=== PATIENT | male | born 1945 | race Caucasian/White ===

== ENCOUNTER 2024-05-24 08:43 | Inpatient (IN) ==
--- NOTE | 2024-05-24 09:12 | Emergency Department Note ---
Impression & Plan Acute alteration in mental status, End stage renal disease on dialysis, Cellulitis ED Provider Note NAME: FIFI LEYVA AGE: 78 SEX: M : 1945 ARRIVES VIA: Ambulance INFORMANT: Patient, EMS ED PROVIDER(S): Alban Toscano DO CHIEF COMPLAINT: Altered mental status HPI: The patient is a 78-year-old male who presented to the emergency department with altered mental status. The patient is not able to give any information but he did come from [facility] where he is currently getting inpatient rehab. He does have a history of renal failure dependent on dialysis. The patient is being treated for multiple wounds on both lower extremities. He did not have a full round of dialysis according to his prehospital personnel. There is no reported fever. There is no reported trauma. ROS: See above HPI for pertinent positives & negatives. A total of 10 systems reviewed and were otherwise negative. PAST MEDICAL HISTORY: See Below PAST SURGICAL HISTORY: See Below FAMILY HISTORY: See Below SOCIAL HISTORY: See Below HOME MEDICATIONS: See Below ALLERGIES: See Below VITALS: See Below PHYSICAL EXAMINATION: GENERAL: the patient is listless and slow to respond to questions. He does not respond appropriately. EYES: The conjunctivae are clear. The pupils are round and reactive. EARS, NOSE, MOUTH AND THROAT: The nose is without any evidence of any deformity. Mucous membranes are dry. NECK: The neck is nontender and supple. RESPIRATORY: Diminished breath sounds are noted throughout. CARDIOVASCULAR: Regular rate and rhythm noted there no murmurs rubs or gallops normal S1 normal S2. GASTROINTESTINAL: The abdomen is soft. Abdomen is nontender. MUSCULOSKELETAL/EXTREMITIES: There is no evidence of gross deformity full range of motion is noted in the hips and shoulders. SKIN: Chronic venous stasis changes were noted. Wound dressings were in place. There was some skin breakdown on the left arm. There is a dialysis catheter in the right side of the chest. NEUROLOGIC: Patient is awake to loud verbal commands. He does not answer questions appropriately. I am unable to assess orientation at this time. Strength was diminished. MEDICAL DECISION MAKING: The patient is a 78-year-old male who presented to the emergency department for an evaluation of altered mental status. The patient is currently at [facility]. The patient started having dialysis at the beginning of the year. He has multiple medical problems. Apparently his mental status has been declining especially over the course the last several days. He was sent to the emergency department today for further evaluation. I discussed the patient's laboratory and radiographic studies with the on-call [facility] hospitalist. The patient was treated with a small fluid bolus as well as IV antibiotics in emergency department. They have agreed to evaluate the patient in the emergency department for further management and disposition. Triage Nursing notes reviewed. Prior medical records reviewed Vital Signs: reviewed and remarkable for no significant abnormalities Differential diagnosis: Infection, hypoglycemia, electrolyte abnormalities, overdose, toxicologic, cardiac sources, intracerebral event, neurologic, trauma, as well as other pathologies. ER treatment provided: See below Diagnostics interpreted by me: ECG: EKG was obtained in the emergency department. My interpretation is sinus rhythm with first-degree AV block at 96 bpm. Right bundle branch block pattern was noted. Nonspecific ST depressions were noted. Cardiac Monitoring: An order was placed for continuous cardiac monitoring. The monitor shows a rate of 89 bpm with sinus rhythm. Laboratory studies: As stated above and show below. Imaging studies: See below. Radiographic imaging was reviewed by myself Consultation(s): I discussed this case with Dr. Gaines [facility] Past Med/Surg History Problem List (Updated 05/24/24 @ 11:58 by Alban Toscano DO) Cellulitis (Acute) Acute alteration in mental status (Acute) Wound of sacral region Multiple open wounds of upper extremity Multiple open wounds of lower extremity, complicated Insulin-requiring or dependent type II diabetes mellitus Severe aortic stenosis Acute on chronic systolic (congestive) heart failure Acute metabolic encephalopathy Severe sepsis due to methicillin resistant Staphylococcus aureus (MRSA) with acute organ dysfunction MRSA bacteremia Vascular dementia Peripheral arterial occlusive disease End stage renal disease on dialysis (Acute) Chronic systolic heart failure Medical History (Updated 05/24/24 @ 11:58 by Alban Toscano DO) Aortic stenosis CVA (cerebral vascular accident) DDD (degenerative disc disease) Hyperlipidemia Hypertension NSTEMI (non-ST elevated myocardial infarction) Diabetes Heart failure Renal failure Surgical History (Updated 05/24/24 @ 09:12 by Alban Toscano DO) History of total right hip arthroplasty Social History Smoking Status: Unknown if ever smoked Preferred Language: Guamanian Gender Identity: Male Allergies Allergies Allergy/AdvReac Type Severity Reaction Status Date / Time No Known Allergies Allergy Unverified 05/24/24 09:52 Home Meds Home Medications Medication Instructions Recorded Confirmed fenofibrate 160 mg tablet 160 mg PO DAILY 05/24/24 gabapentin 100 mg capsule 100 mg PO UD 05/24/24 insulin degludec 200 unit/mL (3 unit subcut 05/24/24 mL) subcutaneous pen (Tresiba FlexTouch U-200 insulin) midodrine 5 mg tablet 5 mg PO TID PRN Other 05/24/24 oxycodone 5 mg tablet 2.5 mg PO TID 05/24/24 sodium bicarbonate 650 mg tablet 650 mg PO DAILY 05/24/24 temazepam 30 mg capsule 30 mg PO HS PRN Insomnia 05/24/24 Results & Data (ED) Vital Signs Vital Signs - 24 hr 05/24/24 08:44 05/24/24 09:14 05/24/24 09:47 Temperature 37.3 C Temperature Source Rectal Pulse Rate 88 89 Respiratory Rate 13 Blood Pressure 90/69 L Blood Pressure Mean 76 Pulse Oximetry 99 Oxygen Delivery Method Nasal Cannula Nasal Cannula Oxygen Flow Rate 2 2 Sepsis Recent Fever Within 48 Hours No Sepsis New/Unexplained Change in Mental Status Yes Sepsis Action Taken by Nursing Physician Notified 05/24/24 10:00 Temperature Temperature Source Pulse Rate Respiratory Rate Blood Pressure 104/67 Blood Pressure Mean 83 Pulse Oximetry Oxygen Delivery Method Oxygen Flow Rate Sepsis Recent Fever Within 48 Hours Sepsis New/Unexplained Change in Mental Status Sepsis Action Taken by Jail Medications Current Medication List: was personally reviewed by me Laboratory Data Attestation: I reviewed the patient's lab results. 05/24/24 10:18 05/24/24 09:02 Lab Results 05/24/24 05/24/24 Range/Units 09:02 10:18 WBC 7.67 (4.8-10.8) K/ul RBC 2.51 L (4.70-6.10) M/uL Hgb 8.2 L (14.0-18.0) g/dl Hct 26.9 L (42.0-52.0) % MCV 107.2 H (80.0-100.0) fL MCH 32.7 (25.0-34.0) pg MCHC 30.5 L (32.0-36.0) g/dL RDW Std Deviation 75.6 H (36.4-46.3) fL RDW Coeff of Elayne 19.5 H (11.5-14.5) % Plt Count 161 (130-400) K/uL MPV 11.0 (9.4-12.4) fL Immature Gran % (Auto) 0.4 % Neut % (Auto) 75.7 % Lymph % (Auto) 10.0 % Darke % (Auto) 10.0 % Eos % (Auto) 3.1 % Baso % (Auto) 0.8 % Neut # (Auto) 5.80 (1.40-6.50) K/uL Lymph # (Auto) 0.77 L (1.20-3.40) K/uL Darke # (Auto) 0.77 H (0.11-0.59) K/uL Eos # (Auto) 0.24 (0.00-0.50) K/uL Baso # (Auto) 0.06 (0.00-0.20) K/uL Immature Gran # (Auto) 0.03 (0.01-0.20) K/uL Absolute Nucleated RBC 0.03 (0.00-0.12) K/uL Nucleated RBC % (auto) 0.4 % PT 14.9 H (9.0-12.0) Seconds INR 1.4 H (0.9-1.1) APTT 38 H (21-31) Seconds PTT Ratio 1.4 VBG pH 7.29 L (7.36-7.41) VBG pCO2 53 H (38-50) mmHg VBG pO2 55 mmHg VBG HCO3 26 mmol/L VBG O2 Saturation 84.9 % VBG Base Excess -1.9 mEq/L Sodium 134 L (136-145) mmol/L Potassium 5.5 H (3.5-5.1) mmol/L Chloride 94 L (98-107) mmol/L Carbon Dioxide 28 (21-32) mmol/L Anion Gap 12 H (3-11) BUN 82 H (6-23) mg/dl Creatinine 4.91 H* (0.6-1.4) mg/dl Est Cr Clr Drug Dosing 15.6 ml/min eGFR 11.41 BUN/Creatinine Ratio 16.7 (10-20) Glucose 111 H (70-99(Fasting)) mg/dl Lactate 1.4 (0.4-2.0) mmol/L Calcium 8.5 L (8.6-10.3) mg/dl Magnesium 2.0 (1.7-2.4) mg/dl Total Bilirubin 2.4 H (0.2-1.0) mg/dl Direct Bilirubin 1.6 H (0-0.2) mg/dl AST 39 (13-39) U/L ALT 20 (7-52) U/L Alkaline Phosphatase 86 (34-104) U/L Ammonia 46.0 (18-72) umol/L Troponin I High Sens 61.4 H* 66.7 H* (0-20) pg/ml Total Protein 6.1 (6.0-8.3) gm/dl Albumin 3.0 L (3.4-5.0) gm/dl Procalcitonin 3.12 H (0-0.5) ng/ml SARS-CoV-2 (PCR) NEGATIVE (Negative) Influenza Type A (PCR) Negative (Neg) Influenza Type B (PCR) Negative (Neg) RSV (RT-PCR) Negative (Neg) Administered Medications Discontinued Medications Sodium Chloride (Nss) 500 mls @ 999 mls/hr IV .Q31M ONE Stop: 05/24/24 10:40 Last Infusion: 05/24/24 11:32 Dose: Infused Documented By: Admin: 05/24/24 10:20 Dose: 999 mls/hr Documented By: CEF Piperacillin Sod/Tazobactam Sod (Zosyn) 4.5 gm in 100 mls @ 200 mls/hr IV NOW ONE; Protocol Stop: 05/24/24 10:39 Last Admin: 05/24/24 10:25 Dose: 200 mls/hr Documented By: CEF Imaging Data Attestation: I personally reviewed and interpreted this imaging study as follows: My Impression: 1 view chest x-ray was obtained in the emergency department. My interpretation is volume overload, final report below. CT of the brain was obtained in the emergency department. My interpretation is no intracranial hemorrhage or mass effect, final report below. Radiologist's Impression: Chest X-Ray 05/24/24 08:49 EXAM: Radiograph of the Chest 1 View INDICATION: Confusion TECHNIQUE: Frontal view of the chest. COMPARISON: No relevant prior studies available. FINDINGS: Lungs and pleural spaces: Patchy airspace disease and interstitial thickening in both lungs right greater than left. Small bilateral pleural effusions noted. No pneumothorax. Heart: Large cardiac shadow. Mediastinum: Question calcified subcarinal lymph node measuring 2 cm. Bones/joints: No fracture, erosion or dislocation. Soft tissues: No abnormality noted. No radiopaque foreign body noted. Tubes, lines and devices: Right internal jugular catheter terminates approximately 4.5 cm distal to the cavoatrial junction. Upper abdomen: No abnormality noted. IMPRESSION: 1. CHF and/or pneumonia. 2. Lines and tubes as above. 3. Question calcified subcarinal lymph node measuring 2 cm. ACT 112: N/A Electronically signed by Cheryl Carpenter 05-24-2024 10:[address] 05/24/24 08:49 EXAM: CT Head Without Intravenous Contrast INDICATION: Lethargy. Altered mental status. TECHNIQUE: Axial computed tomography images of the head/brain without intravenous contrast. Sagittal and/or coronal reformats are provided. Sagittal and coronal reformatted images were created and reviewed. This CT exam was performed using one or more of the following dose reduction techniques: automated exposure control, adjustment of the mA and/or kV according to patient size, and/or use of iterative reconstruction technique. COMPARISON: No relevant prior studies available. FINDINGS: Limitations: None. Brain and extra-axial spaces: There is age appropriate cortical atrophy and chronic ischemic periventricular white matter hypodensity. No acute infarct, hemorrhage or mass noted. Bones/joints: No acute changes. Soft tissues: No significant abnormality noted. Vasculature: There is intracranial atherosclerosis. Sinuses: Layering low-density fluid right maxillary sinus. Mastoid air cells: No mastoid effusion. Orbits: No significant abnormality noted. IMPRESSION: 1. Cerebral atrophy. No acute changes. 2. Partially imaged acute right maxillary sinusitis. ACT 112: N/A Electronically signed by Cheryl Carpenter 05-24-2024 10:00 AM Discharge Plan Visit Data Chief Complaint: Altered Mental Status Stated Complaint: AMS, LATHARGIC ED Provider: Alban Toscano Discharge Problem: Acute alteration in mental status, End stage renal disease on dialysis, Cellulitis Patient Disposition: Being Evaluated by Hospitalist Forms Stand Alone Forms: [facility] Prescriptions Prescriptions: No Action midodrine 5 mg tablet 5 mg PO TID PRN (Reason: Other) Rx Instructions: only take if systolic bp below 80 temazepam 30 mg capsule 30 mg PO HS PRN (Reason: Insomnia) sodium bicarbonate 650 mg tablet 650 mg PO DAILY gabapentin 100 mg capsule 100 mg PO UD Rx Instructions: 1 cap po hs. Can take additional 1 cap 3 days a week in afternoon after hemodialysis oxycodone 5 mg tablet 2.5 mg PO TID MDD 1.5 tabs fenofibrate 160 mg tablet 160 mg PO DAILY insulin degludec [Tresiba FlexTouch U-200] 200 unit/mL (3 mL) insulin pen SUBCUT Referrals Referrals: Eva Hernandez MD [Primary Care Provider] -
[2024-05-24 09:50] LABS: BUN Creatinine Ratio 16.7 (10-20); Bilirubin Direct 1.6 mg/dl (0-0.2); Bilirubin,Total 2.4 mg/dl (0.2-1.0); Calcium 8.5 mg/dl (8.6-10.3); Creatinine Clr Calc Pharmacy 15.6 ml/min; Potassium 5.5 mmol/L (3.5-5.1); Total Protein 6.1 gm/dl (6.0-8.3)
[2024-05-24 09:53] LABS: Influenza A virus by PCR Negative (Neg); Influenza B virus by PCR Negative (Neg); RSV by PCR Negative (Neg); SARS CoV2 RNA(COVID-19) Ceph NEGATIVE (Negative)
[2024-05-24 09:56] LABS: Troponin I High Sensitivity 61.4 pg/ml (0-20)
--- NOTE | 2024-05-24 10:00 | CT Scan Report ---
EXAM: CT Head Without Intravenous Contrast INDICATION: Lethargy. Altered mental status. TECHNIQUE: Axial computed tomography images of the head/brain without intravenous contrast. Sagittal and/or coronal reformats are provided. Sagittal and coronal reformatted images were created and reviewed. This CT exam was performed using one or more of the following dose reduction techniques: automated exposure control, adjustment of the mA and/or kV according to patient size, and/or use of iterative reconstruction technique. COMPARISON: No relevant prior studies available. FINDINGS: Limitations: None. Brain and extra-axial spaces: There is age appropriate cortical atrophy and chronic ischemic periventricular white matter hypodensity. No acute infarct, hemorrhage or mass noted. Bones/joints: No acute changes. Soft tissues: No significant abnormality noted. Vasculature: There is intracranial atherosclerosis. Sinuses: Layering low-density fluid right maxillary sinus. Mastoid air cells: No mastoid effusion. Orbits: No significant abnormality noted. IMPRESSION: 1. Cerebral atrophy. No acute changes. 2. Partially imaged acute right maxillary sinusitis. ACT 112: N/A Electronically signed by Cheryl Carpenter 05-24-2024 10:00 AM
--- NOTE | 2024-05-24 10:05 | XRay Report ---
EXAM: Radiograph of the Chest 1 View INDICATION: Confusion TECHNIQUE: Frontal view of the chest. COMPARISON: No relevant prior studies available. FINDINGS: Lungs and pleural spaces: Patchy airspace disease and interstitial thickening in both lungs right greater than left. Small bilateral pleural effusions noted. No pneumothorax. Heart: Large cardiac shadow. Mediastinum: Question calcified subcarinal lymph node measuring 2 cm. Bones/joints: No fracture, erosion or dislocation. Soft tissues: No abnormality noted. No radiopaque foreign body noted. Tubes, lines and devices: Right internal jugular catheter terminates approximately 4.5 cm distal to the cavoatrial junction. Upper abdomen: No abnormality noted. IMPRESSION: 1. CHF and/or pneumonia. 2. Lines and tubes as above. 3. Question calcified subcarinal lymph node measuring 2 cm. ACT 112: N/A Electronically signed by Cheryl Carpenter 05-24-2024 10:04 AM
[2024-05-24 10:08] LABS: INR 1.4 (0.9-1.1); Partial Thromboplastin Ratio 1.4; Partial Thromboplastin Time 38 Seconds (21-31); Prothrombin Time 14.9 Seconds (9.0-12.0)
[2024-05-24] MEDS: SODIUM CHLORIDE 0.9% 500 ML IV ONE (10:20)
[2024-05-24] MEDS: PIPERACILLIN/TAZOBACTAM 4.5 GM/100 ML BAG IV ONE (10:25)
[2024-05-24 10:29] LABS: Base Excess VBG -1.9 mEq/L; HCO3 VBG 26 mmol/L; Oxygen Saturation VBG 84.9 %; PCO2 VBG 53 mmHg (38-50); PO2 VBG 55 mmHg; pH VBG 7.29 (7.36-7.41)
[2024-05-24 10:36] LABS: Basophils # (auto) 0.06 K/uL (0.00-0.20); Basophils % (auto) 0.8 %; Eosinophils # (auto) 0.24 K/uL (0.00-0.50); Eosinophils % (auto) 3.1 %; Hematocrit (blood only) 26.9 % (42.0-52.0); Hemoglobin 8.2 g/dl (14.0-18.0); Immature Granulocytes # (auto) 0.03 K/uL (0.01-0.20); Immature Granulocytes % (auto) 0.4 %; Lymphocytes # (auto) 0.77 K/uL (1.20-3.40); Mean Corpuscular Hemoglobin 32.7 pg (25.0-34.0); Mean Corpuscular Hgb Conc 30.5 g/dL (32.0-36.0); Mean Corpuscular Volume 107.2 fL (80.0-100.0); Monocytes # (auto) 0.77 K/uL (0.11-0.59); Neutrophils % (auto) 75.7 %; Nucleated RBC # (auto) 0.03 K/uL (0.00-0.12); Nucleated RBC % (auto) 0.4 %; Platelet Count 161 K/uL (130-400); RDW Coefficient of Variation 19.5 % (11.5-14.5); RDW Standard Deviation 75.6 fL (36.4-46.3); Red Blood Count 2.51 M/uL (4.70-6.10); White Blood Count 7.67 K/ul (4.8-10.8)
[2024-05-24] MEDS ORDERED: VANCOMYCIN CONSULT ACTIVE PRN (11:02)
[2024-05-24] MEDS: VANCOMYCIN HCL 2,000 MG in SODIUM CHLORIDE 0.9% 500 ML IV ONE (11:55)
--- NOTE | 2024-05-24 11:55 | History & Physical Report ---
Date of Service May 24, 2024 Assessment & Plan (1) Severe sepsis due to methicillin resistant Staphylococcus aureus (MRSA) with acute organ dysfunction: (2) Acute metabolic encephalopathy: (3) Acute on chronic systolic (congestive) heart failure: (4) Severe aortic stenosis: (5) Insulin-requiring or dependent type II diabetes mellitus: (6) Peripheral arterial occlusive disease: (7) Multiple open wounds of lower extremity, complicated: (8) Multiple open wounds of upper extremity: (9) Wound of sacral region: (10) End stage renal disease on dialysis: (11) Vascular dementia: Plan Patient is a 78-year-old gentleman end-stage renal disease on hemodialysis critically ill from presumed sepsis at this point. Based on patient's previous history, high concern for MRSA bacteremia from multiple skin wounds and possible osteomyelitis of the left foot. Patient is demonstrating endorgan effects from his sepsis with hypotension above and beyond his baseline, disorientation and confusion and encephalopathy. Patient requires hospital level care and monitoring. He is at high risk for further decompensation as medical conditions and high risk of more significant morbidity and mortality. Admit to a monitored unit Broad-spectrum antibiotics Follow blood cultures MRI of the foot to rule out osteomyelitis Consult podiatry for further evaluation of foot wounds Consult wound care nurse for overall care of his multiple wounds Consult nephrology for hemodialysis needs Reviewing patient's medication list on several medications that could alter mental status including gabapentin, lorazepam, temazepam-will hold these medications and observe. Continue long-acting and short acting insulin, consult pharmacy for diabetes management Continue midodrine for blood pressure support as prior to admission Confirm with daughter full CODE STATUS History of Present Illness Chief Complaint: Encephalopathy Primary Care Provider: Eva Hernandez MD Patient is a 78-year-old gentleman who is chronically ill and currently at [facility] for rehabilitation. Send [facility] emergency department due to the fact that he seemed to be more confused this morning. He did not eat his meals this morning and seem to have been declining over the last 24 hours. In the emergency room he was initially mildly hypotensive and was worked up for sepsis. Laboratory studies were significant for electrolyte abnormalities and renal dysfunction consistent with his end-stage renal disease. Troponin was elevated but lower than he had previously based on documents sent from [facility]. Procalcitonin was elevated, difficult to interpret in the setting of his end-stage renal disease. Head CT was unremarkable for acute findings. Chest x-ray was concerning for volume overload. Due to the patient's encephalopathy and diffuse and numerous wounds on the legs and arms concern for sepsis due to these wounds and was referred to our service for further evaluation. Time my evaluation the patient is confused and unable to contribute to his history at all. I did review documents from [facility]. Patient's daughter then did arrive at the bedside. She was able to give some additional history. Patient health started to decline significantly at the beginning of this year. He was started on hemodialysis in February. Patient had known wounds on his feet and apparently was on several courses of oral antibiotics in February and early March for foot wound infections. In March he had a hospitalization at [facility] for MRSA bacteremia from his foot wounds. He was treated with IV antibiotics through dialysis. He was discharged home and completed his antibiotics outpatient from that hospitalization. Shortly thereafter he returned to [facility] in early April for severe weakness and ambulatory dysfunction. He was again admitted to the hospital. According to his daughter they did not seem to find any infectious process at that time however, the patient was just severely deconditioned. The patient was transferred to [facility] rehab on May 16, 2024 for rehabilitation. [facility] that time. Throughout the course of these hospitalizations the patient did have evaluations by podiatry. He did have vascular evaluation of the left lower extremity. He was deemed to be not a candidate for vascular surgery intervention on the day of left lower extremity due to his overall medical issues. Known to have decreased ejection fraction of approximately 30 to 35% and significant aortic stenosis. He is deemed not a candidate for any type of cardiac interventions as well. He has continued with hemodialysis. It is reported on Saturday his last hemodialysis session they were unable to remove any fluid and sounds like they did ultrafiltration only due to the fact that he was hypotensive. Daughter at the bedside states that over the past several months they have had problems maintaining adequate blood pressure. He is on midodrine. She states that he often gets hypotensive overnight and wakes up extremely confused and disoriented in the morning. She states that he appears very similar today as to when this occurs. She states at baseline his orientation can wax and wane. He does have some slurred speech at baseline. Does have a history of previous stroke. She also reports that he is exhibiting signs of vascular dementia with "sundowning" symptoms occurring in the evening's. Daughter did confirm full CODE STATUS Allergies Allergy/AdvReac Type Severity Reaction Status Date / Time No Known Allergies Allergy Unverified 05/24/24 09:52 Home Medications Medication Instructions Recorded Confirmed Type fenofibrate 160 mg tablet 160 mg PO DAILY 05/24/24 History gabapentin 100 mg capsule 100 mg PO UD 05/24/24 History insulin degludec 200 unit/mL (3 unit subcut 05/24/24 History mL) subcutaneous pen (Tresiba FlexTouch U-200 insulin) midodrine 5 mg tablet 5 mg PO TID PRN Other 05/24/24 History oxycodone 5 mg tablet 2.5 mg PO TID 05/24/24 History sodium bicarbonate 650 mg tablet 650 mg PO DAILY 05/24/24 History temazepam 30 mg capsule 30 mg PO HS PRN Insomnia 05/24/24 History Past Med/Surg History Problem List (Updated 05/24/24 @ 11:48 by Castillo Ervin DO) Wound of sacral region Multiple open wounds of upper extremity Multiple open wounds of lower extremity, complicated Insulin-requiring or dependent type II diabetes mellitus Severe aortic stenosis Acute on chronic systolic (congestive) heart failure Acute metabolic encephalopathy Severe sepsis due to methicillin resistant Staphylococcus aureus (MRSA) with acute organ dysfunction MRSA bacteremia Vascular dementia Peripheral arterial occlusive disease End stage renal disease on dialysis Chronic systolic heart failure Medical History (Updated 05/24/24 @ 11:48 by Castillo Ervin DO) Aortic stenosis CVA (cerebral vascular accident) DDD (degenerative disc disease) Hyperlipidemia Hypertension NSTEMI (non-ST elevated myocardial infarction) Diabetes Heart failure Renal failure Surgical History (Updated 05/24/24 @ 09:12 by Alban Toscano DO) History of total right hip arthroplasty Social History Smoking Status: Unknown if ever smoked Preferred Language: Setswana Gender Identity: Male Review of Systems Review of Systems: Unobtainable from patient due to his encephalopathy Physical Exam Physical Exam: Constitutional: Drowsy, ill in appearance, delirious HEENT: Mucous membranes dry. Sclera clear Neck: Soft, no adenopathy Lungs: Decreased breath sounds, diffuse Rales and crackles throughout CV: S1-S2, regular, systolic murmur Abdomen: Soft, nontender, nondistended, abdominal pannus edema Extremities: Thick pitting anasarca edema lower extremities up through the thighs into dependent portions of the sacrum Musculoskeletal: No significant joint tenderness Neuro: Generally weak, slurred speech, disoriented Psych: Cooperative Derm: Patient has multiple arterial wound ulcerations of the left foot with thick eschars and surrounding erythema. Multiple other ulcerations/wounds/skin tears/abrasions on upper and lower extremities and sacrum Results & Data Results & Data Vital Signs (Past 12 Hours) Vital Signs Temp Pulse Resp BP Pulse Ox O2 Del Method O2 Flow Rate 05/24/24 10:00 104/67 05/24/24 09:47 Nasal Cannula 2 05/24/24 09:14 89 05/24/24 08:44 37.3 C 88 13 90/69 L 99 Nasal Cannula 2 Diagnostic Findings Reviewed imaging, laboratory and diagnostic studies. Pertinent findings as below. Personally reviewed chest x-ray, bilateral pulmonary congestion Reviewed head CT report, evidence of previous infarct, no acute changes Respiratory viral panel negative Procalcitonin 3.1 Troponin 66.7, this is lower than previously reported Creatinine 4.9 BUN 82 Potassium 5.5 Sodium 134 Venous blood gas reviewed INR 1.4 WBCs 7.6 Hemoglobin 8.2 Platelets of 161 Reviewed outside EMR, previous encounters in [facility] or from 2022. This was prior to patient starting hemodialysis. Extensively reviewed documents sent from [facility]. Reviewed attending physician notes. Reviewed medication list. Reviewed laboratory studies, reviewed echocardiogram report. Reported echocardiogram shows ejection fraction 30 to 35%, severe aortic stenosis, grade 2 diastolic dysfunction, diffuse global hypokinesis. Left lower extremity angiogram performed April 2024 did show some stenosis, however not a candidate for any type of vascular intervention due to his significant cardiac comorbidity. Previous troponins have been as high as 2147. Code Status & VTE Plan VTE Prophylaxis Plan VTE Prophylaxis will be ordered: Yes
--- OUTSIDE RECORDS SUMMARY | 2024-05-24 13:39 | External Medical Summary ---
Author Name Unknown Address Unknown Organization [id number]:[facility] [address] [place] [address] Laboratory Report Ordering Provider Test Date Status HY,DEPAMPHILIS 05/24/2024 06:18:36 Final Observation Date Value Abnormality Reference (Units ) Status BUN 05/24/2024 06:18:36 80 Above high normal 6-20 (mg/dL) Final Creatinine 05/24/2024 06:18:36 4.5 Above high normal 0.6-1.2 (mg/dL) Final Glomerular filtration rate/1.73 sq M.predicted [Volume Rate/Area] in Serum, Plasma or Blood by Creatinine-based formula (CKD-EPI) 05/24/2024 06:18:36 13 Below low normal >=60 (mL/min) Final eGFR is calculated based on the CKD-EPI 2020 equation. Sodium 05/24/2024 06:18:36 133 Below low normal 135 -146 (mmol/L) Final Potassium 05/24/2024 06:18:36 5.4 Above high normal 3. 5-5.1 (mmol/L) Final Cl 05/24/2024 06:18:36 94 Below low normal 98- 107 (mmol/L) Final CO2 05/24/2024 06:18:36 25 22-32 (mmo l/L) Final Anion gap 05/24/2024 06:18:36 14 7-15 (mmol /L) Final Glucose 05/24/2024 06:18:36 104 70-120 (mg /dL) Final Calcium 05/24/2024 06:18:36 8.6 8.4-10.2 ( mg/dL) Final Performing Location [facility] [address] [place] [id number]
--- OUTSIDE RECORDS SUMMARY | 2024-05-24 13:39 | External Medical Summary ---
Author Name Unknown Address Unknown Organization [id number]:[facility] [address] [place] [address] Laboratory Report Ordering Provider Test Date Status HY,DEPAMPHILIS 05/24/2024 06:18:36 Final Observation Date Value Abnormality Reference (Units ) Status WBC, Total 05/24/2024 06:18:36 8.11 4.00-10.8 0 (K/uL) Final RBC 05/24/2024 06:18:36 2.60 4.50-5.25 (M/uL) Final Hemoglobin 05/24/2024 06:18:36 8.6 Below low normal 14 .0-16.8 (g/dL) Final HCT 05/24/2024 06:18:36 28.5 Below low normal 40. 0-48.4 (%) Final MCV 05/24/2024 06:18:36 109.6 82.0-99.5 (fL) Final MCH 05/24/2024 06:18:36 33.1 27.0-34.0 (pg) Final MCHC 05/24/2024 06:18:36 30.2 32.0-36.0 (g/dL) Final RDW 05/24/2024 06:18:36 19.9 11.5-15.5 (%) Final Platelets 05/24/2024 06:18:36 168 140-400 (K /uL) Final MPV 05/24/2024 06:18:36 10.9 6.6-11.1 ( fL) Final Performing Location [facility] [address] [place] [address]
--- OUTSIDE RECORDS SUMMARY | 2024-05-24 13:39 | External Medical Summary ---
Author Name Unknown Address Unknown Organization K01:[facility] - [address] [place] [address] Laboratory Report Ordering Provider Test Date Status NORMAN GIRON 05/17/2024 07:51:43 Final Observation Date Value Abnormality Reference (Units ) Status Hep B surface Ag 05/17/2024 07:51:43 Negative Neg ative Final Performing Location [facility] - [address] [place] [address]
--- OUTSIDE RECORDS SUMMARY | 2024-05-24 13:39 | External Medical Summary ---
Author Name Unknown Address Unknown Organization [id number]:LAB[facility]ATORY [facility] [place] - [address] [place] [address] Laboratory Report Ordering Provider Test Date Status NORMAN GIRON 05/17/2024 07:51:43 Final Observation Date Value Abnormality Reference (Units ) Status Iron 05/17/2024 07:51:43 113 45-176 (ug/dL) Final Iron-binding capacity 05/17/2024 07:51:43 218 Below low normal 250-425 (ug/dL) Final Transferrin Sat % 05/17/2024 07:51:43 52 15-55 (%) Final Performing Location LABORATORY [facility] - [address] [place] [address]
--- OUTSIDE RECORDS SUMMARY | 2024-05-24 13:40 | External Medical Summary ---
Author Name Unknown Address Unknown Organization [id number] [address] [place] [address] Laboratory Report Ordering Provider Test Date Status HY,DEPAMPHILIS 05/17/2024 07:51:43 Final Observation Date Value Abnormality Reference (Units ) Status BUN 05/17/2024 07:51:43 56 Above high normal 6-20 (mg/dL) Final Creatinine 05/17/2024 07:51:43 4.8 Above high normal 0.6-1.2 (mg/dL) Final Glomerular filtration rate/1.73 sq M.predicted [Volume Rate/Area] in Serum, Plasma or Blood by Creatinine-based formula (CKD-EPI) 05/17/2024 07:51:43 12 Below low normal >=60 (mL/min) Final eGFR is calculated based on the CKD-EPI 2020 equation. Sodium 05/17/2024 07:51:43 131 Below low normal 135 -146 (mmol/L) Final Potassium 05/17/2024 07:51:43 4.9 3.5-5.1 (m mol/L) Final Cl 05/17/2024 07:51:43 90 Below low normal 98- 107 (mmol/L) Final CO2 05/17/2024 07:51:43 23 22-32 (mmo l/L) Final Anion gap 05/17/2024 07:51:43 18 Above high normal 7- 15 (mmol/L) Final Glucose 05/17/2024 07:51:43 208 Above high normal 70 -120 (mg/dL) Final Calcium 05/17/2024 07:51:43 8.7 8.4-10.2 ( mg/dL) Final Performing Location [facility] [place] [address] [place] [address]
--- OUTSIDE RECORDS SUMMARY | 2024-05-24 13:40 | External Medical Summary ---
Author Name Unknown Address Unknown Organization K01:[facility] - [address] [place] [address] Laboratory Report Ordering Provider Test Date Status NORMAN GIRON 05/17/2024 07:51:43 Final Observation Date Value Abnormality Reference (Units ) Status Ferritin 05/17/2024 07:51:43 960 Above high normal 30 -400 (ng/mL) Final Performing Location [facility] - [address] [place] [address]
--- OUTSIDE RECORDS SUMMARY | 2024-05-24 13:40 | External Medical Summary ---
Author Name Unknown Address Unknown Organization K0G:[facility] [address] [place] [address] Laboratory Report Ordering Provider Test Date Status HY,DEPAMPHILIS 05/17/2024 07:51:43 Final Observation Date Value Abnormality Reference (Units ) Status WBC, Total 05/17/2024 07:51:43 7.61 4.00-10.8 0 (K/uL) Final RBC 05/17/2024 07:51:43 2.71 4.50-5.25 (M/uL) Final Hemoglobin 05/17/2024 07:51:43 9.0 Below low normal 14 .0-16.8 (g/dL) Final HCT 05/17/2024 07:51:43 29.1 Below low normal 40. 0-48.4 (%) Final MCV 05/17/2024 07:51:43 107.4 82.0-99.5 (fL) Final MCH 05/17/2024 07:51:43 33.2 27.0-34.0 (pg) Final MCHC 05/17/2024 07:51:43 30.9 32.0-36.0 (g/dL) Final RDW 05/17/2024 07:51:43 18.7 11.5-15.5 (%) Final Platelets 05/17/2024 07:51:43 210 140-400 (K /uL) Final MPV 05/17/2024 07:51:43 10.8 6.6-11.1 ( fL) Final Performing Location [facility] [address] [place] [address]
--- OUTSIDE RECORDS SUMMARY | 2024-05-24 13:40 | External Medical Summary ---
Author Name Unknown Address Unknown Organization K01:[facility]ATORY [facility] - [address] [place] [address] Laboratory Report Ordering Provider Test Date Status FABIENNE GIRONSHITAL 05/17/2024 07:51:43 Final Observation Date Value Abnormality Reference (Units ) Status Phosphate 05/17/2024 07:51:43 5.4 Above high normal 2. 5-4.8 (mg/dL) Final Performing Location [facility] - [address] [place] [address]
--- NOTE | 2024-05-24 14:00 | XRay Report ---
EXAM: Radiographs of the Orbits Foreign Body INDICATION: MRI clearance TECHNIQUE: Frontal view(s) of the orbits. COMPARISON: No relevant prior studies available. FINDINGS: Bones/joints: No fracture, erosion or dislocation. Sinuses: Moderate air-fluid level in the right maxillary sinus. Soft tissues: Aside from dental fillings and bilateral hearing aids, no foreign body noted. IMPRESSION: 1. Aside from dental fillings and bilateral hearing aids, no foreign body noted. 2. Right maxillary sinusitis. ACT 112: N/A Electronically signed by Cheryl Carpenter 05-24-2024 2:00 PM
[2024-05-24] MEDS ORDERED: ONDANSETRON INJ 2 MG/ML 2 ML VIAL IV PRN (14:18)
[2024-05-24] MEDS ORDERED: DEXTROSE 50% 50 ML SYRINGE IV PRN (14:18)
[2024-05-24] MEDS ORDERED: OLANZapine 10 MG/2.1 ML SDV IM PRN (14:18)
[2024-05-24] MEDS ORDERED: GLUCOSE 10 TAB/TUBE PO PRN (14:18)
[2024-05-24] MEDS ORDERED: GLUCAGON FOR INJ 1 MG VIAL SQ PRN (14:18)
[2024-05-24] MEDS ORDERED: GLUCOSE 40% GEL 15 GM TUBE PO PRN (14:18)
[2024-05-24] MEDS ORDERED: PHARMACY GLYCEMIC MGMT CONSULT PRN (14:18)
[2024-05-24] MEDS ORDERED: CARBOHYDRATES FOR HYPOGLYCEMIA PO PRN (14:18)
--- NOTE | 2024-05-24 14:20 | Pharmacy Report ---
Pharmacy PK ABX Note - Date of Service May 24, 2024 - Assessment and Plan Assessment * 78 year old M on vancomycin for treatment of sepsis 2nd cellulitis r/o osteomyelitis. ED status at this time - ongoing inpatient orders pending. * Pertinent microbiologic data includes: Positive MRSA Nasal Swab * PMH: dialysis dependent since February, recent hx MRSA bacteremia at OSH, recently at [facility] May 16 up until admission here, severe aortic stenosis, dementia, Vancomycin * Will dose via level for HD patient * Target pre-HD level 15-20 mcg/mL * Unclear HD plan for today. Plan Vancomycin * Loading dose: 2000 mg IV x 1 * Random level ordered for tomorrow AM * May need supplemental dose later today if dialyzed. Pending order for later this evening for RN to call pharmacy if patient receives HD Pharmacy will continue to follow and will adjust dose/frequency as necessary. Thank you. Pharmacy has transitioned to AUC monitoring for vancomycin. AUC/CHRIS is the preferred PK/PD target and is associated with decreased risk of nephrotoxicity compared to traditional trough targets.
--- NOTE | 2024-05-24 14:39 | Pharmacy Report ---
Pharmacy Glycemic Short Note 2 - Date of Service May 24, 2024 - Glycemic Short BSG Results (Last 24 hours): 05/24/24 05/24/24 09:02 13:51 Glucose 111 H POC Glucose 130 H OUTPATIENT ANTIDIABETIC REGIMEN: * NovoLog sliding scale, 0-10 units based on blood sugar per med rec * per outpatient fill history - patient on Tresiba, filled in Mar 2024 * A1c pending ASSESSMENT: * 78 YO M, ESRD on HD, critically ill from presumed sepsis, high concern for MRSA bacteremia from multiple skin wounds, possible osteo of left foot on IV Vancomycin. * Type 2 DM, unknown control, A1c pending, patient unable to report how he takes any insulin at this time. * Will begin patient on NovoLog CF & CR only and PRN basal tonight if needed and titrate to goal blood sugar. PLAN FOR INPATIENT GLYCEMIC CONTROL: * Basal insulin * Lantus 15 units SQ HS for BSG 180mg/dl or greater only * Bolus insulin * NovoLog per scale ACHS or Q6hrs while NPO * Goal Range: Low 110 mg/dL - High 140 mg/dL * Correction Factor: 30 mg/dL/unit * Nutritional / Prandial insulin per carb ratio of 1 unit per 12 grams CHO consumed
[2024-05-24] MEDS: MIDODRINE HCL 10 MG TAB PO SCH (15:32)
[2024-05-24] MEDS: MIDODRINE HCL 10 MG TAB PO STA (15:32)
[2024-05-24] MEDS: INSULIN ASPART PER UNIT CHARGE SC SCH (15:33)
[2024-05-24] MEDS: HEPARIN SOD 5,000 UNIT/0.5 ML VIAL SQ SCH (15:36)
--- NOTE | 2024-05-24 16:49 | Nephrology Consultation ---
Date of Consultation May 24, 2024 Assessment & Plan (1) End stage renal disease on dialysis: On Saturday hemodialysis at least at rehab and will plan dialysis for tomorrow. Do not believe that he could go longer without therapy. Outside dialysis labs from May 17: Phosphorus 5.4, TSAT 52%, ferritin 960 Midodrine with dialysis 10 mg and prn albumin Continue Saturday treatment plan >> for tomorrow HD 3.75 hr w/ 350/500 flows and up to 4L UF as tolerated Given location of the catheter on x-ray, suggest vascular consultation for possible repositioning/exchange as indicated Evaluate/rule out CLABSI--which should be covered by empiric vancomycin and pip-tazo >>will make him NPO at tx though doubt w/ him on plavix that he will be able to go to OR before 05/26 if needed; may need TDC exchange anyway if recurrent MRSA bacteremia -continue renal diet w/ fluid limit otherwise Rationale for vascular consultation and suggestion of n.p.o. status /consideration of holding plavix as well as timing of dialysis discussed with Dr. Gaines via [place] text; we are in agreement. (2) Acute on chronic systolic (congestive) heart failure: Volume overload with anasarca and pulmonary edema: Will attempt as aggressive as tolerated UF tomorrow with Midodrine on board Started fluid limit of 1.2 L daily (3) Multiple open wounds of lower extremity, complicated: On empiric vancomycin and pip-tazo Follow-up wound care consults (4) Anemia in ESRD (end-stage renal disease): On May 17, TSAT 52% and ferritin 960. Hemoglobin today 8.2 No iron therapy indicated with treatment but will give max dose epo History of Present Illness Reason for Consultation: ESRD/HD - encephalopathy, anasarca Requesting Physician: Dr Ervin Attending Physician: Castillo Ervin, DO History of Present Illness 78-year-old male whom I am asked to evaluate for ESRD on dialysis with encephalopathy and anasarca was admitted today from rehab with concerns for sepsis after developing lethargy and new hypoxia in the setting of concern for left foot osteomyelitis or other infection. 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 He started hemodialysis in February 2024. Prior to rehab, he had 2 recent hospital admissions: 1. [facility] April 16 to 2024 for lower extremity wound on the left with MRSA bacteremia 2. April 30 to the 2024 [facility] with ambulatory dysfunction and acute metabolic encephalopathy. Ejection fraction at that hospitalization noted to be 30 to 35% with severe aortic stenosis and moderate aortic insufficiency. My partner had evaluated the patient at rehab on May 21 and noted that the patient was confused at that time and complained of diffuse pain with 3+ edema in left foot infection noted. Broad-spectrum antibiotics were begun once cultures were collected. MRI of the foot is planned and both podiatry and wound care have been consulted. Allergies Allergy/AdvReac Type Severity Reaction Status Date / Time No Known Allergies Allergy Unverified 05/24/24 09:52 Home Medications Medication Instructions Recorded Confirmed Type acetaminophen 325 mg tablet 650 mg PO Q4H PRN Pain 05/24/24 05/24/24 History acetaminophen 500 mg tablet 500 mg PO Q4H PRN TEMP=>100.5 05/24/24 05/24/24 History atorvastatin 40 mg tablet 80 mg PO HS 05/24/24 05/24/24 History bisacodyl 10 mg rectal suppository 10 mg SC DAILY PRN Constipation 05/24/24 05/24/24 History cholecalciferol (vitamin D3) 50 50 mcg PO DAILY 05/24/24 05/24/24 History mcg (2,000 unit) capsule (Vitamin D3) clopidogrel 75 mg tablet (Plavix) 75 mg PO DAILY 05/24/24 05/24/24 History collagenase clostridium histo. 250 1 applic topical .MON,SAT,Saturday05/24/24 05/24/24 History unit/gram topical ointment darbepoetin mary jane in polysorbat 60 60 mcg subcut WK 05/24/24 05/24/24 History mcg/0.3 mL in polysorbate injection syringe (Aranesp) dextrose 50 % in water (D50W) 12.5 g IV DIRECTED PRN 05/24/24 05/24/24 History Hypoglycemia dextrose 50 % in water (D50W) 50 ml IV DIRECTED PRN 05/24/24 05/24/24 History Hypoglycemia diphenhydramine HCl 12.5 mg IV DIRECTED PRN DIALYSIS 05/24/24 05/24/24 History docusate sodium 100 mg capsule 100 mg PO BID PRN Constipation 05/24/24 05/24/24 History enoxaparin 30 mg/0.3 mL 30 mg subcut DAILY 05/24/24 05/24/24 History subcutaneous syringe fenofibrate 160 mg tablet 145 mg PO DAILY 05/24/24 05/24/24 History gabapentin 100 mg capsule 100 mg PO .MON,SAT,Saturday05/24/24 05/24/24 History gabapentin 100 mg capsule 100 mg PO Q12H 05/24/24 05/24/24 History glucagon 1 mg solution for 1 mg IM DIRECTED PRN 05/24/24 05/24/24 History injection Hypoglycemia heparin (porcine) 1,000 unit/mL 1,800 unit IV DIRECTED PRN 05/24/24 05/24/24 History injection solution DIALYSIS insulin aspart U-100 100 unit/mL 1 sliding scale dose subcut 05/24/24 05/24/24 History (3 mL) subcutaneous pen (Novolog USEASDIRECTD FlexPen U-100 Insulin aspart) lorazepam 0.5 mg tablet (Ativan) 0.5 mg PO Q6H PRN Agitation 05/24/24 05/24/24 History midodrine 5 mg tablet 10 mg PO TID 05/24/24 05/24/24 History ondansetron HCl 4 mg tablet 4 mg PO Q6H PRN N/V 05/24/24 05/24/24 History oxycodone 5 mg tablet 2.5 mg PO Q6H PRN Pain 05/24/24 05/24/24 History pantoprazole 40 mg tablet,delayed 40 mg PO DAILY 05/24/24 05/24/24 History release (Protonix) polyethylene glycol 3350 17 17 g PO .LUNCH PRN Constipation 05/24/24 05/24/24 History gram/dose oral powder (Miralax) sennosides 8.6 mg-docusate sodium 1 tab-cap PO .LUNCH PRN 05/24/24 05/24/24 History 50 mg tablet (Senokot-S) Constipation sodium chloride 0.9 % (flush) 1,000 ml IV DIRECTED 05/24/24 05/24/24 History sodium phosphates 19 gram-7 118 ml SC DAILY PRN Constipation 05/24/24 05/24/24 History gram/118 mL enema (Enema) Patient History Medical History (Updated 05/24/24 @ 16:50 by Khadra Whipple MD, PhD) Aortic stenosis CVA (cerebral vascular accident) DDD (degenerative disc disease) Hyperlipidemia Hypertension NSTEMI (non-ST elevated myocardial infarction) Diabetes Heart failure Renal failure Surgical History (Updated 05/24/24 @ 09:12 by Alban Toscano DO) History of total right hip arthroplasty Social History Smoking Status: Unknown if ever smoked Preferred Language: Slovenian Gender Identity: Male Results & Data Vital Signs (Past 12 Hours) Vital Signs Temp Pulse Resp BP Pulse Ox O2 Del Method O2 Flow Rate 05/24/24 14:32 Nasal Cannula 2 05/24/24 13:00 87 12 91/65 L 100 Nasal Cannula 2 05/24/24 12:45 93 H 17 99/64 L 100 Nasal Cannula 2 05/24/24 12:30 95/63 L 05/24/24 12:27 86 16 100 Nasal Cannula 2 05/24/24 12:15 97/60 L 05/24/24 12:09 87 14 100 Nasal Cannula 2 05/24/24 12:01 93/61 L 05/24/24 12:00 86 20 100 Nasal Cannula 2 05/24/24 11:33 87 20 05/24/24 11:31 94/67 L 05/24/24 11:27 84 22 05/24/24 11:15 92/69 L 05/24/24 11:06 84 10 L 05/24/24 11:00 100/64 05/24/24 10:57 84 13 05/24/24 10:46 96/67 L 05/24/24 10:00 104/67 05/24/24 09:47 Nasal Cannula 2 05/24/24 09:14 89 05/24/24 08:44 37.3 C 88 13 90/69 L 99 Nasal Cannula 2 Laboratory Results 05/24/24 10:18 05/24/24 09:[address] notable for cerebral atrophy without acute process apart from partially imaged acute right maxillary sinusitis. Chest x-ray remarkable for right IJ catheter and concern for heart failure versus pneumonia (images personally reviewed and agree with report): Notably, the dialysis catheter terminates inside the heart and is read by the radiologist as being 4.5 cm distal to cavoatrial junction
[2024-05-24] MEDS: PIPERACILLIN/TAZOBACTAM 4.5 GM/100 ML BAG IV SCH (17:38)
[2024-05-24] MEDS: LANTUS PER UNIT CHARGE SQ SCH (21:01)
[2024-05-25] MEDS: ALBUMIN 25% 12.5 GM/50 ML VIAL IV ONE ×3 (00:01→16:29)
--- NOTE | 2024-05-25 01:43 | Critical Care Consultation ---
Date of Consultation May 25, 2024 Assessment & Plan (1) Anemia in ESRD (end-stage renal disease): (2) Cellulitis: (3) Dementia: (4) Insulin-requiring or dependent type II diabetes mellitus: (5) Severe aortic stenosis: (6) Acute metabolic encephalopathy: (7) Vascular dementia: (8) Peripheral arterial occlusive disease: (9) Chronic systolic heart failure: (10) Severe sepsis due to methicillin resistant Staphylococcus aureus (MRSA) with acute organ dysfunction: Plan Reason Critically Ill: 1. Severe sepsis 2. MRSA cellulitis 3. Hypotension, chronic 4. Respiratory acidosis likely chronic in nature with pH imbalance due to reduction in bicarbonate 5. Anasarca 6. Cirrhosis 7. Mild hyperkalemia 8. Uremia contributing to encephalopathy 9. Lactic acidosis 10. ESRD MWF iHD Neuro - CAM-ICU RASS GOAL 0 APAP PRN pain/fever, limit 3g/day Continue Zyprexa PRN agitation Cardiac - Continue midodrine TID, increase to 15mg Transition to neosynephrine for MAP goal > 60mmHg if persistently hypotensive. Will likely require for iHD Continue statin Plavix held for catheter adjustment vs. removal Preload dependent with severe , not a candidate for surgery Respiratory - No acute concerns, saturating well on room air. May have component of BRITNEY vs. O[facility] SpO2 goal > 92% IS/Flutter HOB 30-45 GI - No acute concerns Diet: NPO after 0000 SUP: PPI Bowel regimen: Miralax Trend LFTs RENAL/LYTES - Nephrology on board, patient is to received MWF iHD Anuric Will hold on any continued IVF May need alternative access ENDO - BG 140-180 per [facility] guidelines ISS if needed while inpatient Cortisol pending HEME/ONC/OTHER - HGB 7.6, anemia of chronic disease as well as dilutional. Receives Epo w/ HD No clinical signs of bleeding Transfuse for HGB < 7 or as otherwise directed by Nephrology or Cardiology Vascular consult May benefit from palliative care consultation ID - Zosyn and Vancomycin continued De-escalate abx as guided by culture data MRI pending for evaluation of OM L foot Wound consult Consider ID consult LINES/TUBES/DRAINS - R chest permcath PIV x2 DVT PROPHYLAXIS - On hold pending procedure DISPOSITION - ICU I have personally spent 36 minutes of critical care time in the direct management of this patient. This is a life/limb threatening event. This includes time spent evaluating patient, direct bedside care, chart review, placing orders, interpretation of diagnostic studies, discussion with consultants, patient, and family members, as well as other required patient management activities. This time is exclusive of all separately billable procedures, and teaching time and separate from and in addition to any other critical care service time. Thank you for allowing us to participate in the care of this patient. Please refer to my attending physician's documentation for any further recommendations. Supervising Physician Co-Signing Physician Notes Patient separately seen and examined. Derao-ib-sliz ultrasound of the heart reveals a reduced systolic ejection fraction and a possible aortic stenosis. Radial arterial line emergently placed on the left radial artery. Patient is encephalopathic and requiring escalating doses of vasopressors. Palliative care consult placed along with cardiology consult. Unclear whether the patient will tolerate traditional hemodialysis and may need transfer for CRRT given vasopressor requirements. Will start the patient on hydrocortisone 50 mg every 6 hours for refractory septic shock. Goals of care will need to be carefully addressed given the patient's poor underlying health status with hemodialysis every Saturday and Saturday not worsening septic shock with systolic cardiomyopathy. Patient with also drop in hemoglobin possibly hemodilutional. Recheck hemoglobin. Recheck troponin. Continue monitor in ICU closely. Low threshold for placement of central line given vasopressor requirements and intubation given intermittent delirium on top of dementia. History of Present Illness Reason for Consultation: Hypotension Requesting Physician: Myah Attending Physician: Castillo Ervin, History of Present Illness Mr. Navarro Chance is a 78YOM with a history of, but not limited to, vascular dementia, severe aortic stenosis, HFrEF (35%), chronic hypotension on midodrine, PAD, IDDMII, MRSA cellulitis, ESRD on MWF iHD and recent clinical decline who was admitted to [facility] on 05/24/2024 with increased confusion and sepsis 2/2 possible OM of L foot who is being seen in consultation for hypotension. On review of history it appears patient's hypotension is worse at night as well as his confusion. He is also recently diagnosed with cirrhosis with ammonia 46 on admission. Patient's initial hemodynamics were acceptable with SBP 80-90s. After returning from imaging early this AM patient was noted to have SBP 70s. He is awake and alert to self and place. Warm and well-perfused peripherally. He remains on room air and in no respiratory distress. I provided 500cc LR with transient improvement to MAP 65-70. Remains SpO2 93-95%. I did order a lactic acid to ensure there is no end organ injury/significant hypoperfusion. I feel he is likely vasoplegic in the setting of sepsis and would benefit from an additional dose of midodrine now and possible vasopressors to ensure fluid removal is successful with iHD today. This was discussed with Dr. Glasgow at bedside. He will be transferred to ICU for continuation of care. ROS is limited by mentation. Endorses back pain, foot pain, thirst. Specifically denies dyspnea, chest pain, nausea, headache. I spoke to patient's daughter, Merly, via telephone. Confirmed patient's living will with code status of FULL if he were to be able to return to his prior function and "not be a vegetable". We did discuss that with his progressive dementia and multiorgan dysfunction he would benefit from family discussions regarding the best path forward should he continue to decline clinically. She expressed understanding and reiterated that she did not want him to suffer. Allergies Allergy/AdvReac Type Severity Reaction Status Date / Time No Known Allergies Allergy Unverified 05/24/24 09:52 Home Medications Medication Instructions Recorded Confirmed Type acetaminophen 325 mg tablet 650 mg PO Q4H PRN Pain 05/24/24 05/24/24 History acetaminophen 500 mg tablet 500 mg PO Q4H PRN TEMP=>100.5 05/24/24 05/24/24 History atorvastatin 40 mg tablet 80 mg PO HS 05/24/24 05/24/24 History bisacodyl 10 mg rectal suppository 10 mg DC DAILY PRN Constipation 05/24/24 05/24/24 History cholecalciferol (vitamin D3) 50 50 mcg PO DAILY 05/24/24 05/24/24 History mcg (2,000 unit) capsule (Vitamin D3) clopidogrel 75 mg tablet (Plavix) 75 mg PO DAILY 05/24/24 05/24/24 History collagenase clostridium histo. 250 1 applic topical .MON,SAT,Saturday05/24/24 05/24/24 History unit/gram topical ointment darbepoetin mary jane in polysorbat 60 60 mcg subcut WK 05/24/24 05/24/24 History mcg/0.3 mL in polysorbate injection syringe (Aranesp) dextrose 50 % in water (D50W) 12.5 g IV DIRECTED PRN 05/24/24 05/24/24 History Hypoglycemia dextrose 50 % in water (D50W) 50 ml IV DIRECTED PRN 05/24/24 05/24/24 History Hypoglycemia diphenhydramine HCl 12.5 mg IV DIRECTED PRN DIALYSIS 05/24/24 05/24/24 History docusate sodium 100 mg capsule 100 mg PO BID PRN Constipation 05/24/24 05/24/24 History enoxaparin 30 mg/0.3 mL 30 mg subcut DAILY 05/24/24 05/24/24 History subcutaneous syringe fenofibrate 160 mg tablet 145 mg PO DAILY 05/24/24 05/24/24 History gabapentin 100 mg capsule 100 mg PO .MON,SAT,Saturday05/24/24 05/24/24 History gabapentin 100 mg capsule 100 mg PO Q12H 05/24/24 05/24/24 History glucagon 1 mg solution for 1 mg IM DIRECTED PRN 05/24/24 05/24/24 History injection Hypoglycemia heparin (porcine) 1,000 unit/mL 1,800 unit IV DIRECTED PRN 05/24/24 05/24/24 History injection solution DIALYSIS insulin aspart U-100 100 unit/mL 1 sliding scale dose subcut 05/24/24 05/24/24 History (3 mL) subcutaneous pen (Novolog USEASDIRECTD FlexPen U-100 Insulin aspart) lorazepam 0.5 mg tablet (Ativan) 0.5 mg PO Q6H PRN Agitation 05/24/24 05/24/24 History midodrine 5 mg tablet 10 mg PO TID 05/24/24 05/24/24 History ondansetron HCl 4 mg tablet 4 mg PO Q6H PRN N/V 05/24/24 05/24/24 History oxycodone 5 mg tablet 2.5 mg PO Q6H PRN Pain 05/24/24 05/24/24 History pantoprazole 40 mg tablet,delayed 40 mg PO DAILY 05/24/24 05/24/24 History release (Protonix) polyethylene glycol 3350 17 17 g PO .LUNCH PRN Constipation 05/24/24 05/24/24 History gram/dose oral powder (Miralax) sennosides 8.6 mg-docusate sodium 1 tab-cap PO .LUNCH PRN 05/24/24 05/24/24 History 50 mg tablet (Senokot-S) Constipation sodium chloride 0.9 % (flush) 1,000 ml IV DIRECTED 05/24/24 05/24/24 History sodium phosphates 19 gram-7 118 ml DC DAILY PRN Constipation 05/24/24 05/24/24 History gram/118 mL enema (Enema) Patient History Medical History (Updated 05/25/24 @ 02:40 by GARFIELD TaylorC) Aortic stenosis CVA (cerebral vascular accident) DDD (degenerative disc disease) Hyperlipidemia Hypertension NSTEMI (non-ST elevated myocardial infarction) Diabetes Heart failure Renal failure Surgical History (Updated 05/24/24 @ 09:12 by Alban Toscano DO) History of total right hip arthroplasty Social History Smoking Status: Never smoker Hx Alcohol Use: No Hx Substance Use: No Preferred Language: Nepali Communication Ability Comment: confused Program Aide Group Work Required: No Beliefs That Will Affect Care: None Current Living Situation: Alone Gender Identity: Male Assistive Devices: Hearing Aid - Bilateral and Walker Review of Systems Review of Systems: All systems reviewed & are unremarkable except as noted in Subjective Physical Exam Constitutional: + behavioral limitations, + frail appear ing and + overweight; no acute distress Eyes: PERRL, conjunctivae normal, anicteric sclerae ENMT: external ear and nose normal, oropharynx normal Poor dentition Neck: trachea midline, no thyromegaly No JVD Respiratory: normal respiratory effort Auscultation: + crackles Cardiovascular: Rate/Rhythm: regular rate and regular rhythm Heart Sounds: + murmur Vessels: no JVD Extremities: normal capillary refill, + pedal edema, + edema and + vascular access device R permcath in place without surrounding erythema or fluctuance 2+ peripheral edema BLE Gastrointestinal (Abdomen): normal bowel sounds, soft, nontender, no hepatosplenomegaly Musculoskeletal: L foot wrapped, toenail onychomycosis. Well perfused. Skin: + lesion, + ulcer, + wound, + crusts, + dry skin and + erythema; no fluctulance and no mottling Neurologic: PERRL, EOMI, accommodation nl, no face palsy, no dysarthria + confused Psychiatric: Orientation: alert and oriented to person Mood: + irritable mood Results & Data Results & Data Vital Signs (Past 12 Hours) Vital Signs Temp Pulse Pulse Resp BP Pulse Ox O2 Del Method 05/25/24 00:56 72/51 L 05/24/24 23:33 90 16 75/50 L 93 Room Air 05/24/24 22:35 36.8 C 88 16 90/58 L 94 Room Air 05/24/24 20:00 Room Air 05/24/24 19:45 36.5 C 86 16 155/65 H 94 Room Air 05/24/24 18:52 84/56 L 05/24/24 18:46 84/41 L 05/24/24 16:49 36.6 C 87 16 115/70 97 Nasal Cannula 05/24/24 16:48 89 05/24/24 14:32 Nasal Cannula 05/24/24 14:15 36.7 C 85 18 105/68 100 Nasal Cannula O2 Flow Rate 05/25/24 00:56 05/24/24 23:33 05/24/24 22:35 05/24/24 20:00 05/24/24 19:45 05/24/24 18:52 05/24/24 18:46 05/24/24 16:49 2 05/24/24 16:48 05/24/24 14:32 2 05/24/24 14:15 2 Laboratory Results Reviewed Diagnostic Findings Reviewed Medications Administered See MAR Coding Level of Care Code 63615 CRITICAL CARE 1ST 30-74M Diagnoses Anemia in ESRD (end-stage renal disease) N18.6; D63.1 Cellulitis L03.90 Dementia F03.90 Insulin-requiring or dependent type II diabetes mellitus E11.9; Z79.4 Severe aortic stenosis I35.0 Acute metabolic encephalopathy G93.41 Vascular dementia F01.50 Peripheral arterial occlusive disease I77.9 Chronic systolic heart failure I50.22 Severe sepsis due to methicillin resistant Staphylococcus aureus (MRSA) with acute organ dysfunction A41.02; R65.20 Time Spent (min) 36
[2024-05-25 01:49] LABS: Base Excess VBG -3.6 mEq/L; HCO3 VBG 24 mmol/L; Oxygen Saturation VBG < 60.0 %; PCO2 VBG 52 mmHg (38-50); PO2 VBG 27 mmHg; pH VBG 7.27 (7.36-7.41)
[2024-05-25 01:54] LABS: Hemoglobin 7.6 g/dl (14.0-18.0); Mean Corpuscular Hemoglobin 32.9 pg (25.0-34.0); Mean Corpuscular Hgb Conc 30.4 g/dL (32.0-36.0); Mean Corpuscular Volume 108.2 fL (80.0-100.0); Mean Platelet Volume 11.1 fL (9.4-12.4); Nucleated RBC # (auto) 0.04 K/uL (0.00-0.12); Nucleated RBC % (auto) 0.5 %; Platelet Count 145 K/uL (130-400); RDW Coefficient of Variation 19.7 % (11.5-14.5); RDW Standard Deviation 76.9 fL (36.4-46.3); Red Blood Count 2.31 M/uL (4.70-6.10); White Blood Count 8.64 K/ul (4.8-10.8)
[2024-05-25] MEDS: MIDODRINE HCL 2.5 MG TAB PO STA (02:16)
[2024-05-25] MEDS: LACTATED RINGER'S 500 ML IV ONE (02:17)
[2024-05-25 02:35] LABS: BUN Creatinine Ratio 16.1 (10-20); Magnesium 1.9 mg/dl (1.7-2.4); Phosphorus 7.5 mg/dl (2.5-4.9); Potassium 5.7 mmol/L (3.5-5.1)
[2024-05-25] MEDS ORDERED: STAT IV Infusion **Titration per Protocol STA ×4 (03:16→11:26)
[2024-05-25] MEDS: ICU Protocol for HYPERglycemia SCH (05:24)
[2024-05-25] MEDS ORDERED: SODIUM CHLORIDE 0.9% 1,000 ML IV PRN (07:00)
[2024-05-25] MEDS: PHENYLEPHRINE/NSS 25 MG/250 ML BAG IV SCH (07:10)
[2024-05-25 08:02] LABS: Estimated Average Glucose 117 mg/dl; Hemoglobin A1C 5.7 % (4.5-5.6)
--- NOTE | 2024-05-25 08:05 | Procedure Note ---
Procedure Note Date of Service May 25, 2024 Left radial ARTERIAL LINE PROCEDURE NOTE: Procedure: Arterial Line Placement Indication: Monitoring on Pressors Anesthesia: None/5 mL lidocaine 1% Emergency consent implied given the patient's encephalopathy and hypotension requiring vasopressors. Timeout performed immediately prior to the procedure. A time-out was completed verifying correct patient, procedure, site, positioning, and implant(s) or special equipment if applicable. Patients left wrist was prepped and draped in the usual sterile fashion. Ultrasound guidance was used to aid needle placement. A 20g Arrow arterial line was introduced into the left radial artery. Catheter was threaded, and the needle was removed with appropriate blood return. Good waveform was observed. The arterial line was sutured into place with 2-0 silk suture. The patient tolerated the procedure well. Blood Loss: Minimal Complications: None [facility] Codes (Charges) Tubes, Drains, and Vasc Access Procedure 1: Tubes, Drains, and Vasc Access: [id number] Ultrasound Guidance For Vascular Procedure 2: Tubes, Drains, and Vasc Access: [id number] Arterial Cath/Cannulation Sampling/Monitoring/Transfusion Coding CPT Codes Tubes, Drains, and Vasc Access - Tubes, Drains, and Vasc Access: [id number] Ultrasound Guidance For Vascular ([id number]) Tubes, Drains, and Vasc Access - Tubes, Drains, and Vasc Access: [id number] Arterial Cath/Cannulation Sampling/Monitoring/Transfusion ([id number]) Additional Codes Date of Service ([facility].SURGERY)
--- NOTE | 2024-05-25 08:08 | Electrocardiogram Report ---
Test Reason : Blood Pressure : */* mmHG Vent. Rate : 96 BPM Atrial Rate : 96 BPM P-R Int : 244 ms QRS Dur : 162 ms QT Int : 394 ms P-R-T Axes : 40 12 0 degrees QTcB Int : 497 ms Sinus rhythm with 1st degree A-V block with occasional Premature ventricular complexes Right bundle branch block Septal infarct , age undetermined Abnormal ECG No previous ECGs available Confirmed by Sonam Ferreira ([place]) on 05/25/2024 8:08:10 AM Referred By: REFERRED SELF Confirmed By: Sonam Ferreira
--- NOTE | 2024-05-25 08:12 | XRay Report ---
EXAM: XR chest 1V not portable CLINICAL HISTORY: hypoxia TECHNIQUE: An X-ray image of the chest is obtained in AP projection. COMPARISON: 05/24/2024. FINDINGS: Pulmonary Parenchyma: Bilateral diffuse increased vascular marking. Bilateral lower zone patchy reticular opacities in the lower zone. Oblitration of the left CP angle, suggesting mild pleural effusion. Right port cath with tip in the right atrium. Heart and Mediastinum: Heart size is limited on this projection. No mediastinal widening or masses. No hilar or mediastinal lymphadenopathy. Bony Thorax: Bony thorax appears intact without fractures or deformities. Soft Tissues: Soft tissues overlying the chest wall are unremarkable. IMPRESSION: 1. No gross interval change in comparison with 05/24/2024. 2. Right port cath with tip in the right atrium. Electronically signed by Akil Perez 05-25-2024 08:12 AM
--- NOTE | 2024-05-25 08:31 | Communication Note ---
Date of Service: May 25, 2024 Last patinet after coming back from MRI was hypotensive sbp in 70's. Didnot improved even after albumin infusion. Notified ICU. ICU gave 500cc Ringer lacta te with no improvement and ordered midodrine 5mg and was transferred to ICU. Notified family. Started on pressors in ICU. Appreciate critical care help.Notified am providers
[2024-05-25 08:49] LABS: Hematocrit (blood only) 26.4 % (42.0-52.0); Hemoglobin 8.2 g/dl (14.0-18.0)
[2024-05-25] MEDS: NOREPINEPHRINE/D5W 4 MG/250 ML PLCT IV SCH (08:49)
[2024-05-25] MEDS: PANTOprazole 40 MG/10 ML SYR IV SCH (08:50)
[2024-05-25] MEDS: FUROSEMIDE 40 MG/4 ML VIAL IV ONE (08:56)
[2024-05-25] MEDS: ATORVASTATIN 40 MG TAB PO SCH (08:57)
[2024-05-25] MEDS ORDERED: PANTOprazole 40 MG TAB PO SCH (09:00)
[2024-05-25] MEDS: HYDROCORTISONE SOD 50 MG in SYRINGE 0 ML IV SCH (09:06)
[2024-05-25] MEDS: dexMEDEtomidine 200 MCG/50 ML BAG IV SCH (09:24)
--- NOTE | 2024-05-25 09:37 | Consultation ---
Date of Consultation May 25, 2024 Assessment & Plan (1) End stage renal disease on dialysis: As long as pt's current TDC is functioning and not definitively bacteremic, would not remove catheter. Will follow. (2) Peripheral arterial occlusive disease: Pt with PAD per previous notes, no actual vascular surgery notes or images available from outside facility. Poor distal pulses likely multifactorial; hypotension and poor cardiac output will affect this. Arterial duplex ordered to better evaluate. Would consult podiatry regarding L foot wounds. History of Present Illness Reason for Consultation: HD access Attending Physician: Darron Martinez MD History of Present Illness 78 yo m with hx of DMII, aortic stenosis, ESRD on HD, PAD, CHF with EF 30-35%, admitted with altered mental status, seen in consultation today for eval of permcath. Pt unable to relate any reliable hx d/t cognitive dysfunct ion/encephalopathy. Per chart, pt was previously admitted to [facility] in February for MRSA bacteremia/sepsis, possibly from LLE foot wound infections. Pt was apparently eval by vascular surgery at [place], but no intervention recommended d/t significant comorbidities. These records are not avaialble presently. Pt has been undergoing HD since that admission. Was d/c to rehab, now admitted to [facility] for altered mental status, possible sepsis. Pt with severe hypotension on pressors. Nephrology concerned regarding R IJ line positioning, however, does not appear they attempted to use his TDC yet this admission. Also concerned regarding possible MRSA bacteremia/sepsis, however, blood cultures not yet back. Allergies Allergy/AdvReac Type Severity Reaction Status Date / Time No Known Allergies Allergy Unverified 05/24/24 09:52 Home Medications Medication Instructions Recorded Confirmed Type acetaminophen 325 mg tablet 650 mg PO Q4H PRN Pain 05/24/24 05/24/24 History acetaminophen 500 mg tablet 500 mg PO Q4H PRN TEMP=>100.5 05/24/24 05/24/24 History atorvastatin 40 mg tablet 80 mg PO HS 05/24/24 05/24/24 History bisacodyl 10 mg rectal suppository 10 mg NJ DAILY PRN Constipation 05/24/24 05/24/24 History cholecalciferol (vitamin D3) 50 50 mcg PO DAILY 05/24/24 05/24/24 History mcg (2,000 unit) capsule (Vitamin D3) clopidogrel 75 mg tablet (Plavix) 75 mg PO DAILY 05/24/24 05/24/24 History collagenase clostridium histo. 250 1 applic topical .SAT,SAT,Saturday05/24/24 05/24/24 History unit/gram topical ointment darbepoetin mary jane in polysorbat 60 60 mcg subcut WK 05/24/24 05/24/24 History mcg/0.3 mL in polysorbate injection syringe (Aranesp) dextrose 50 % in water (D50W) 12.5 g IV DIRECTED PRN 05/24/24 05/24/24 History Hypoglycemia dextrose 50 % in water (D50W) 50 ml IV DIRECTED PRN 05/24/24 05/24/24 History Hypoglycemia diphenhydramine HCl 12.5 mg IV DIRECTED PRN DIALYSIS 05/24/24 05/24/24 History docusate sodium 100 mg capsule 100 mg PO BID PRN Constipation 05/24/24 05/24/24 History enoxaparin 30 mg/0.3 mL 30 mg subcut DAILY 05/24/24 05/24/24 History subcutaneous syringe fenofibrate 160 mg tablet 145 mg PO DAILY 05/24/24 05/24/24 History gabapentin 100 mg capsule 100 mg PO .SAT,SAT,Saturday05/24/24 05/24/24 History gabapentin 100 mg capsule 100 mg PO Q12H 05/24/24 05/24/24 History glucagon 1 mg solution for 1 mg IM DIRECTED PRN 05/24/24 05/24/24 History injection Hypoglycemia heparin (porcine) 1,000 unit/mL 1,800 unit IV DIRECTED PRN 05/24/24 05/24/24 History injection solution DIALYSIS insulin aspart U-100 100 unit/mL 1 sliding scale dose subcut 05/24/24 05/24/24 History (3 mL) subcutaneous pen (Novolog USEASDIRECTD FlexPen U-100 Insulin aspart) lorazepam 0.5 mg tablet (Ativan) 0.5 mg PO Q6H PRN Agitation 05/24/24 05/24/24 History midodrine 5 mg tablet 10 mg PO TID 05/24/24 05/24/24 History ondansetron HCl 4 mg tablet 4 mg PO Q6H PRN N/V 05/24/24 05/24/24 History oxycodone 5 mg tablet 2.5 mg PO Q6H PRN Pain 05/24/24 05/24/24 History pantoprazole 40 mg tablet,delayed 40 mg PO DAILY 05/24/24 05/24/24 History release (Protonix) polyethylene glycol 3350 17 17 g PO .LUNCH PRN Constipation 05/24/24 05/24/24 History gram/dose oral powder (Miralax) sennosides 8.6 mg-docusate sodium 1 tab-cap PO .LUNCH PRN 05/24/24 05/24/24 History 50 mg tablet (Senokot-S) Constipation sodium chloride 0.9 % (flush) 1,000 ml IV DIRECTED 05/24/24 05/24/24 History sodium phosphates 19 gram-7 118 ml NJ DAILY PRN Constipation 05/24/24 05/24/24 History gram/118 mL enema (Enema) Patient History Medical History Aortic stenosis CVA (cerebral vascular accident) DDD (degenerative disc disease) Hyperlipidemia Hypertension NSTEMI (non-ST elevated myocardial infarction) Diabetes Heart failure Renal failure Surgical History History of total right hip arthroplasty Social History Smoking Status: Never smoker Hx Alcohol Use: No Hx Substance Use: No Preferred Language: Sierra Leonean Communication Ability Comment: confused Keg Varnisher Required: No Beliefs That Will Affect Care: None Current Living Situation: Alone Gender Identity: Male Assistive Devices: Hearing Aid - Bilateral and Walker Review of Systems Review of Systems: All systems reviewed & are unremarkable except as noted in HPI & below Physical Exam Constitutional: WD/WN, vitals as above + in distress (emotional) Neck: trachea midline Respiratory: normal respiratory effort Auscultation: + diminished lung sounds Cardiovascular: Rate/Rhythm: regular rate and regular rhythm Vessels: femoral pulses present, posterior tibial pulses present (dopplerable BLE) and dorsalis pedis pulses present (dopplerable RLE, none LLE); + abnormal peripheral pulses Extremities: normal capillary refill and + edema Chest (Breasts): Chest: + vascular access device or port (nontender, no erythema) Gastrointestinal (Abdomen): Inspection/Auscultation: abdomen normal to inspection Percussion/Palpation: abdomen soft; abdomen nontender Musculoskeletal: no cyanosis or clubbing, extremities motor strength 5/5 Skin: + wound (L foot, shallow skin ulcers BLE .) Neurologic: moves all extremities, awake and + confused (very); no focal motor deficits Psychiatric: Orientation: alert and oriented to person; + not oriented to place, + not oriented to time and + uncooperative Results & Data Vital Signs (Past 12 Hours) Vital Signs Temp Pulse Pulse Resp BP BP Pulse Ox 05/25/24 07:58 86/59 L 05/25/24 06:04 82/52 L 05/25/24 06:04 82/52 L 05/25/24 06:02 80/52 L 05/25/24 06:00 84 26 H 100 05/25/24 05:45 84 15 99 05/25/24 05:30 82 15 100 05/25/24 05:30 80/50 L 05/25/24 05:30 80/50 L 05/25/24 05:30 80/50 L 05/25/24 05:30 80/50 L 05/25/24 05:30 80/50 L 05/25/24 05:30 80/50 L 05/25/24 05:30 80/50 L 05/25/24 05:30 80/50 L 05/25/24 05:30 80/50 L 05/25/24 05:30 80/50 L 05/25/24 05:30 80/50 L 05/25/24 05:30 80/50 L 05/25/24 05:00 85/52 L 05/25/24 05:00 85/52 L 05/25/24 05:00 85/52 L 05/25/24 05:00 85/52 L 05/25/24 05:00 85/52 L 05/25/24 05:00 85/52 L 05/25/24 05:00 85/52 L 05/25/24 04:48 84 13 85 L 05/25/24 04:45 83 10 L 100 05/25/24 04:43 88/53 L 05/25/24 04:43 88/53 L 05/25/24 04:43 88/53 L 05/25/24 04:43 88/53 L 05/25/24 04:43 88/53 L 05/25/24 04:39 85 14 89 L 05/25/24 04:33 85/51 L 05/25/24 04:33 85/51 L 05/25/24 04:27 85 20 88 L 05/25/24 04:18 84 13 100 05/25/24 04:00 91/54 L 05/25/24 04:00 91/54 L 05/25/24 04:00 91/54 L 05/25/24 04:00 91/54 L 05/25/24 04:00 91/54 L 05/25/24 04:00 91/54 L 05/25/24 04:00 91/54 L 05/25/24 04:00 91/54 L 05/25/24 04:00 91/54 L 05/25/24 04:00 91/54 L 05/25/24 04:00 91/54 L 05/25/24 04:00 91/54 L 05/25/24 04:00 91/54 L 05/25/24 04:00 91/54 L 05/25/24 04:00 91/54 L 05/25/24 04:00 88 14 100 05/25/24 03:27 85 14 100 05/25/24 03:18 86/52 L 05/25/24 03:18 86/52 L 05/25/24 03:18 86/52 L 05/25/24 03:18 86/52 L 05/25/24 03:18 86/52 L 05/25/24 03:18 86/52 L 05/25/24 03:18 86/52 L 05/25/24 03:18 86/52 L 05/25/24 03:18 86/52 L 05/25/24 03:18 86/52 L 05/25/24 03:18 86/52 L 05/25/24 03:18 86/52 L 05/25/24 03:18 86/52 L 05/25/24 03:00 84/52 L 05/25/24 03:00 84/52 L 05/25/24 03:00 84/52 L 05/25/24 03:00 84/52 L 05/25/24 03:00 86 18 99 05/25/24 02:47 05/25/24 02:30 85/58 L 05/25/24 02:30 85/58 L 05/25/24 02:30 85/58 L 05/25/24 02:30 85/58 L 05/25/24 02:30 85/58 L 05/25/24 02:30 85/58 L 05/25/24 02:30 85/58 L 05/25/24 02:30 85/58 L 05/25/24 02:30 89 14 93 05/25/24 02:30 85/58 L 05/25/24 02:30 85/58 L 05/25/24 02:30 85/58 L 05/25/24 02:30 85/58 L 05/25/24 02:30 85/58 L 05/25/24 02:18 36.7 C 05/25/24 02:06 76/55 L 05/25/24 02:06 76/55 L 05/25/24 02:06 76/55 L 05/25/24 02:06 76/55 L 05/25/24 02:06 76/55 L 05/25/24 02:06 76/55 L 05/25/24 02:06 76/55 L 05/25/24 02:03 91 H 21 05/25/24 02:02 99 05/25/24 01:20 89/55 L 05/25/24 00:56 72/51 L 05/24/24 23:33 90 16 75/50 L 93 05/24/24 22:35 36.8 C 88 16 90/58 L 94 O2 Del Method O2 Flow Rate 05/25/24 07:58 05/25/24 06:04 05/25/24 06:04 05/25/24 06:02 05/25/24 06:00 05/25/24 05:45 05/25/24 05:30 05/25/24 05:30 05/25/24 05:30 05/25/24 05:30 05/25/24 05:30 05/25/24 05:30 05/25/24 05:30 05/25/24 05:30 05/25/24 05:30 05/25/24 05:30 05/25/24 05:30 05/25/24 05:30 05/25/24 05:30 05/25/24 05:00 05/25/24 05:00 05/25/24 05:00 05/25/24 05:00 05/25/24 05:00 05/25/24 05:00 05/25/24 05:00 05/25/24 04:48 05/25/24 04:45 05/25/24 04:43 05/25/24 04:43 05/25/24 04:43 05/25/24 04:43 05/25/24 04:43 05/25/24 04:39 05/25/24 04:33 05/25/24 04:33 05/25/24 04:27 05/25/24 04:18 05/25/24 04:00 05/25/24 04:00 05/25/24 04:00 05/25/24 04:00 05/25/24 04:00 05/25/24 04:00 05/25/24 04:00 05/25/24 04:00 05/25/24 04:00 05/25/24 04:00 05/25/24 04:00 05/25/24 04:00 05/25/24 04:00 05/25/24 04:00 05/25/24 04:00 05/25/24 04:00 05/25/24 03:27 05/25/24 03:18 05/25/24 03:18 05/25/24 03:18 05/25/24 03:18 05/25/24 03:18 05/25/24 03:18 05/25/24 03:18 05/25/24 03:18 05/25/24 03:18 05/25/24 03:18 05/25/24 03:18 05/25/24 03:18 05/25/24 03:18 05/25/24 03:00 05/25/24 03:00 05/25/24 03:00 05/25/24 03:00 05/25/24 03:00 05/25/24 02:47 Nasal Cannula 2 05/25/24 02:30 05/25/24 02:30 05/25/24 02:30 05/25/24 02:30 05/25/24 02:30 05/25/24 02:30 05/25/24 02:30 05/25/24 02:30 05/25/24 02:30 05/25/24 02:30 05/25/24 02:30 05/25/24 02:30 05/25/24 02:30 05/25/24 02:30 05/25/24 02:18 05/25/24 02:06 05/25/24 02:06 05/25/24 02:06 05/25/24 02:06 05/25/24 02:06 05/25/24 02:06 05/25/24 02:06 05/25/24 02:03 05/25/24 02:02 Nasal Cannula 2 05/25/24 01:20 05/25/24 00:56 05/24/24 23:33 Room Air 05/24/24 22:35 Room Air
[2024-05-25] MEDS ORDERED: Nursing to Pharmacy Communication SCH ×2 (10:15→14:45)
--- NOTE | 2024-05-25 10:30 | Cardiology Consultation ---
Date of Consultation May 25, 2024 Assessment & Plan (1) Acute on chronic systolic (congestive) heart failure: (2) Severe aortic stenosis: (3) Severe sepsis due to methicillin resistant Staphylococcus aureus (MRSA) with acute organ dysfunction: (4) Chronic hypotension: (5) Vascular dementia: (6) End stage renal disease on dialysis: Plan Complex 78-year-old patient admitted with severe sepsis, source likely MRSA cellulitis/possible osteomyelitis. Preliminary view of bedside echocardiogram demonstrates severe LV systolic function with severe aortic valve stenosis although pseudo-aortic stenosis must be considered in the setting of low LV ejection fraction. Findings consistent with reported echocardiogram from [facility] in March, although records currently unavailable for review. Recommend conservative management/supportive care at this time. Obtain records from [facility]. Recommend ongoing treatment of acute sepsis per critical care and management of volume status per hemodialysis. Treatment/hemodialysis limited by chronic hypotension. Pressor agents as needed to maintain mean arterial blood pressure greater than 65 mmHg. Poor prognosis. Ajay Lott DO, [facility] History of Present Illness Reason for Consultation: Cardiogenic shock Requesting Physician: Dr. Rivers Attending Physician: Darron Martinez MD History of Present Illness Complex 78-year-old male presented from [facility] rehabilitation due to worsening confusion 05/24/2024. Numerous lower extremity wounds noted. Poor historian due to underlying dementia. Does not recall events leading to hospitalization. Unable to offer meaningful history. Information taken from admission H&P and medical records. In the emergency department, patient mildly hypotensive. Received treatment with oral midodrine. Elevated procalcitonin noted although difficult to interpret in setting of end-stage renal disease. Chest x-ray demonstrating volume overload. Has since been diagnosed with osteomyelitis. According to medical records, he was hospitalized in [place] for MRSA bacteremia in March. Echocardiogram performed during that hospitalization apparently showed ejection fraction of 30 to 35% with significant aortic valve stenosis. He was deemed not a candidate for any type of cardiac interventions per review of medical records. Hemodialysis was continued. I do not have copies of [facility] records to review at this time Currently the patient is resting comfortably. Seated upright. Oriented to person only. Denies chest pain or shortness of breath. Lower extremities are edematous. There are concerns regarding patient's hemodialysis access. Vascular surgery consultation pending at this time. Allergies Allergy/AdvReac Type Severity Reaction Status Date / Time No Known Allergies Allergy Unverified 05/24/24 09:52 Home Medications Medication Instructions Recorded Confirmed Type acetaminophen 325 mg tablet 650 mg PO Q4H PRN Pain 05/24/24 05/24/24 History acetaminophen 500 mg tablet 500 mg PO Q4H PRN TEMP=>100.5 05/24/24 05/24/24 History atorvastatin 40 mg tablet 80 mg PO HS 05/24/24 05/24/24 History bisacodyl 10 mg rectal suppository 10 mg OR DAILY PRN Constipation 05/24/24 05/24/24 History cholecalciferol (vitamin D3) 50 50 mcg PO DAILY 05/24/24 05/24/24 History mcg (2,000 unit) capsule (Vitamin D3) clopidogrel 75 mg tablet (Plavix) 75 mg PO DAILY 05/24/24 05/24/24 History collagenase clostridium histo. 250 1 applic topical .SAT,SAT,Saturday05/24/24 05/24/24 History unit/gram topical ointment darbepoetin mary jane in polysorbat 60 60 mcg subcut WK 05/24/24 05/24/24 History mcg/0.3 mL in polysorbate injection syringe (Aranesp) dextrose 50 % in water (D50W) 12.5 g IV DIRECTED PRN 05/24/24 05/24/24 History Hypoglycemia dextrose 50 % in water (D50W) 50 ml IV DIRECTED PRN 05/24/24 05/24/24 History Hypoglycemia diphenhydramine HCl 12.5 mg IV DIRECTED PRN DIALYSIS 05/24/24 05/24/24 History docusate sodium 100 mg capsule 100 mg PO BID PRN Constipation 05/24/24 05/24/24 History enoxaparin 30 mg/0.3 mL 30 mg subcut DAILY 05/24/24 05/24/24 History subcutaneous syringe fenofibrate 160 mg tablet 145 mg PO DAILY 05/24/24 05/24/24 History gabapentin 100 mg capsule 100 mg PO .SAT,SAT,Saturday05/24/24 05/24/24 History gabapentin 100 mg capsule 100 mg PO Q12H 05/24/24 05/24/24 History glucagon 1 mg solution for 1 mg IM DIRECTED PRN 05/24/24 05/24/24 History injection Hypoglycemia heparin (porcine) 1,000 unit/mL 1,800 unit IV DIRECTED PRN 05/24/24 05/24/24 History injection solution DIALYSIS insulin aspart U-100 100 unit/mL 1 sliding scale dose subcut 05/24/24 05/24/24 History (3 mL) subcutaneous pen (Novolog USEASDIRECTD FlexPen U-100 Insulin aspart) lorazepam 0.5 mg tablet (Ativan) 0.5 mg PO Q6H PRN Agitation 05/24/24 05/24/24 History midodrine 5 mg tablet 10 mg PO TID 05/24/24 05/24/24 History ondansetron HCl 4 mg tablet 4 mg PO Q6H PRN N/V 05/24/24 05/24/24 History oxycodone 5 mg tablet 2.5 mg PO Q6H PRN Pain 05/24/24 05/24/24 History pantoprazole 40 mg tablet,delayed 40 mg PO DAILY 05/24/24 05/24/24 History release (Protonix) polyethylene glycol 3350 17 17 g PO .LUNCH PRN Constipation 05/24/24 05/24/24 History gram/dose oral powder (Miralax) sennosides 8.6 mg-docusate sodium 1 tab-cap PO .LUNCH PRN 05/24/24 05/24/24 History 50 mg tablet (Senokot-S) Constipation sodium chloride 0.9 % (flush) 1,000 ml IV DIRECTED 05/24/24 05/24/24 History sodium phosphates 19 gram-7 118 ml OR DAILY PRN Constipation 05/24/24 05/24/24 History gram/118 mL enema (Enema) Patient History Medical History Aortic stenosis CVA (cerebral vascular accident) DDD (degenerative disc disease) Hyperlipidemia Hypertension NSTEMI (non-ST elevated myocardial infarction) Diabetes Heart failure Renal failure Surgical History History of total right hip arthroplasty Social History Smoking Status: Never smoker Hx Alcohol Use: No Hx Substance Use: No Preferred Language: Khmer Communication Ability Comment: confused Doughmaker Required: No Beliefs That Will Affect Care: None Current Living Situation: Alone Gender Identity: Male Assistive Devices: Hearing Aid - Bilateral and Walker Review of Systems Review of Systems: Unobtainable due to cognitive status Physical Exam Constitutional: + ill appearing; no acute distress Respiratory: + abnormal respiratory effort (Poor effo rt) Auscultation: + diminished lung sounds (Bases bilateral) and + rales (Bases bilateral) Cardiovascular: Rate/Rhythm: regular rate and regular rhythm Heart Sounds: normal S1 and + murmur (2/6Systolic ejection murmur); + abnormal S2 (Diminished S2) Vessels: + JVD Extremities: + edema (Multiple ulcerations of the left foot with thick eschar's and erythema. Mu) Gastrointestinal (Abdomen): Inspection/Auscultation: abdomen normal to inspection; abdomen not distended Percussion/Palpation: abdomen soft; abdomen nontender, no guarding and abdomen not rigid Neurologic: moves all extremities Results & Data Vital Signs (Past 12 Hours) Vital Signs Temp Pulse Pulse Resp BP BP Pulse Ox 05/25/24 07:58 86/59 L 05/25/24 06:04 82/52 L 05/25/24 06:04 82/52 L 05/25/24 06:02 80/52 L 05/25/24 06:00 84 26 H 100 05/25/24 05:45 84 15 99 05/25/24 05:30 82 15 100 05/25/24 05:30 80/50 L 05/25/24 05:30 80/50 L 05/25/24 05:30 80/50 L 05/25/24 05:30 80/50 L 05/25/24 05:30 80/50 L 05/25/24 05:30 80/50 L 05/25/24 05:30 80/50 L 05/25/24 05:30 80/50 L 05/25/24 05:30 80/50 L 05/25/24 05:30 80/50 L 05/25/24 05:30 80/50 L 05/25/24 05:30 80/50 L 05/25/24 05:00 85/52 L 05/25/24 05:00 85/52 L 05/25/24 05:00 85/52 L 05/25/24 05:00 85/52 L 05/25/24 05:00 85/52 L 05/25/24 05:00 85/52 L 05/25/24 05:00 85/52 L 05/25/24 04:48 84 13 85 L 05/25/24 04:45 83 10 L 100 05/25/24 04:43 88/53 L 05/25/24 04:43 88/53 L 05/25/24 04:43 88/53 L 05/25/24 04:43 88/53 L 05/25/24 04:43 88/53 L 05/25/24 04:39 85 14 89 L 05/25/24 04:33 85/51 L 05/25/24 04:33 85/51 L 05/25/24 04:27 85 20 88 L 05/25/24 04:18 84 13 100 05/25/24 04:00 91/54 L 05/25/24 04:00 91/54 L 05/25/24 04:00 91/54 L 05/25/24 04:00 91/54 L 05/25/24 04:00 91/54 L 05/25/24 04:00 91/54 L 05/25/24 04:00 91/54 L 05/25/24 04:00 91/54 L 05/25/24 04:00 91/54 L 05/25/24 04:00 91/54 L 05/25/24 04:00 91/54 L 05/25/24 04:00 91/54 L 05/25/24 04:00 91/54 L 05/25/24 04:00 91/54 L 05/25/24 04:00 91/54 L 05/25/24 04:00 88 14 100 05/25/24 03:27 85 14 100 05/25/24 03:18 86/52 L 05/25/24 03:18 86/52 L 05/25/24 03:18 86/52 L 05/25/24 03:18 86/52 L 05/25/24 03:18 86/52 L 05/25/24 03:18 86/52 L 05/25/24 03:18 86/52 L 05/25/24 03:18 86/52 L 05/25/24 03:18 86/52 L 05/25/24 03:18 86/52 L 05/25/24 03:18 86/52 L 05/25/24 03:18 86/52 L 05/25/24 03:18 86/52 L 05/25/24 03:00 84/52 L 05/25/24 03:00 84/52 L 05/25/24 03:00 84/52 L 05/25/24 03:00 84/52 L 05/25/24 03:00 86 18 99 05/25/24 02:47 05/25/24 02:30 85/58 L 05/25/24 02:30 85/58 L 05/25/24 02:30 85/58 L 05/25/24 02:30 85/58 L 05/25/24 02:30 85/58 L 05/25/24 02:30 85/58 L 05/25/24 02:30 85/58 L 05/25/24 02:30 85/58 L 05/25/24 02:30 89 14 93 05/25/24 02:30 85/58 L 05/25/24 02:30 85/58 L 05/25/24 02:30 85/58 L 05/25/24 02:30 85/58 L 05/25/24 02:30 85/58 L 05/25/24 02:18 36.7 C 05/25/24 02:06 76/55 L 05/25/24 02:06 76/55 L 05/25/24 02:06 76/55 L 05/25/24 02:06 76/55 L 05/25/24 02:06 76/55 L 05/25/24 02:06 76/55 L 05/25/24 02:06 76/55 L 05/25/24 02:03 91 H 21 05/25/24 02:02 99 05/25/24 01:20 89/55 L 05/25/24 00:56 72/51 L 05/24/24 23:33 90 16 75/50 L 93 05/24/24 22:35 36.8 C 88 16 90/58 L 94 O2 Del Method O2 Flow Rate 05/25/24 07:58 05/25/24 06:04 05/25/24 06:04 05/25/24 06:02 05/25/24 06:00 05/25/24 05:45 05/25/24 05:30 05/25/24 05:30 05/25/24 05:30 05/25/24 05:30 05/25/24 05:30 05/25/24 05:30 05/25/24 05:30 05/25/24 05:30 05/25/24 05:30 05/25/24 05:30 05/25/24 05:30 05/25/24 05:30 05/25/24 05:30 05/25/24 05:00 05/25/24 05:00 05/25/24 05:00 05/25/24 05:00 05/25/24 05:00 05/25/24 05:00 05/25/24 05:00 05/25/24 04:48 05/25/24 04:45 05/25/24 04:43 05/25/24 04:43 05/25/24 04:43 05/25/24 04:43 05/25/24 04:43 05/25/24 04:39 05/25/24 04:33 05/25/24 04:33 05/25/24 04:27 05/25/24 04:18 05/25/24 04:00 05/25/24 04:00 05/25/24 04:00 05/25/24 04:00 05/25/24 04:00 05/25/24 04:00 05/25/24 04:00 05/25/24 04:00 05/25/24 04:00 05/25/24 04:00 05/25/24 04:00 05/25/24 04:00 05/25/24 04:00 05/25/24 04:00 05/25/24 04:00 05/25/24 04:00 05/25/24 03:27 05/25/24 03:18 05/25/24 03:18 05/25/24 03:18 05/25/24 03:18 05/25/24 03:18 05/25/24 03:18 05/25/24 03:18 05/25/24 03:18 05/25/24 03:18 05/25/24 03:18 05/25/24 03:18 05/25/24 03:18 05/25/24 03:18 05/25/24 03:00 05/25/24 03:00 05/25/24 03:00 05/25/24 03:00 05/25/24 03:00 05/25/24 02:47 Nasal Cannula 2 05/25/24 02:30 05/25/24 02:30 05/25/24 02:30 05/25/24 02:30 05/25/24 02:30 05/25/24 02:30 05/25/24 02:30 05/25/24 02:30 05/25/24 02:30 05/25/24 02:30 05/25/24 02:30 05/25/24 02:30 05/25/24 02:30 05/25/24 02:30 05/25/24 02:18 05/25/24 02:06 05/25/24 02:06 05/25/24 02:06 05/25/24 02:06 05/25/24 02:06 05/25/24 02:06 05/25/24 02:06 05/25/24 02:03 05/25/24 02:02 Nasal Cannula 2 05/25/24 01:20 05/25/24 00:56 05/24/24 23:33 Room Air 05/24/24 22:35 Room Air Laboratory Results Cardiac Enzymes 05/24/24 05/25/24 Range/Units 10:18 08:03 Troponin I High Sens 66.7 H* 51.1 H* D (0-20) pg/ml CBC 05/24/24 05/25/24 05/25/24 Range/Units 10:18 01:41 08:03 WBC 7.67 8.64 (4.8-10.8) K/ul RBC 2.51 L 2.31 L (4.70-6.10) M/uL Hgb 8.2 L 7.6 L 8.2 L (14.0-18.0) g/dl Hct 26.9 L 25.0 L 26.4 L (42.0-52.0) % Plt Count 161 145 (130-400) K/uL Neut # (Auto) 5.80 (1.40-6.50) K/uL Lymph # (Auto) 0.77 L (1.20-3.40) K/uL Clark # (Auto) 0.77 H (0.11-0.59) K/uL Eos # (Auto) 0.24 (0.00-0.50) K/uL Baso # (Auto) 0.06 (0.00-0.20) K/uL Comprehensive Metabolic Panel 05/25/24 Range/Units 01:40 Sodium 132 L (136-145) mmol/L Potassium 5.7 H (3.5-5.1) mmol/L Chloride 95 L (98-107) mmol/L Carbon Dioxide 25 (21-32) mmol/L BUN 88 H (6-23) mg/dl Creatinine 5.48 H* D (0.6-1.4) mg/dl Glucose 131 H (70-99(Fasting)) mg/dl Calcium 8.0 L (8.6-10.3) mg/dl Intake and Output 05/24/24 05/25/24 05/25/24 22:59 06:59 14:59 Intake Total 640 / 1890 650 / 1890 89.295 / 89.295 Output Total 2 / 2 Balance 640 / 1888 648 / 1888 89.295 / 89.295 Intake: IV 640 / 1890 650 / 1890 89.295 / 89.295 Albumin 25% 12.5 gm In 50 ml @ 50 / 50 50 mls/hr IV ONE ONE Rx#: [id number] Lactated Ringer's 500 ml @ 999 500 / 500 mls/hr IV .Q31M ONE Rx#: [id number] Norepinephrine/D5w 4 mg In 250 36.825 / 36.825 ml @ 0.05 MCG/KG/MIN 19.894 mls /hr IV .[id number] [facility] Rx#: [id number] Phenylephrine/Nss 25 mg In 250 52.47 / 52.47 ml @ 0.5 MCG/KG/MIN 31.83 mls/ hr IV .[id number] [facility] Rx#:[id number] Piperacillin/Tazobactam 4.5 gm 100 / 200 100 / 200 In 100 ml @ 25 mls/hr IV Q8H [facility] Rx#:[id number] Vancomycin HCl 2,000 mg In 540 / 540 Sodium Chloride 0.9% 500 ml @ 200 mls/hr IV NOW ONE Rx#: [id number] Oral 0 / 0 0 / 0 Output: # Bowel Movements 2 / 2
[2024-05-25 10:51] LABS: BUN Creatinine Ratio 16.2 (10-20); Creatinine Clr Calc Pharmacy 13.8 ml/min; Potassium 5.8 mmol/L (3.5-5.1)
--- NOTE | 2024-05-25 11:08 | Palliative Care Consultation ---
Date of Consultation May 25, 2024 Assessment & Plan (1) Palliative care by specialist: Spoke with pt's daughter Merly Orellana via phone. Pt in acute distress and not communicative, being prepared for intubation due to acute respiratory failure. Clarified with Merly that intubation is consistent with pt values and GOC. Merly requests that "everything be done to save his life" and will be coming to the bedside imminently. (2) Counseling regarding advanced directives and goals of care: Pt unstable and being intubated on my visit, breif conversation with dtr eMrly on code status and need for emergent intubation. Merly will be reaching out to rest of family and requests all be done at this time, Full code, ok with mechanical ventilation. Will readdress GOC with family after pt has stabilized and family present in hospital. Plan Pt being intubated in ICU, vasopressors started. Dtr Merly will be calling other family to encourage visitation. Family mtg to further discuss goals to be help on Saturday time TBD by Merly. History of Present Illness Reason for Consultation: goals of care Requesting Physician: Darron Martinez MD Attending Physician: Darron Martinez MD History of Present Illness Mr. Navarro Chance is a 78YOM resident of [facility] with a history of, but not limited to, vascular dementia, severe aortic stenosis, HFrEF (35%), chronic hypotension on midodrine, PAD, IDDMII, MRSA cellulitis, ESRD on MWF iHD and recent clinical decline who was admitted to [facility] on 05/24/2024 with increased confusion and sepsis 2/2 possible OM of L foot who was sent to ED 2/2 worsening confusion 05/24/2024. Numerous lower extremity wounds noted. Pt admitted to ICU with hypotension and intubated for hypoxic respiratory failure. He was hospitalized in [facility] for MRSA bacteremia in March. Echocardiogram performed during that hospitalization apparently showed ejection fraction of 30 to 35% with significant aortic valve stenosis. He was deemed not a candidate for any type of cardiac interventions. Allergies Allergy/AdvReac Type Severity Reaction Status Date / Time No Known Allergies Allergy Unverified 05/24/24 09:52 Home Medications Medication Instructions Recorded Confirmed Type acetaminophen 325 mg tablet 650 mg PO Q4H PRN Pain 05/24/24 05/24/24 History acetaminophen 500 mg tablet 500 mg PO Q4H PRN TEMP=>100.5 05/24/24 05/24/24 History atorvastatin 40 mg tablet 80 mg PO HS 05/24/24 05/24/24 History bisacodyl 10 mg rectal suppository 10 mg MO DAILY PRN Constipation 05/24/24 05/24/24 History cholecalciferol (vitamin D3) 50 50 mcg PO DAILY 05/24/24 05/24/24 History mcg (2,000 unit) capsule (Vitamin D3) clopidogrel 75 mg tablet (Plavix) 75 mg PO DAILY 05/24/24 05/24/24 History collagenase clostridium histo. 250 1 applic topical .SAT,SAT,Saturday05/24/24 05/24/24 History unit/gram topical ointment darbepoetin mary jane in polysorbat 60 60 mcg subcut WK 05/24/24 05/24/24 History mcg/0.3 mL in polysorbate injection syringe (Aranesp) dextrose 50 % in water (D50W) 12.5 g IV DIRECTED PRN 05/24/24 05/24/24 History Hypoglycemia dextrose 50 % in water (D50W) 50 ml IV DIRECTED PRN 05/24/24 05/24/24 History Hypoglycemia diphenhydramine HCl 12.5 mg IV DIRECTED PRN DIALYSIS 05/24/24 05/24/24 History docusate sodium 100 mg capsule 100 mg PO BID PRN Constipation 05/24/24 05/24/24 History enoxaparin 30 mg/0.3 mL 30 mg subcut DAILY 05/24/24 05/24/24 History subcutaneous syringe fenofibrate 160 mg tablet 145 mg PO DAILY 05/24/24 05/24/24 History gabapentin 100 mg capsule 100 mg PO .SAT,SAT,Saturday05/24/24 05/24/24 History gabapentin 100 mg capsule 100 mg PO Q12H 05/24/24 05/24/24 History glucagon 1 mg solution for 1 mg IM DIRECTED PRN 05/24/24 05/24/24 History injection Hypoglycemia heparin (porcine) 1,000 unit/mL 1,800 unit IV DIRECTED PRN 05/24/24 05/24/24 History injection solution DIALYSIS insulin aspart U-100 100 unit/mL 1 sliding scale dose subcut 05/24/24 05/24/24 History (3 mL) subcutaneous pen (Novolog USEASDIRECTD FlexPen U-100 Insulin aspart) lorazepam 0.5 mg tablet (Ativan) 0.5 mg PO Q6H PRN Agitation 05/24/24 05/24/24 History midodrine 5 mg tablet 10 mg PO TID 05/24/24 05/24/24 History ondansetron HCl 4 mg tablet 4 mg PO Q6H PRN N/V 05/24/24 05/24/24 History oxycodone 5 mg tablet 2.5 mg PO Q6H PRN Pain 05/24/24 05/24/24 History pantoprazole 40 mg tablet,delayed 40 mg PO DAILY 05/24/24 05/24/24 History release (Protonix) polyethylene glycol 3350 17 17 g PO .LUNCH PRN Constipation 05/24/24 05/24/24 History gram/dose oral powder (Miralax) sennosides 8.6 mg-docusate sodium 1 tab-cap PO .LUNCH PRN 05/24/24 05/24/24 History 50 mg tablet (Senokot-S) Constipation sodium chloride 0.9 % (flush) 1,000 ml IV DIRECTED 05/24/24 05/24/24 History sodium phosphates 19 gram-7 118 ml MO DAILY PRN Constipation 05/24/24 05/24/24 History gram/118 mL enema (Enema) Patient History Medical History Aortic stenosis CVA (cerebral vascular accident) DDD (degenerative disc disease) Hyperlipidemia Hypertension NSTEMI (non-ST elevated myocardial infarction) Diabetes Heart failure Renal failure Surgical History History of total right hip arthroplasty Social History Smoking Status: Never smoker Hx Alcohol Use: No Hx Substance Use: No Preferred Language: Estonian Communication Ability: Effective Communication Ability Comment: confused [employer] Required: No Beliefs That Will Affect Care: Congregation Current Living Situation: Alone Gender Identity: Male Assistive Devices: Bedside Commode, Cane and Walker Review of Systems Review of Systems: Unobtainable due to cognitive status Physical Exam Physical Exam: General exam: intubated and sedated Respiratory system: Clear breath sounds bilaterally. Gastrointestinal: Abdomen is soft, non distended, non tender, bowel sounds are present CVS: Regular rate and rhythm. No murmurs, rubs or gallops Musculoskeletal: No joint or muscle tenderness Extremities: Non tender, no edema, peripheral pulses are present Neuro: intubated, sedated Skin: No rashes Results & Data Vital Signs (Past 12 Hours) Vital Signs Temp Pulse Pulse Resp BP BP BP 05/25/24 10:12 90/44 L 05/25/24 09:50 87/44 L 05/25/24 09:24 86/45 L 05/25/24 07:58 86/59 L 05/25/24 06:04 82/52 L 05/25/24 06:04 82/52 L 05/25/24 06:02 80/52 L 05/25/24 06:00 84 26 H 05/25/24 05:45 84 15 05/25/24 05:30 82 15 05/25/24 05:30 80/50 L 05/25/24 05:30 80/50 L 05/25/24 05:30 80/50 L 05/25/24 05:30 80/50 L 05/25/24 05:30 80/50 L 05/25/24 05:30 80/50 L 05/25/24 05:30 80/50 L 05/25/24 05:30 80/50 L 05/25/24 05:30 80/50 L 05/25/24 05:30 80/50 L 05/25/24 05:30 80/50 L 05/25/24 05:30 80/50 L 05/25/24 05:00 85/52 L 05/25/24 05:00 85/52 L 05/25/24 05:00 85/52 L 05/25/24 05:00 85/52 L 05/25/24 05:00 85/52 L 05/25/24 05:00 85/52 L 05/25/24 05:00 85/52 L 05/25/24 04:48 84 13 05/25/24 04:45 83 10 L 05/25/24 04:43 88/53 L 05/25/24 04:43 88/53 L 05/25/24 04:43 88/53 L 05/25/24 04:43 88/53 L 05/25/24 04:43 88/53 L 05/25/24 04:39 85 14 05/25/24 04:33 85/51 L 05/25/24 04:33 85/51 L 05/25/24 04:27 85 20 05/25/24 04:18 84 13 05/25/24 04:00 91/54 L 05/25/24 04:00 91/54 L 05/25/24 04:00 91/54 L 05/25/24 04:00 91/54 L 05/25/24 04:00 91/54 L 05/25/24 04:00 91/54 L 05/25/24 04:00 91/54 L 05/25/24 04:00 91/54 L 05/25/24 04:00 91/54 L 05/25/24 04:00 91/54 L 05/25/24 04:00 91/54 L 05/25/24 04:00 91/54 L 05/25/24 04:00 91/54 L 05/25/24 04:00 91/54 L 05/25/24 04:00 91/54 L 05/25/24 04:00 88 14 05/25/24 03:27 85 14 05/25/24 03:18 86/52 L 05/25/24 03:18 86/52 L 05/25/24 03:18 86/52 L 05/25/24 03:18 86/52 L 05/25/24 03:18 86/52 L 05/25/24 03:18 86/52 L 05/25/24 03:18 86/52 L 05/25/24 03:18 86/52 L 05/25/24 03:18 86/52 L 05/25/24 03:18 86/52 L 05/25/24 03:18 86/52 L 05/25/24 03:18 86/52 L 05/25/24 03:18 86/52 L 05/25/24 03:00 84/52 L 05/25/24 03:00 84/52 L 05/25/24 03:00 84/52 L 05/25/24 03:00 84/52 L 05/25/24 03:00 86 18 05/25/24 02:47 05/25/24 02:30 85/58 L 05/25/24 02:30 85/58 L 05/25/24 02:30 85/58 L 05/25/24 02:30 85/58 L 05/25/24 02:30 85/58 L 05/25/24 02:30 85/58 L 05/25/24 02:30 85/58 L 05/25/24 02:30 85/58 L 05/25/24 02:30 89 14 05/25/24 02:30 85/58 L 05/25/24 02:30 85/58 L 05/25/24 02:30 85/58 L 05/25/24 02:30 85/58 L 05/25/24 02:30 85/58 L 05/25/24 02:18 36.7 C 05/25/24 02:06 76/55 L 05/25/24 02:06 76/55 L 05/25/24 02:06 76/55 L 05/25/24 02:06 76/55 L 05/25/24 02:06 76/55 L 05/25/24 02:06 76/55 L 05/25/24 02:06 76/55 L 05/25/24 02:03 91 H 21 05/25/24 02:02 05/25/24 01:20 89/55 L 05/25/24 00:56 72/51 L 05/24/24 23:33 90 16 75/50 L Pulse Ox O2 Del Method O2 Flow Rate 05/25/24 10:12 05/25/24 09:50 05/25/24 09:24 05/25/24 07:58 05/25/24 06:04 05/25/24 06:04 05/25/24 06:02 05/25/24 06:00 100 05/25/24 05:45 99 05/25/24 05:30 100 05/25/24 05:30 05/25/24 05:30 05/25/24 05:30 05/25/24 05:30 05/25/24 05:30 05/25/24 05:30 05/25/24 05:30 05/25/24 05:30 05/25/24 05:30 05/25/24 05:30 05/25/24 05:30 05/25/24 05:30 05/25/24 05:00 05/25/24 05:00 05/25/24 05:00 05/25/24 05:00 05/25/24 05:00 05/25/24 05:00 05/25/24 05:00 05/25/24 04:48 85 L 05/25/24 04:45 100 05/25/24 04:43 05/25/24 04:43 05/25/24 04:43 05/25/24 04:43 05/25/24 04:43 05/25/24 04:39 89 L 05/25/24 04:33 05/25/24 04:33 05/25/24 04:27 88 L 05/25/24 04:18 100 05/25/24 04:00 05/25/24 04:00 05/25/24 04:00 05/25/24 04:00 05/25/24 04:00 05/25/24 04:00 05/25/24 04:00 05/25/24 04:00 05/25/24 04:00 05/25/24 04:00 05/25/24 04:00 05/25/24 04:00 05/25/24 04:00 05/25/24 04:00 05/25/24 04:00 05/25/24 04:00 100 05/25/24 03:27 100 05/25/24 03:18 05/25/24 03:18 05/25/24 03:18 05/25/24 03:18 05/25/24 03:18 05/25/24 03:18 05/25/24 03:18 05/25/24 03:18 05/25/24 03:18 05/25/24 03:18 05/25/24 03:18 05/25/24 03:18 05/25/24 03:18 05/25/24 03:00 05/25/24 03:00 05/25/24 03:00 05/25/24 03:00 05/25/24 03:00 99 05/25/24 02:47 Nasal Cannula 2 05/25/24 02:30 05/25/24 02:30 05/25/24 02:30 05/25/24 02:30 05/25/24 02:30 05/25/24 02:30 05/25/24 02:30 05/25/24 02:30 05/25/24 02:30 93 05/25/24 02:30 05/25/24 02:30 05/25/24 02:30 05/25/24 02:30 05/25/24 02:30 05/25/24 02:18 05/25/24 02:06 05/25/24 02:06 05/25/24 02:06 05/25/24 02:06 05/25/24 02:06 05/25/24 02:06 05/25/24 02:06 05/25/24 02:03 05/25/24 02:02 99 Nasal Cannula 2 05/25/24 01:20 05/25/24 00:56 05/24/24 23:33 93 Room Air Laboratory Results Abnormal lab results 05/24/24 05/24/24 05/24/24 Range/Units 11:59 13:51 20:37 RBC (4.70-6.10) M/uL Hgb (14.0-18.0) g/dl Hct (42.0-52.0) % MCV (80.0-100.0) fL MCHC (32.0-36.0) g/dL RDW Std Deviation (36.4-46.3) fL RDW Coeff of Elayne (11.5-14.5) % VBG pH (7.36-7.41) VBG pCO2 (38-50) mmHg Sodium (136-145) mmol/L Potassium (3.5-5.1) mmol/L Chloride (98-107) mmol/L Anion Gap (3-11) BUN (6-23) mg/dl Creatinine (0.6-1.4) mg/dl Glucose (70-99(Fasting)) mg/dl POC Glucose 130 H 202 H (70-99) mg/dl Hemoglobin A1c (4.5-5.6) % Lactate (0.4-2.0) mmol/L Calcium (8.6-10.3) mg/dl Phosphorus (2.5-4.9) mg/dl Total Creatine Kinase (30-223) U/L Troponin I High Sens (0-20) pg/ml Nasal Screen MRSA (PCR) Positive A (Negative) 05/25/24 05/25/24 05/25/24 Range/Units 01:15 01:40 01:41 RBC 2.31 L (4.70-6.10) M/uL Hgb 7.6 L (14.0-18.0) g/dl Hct 25.0 L (42.0-52.0) % MCV 108.2 H (80.0-100.0) fL MCHC 30.4 L (32.0-36.0) g/dL RDW Std Deviation 76.9 H (36.4-46.3) fL RDW Coeff of Elayne 19.7 H (11.5-14.5) % VBG pH (7.36-7.41) VBG pCO2 (38-50) mmHg Sodium 132 L (136-145) mmol/L Potassium 5.7 H (3.5-5.1) mmol/L Chloride 95 L (98-107) mmol/L Anion Gap 12 H (3-11) BUN 88 H (6-23) mg/dl Creatinine 5.48 H* D (0.6-1.4) mg/dl Glucose 131 H (70-99(Fasting)) mg/dl POC Glucose 131 H (70-99) mg/dl Hemoglobin A1c 5.7 H (4.5-5.6) % Lactate 3.3 H* (0.4-2.0) mmol/L Calcium 8.0 L (8.6-10.3) mg/dl Phosphorus 7.5 H (2.5-4.9) mg/dl Total Creatine Kinase (30-223) U/L Troponin I High Sens (0-20) pg/ml Nasal Screen MRSA (PCR) (Negative) 05/25/24 05/25/24 05/25/24 Range/Units 01:42 05:18 08:03 RBC (4.70-6.10) M/uL Hgb 8.2 L (14.0-18.0) g/dl Hct 26.4 L (42.0-52.0) % MCV (80.0-100.0) fL MCHC (32.0-36.0) g/dL RDW Std Deviation (36.4-46.3) fL RDW Coeff of Elayne (11.5-14.5) % VBG pH 7.27 L (7.36-7.41) VBG pCO2 52 H (38-50) mmHg Sodium (136-145) mmol/L Potassium (3.5-5.1) mmol/L Chloride (98-107) mmol/L Anion Gap (3-11) BUN (6-23) mg/dl Creatinine (0.6-1.4) mg/dl Glucose (70-99(Fasting)) mg/dl POC Glucose 147 H (70-99) mg/dl Hemoglobin A1c (4.5-5.6) % Lactate (0.4-2.0) mmol/L Calcium (8.6-10.3) mg/dl Phosphorus (2.5-4.9) mg/dl Total Creatine Kinase (30-223) U/L Troponin I High Sens 51.1 H* D (0-20) pg/ml Nasal Screen MRSA (PCR) (Negative) 05/25/24 05/25/24 Range/Units 10:14 12:13 RBC (4.70-6.10) M/uL Hgb (14.0-18.0) g/dl Hct (42.0-52.0) % MCV (80.0-100.0) fL MCHC (32.0-36.0) g/dL RDW Std Deviation (36.4-46.3) fL RDW Coeff of Elayne (11.5-14.5) % VBG pH (7.36-7.41) VBG pCO2 (38-50) mmHg Sodium 132 L (136-145) mmol/L Potassium 5.8 H (3.5-5.1) mmol/L Chloride 95 L (98-107) mmol/L Anion Gap 13 H (3-11) BUN 90 H (6-23) mg/dl Creatinine 5.54 H* (0.6-1.4) mg/dl Glucose 153 H (70-99(Fasting)) mg/dl POC Glucose 196 H (70-99) mg/dl Hemoglobin A1c (4.5-5.6) % Lactate (0.4-2.0) mmol/L Calcium 8.0 L (8.6-10.3) mg/dl Phosphorus (2.5-4.9) mg/dl Total Creatine Kinase 14 L (30-223) U/L Troponin I High Sens (0-20) pg/ml Nasal Screen MRSA (PCR) (Negative) Diagnostic Findings Head CT 05/24/24 08:49 EXAM: CT Head Without Intravenous Contrast INDICATION: Lethargy. Altered mental status. TECHNIQUE: Axial computed tomography images of the head/brain without intravenous contrast. Sagittal and/or coronal reformats are provided. Sagittal and coronal reformatted images were created and reviewed. This CT exam was performed using one or more of the following dose reduction techniques: automated exposure control, adjustment of the mA and/or kV according to patient size, and/or use of iterative reconstruction technique. COMPARISON: No relevant prior studies available. FINDINGS: Limitations: None. Brain and extra-axial spaces: There is age appropriate cortical atrophy and chronic ischemic periventricular white matter hypodensity. No acute infarct, hemorrhage or mass noted. Bones/joints: No acute changes. Soft tissues: No significant abnormality noted. Vasculature: There is intracranial atherosclerosis. Sinuses: Layering low-density fluid right maxillary sinus. Mastoid air cells: No mastoid effusion. Orbits: No significant abnormality noted. IMPRESSION: 1. Cerebral atrophy. No acute changes. 2. Partially imaged acute right maxillary sinusitis. ACT 112: N/A Electronically signed by Cheryl Carpenter 05-24-2024 10:00 AM Orbit X-Ray 05/24/24 12:05 EXAM: Radiographs of the Orbits Foreign Body INDICATION: MRI clearance TECHNIQUE: Frontal view(s) of the orbits. COMPARISON: No relevant prior studies available. FINDINGS: Bones/joints: No fracture, erosion or dislocation. Sinuses: Moderate air-fluid level in the right maxillary sinus. Soft tissues: Aside from dental fillings and bilateral hearing aids, no foreign body noted. IMPRESSION: 1. Aside from dental fillings and bilateral hearing aids, no foreign body noted. 2. Right maxillary sinusitis. ACT 112: N/A Electronically signed by Cheryl Carpenter 05-24-2024 2:00 PM Chest X-Ray 05/25/24 11:41 XR chest 1V portable CLINICAL HISTORY: s/p intubation COMPARISON STUDY: Chest radiograph performed earlier today. FINDINGS: Tip of endotracheal tube is 4.6 cm above the migdalia. Tip of nasogastric tube is within the proximal body of the stomach. Cardiomegaly is again noted. Small left and trace right pleural effusions are present. There is hazy left basilar opacity. Cardiomegaly is unchanged. Pulmonary edema has improved. No pneumothorax. Dual lumen right internal jugular central venous catheter remains in place. IMPRESSION: 1. Tip of endotracheal tube 4.6 cm above the migdalia. 2. Tip of nasogastric tube within the proximal body of the stomach. 3. Cardiomegaly. Interval improvement in pulmonary edema. 4. Small left and trace right pleural effusions. ACT 112: Negative or not required by law. Electronically signed by: Salvador Murillo M.D. 05/25/2024 12:07 PM Medications Administered Current Inpatient Medications Acetaminophen (Acetaminophen 325 Mg Tab) 650 mg PO Q4H PRN PRN Reason: Pain or Fever Stop: 06/23/24 14:17 Atorvastatin Calcium (Atorvastatin 40 Mg Tab) 80 mg PO QAM DEEPA Stop: 06/24/24 08:59 Last Admin: 05/25/24 08:57 Dose: 80 mg Clopidogrel Bisulfate (Clopidogrel Bisulfate 75 Mg Tab) 75 mg PO QAM DEEPA Stop: 06/24/24 08:59 Collagenase (Collagenase Oint 30 Gm Tube) 1 appln EXT DAILY [facility] Stop: 06/24/24 12:59 Dextrose (Dextrose 50% 50 Ml Syringe) 25 - 50 ml IV UD PRN; Protocol PRN Reason: Hypoglycemia Protocol Stop: 06/23/24 14:17 Fentanyl Citrate (Fentanyl Bolus From Bag) 50 mcg IV Q60M PRN PRN Reason: Pain or Agitation Stop: 06/08/24 11:45 Glucagon (Glucagon For Inj 1 Mg Vial) 1 mg SQ UD PRN; Protocol PRN Reason: Hypoglycemia Protocol Stop: 06/23/24 14:17 Glucose (Glucose 40% Gel 15 Gm Tube) 15 - 30 gm PO UD PRN; Protocol PRN Reason: Hypoglycemia Protocol Stop: 06/23/24 14:17 Glucose (Glucose 10 Tab/Tube) 4 - 8 tab PO UD PRN; Protocol PRN Reason: Hypoglycemia Protocol Stop: 06/23/24 14:17 Heparin Sodium (Porcine) (Heparin Sod 5,000 Unit/0.5 Ml Vial) 5,000 units SQ Q8 DEEPA Stop: 06/23/24 14:17 Last Admin: 05/25/24 05:24 Dose: Not Given Sodium Chloride (Nss) 1,000 mls @ 0 mls/hr IV .Q0M PRN PRN Reason: For Hemodialysis Use ONLY Stop: 05/31/24 06:59 Norepinephrine Bitartrate (Levophed/D5w) 4 mg in 250 mls @ 43.766 mls/hr IV .Q5H43M DEEPA; Protocol Stop: 06/24/24 08:29 Last Titration: 05/25/24 10:12 Dose: 0.11 mcg/kg/min, 43.8 mls/hr Hydrocortisone Sodium (Succinate 50 mg/ Syringe) 1 mls @ 4 mls/min IV Q6H DEEPA Stop: 06/24/24 08:29 Last Admin: 05/25/24 09:06 Dose: 4 mls/min Pantoprazole Sodium (Protonix) 40 mg in 10 mls @ 5 mls/min IV BID DEEPA Stop: 06/24/24 08:59 Last Admin: 05/25/24 08:50 Dose: 5 mls/min Dexmedetomidine/Sodium Chloride (Precedex) 200 mcg in 50 mls @ 10.61 mls/hr IV .Q4H43M DEEPA; Protocol Stop: 05/29/24 09:14 Last Admin: 05/25/24 09:24 Dose: 0.4 mcg/kg/hr, 10.6 mls/hr Piperacillin Sod/Tazobactam Sod (Zosyn) 4.5 gm in 100 mls @ 25 mls/hr IV Q12H DEEPA; Protocol Stop: 05/31/24 18:29 Vasopressin 20 units/ Sodium (Chloride) 101 mls @ 12.12 mls/hr IV .Q8H20M DEEPA Stop: 06/24/24 11:29 Last Admin: 05/25/24 12:11 Dose: 0.04 unit/min, 12.1 mls/hr Midazolam HCl (Versed) 125 mg in 250 mls @ 2 mls/hr IV .Q96H DEEPA; Protocol Stop: 06/24/24 11:59 Last Admin: 05/25/24 12:11 Dose: 1 mg/hr, 2 mls/hr Fentanyl Citrate (Fentanyl Citrate) 2,500 mcg in 250 mls @ 2.5 mls/hr IV .Q96H DEEPA; Protocol Stop: 06/08/24 11:59 Last Admin: 05/25/24 12:11 Dose: 25 mcg/hr, 2.5 mls/hr Vancomycin HCl 750 mg/ Sodium (Chloride) 265 mls @ 200 mls/hr IV TODAY@1700 [facility] Stop: 05/25/24 18:20 Insulin Aspart (Insulin Aspart Per Unit Charge) 0 units SC Q6 DEEPA Stop: 06/23/24 14:17 Last Admin: 05/25/24 12:17 Dose: 3 units Insulin Glargine (Lantus Per Unit Charge) 0 units SQ HS DEEPA; Protocol Stop: 06/23/24 20:59 Last Admin: 05/24/24 21:01 Dose: 15 units Midazolam HCl (Midazolam Bolus From Bag) 2 mg IV Q60M PRN PRN Reason: Sedation Stop: 06/24/24 11:45 Midodrine (Midodrine Hcl 10 Mg Tab) 10 mg PO TID@0800,1200,1700 [facility] Stop: 06/23/24 14:17 Last Admin: 05/25/24 12:10 Dose: 10 mg Miscellaneous (Carbohydrates For Hypoglycemia ) 15 - 30 gm PO UD PRN PRN Reason: Hypoglycemia Protocol Stop: 06/23/24 14:17 Miscellaneous Information (Vancomycin Consult Active) 1 each N/A UD PRN PRN Reason: Consult Stop: 06/23/24 11:01 Miscellaneous Information (Pharmacy Glycemic Mgmt Consult) 1 each N/A UD PRN PRN Reason: Consult Stop: 06/23/24 14:17 Olanzapine (Olanzapine 10 Mg/2.1 Ml Sdv) 5 mg IM Q6H PRN PRN Reason: Severe Agitation Stop: 06/23/24 14:17 Ondansetron HCl (Ondansetron Inj 2 Mg/Ml 2 Ml Vial) 4 mg IV Q6H PRN PRN Reason: Nausea Stop: 06/23/24 14:17 PG Care Time/CCT Total # of Minutes Spent Total Time Spent with Patient: Total time spent is greater than 50% in coordination of care (as documented) at patient's floor/unit and/or counseling patient: [place] [address] IN/OBS CONSULT LVL 3,45M Patient Type New History Expanded Problem Focused Exam Expanded Problem Focused Medical Decision Making Low Complexity Diagnoses Palliative care by specialist Z51.5 Counseling regarding advanced directives and goals of care Z71.89
[2024-05-25 11:22] LABS: Hep B Surface Ag with confirm Negative (Negative)
[2024-05-25 11:31] LABS: Hepatitis B Surface Ab Quant < 3.00 mIU/mL (>or=10mIU/mL Immune); Hepatitis B Surface Antibody Non-Immune
--- NOTE | 2024-05-25 11:43 | Procedure Note ---
Procedure Note Date of Service May 25, 2024 INTUBATION PROCEDURE NOTE: Dr. Ilir Rivers A time-out was completed verifying correct patient, procedure, site, positioning. Patient was evaluated and required intubation for hypoxemic respiratory failure and encephalopathy. Sedative agent used: 75 mg ketamine Paralysis agent used: 50 mg of recommend Emergent consent was implied given patients rapidly declining clinical status and need for airway protection. Number of attempts: 1 Grade view: The patient was prepared in the appropriate fashion. Sedation was achieved utilizing glide ketamine and rocuronium. The patient was easily ventilated using [id number] to achieve adequate oxygenation. A 8.0 [place]ian endotracheal tube was placed under glide scope guidance to 25 cm at the lip. The stylette was removed and balloon was inflated with 10mL of air. Appropriate Colorimetric change was appreciated. Bilateral breath sounds were heard without air sounds in the abdomen. Post Intubation Chest X-ray ordered. Patient tolerated the procedure well and there were no immediate complications. [facility] [facility] [place]odes (Charges) Resuscitation Resuscitation: 28499 Endotracheal Intubation, emergency Coding CPT Codes Resuscitation - Resuscitation: 06502 Endotracheal Intubation, emergency ([id number]) Additional Codes Date of Service (PG.SURGERY)
[2024-05-25] MEDS ORDERED: MIDAZOLAM BOLUS FROM BAG IV PRN (11:46)
--- NOTE | 2024-05-25 12:06 | Pharmacy Report ---
Pharmacy PK ABX Note - Date of Service May 25, 2024 - Assessment and Plan Assessment 05/25: * Day #2 vancomycin. Plan for HD this afternoon. Blood cultures NGTD. 05/24: * 78 year old M on vancomycin for treatment of sepsis 2nd cellulitis r/o osteomyelitis. ED status at this time - ongoing inpatient orders pending. * Pertinent microbiologic data includes: Positive MRSA Nasal Swab * PMH: dialysis dependent since February, recent hx MRSA bacteremia at OSH, recently at [facility] May 16 up until admission here, severe aortic stenosis, dementia, Plan Vancomycin * Random vancomycin level 16.5mcg/mL @ 0140 this AM. Safe to re-dose vancomycin. Plan for HD this afternoon. Will re-dose with vancomycin 750mg IV X 1 post- dialysis. * Repeat level in AM to guide further dosing. Pharmacy will continue to follow and will adjust dose/frequency as necessary. Thank you. Pharmacy has transitioned to AUC monitoring for vancomycin. AUC/CHRIS is the preferred PK/PD target and is associated with decreased risk of nephrotoxicity compared to traditional trough targets.
--- NOTE | 2024-05-25 12:08 | XRay Report ---
XR chest 1V portable CLINICAL HISTORY: s/p intubation COMPARISON STUDY: Chest radiograph performed earlier today. FINDINGS: Tip of endotracheal tube is 4.6 cm above the migdalia. Tip of nasogastric tube is within the proximal body of the stomach. Cardiomegaly is again noted. Small left and trace right pleural effusio ns are present. There is hazy left basilar opacity. Cardiomegaly is unchanged. Pulmonary edema has im proved. No pneumothorax. Dual lumen right internal jugular central venous catheter remains in place. IMPRESSION: 1. Tip of endotracheal tube 4.6 cm above the migdalia. 2. Tip of nasogastric tube within the proximal body of the stomach. 3. Cardiomegaly. Interval improvement in pulmonary edema. 4. Small left and trace right pleural effusions. ACT 112: Negative or not required by law. Electronically signed by: Salvador Murillo M.D. 05/25/2024 12:07 PM
[2024-05-25] MEDS: VASOPRESSIN 20 UNITS in SODIUM CHLORIDE 0.9% 100 ML IV SCH (12:11)
[2024-05-25] MEDS: fentaNYL citrate 2,500 MCG/250 ML BAG IV SCH (12:11)
[2024-05-25] MEDS: RAPID SEQUENCE INDUCTION BAG ONE (12:11)
[2024-05-25] MEDS: MIDAZOLAM HCL 125 MG/250 ML BAG IV SCH (12:11)
[2024-05-25] MEDS: INSULIN ASPART PER UNIT CHARGE SC SCH ×2 (12:17→18:03)
--- NOTE | 2024-05-25 12:47 | Podiatry Consultation ---
Date of Consultation May 25, 2024 Assessment & Plan (1) Multiple open wounds of lower extremity, complicated: Encounter type: initial encounter Laterality: left Qualified Code(s): S81.802A - Unspecified open wound, left lower leg, initial encounter (2) Peripheral arterial occlusive disease: (3) Insulin-requiring or dependent type II diabetes mellitus: (4) Chronic ulcer of left foot with fat layer exposed: Plan Patient was examined and evaluated. His overall prognosis is guarded to poor, but his feet/ulcerations are not likely contributing to this sepsis. These ulcers appear much more chronic in nature. Would plan bedside debridement on Saturday or if he stabilizes overall and these remain problematic, but otherwise would recommend conservative/non-surgical treatment, given suspected multi-factorial PAD. Appreciate wound care and vascular surgery input. Ordered santyl to be applied to left foot eschars/wounds daily. Will check foot XR when available though no OM is suspected. Will continue to follow. History of Present Illness Reason for Consultation: Left foot ulcerations/infection Attending Physician: Darron Martinez MD History of Present Illness Patient seen at bedside at lunchtime. Patient is intubated/ventilated, sedated. History obtained from chart review and discussion with family at bedside. Admitted with worsening concerns from [facility] rehab. Noted to have sepsis and left foot ulcerations. Was concerned that left foot was contributing to or leading to this infection. We were consulted to evaluate this. Per notes, had been able to discuss his recent care but with some confusion/disorientation. With worsening respiratory symptoms, was intubated very recently. Patient's family still deciding future care. Allergies Allergy/AdvReac Type Severity Reaction Status Date / Time No Known Allergies Allergy Unverified 05/24/24 09:52 Home Medications Medication Instructions Recorded Confirmed Type acetaminophen 325 mg tablet 650 mg PO Q4H PRN Pain 05/24/24 05/24/24 History acetaminophen 500 mg tablet 500 mg PO Q4H PRN TEMP=>100.5 05/24/24 05/24/24 History atorvastatin 40 mg tablet 80 mg PO HS 05/24/24 05/24/24 History bisacodyl 10 mg rectal suppository 10 mg DC DAILY PRN Constipation 05/24/24 History cholecalciferol (vitamin D3) 50 50 mcg PO DAILY 05/24/24 05/24/24 History mcg (2,000 unit) capsule (Vitamin D3) clopidogrel 75 mg tablet (Plavix) 75 mg PO DAILY 05/24/24 05/24/24 History collagenase clostridium histo. 250 1 applic topical .SAT,SAT,Saturday05/24/24 05/24/24 History unit/gram topical ointment darbepoetin mary jane in polysorbat 60 60 mcg subcut WK 05/24/24 05/24/24 History mcg/0.3 mL in polysorbate injection syringe (Aranesp) dextrose 50 % in water (D50W) 12.5 g IV DIRECTED PRN 05/24/24 05/24/24 History Hypoglycemia dextrose 50 % in water (D50W) 50 ml IV DIRECTED PRN 05/24/24 05/24/24 History Hypoglycemia diphenhydramine HCl 12.5 mg IV DIRECTED PRN DIALYSIS 05/24/24 05/24/24 History docusate sodium 100 mg capsule 100 mg PO BID PRN Constipation 05/24/24 05/24/24 History enoxaparin 30 mg/0.3 mL 30 mg subcut DAILY 05/24/24 05/24/24 History subcutaneous syringe fenofibrate 160 mg tablet 145 mg PO DAILY 05/24/24 05/24/24 History gabapentin 100 mg capsule 100 mg PO .SAT,SAT,Saturday05/24/24 05/24/24 History gabapentin 100 mg capsule 100 mg PO Q12H 05/24/24 05/24/24 History glucagon 1 mg solution for 1 mg IM DIRECTED PRN 05/24/24 05/24/24 History injection Hypoglycemia heparin (porcine) 1,000 unit/mL 1,800 unit IV DIRECTED PRN 05/24/24 05/24/24 History injection solution DIALYSIS insulin aspart U-100 100 unit/mL 1 sliding scale dose subcut 05/24/24 05/24/24 History (3 mL) subcutaneous pen (Novolog USEASDIRECTD FlexPen U-100 Insulin aspart) lorazepam 0.5 mg tablet (Ativan) 0.5 mg PO Q6H PRN Agitation 05/24/24 05/24/24 History midodrine 5 mg tablet 10 mg PO TID 05/24/24 05/24/24 History ondansetron HCl 4 mg tablet 4 mg PO Q6H PRN N/V 05/24/24 05/24/24 History oxycodone 5 mg tablet 2.5 mg PO Q6H PRN Pain 05/24/24 05/24/24 History pantoprazole 40 mg tablet,delayed 40 mg PO DAILY 05/24/24 05/24/24 History release (Protonix) polyethylene glycol 3350 17 17 g PO .LUNCH PRN Constipation 05/24/24 05/24/24 History gram/dose oral powder (Miralax) sennosides 8.6 mg-docusate sodium 1 tab-cap PO .LUNCH PRN 05/24/24 05/24/24 History 50 mg tablet (Senokot-S) Constipation sodium chloride 0.9 % (flush) 1,000 ml IV DIRECTED 05/24/24 05/24/24 History sodium phosphates 19 gram-7 118 ml DC DAILY PRN Constipation 05/24/24 05/24/24 H istory gram/118 mL enema (Enema) Patient History Medical History Aortic stenosis CVA (cerebral vascular accident) DDD (degenerative disc disease) Hyperlipidemia Hypertension NSTEMI (non-ST elevated myocardial infarction) Diabetes Heart failure Renal failure Surgical History History of total right hip arthroplasty Social History Smoking Status: Never smoker Hx Alcohol Use: No Hx Substance Use: No Preferred Language: Bulgarian Communication Ability: Effective Communication Ability Comment: confused Broom Bundler Required: No Beliefs That Will Affect Care: Syn[employer] Current Living Situation: Alone Gender Identity: Male Assistive Devices: Bedside Commode, Cane and Walker Review of Systems Review of Systems: All systems reviewed & are unremarkable except as noted in HPI & below, Unobtainable due to endotracheal tube and Unobtainable due to reduced consciousness Physical Exam Physical Exam: Lower extremity focused exam: Diffuse pitting edema noted below the knee. DP/PT pulses non palpable. Dry, eschar/excoriated wounds noted to dorsal left forefoot with images noted in chart. These do not immediately probe deeper to bone or joint capsule, though no aggressive bedside debridement performed today. No significant drainage or ascending cellulitis from these wounds. Wounds are noted to the dorsal hallux and second toe, as well as the dorsal 1st metatarsal. Advanced trophic changes noted, otherwise. No imaging to review just yet. Constitutional: WD/WN, vitals as above + acute distress, + ill appearing, + obese, + mechanically ventilated and + edematous Eyes: Sedated ENMT: Endotracheal tube intact, ventilated Neck: trachea midline, no thyromegaly normal visual inspection Respiratory: no respiratory distress Ventilated Cardiovascular: Rate/Rhythm: regular rate and regular rhythm Chest (Breasts): Chest: normal inspection of chest Gastrointestinal (Abdomen): Inspection/Auscultation: abdomen normal to inspe ction Musculoskeletal: Head/Neck/Chest: normocephalic and head atraumatic Extremities: extremities normal to inspection Ankle: no skin erythema Skin: + turgor decreased, + lesion, + ulcer, + wound, + skin atrophy, + eschar, + nails discolored and + nails dystrophic; no erythema and no fluctulance Neurologic: plantar reflexes intact bilaterally; + not awake Results & Data Vital Signs (Past 12 Hours) Vital Signs Temp Pulse Resp BP BP BP Pulse Ox 05/25/24 11:55 79 18 95 05/25/24 10:12 90/44 L 05/25/24 09:50 87/44 L 05/25/24 09:24 86/45 L 05/25/24 07:58 86/59 L 05/25/24 06:04 82/52 L 05/25/24 06:04 82/52 L 05/25/24 06:02 80/52 L 05/25/24 06:00 84 26 H 100 05/25/24 05:45 84 15 99 05/25/24 05:30 82 15 100 05/25/24 05:30 80/50 L 05/25/24 05:30 80/50 L 05/25/24 05:30 80/50 L 05/25/24 05:30 80/50 L 05/25/24 05:30 80/50 L 05/25/24 05:30 80/50 L 05/25/24 05:30 80/50 L 05/25/24 05:30 80/50 L 05/25/24 05:30 80/50 L 05/25/24 05:30 80/50 L 05/25/24 05:30 80/50 L 05/25/24 05:30 80/50 L 05/25/24 05:00 85/52 L 05/25/24 05:00 85/52 L 05/25/24 05:00 85/52 L 05/25/24 05:00 85/52 L 05/25/24 05:00 85/52 L 05/25/24 05:00 85/52 L 05/25/24 05:00 85/52 L 05/25/24 04:48 84 13 85 L 05/25/24 04:45 83 10 L 100 05/25/24 04:43 88/53 L 05/25/24 04:43 88/53 L 05/25/24 04:43 88/53 L 05/25/24 04:43 88/53 L 05/25/24 04:43 88/53 L 05/25/24 04:39 85 14 89 L 05/25/24 04:33 85/51 L 05/25/24 04:33 85/51 L 05/25/24 04:27 85 20 88 L 05/25/24 04:18 84 13 100 05/25/24 04:00 91/54 L 05/25/24 04:00 91/54 L 05/25/24 04:00 91/54 L 05/25/24 04:00 91/54 L 05/25/24 04:00 91/54 L 05/25/24 04:00 91/54 L 05/25/24 04:00 91/54 L 05/25/24 04:00 91/54 L 05/25/24 04:00 91/54 L 05/25/24 04:00 91/54 L 05/25/24 04:00 91/54 L 05/25/24 04:00 91/54 L 05/25/24 04:00 91/54 L 05/25/24 04:00 91/54 L 05/25/24 04:00 91/54 L 05/25/24 04:00 88 14 100 05/25/24 03:27 85 14 100 05/25/24 03:18 86/52 L 05/25/24 03:18 86/52 L 05/25/24 03:18 86/52 L 05/25/24 03:18 86/52 L 05/25/24 03:18 86/52 L 05/25/24 03:18 86/52 L 05/25/24 03:18 86/52 L 05/25/24 03:18 86/52 L 05/25/24 03:18 86/52 L 05/25/24 03:18 86/52 L 05/25/24 03:18 86/52 L 05/25/24 03:18 86/52 L 05/25/24 03:18 86/52 L 05/25/24 03:00 84/52 L 05/25/24 03:00 84/52 L 05/25/24 03:00 84/52 L 05/25/24 03:00 84/52 L 05/25/24 03:00 86 18 99 05/25/24 02:47 05/25/24 02:30 85/58 L 05/25/24 02:30 85/58 L 05/25/24 02:30 85/58 L 05/25/24 02:30 85/58 L 05/25/24 02:30 85/58 L 05/25/24 02:30 85/58 L 05/25/24 02:30 85/58 L 05/25/24 02:30 85/58 L 05/25/24 02:30 89 14 93 05/25/24 02:30 85/58 L 05/25/24 02:30 85/58 L 05/25/24 02:30 85/58 L 05/25/24 02:30 85/58 L 05/25/24 02:30 85/58 L 05/25/24 02:18 36.7 C 05/25/24 02:06 76/55 L 05/25/24 02:06 76/55 L 05/25/24 02:06 76/55 L 05/25/24 02:06 76/55 L 05/25/24 02:06 76/55 L 05/25/24 02:06 76/55 L 05/25/24 02:06 76/55 L 05/25/24 02:03 91 H 21 05/25/24 02:02 99 05/25/24 01:20 89/55 L 05/25/24 00:56 72/51 L O2 Del Method O2 Flow Rate FiO2 05/25/24 11:55 100 05/25/24 10:12 05/25/24 09:50 05/25/24 09:24 05/25/24 07:58 05/25/24 06:04 05/25/24 06:04 05/25/24 06:02 05/25/24 06:00 05/25/24 05:45 05/25/24 05:30 05/25/24 05:30 05/25/24 05:30 05/25/24 05:30 05/25/24 05:30 05/25/24 05:30 05/25/24 05:30 05/25/24 05:30 05/25/24 05:30 05/25/24 05:30 05/25/24 05:30 05/25/24 05:30 05/25/24 05:30 05/25/24 05:00 05/25/24 05:00 05/25/24 05:00 05/25/24 05:00 05/25/24 05:00 05/25/24 05:00 05/25/24 05:00 05/25/24 04:48 05/25/24 04:45 05/25/24 04:43 05/25/24 04:43 05/25/24 04:43 05/25/24 04:43 05/25/24 04:43 05/25/24 04:39 05/25/24 04:33 05/25/24 04:33 05/25/24 04:27 05/25/24 04:18 05/25/24 04:00 05/25/24 04:00 05/25/24 04:00 05/25/24 04:00 05/25/24 04:00 05/25/24 04:00 05/25/24 04:00 05/25/24 04:00 05/25/24 04:00 05/25/24 04:00 05/25/24 04:00 05/25/24 04:00 05/25/24 04:00 05/25/24 04:00 05/25/24 04:00 05/25/24 04:00 05/25/24 03:27 05/25/24 03:18 05/25/24 03:18 05/25/24 03:18 05/25/24 03:18 05/25/24 03:18 05/25/24 03:18 05/25/24 03:18 05/25/24 03:18 05/25/24 03:18 05/25/24 03:18 05/25/24 03:18 05/25/24 03:18 05/25/24 03:18 05/25/24 03:00 05/25/24 03:00 05/25/24 03:00 05/25/24 03:00 05/25/24 03:00 05/25/24 02:47 Nasal Cannula 2 05/25/24 02:30 05/25/24 02:30 05/25/24 02:30 05/25/24 02:30 05/25/24 02:30 05/25/24 02:30 05/25/24 02:30 05/25/24 02:30 05/25/24 02:30 05/25/24 02:30 05/25/24 02:30 05/25/24 02:30 05/25/24 02:30 05/25/24 02:30 05/25/24 02:18 05/25/24 02:06 05/25/24 02:06 05/25/24 02:06 05/25/24 02:06 05/25/24 02:06 05/25/24 02:06 05/25/24 02:06 05/25/24 02:03 05/25/24 02:02 Nasal Cannula 2 05/25/24 01:20 05/25/24 00:56
[2024-05-25] MEDS: VECURONIUM BROMIDE 10 MG VIAL IV STA (12:49)
[2024-05-25 13:05] LABS: iSTAT Art Bld Gas pCO2 Correct 38 mmHg (35-46); iSTAT Art Bld Gas pH Corrected 7.345 (7.35-7.45); iSTAT Arterial Blood Gas HCO3 21 meg/L (19-24); iSTAT Arterial Blood Gas pCO2 38 mmHg (35-46); iSTAT Arterial Blood Gas pH 7.34 (7.35-7.45); iSTAT Arterial Blood Gas pO2 421 mmHg (80-95); iSTAT Arterial Blood Gas pO2 C 419; iSTAT Carbon Dioxide 22 mmol/L (24-31); iSTAT FiO2 100 %; iSTAT Hematocrit 28 % (42-52); iSTAT Hemoglobin 9.5 g/dl (14.0-18.0); iSTAT Sample Type Arterial; iSTAT Site Art Line; iSTAT Sodium 129 mmol/L (135-144); iSTAT SpO2 100
--- NOTE | 2024-05-25 13:33 | Pharmacy Report ---
Pharmacy Glycemic Short Note 2 - Date of Service May 25, 2024 - Glycemic Short BSG Results (Last 24 hours): 05/24/24 05/24/24 05/24/24 13:51 16:34 20:37 Glucose POC Glucose 130 H 87 202 H 05/25/24 05/25/24 05/25/24 01:15 01:40 05:18 Glucose 131 H POC Glucose 131 H 147 H 05/25/24 05/25/24 10:14 12:13 Glucose 153 H POC Glucose 196 H OUTPATIENT ANTIDIABETIC REGIMEN: * NovoLog sliding scale, 0-10 units based on blood sugar per med rec * per outpatient fill history - patient on Tresiba, filled in Mar 2024 * A1c pending ASSESSMENT: 05/25: * BSGs [id number]/dL the last 24h. Received 15 units of basal and 3 units of bolus insulin yesterday. * Intubated today. Continues on IV antibiotics and vasopressor support. Hydrocortisone 50mg IV q6h initiated. * Lantus 0/10/15 units HS depending on BSG. Novolog tightened and adjusted to q4. If remains hyperglycemic and on pressors, may require insulin infusion. 05/24: * 78 YO M, ESRD on HD, critically ill from presumed sepsis, high concern for MRSA bacteremia from multiple skin wounds, possible osteo of left foot on IV Vancomycin. * Type 2 DM, unknown control, A1c pending, patient unable to report how he takes any insulin at this time. * Will begin patient on NovoLog CF & CR only and PRN basal tonight if needed and titrate to goal blood sugar. PLAN FOR INPATIENT GLYCEMIC CONTROL: * Basal insulin * Lantus 0/10/15 units depending on BSG * Bolus insulin * NovoLog per scale ACHS or Q4hrs while NPO * Goal Range: Low 110 mg/dL - High 140 mg/dL * Correction Factor: 20 mg/dL/unit * Nutritional / Prandial insulin per carb ratio of 1 unit per 10 grams CHO consumed
--- NOTE | 2024-05-25 14:19 | Magnetic Resonance Report ---
MR foot LT w/o con HISTORY: 78 years-old Male Osteomyelitis chronic left foot pain with possible osteomyelitis COMPARISON: None TECHNIQUE: Multiplanar multisequence MRI of the left foot was obtained without IV contrast. FINDINGS: Study is motion degraded. Diffuse muscle atrophy compatible with chronic determination changes. Exten sive subcutaneous edema circumferentially, most pronounced dorsally with associated there are multipl e thickening. No fluid collection identified to suggest abscess. The visualized tendons and ligaments appear intact. The Lisfranc ligament is intact. 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 No acute fracture, dislocation, osseous erosion or si gnificant bone marrow edema. IMPRESSION: 1. No MR evidence of acute osteomyelitis. 2. Extensive subcutaneous edema. Differential considerations include cellulitis, venous stasis or lym phedema. 3. No abscess. 4. Mild osteoarthritis. ACT 112: Negative or not required by law. The above report was generated using voice recognition software. It may contain grammatical, syntax o r spelling errors. Electronically signed by: Fredy Beard M.D. 05/25/2024 2:17 PM
--- NOTE | 2024-05-25 14:32 | Communication Note ---
Date of Service: May 25, 2024 I spoke with 2 of the patient's daughters outside of his room regarding the patient's CODE STATUS and overall prognosis. They indicated that they would w ant their father to be a DNR in the event of a cardiac arrest but are okay with continuing current measures at this time and will reevaluate his goals of care further come tomorrow. Orders have been changed in the EMR to reflect this DNR CODE STATUS. He is okay for continued intubation and mechanical ventilation.
[2024-05-25] MEDS: HEPARIN SOD (PORCINE) 1000 UNIT/ML IV SCH (14:47)
[2024-05-25] MEDS: HEPARIN SOD (PORCINE) 1000 UNIT/ML IV ONE (14:47)
--- NOTE | 2024-05-25 14:47 | Hospitalist Progress Note ---
Date of Service May 25, 2024 Assessment & Plan (1) Severe sepsis due to methicillin resistant Staphylococcus aureus (MRSA) with acute organ dysfunction: (2) Acute metabolic encephalopathy: (3) Acute on chronic systolic (congestive) heart failure: (4) Severe aortic stenosis: (5) Insulin-requiring or dependent type II diabetes mellitus: (6) Peripheral arterial occlusive disease: (7) Multiple open wounds of lower extremity, complicated: (8) Multiple open wounds of upper extremity: (9) Wound of sacral region: (10) End stage renal disease on dialysis: (11) Vascular dementia: Plan Per admitting provider w/ addendum Patient is a 78-year-old gentleman end-stage renal disease on hemodialysis critically ill from presumed sepsis at this point. Based on patient's previous history, high concern for MRSA bacteremia from multiple skin wounds and possible osteomyelitis of the left foot. Patient is demonstrating endorgan effects from his sepsis with hypotension above and beyond his baseline, disorientation and confusion and encephalopathy. Patient requires hospital level care and monitoring. He is at high risk for further decompensation as medical conditions and high risk of more significant morbidity and mortality. 05/25/2024 After pt admitted, became hypotensive and required vasopressor support, transfer to ICU. In addition, today during nursing care, pt's resp. status acutely worsened and pt required intubation. Broad-spectrum antibiotics started on admission - pt currently on vanco + zosyn Follow blood cultures - currently negat. for 24 hrs MRI of the foot to rule out osteomyelitis - 1. No MR evidence of acute osteomyelitis. 2. Extensive subcutaneous edema. Differential considerations include cellulitis, venous stasis or lymphedema. 3. No abscess. 4. Mild osteoarthritis. Podiatry consulted for further evaluation of foot wounds Wound care consulted for overall care of his multiple wounds Nephrology consulted for hemodialysis needs Reviewing patient's medication list on several medications that could alter mental status including gabapentin, lorazepam, temazepam-will hold these medications and observe. Continue long-acting and short acting insulin, consulted pharmacy for diabetes management Initially continued midodrine for blood pressure support as prior to admission, now pt on vasopressors in ICU. Further management per skip miner. Admitting provider confirmed with pt's daughter full CODE STATUS. Battery Service Technician discussed today w/ family and per their note, code status is now DNR/DNI, but continue current treatment measures. Admission and Anticipated Discharge Date Admission Date: May 24, 2024 Subjective Pt seen in follow up Pt admitted yesterday from [facility] with AMS, hx of mrsa infection Overnight pt's BP low and required transfer to ICU for vasopressor support Today during nursing care pt's respiratory status acutely worsened and needed to be intubated Currently pt encephalopathic, intubated and on pressors. Family present in ICU and being updated by skip miner. RNs at the bedside. unable to obtain any hx from the pt Review of Systems Review of Systems: All systems reviewed & are unremarkable except as noted in Subjective Physical Exam Physical Exam: Constitutional: intubated , on pressors, elderly M HEENT: NC/AT Neck: Soft, no adenopathy Lungs: Decreased breath sounds, diffuse Rales and crackles throughout CV: S1-S2, regular, systolic murmur Abdomen: Soft, obese nontender Extremities: anasarca edema lower extremities up through the thighs into dependent portions of the sacrum Neuro: pt intubated, encephalopathic Skin: multiple wounds of the left foot with thick eschars and surrounding erythema. Multiple other ulcerations/wounds/skin tears/abrasions on upper and lower extremities and sacrum Results & Data Results & Data Vital Signs (Past 12 Hours) Vital Signs Pulse Resp BP BP BP Pulse Ox O2 Del Method 05/25/24 13:06 82 16 05/25/24 12:12 77 21 93 05/25/24 11:55 79 18 95 05/25/24 11:00 85 11 L 100 05/25/24 10:30 97/60 L 05/25/24 10:30 97/60 L 05/25/24 10:30 97/60 L 05/25/24 10:30 97/60 L 05/25/24 10:30 97/60 L 05/25/24 10:30 97/60 L 05/25/24 10:30 97/60 L 05/25/24 10:30 97/60 L 05/25/24 10:30 97/60 L 05/25/24 10:30 97/60 L 05/25/24 10:30 97/60 L 05/25/24 10:30 97/60 L 05/25/24 10:30 97/60 L 05/25/24 10:30 97/60 L 05/25/24 10:30 97/60 L 05/25/24 10:30 97/60 L 05/25/24 10:30 97/60 L 05/25/24 10:30 97/60 L 05/25/24 10:30 97/60 L 05/25/24 10:30 97/60 L 05/25/24 10:30 97/60 L 05/25/24 10:30 97/60 L 05/25/24 10:30 97/60 L 05/25/24 10:30 97/60 L 05/25/24 10:30 83 15 93 05/25/24 10:12 90/44 L 05/25/24 10:09 83 14 95 05/25/24 10:00 95/57 L 05/25/24 10:00 95/57 L 05/25/24 10:00 95/57 L 05/25/24 10:00 95/57 L 05/25/24 10:00 95/57 L 05/25/24 10:00 95/57 L 05/25/24 10:00 95/57 L 05/25/24 10:00 95/57 L 05/25/24 10:00 95/57 L 05/25/24 09:51 85 14 97 05/25/24 09:50 87/44 L 05/25/24 09:30 110/66 05/25/24 09:30 110/66 05/25/24 09:30 110/66 05/25/24 09:30 110/66 05/25/24 09:30 110/66 05/25/24 09:30 110/66 05/25/24 09:30 110/66 05/25/24 09:30 110/66 05/25/24 09:30 110/66 05/25/24 09:30 110/66 05/25/24 09:30 110/66 05/25/24 09:24 86/45 L 05/25/24 08:00 Nasal Cannula 05/25/24 07:58 86/59 L 05/25/24 06:04 82/52 L 05/25/24 06:04 82/52 L 05/25/24 06:02 80/52 L 05/25/24 06:00 84 26 H 100 05/25/24 05:45 84 15 99 05/25/24 05:30 82 15 100 05/25/24 05:30 80/50 L 05/25/24 05:30 80/50 L 05/25/24 05:30 80/50 L 05/25/24 05:30 80/50 L 05/25/24 05:30 80/50 L 05/25/24 05:30 80/50 L 05/25/24 05:30 80/50 L 05/25/24 05:30 80/50 L 05/25/24 05:30 80/50 L 05/25/24 05:30 80/50 L 05/25/24 05:30 80/50 L 05/25/24 05:30 80/50 L 05/25/24 05:00 85/52 L 05/25/24 05:00 85/52 L 05/25/24 05:00 85/52 L 05/25/24 05:00 85/52 L 05/25/24 05:00 85/52 L 05/25/24 05:00 85/52 L 05/25/24 05:00 85/52 L 05/25/24 04:48 84 13 85 L 05/25/24 04:45 83 10 L 100 05/25/24 04:43 88/53 L 05/25/24 04:43 88/53 L 05/25/24 04:43 88/53 L 05/25/24 04:43 88/53 L 05/25/24 04:43 88/53 L 05/25/24 04:39 85 14 89 L 05/25/24 04:33 85/51 L 05/25/24 04:33 85/51 L 05/25/24 04:27 85 20 88 L 05/25/24 04:18 84 13 100 05/25/24 04:00 91/54 L 05/25/24 04:00 91/54 L 05/25/24 04:00 91/54 L 05/25/24 04:00 91/54 L 05/25/24 04:00 91/54 L 05/25/24 04:00 91/54 L 05/25/24 04:00 91/54 L 05/25/24 04:00 91/54 L 05/25/24 04:00 91/54 L 05/25/24 04:00 91/54 L 05/25/24 04:00 91/54 L 05/25/24 04:00 91/54 L 05/25/24 04:00 91/54 L 05/25/24 04:00 91/54 L 05/25/24 04:00 91/54 L 05/25/24 04:00 88 14 100 05/25/24 03:27 85 14 100 05/25/24 03:18 86/52 L 05/25/24 03:18 86/52 L 05/25/24 03:18 86/52 L 05/25/24 03:18 86/52 L 05/25/24 03:18 86/52 L 05/25/24 03:18 86/52 L 05/25/24 03:18 86/52 L 05/25/24 03:18 86/52 L 05/25/24 03:18 86/52 L 05/25/24 03:18 86/52 L 05/25/24 03:18 86/52 L 05/25/24 03:18 86/52 L 05/25/24 03:18 86/52 L 05/25/24 03:00 84/52 L 05/25/24 03:00 84/52 L 05/25/24 03:00 84/52 L 05/25/24 03:00 84/52 L 05/25/24 03:00 86 18 99 05/25/24 02:47 Nasal Cannula O2 Flow Rate FiO2 05/25/24 13:06 05/25/24 12:12 05/25/24 11:55 100 05/25/24 11:00 05/25/24 10:30 05/25/24 10:30 05/25/24 10:30 05/25/24 10:30 05/25/24 10:30 05/25/24 10:30 05/25/24 10:30 05/25/24 10:30 05/25/24 10:30 05/25/24 10:30 05/25/24 10:30 05/25/24 10:30 05/25/24 10:30 05/25/24 10:30 05/25/24 10:30 05/25/24 10:30 05/25/24 10:30 05/25/24 10:30 05/25/24 10:30 05/25/24 10:30 05/25/24 10:30 05/25/24 10:30 05/25/24 10:30 05/25/24 10:30 05/25/24 10:30 05/25/24 10:12 05/25/24 10:09 05/25/24 10:00 05/25/24 10:00 05/25/24 10:00 05/25/24 10:00 05/25/24 10:00 05/25/24 10:00 05/25/24 10:00 05/25/24 10:00 05/25/24 10:00 05/25/24 09:51 05/25/24 09:50 05/25/24 09:30 05/25/24 09:30 05/25/24 09:30 05/25/24 09:30 05/25/24 09:30 05/25/24 09:30 05/25/24 09:30 05/25/24 09:30 05/25/24 09:30 05/25/24 09:30 05/25/24 09:30 05/25/24 09:24 05/25/24 08:00 2 05/25/24 07:58 05/25/24 06:04 05/25/24 06:04 05/25/24 06:02 05/25/24 06:00 05/25/24 05:45 05/25/24 05:30 05/25/24 05:30 05/25/24 05:30 05/25/24 05:30 05/25/24 05:30 05/25/24 05:30 05/25/24 05:30 05/25/24 05:30 05/25/24 05:30 05/25/24 05:30 05/25/24 05:30 05/25/24 05:30 05/25/24 05:30 05/25/24 05:00 05/25/24 05:00 05/25/24 05:00 05/25/24 05:00 05/25/24 05:00 05/25/24 05:00 05/25/24 05:00 05/25/24 04:48 05/25/24 04:45 05/25/24 04:43 05/25/24 04:43 05/25/24 04:43 05/25/24 04:43 05/25/24 04:43 05/25/24 04:39 05/25/24 04:33 05/25/24 04:33 05/25/24 04:27 05/25/24 04:18 05/25/24 04:00 05/25/24 04:00 05/25/24 04:00 05/25/24 04:00 05/25/24 04:00 05/25/24 04:00 05/25/24 04:00 05/25/24 04:00 05/25/24 04:00 05/25/24 04:00 05/25/24 04:00 05/25/24 04:00 05/25/24 04:00 05/25/24 04:00 05/25/24 04:00 05/25/24 04:00 05/25/24 03:27 05/25/24 03:18 05/25/24 03:18 05/25/24 03:18 05/25/24 03:18 05/25/24 03:18 05/25/24 03:18 05/25/24 03:18 05/25/24 03:18 05/25/24 03:18 05/25/24 03:18 05/25/24 03:18 05/25/24 03:18 05/25/24 03:18 05/25/24 03:00 05/25/24 03:00 05/25/24 03:00 05/25/24 03:00 05/25/24 03:00 05/25/24 02:47 2 Laboratory Results 05/25/24 05/25/24 05/25/24 Range/Units 12:52 12:13 10:14 WBC (4.8-10.8) K/ul RBC (4.70-6.10) M/uL Hgb (14.0-18.0) g/dl POC Hgb 9.5 L (14.0-18.0) g/dl Hct (42.0-52.0) % POC Hct 28 L (42-52) % MCV (80.0-100.0) fL MCH (25.0-34.0) pg MCHC (32.0-36.0) g/dL RDW Std Deviation (36.4-46.3) fL RDW Coeff of Elayne (11.5-14.5) % Plt Count (130-400) K/uL MPV (9.4-12.4) fL Absolute Nucleated RBC (0.00-0.12) K/uL Nucleated RBC % (auto) % Specimen Type Arterial Sample Site Art Line POC pH 7.34 L (7.35-7.45) POC pCO2 38 (35-46) mmHg POC pO2 421 H (80-95) mmHg POC HCO3 21 (19-24) efra/L POC Total CO2 22 L (24-31) mmol/L POC Base Excess -5.0 (-9-1.8) efra/L O2 Sat Pulse Oximetry 100 ABG pH (Temp Correct) 7.345 L (7.35-7.45) ABG pCO2 (Temp Corrct 38 (35-46) mmHg POC ABG pO2 at Pt Temp 419 POC ABG O2 Sat 100.0 H (90-95) % Brian Test NA VBG pH (7.36-7.41) VBG pCO2 (38-50) mmHg VBG pO2 mmHg VBG HCO3 mmol/L VBG O2 Saturation % VBG Base Excess mEq/L O2 Delivery Device Ventilator Vent Mode AC POC FiO2 100 % End Tidal CO2 33 POC Sodium 129 L (135-144) mmol/L Sodium 132 L (136-145) mmol/L POC Potassium 6.0 H (3.3-5.0) mmol/L Potassium 5.8 H (3.5-5.1) mmol/L Chloride 95 L (98-107) mmol/L Carbon Dioxide 24 (21-32) mmol/L Anion Gap 13 H (3-11) BUN 90 H (6-23) mg/dl Creatinine 5.54 H* (0.6-1.4) mg/dl Est Cr Clr Drug Dosing 13.8 ml/min eGFR 9.87 BUN/Creatinine Ratio 16.2 (10-20) Glucose 153 H (70-99(Fasting)) mg/dl POC Glucose 196 H (70-99) mg/dl Estimat Average Glucose mg/dl Hemoglobin A1c (4.5-5.6) % Lactate 1.1 (0.4-2.0) mmol/L Calcium 8.0 L (8.6-10.3) mg/dl Phosphorus (2.5-4.9) mg/dl Magnesium 2.0 (1.7-2.4) mg/dl Total Creatine Kinase 14 L (30-223) U/L Troponin I High Sens (0-20) pg/ml Random Cortisol mcg/dl Random Vancomycin (10-20) mcg/ml Hep Bs Antigen (Negative) Hep Bs Antibody Hep Bs Antibody, Quant (>or=10mIU/mL Immune) mIU/mL 05/25/24 05/25/24 05/25/24 Range/Units 10:10 08:03 05:18 WBC (4.8-10.8) K/ul RBC (4.70-6.10) M/uL Hgb 8.2 L (14.0-18.0) g/dl POC Hgb (14.0-18.0) g/dl Hct 26.4 L (42.0-52.0) % POC Hct (42-52) % MCV (80.0-100.0) fL MCH (25.0-34.0) pg MCHC (32.0-36.0) g/dL RDW Std Deviation (36.4-46.3) fL RDW Coeff of Elayne (11.5-14.5) % Plt Count (130-400) K/uL MPV (9.4-12.4) fL Absolute Nucleated RBC (0.00-0.12) K/uL Nucleated RBC % (auto) % Specimen Type Sample Site POC pH (7.35-7.45) POC pCO2 (35-46) mmHg POC pO2 (80-95) mmHg POC HCO3 (19-24) efra/L POC Total CO2 (24-31) mmol/L POC Base Excess (-9-1.8) efra/L O2 Sat Pulse Oximetry ABG pH (Temp Correct) (7.35-7.45) ABG pCO2 (Temp Corrct (35-46) mmHg POC ABG pO2 at Pt Temp POC ABG O2 Sat (90-95) % Brian Test VBG pH (7.36-7.41) VBG pCO2 (38-50) mmHg VBG pO2 mmHg VBG HCO3 mmol/L VBG O2 Saturation % VBG Base Excess mEq/L O2 Delivery Device Vent Mode POC FiO2 % End Tidal CO2 POC Sodium (135-144) mmol/L Sodium (136-145) mmol/L POC Potassium (3.3-5.0) mmol/L Potassium (3.5-5.1) mmol/L Chloride (98-107) mmol/L Carbon Dioxide (21-32) mmol/L Anion Gap (3-11) BUN (6-23) mg/dl Creatinine (0.6-1.4) mg/dl Est Cr Clr Drug Dosing ml/min eGFR BUN/Creatinine Ratio (10-20) Glucose (70-99(Fasting)) mg/dl POC Glucose 147 H (70-99) mg/dl Estimat Average Glucose mg/dl Hemoglobin A1c (4.5-5.6) % Lactate (0.4-2.0) mmol/L Calcium (8.6-10.3) mg/dl Phosphorus (2.5-4.9) mg/dl Magnesium (1.7-2.4) mg/dl Total Creatine Kinase (30-223) U/L Troponin I High Sens 51.1 H* D (0-20) pg/ml Random Cortisol mcg/dl Random Vancomycin (10-20) mcg/ml Hep Bs Antigen Negative (Negative) Hep Bs Antibody Non-Immune Hep Bs Antibody, Quant < 3.00 (>or=10mIU/mL Immune) mIU/mL 05/25/24 05/25/24 05/25/24 Range/Units 03:31 01:42 01:41 WBC 8.64 (4.8-10.8) K/ul RBC 2.31 L (4.70-6.10) M/uL Hgb 7.6 L (14.0-18.0) g/dl POC Hgb (14.0-18.0) g/dl Hct 25.0 L (42.0-52.0) % POC Hct (42-52) % MCV 108.2 H (80.0-100.0) fL MCH 32.9 (25.0-34.0) pg MCHC 30.4 L (32.0-36.0) g/dL RDW Std Deviation 76.9 H (36.4-46.3) fL RDW Coeff of Elayne 19.7 H (11.5-14.5) % Plt Count 145 (130-400) K/uL MPV 11.1 (9.4-12.4) fL Absolute Nucleated RBC 0.04 (0.00-0.12) K/uL Nucleated RBC % (auto) 0.5 % Specimen Type Sample Site POC pH (7.35-7.45) POC pCO2 (35-46) mmHg POC pO2 (80-95) mmHg POC HCO3 (19-24) efra/L POC Total CO2 (24-31) mmol/L POC Base Excess (-9-1.8) efra/L O2 Sat Pulse Oximetry ABG pH (Temp Correct) (7.35-7.45) ABG pCO2 (Temp Corrct (35-46) mmHg POC ABG pO2 at Pt Temp POC ABG O2 Sat (90-95) % Brian Test VBG pH 7.27 L (7.36-7.41) VBG pCO2 52 H (38-50) mmHg VBG pO2 27 mmHg VBG HCO3 24 mmol/L VBG O2 Saturation < 60.0 % VBG Base Excess -3.6 mEq/L O2 Delivery Device Vent Mode POC FiO2 % End Tidal CO2 POC Sodium (135-144) mmol/L Sodium (136-145) mmol/L POC Potassium (3.3-5.0) mmol/L Potassium (3.5-5.1) mmol/L Chloride (98-107) mmol/L Carbon Dioxide (21-32) mmol/L Anion Gap (3-11) BUN (6-23) mg/dl Creatinine (0.6-1.4) mg/dl Est Cr Clr Drug Dosing ml/min eGFR BUN/Creatinine Ratio (10-20) Glucose (70-99(Fasting)) mg/dl POC Glucose (70-99) mg/dl Estimat Average Glucose 117 mg/dl Hemoglobin A1c 5.7 H (4.5-5.6) % Lactate 2.0 3.3 H* (0.4-2.0) mmol/L Calcium (8.6-10.3) mg/dl Phosphorus (2.5-4.9) mg/dl Magnesium (1.7-2.4) mg/dl Total Creatine Kinase (30-223) U/L Troponin I High Sens (0-20) pg/ml Random Cortisol mcg/dl Random Vancomycin (10-20) mcg/ml Hep Bs Antigen (Negative) Hep Bs Antibody Hep Bs Antibody, Quant (>or=10mIU/mL Immune) mIU/mL 03/31/25 03/31/25 03/30/25 Range/Units 01:40 01:15 20:37 WBC (4.8-10.8) K/ul RBC (4.70-6.10) M/uL Hgb (14.0-18.0) g/dl POC Hgb (14.0-18.0) g/dl Hct (42.0-52.0) % POC Hct (42-52) % MCV (80.0-100.0) fL MCH (25.0-34.0) pg MCHC (32.0-36.0) g/dL RDW Std Deviation (36.4-46.3) fL RDW Coeff of Elayne (11.5-14.5) % Plt Count (130-400) K/uL MPV (9.4-12.4) fL Absolute Nucleated RBC (0.00-0.12) K/uL Nucleated RBC % (auto) % Specimen Type Sample Site POC pH (7.35-7.45) POC pCO2 (35-46) mmHg POC pO2 (80-95) mmHg POC HCO3 (19-24) efra/L POC Total CO2 (24-31) mmol/L POC Base Excess (-9-1.8) efra/L O2 Sat Pulse Oximetry ABG pH (Temp Correct) (7.35-7.45) ABG pCO2 (Temp Corrct (35-46) mmHg POC ABG pO2 at Pt Temp POC ABG O2 Sat (90-95) % Brian Test VBG pH (7.36-7.41) VBG pCO2 (38-50) mmHg VBG pO2 mmHg VBG HCO3 mmol/L VBG O2 Saturation % VBG Base Excess mEq/L O2 Delivery Device Vent Mode POC FiO2 % End Tidal CO2 POC Sodium (135-144) mmol/L Sodium 132 L (136-145) mmol/L POC Potassium (3.3-5.0) mmol/L Potassium 5.7 H (3.5-5.1) mmol/L Chloride 95 L (98-107) mmol/L Carbon Dioxide 25 (21-32) mmol/L Anion Gap 12 H (3-11) BUN 88 H (6-23) mg/dl Creatinine 5.48 H* D (0.6-1.4) mg/dl Est Cr Clr Drug Dosing 14.0 ml/min eGFR 10.00 BUN/Creatinine Ratio 16.1 (10-20) Glucose 131 H (70-99(Fasting)) mg/dl POC Glucose 131 H 202 H (70-99) mg/dl Estimat Average Glucose mg/dl Hemoglobin A1c (4.5-5.6) % Lactate (0.4-2.0) mmol/L Calcium 8.0 L (8.6-10.3) mg/dl Phosphorus 7.5 H (2.5-4.9) mg/dl Magnesium 1.9 (1.7-2.4) mg/dl Total Creatine Kinase (30-223) U/L Troponin I High Sens (0-20) pg/ml Random Cortisol 22.78 mcg/dl Random Vancomycin 16.5 (10-20) mcg/ml Hep Bs Antigen (Negative) Hep Bs Antibody Hep Bs Antibody, Quant (>or=10mIU/mL Immune) mIU/mL 05/24/24 Range/Units 16:34 WBC (4.8-10.8) K/ul RBC (4.70-6.10) M/uL Hgb (14.0-18.0) g/dl POC Hgb (14.0-18.0) g/dl Hct (42.0-52.0) % POC Hct (42-52) % MCV (80.0-100.0) fL MCH (25.0-34.0) pg MCHC (32.0-36.0) g/dL RDW Std Deviation (36.4-46.3) fL RDW Coeff of Elayne (11.5-14.5) % Plt Count (130-400) K/uL MPV (9.4-12.4) fL Absolute Nucleated RBC (0.00-0.12) K/uL Nucleated RBC % (auto) % Specimen Type Sample Site POC pH (7.35-7.45) POC pCO2 (35-46) mmHg POC pO2 (80-95) mmHg POC HCO3 (19-24) efra/L POC Total CO2 (24-31) mmol/L POC Base Excess (-9-1.8) efra/L O2 Sat Pulse Oximetry ABG pH (Temp Correct) (7.35-7.45) ABG pCO2 (Temp Corrct (35-46) mmHg POC ABG pO2 at Pt Temp POC ABG O2 Sat (90-95) % Brian Test VBG pH (7.36-7.41) VBG pCO2 (38-50) mmHg VBG pO2 mmHg VBG HCO3 mmol/L VBG O2 Saturation % VBG Base Excess mEq/L O2 Delivery Device Vent Mode POC FiO2 % End Tidal CO2 POC Sodium (135-144) mmol/L Sodium (136-145) mmol/L POC Potassium (3.3-5.0) mmol/L Potassium (3.5-5.1) mmol/L Chloride (98-107) mmol/L Carbon Dioxide (21-32) mmol/L Anion Gap (3-11) BUN (6-23) mg/dl Creatinine (0.6-1.4) mg/dl Est Cr Clr Drug Dosing ml/min eGFR BUN/Creatinine Ratio (10-20) Glucose (70-99(Fasting)) mg/dl POC Glucose 87 (70-99) mg/dl Estimat Average Glucose mg/dl Hemoglobin A1c (4.5-5.6) % Lactate (0.4-2.0) mmol/L Calcium (8.6-10.3) mg/dl Phosphorus (2.5-4.9) mg/dl Magnesium (1.7-2.4) mg/dl Total Creatine Kinase (30-223) U/L Troponin I High Sens (0-20) pg/ml Random Cortisol mcg/dl Random Vancomycin (10-20) mcg/ml Hep Bs Antigen (Negative) Hep Bs Antibody Hep Bs Antibody, Quant (>or=10mIU/mL Immune) mIU/mL Medications Administered Current Inpatient Medications Acetaminophen (Acetaminophen 325 Mg Tab) 650 mg PO Q4H PRN PRN Reason: Pain or Fever Stop: 06/23/24 14:17 Atorvastatin Calcium ([facility]vastatin 40 Mg Tab) [facility] [facility] [place]: 06/24/24 08:59 Last Admin: 05/25/24 08:57 Dose: 80 mg Clopidogrel Bisulfate (Clopidogrel Bisulfate 75 Mg Tab) 75 mg PO QAM DEEPA Stop: 06/24/24 08:59 Collagenase (Collagenase Oint 30 Gm Tube) 1 appln EXT DAILY DEEPA Stop: 06/24/24 12:59 Dextrose (Dextrose 50% 50 Ml Syringe) 25 - 50 ml IV UD PRN; Protocol PRN Reason: Hypoglycemia Protocol Stop: 06/23/24 14:17 Fentanyl Citrate (Fentanyl Bolus From Bag) 50 mcg IV Q60M PRN PRN Reason: Pain or Agitation Stop: 06/08/24 11:45 Glucagon (Glucagon For Inj 1 Mg Vial) 1 mg SQ UD PRN; Protocol PRN Reason: Hypoglycemia Protocol Stop: 06/23/24 14:17 Glucose (Glucose 40% Gel 15 Gm Tube) 15 - 30 gm PO UD PRN; Protocol PRN Reason: Hypoglycemia Protocol Stop: 06/23/24 14:17 Glucose (Glucose 10 Tab/Tube) 4 - 8 tab PO UD PRN; Protocol PRN Reason: Hypoglycemia Protocol Stop: 06/23/24 14:17 Heparin Sodium (Porcine) (Heparin Sod 5,000 Unit/0.5 Ml Vial) 5,000 units SQ Q8 DEEPA Stop: 06/23/24 14:17 Last Admin: 05/25/24 05:24 Dose: Not Given Sodium Chloride (Nss) 1,000 mls @ 0 mls/hr IV .Q0M PRN PRN Reason: For Hemodialysis Use ONLY Stop: 05/31/24 06:59 Norepinephrine Bitartrate (Levophed/D5w) 4 mg in 250 mls @ 79.575 mls/hr IV .Q3H9M DEEPA; Protocol Stop: 06/24/24 08:29 Last Titration: 05/25/24 11:30 Dose: 0.2 mcg/kg/min, 79.6 mls/hr Hydrocortisone Sodium (Succinate 50 mg/ Syringe) 1 mls @ 4 mls/min IV Q6H DEEPA Stop: 06/24/24 08:29 Last Admin: 05/25/24 09:06 Dose: 4 mls/min Pantoprazole Sodium (Protonix) 40 mg in 10 mls @ 5 mls/min IV BID DEEPA Stop: 06/24/24 08:59 Last Admin: 05/25/24 08:50 Dose: 5 mls/min Dexmedetomidine/Sodium Chloride (Precedex) 200 mcg in 50 mls @ 10.61 mls/hr IV .Q4H43M DEEPA; Protocol Stop: 05/29/24 09:14 Last Admin: 05/25/24 09:24 Dose: 0.4 mcg/kg/hr, 10.6 mls/hr Piperacillin Sod/Tazobactam Sod (Zosyn) 4.5 gm in 100 mls @ 25 mls/hr IV Q12H [facility]; Protocol Stop: 05/31/24 18:29 Vasopressin 20 units/ Sodium (Chloride) 101 mls @ 12.12 mls/hr IV .Q8H20M [facility] Stop: 06/24/24 11:29 Last Admin: 05/25/24 12:11 Dose: 0.04 unit/min, 12.1 mls/hr Midazolam HCl (Versed) 125 mg in 250 mls @ 2 mls/hr IV .Q96H [facility]; Protocol Stop: 06/24/24 11:59 Last Admin: 05/25/24 12:11 Dose: 1 mg/hr, 2 mls/hr Fentanyl Citrate (Fentanyl Citrate) 2,500 mcg in 250 mls @ 2.5 mls/hr IV .Q96H [facility]; Protocol Stop: 06/08/24 11:59 Last Admin: 05/25/24 12:11 Dose: 25 mcg/hr, 2.5 mls/hr Vancomycin HCl 750 mg/ Sodium (Chloride) 265 mls @ 200 mls/hr IV TODAY@1700 [facility] Stop: 05/25/24 18:20 Insulin Aspart (Insulin Aspart Per Unit Charge) 0 units SC Q4 [facility] Stop: 06/24/24 11:59 Insulin Glargine (Lantus Per Unit Charge) 0 units SQ HS [facility]; Protocol Stop: 06/23/24 20:59 Last Admin: 05/24/24 21:01 Dose: 15 units Midazolam HCl (Midazolam Bolus From Bag) 2 mg IV Q60M PRN PRN Reason: Sedation Stop: 06/24/24 11:45 Midodrine (Midodrine Hcl 10 Mg Tab) 10 mg PO TID@0800,1200,1700 [facility] Stop: 06/23/24 14:17 Last Admin: 05/25/24 12:10 Dose: 10 mg Miscellaneous (Carbohydrates For Hypoglycemia ) 15 - 30 gm PO UD PRN PRN Reason: Hypoglycemia Protocol Stop: 06/23/24 14:17 Miscellaneous Information (Vancomycin Consult Active) 1 each N/A UD PRN PRN Reason: Consult Stop: 06/23/24 11:01 Miscellaneous Information (Pharmacy Glycemic Mgmt Consult) 1 each N/A UD PRN PRN Reason: Consult Stop: 06/23/24 14:17 Olanzapine (Olanzapine 10 Mg/2.1 Ml Sdv) 5 mg IM Q6H PRN PRN Reason: Severe Agitation Stop: 06/23/24 14:17 Ondansetron HCl (Ondansetron Inj 2 Mg/Ml 2 Ml Vial) 4 mg IV Q6H PRN PRN Reason: Nausea Stop: 06/23/24 14:17
[2024-05-25] MEDS: COLLAGENASE OINT 30 GM TUBE EXT SCH (15:33)
[2024-05-25] MEDS: STAT IV Infusion **Titration per Protocol STA (15:40)
--- NOTE | 2024-05-25 17:08 | Nephrology Progress Note ---
Date of Service May 25, 2024 Assessment & Plan (1) End stage renal disease on dialysis: Plan: On Saturday hemodialysis at least at rehab. patient is tolerating dialysis so far but critically ill in shock and requiring vasopressin and Levophed. Patient is also massively volume overload. Will attempt to 4 L UF. Family have changed him to DNR. Ongoing goals of care discussion likely cm or particularly if patient continues to deteriorate. Case discussed with ICU attending (2) Acute on chronic systolic (congestive) heart failure: Plan: Volume overload with anasarca and pulmonary edema: Will attempt as aggressive for L UF as tolerated. discussed with ICU attending. We may need to escalate pressors to allow fluid removal (3) Multiple open wounds of lower extremity, complicated: Plan: On empiric vancomycin and pip-tazo Follow-up wound care consults (4) Anemia in ESRD (end-stage renal disease): Plan: On May 17, TSAT 52% and ferritin 960. Hemoglobin today 8.2 No iron therapy indicated with treatment but will give max dose epo Admission and Anticipated Discharge Date Admission Date: May 24, 2024 Subjective Seen for ESRD. Patient is critically ill in intensive care unit on vasopressin and Levophed. Unable to obtain history due to intubation. Review of Systems 2 Review of Systems: Unable to obtain due to intubation Physical Exam 2 Physical Exam: General exam: intubated and sedated Respiratory system: Clear breath sounds bilaterally. Gastrointestinal: Abdomen is soft, non distended, non tender, bowel sounds are present CVS: Regular rate and rhythm. No murmurs, rubs or gallops Musculoskeletal: No joint or muscle tenderness Extremities: Non tender, no edema, peripheral pulses are present Neuro: intubated, sedated Skin: No rashes Results & Data Vital Signs (Past 12 Hours) Vital Signs Temp Pulse Pulse Resp BP BP BP 05/25/24 17:00 89 109/56 L 05/25/24 16:41 05/25/24 16:30 90 102/55 L 05/25/24 16:00 91 H 97/56 L 05/25/24 15:30 90 110/59 L 05/25/24 15:00 92 H 122/59 L 05/25/24 14:30 110 H 16 05/25/24 14:30 87 127/55 L 05/25/24 14:16 86 128/61 05/25/24 14:10 36.7 C 89 05/25/24 13:06 82 16 05/25/24 12:12 77 21 05/25/24 11:55 79 18 05/25/24 11:00 85 11 L 05/25/24 10:30 97/60 L 05/25/24 10:30 97/60 L 05/25/24 10:30 97/60 L 05/25/24 10:30 97/60 L 05/25/24 10:30 97/60 L 05/25/24 10:30 97/60 L 05/25/24 10:30 97/60 L 05/25/24 10:30 97/60 L 05/25/24 10:30 97/60 L 05/25/24 10:30 97/60 L 05/25/24 10:30 97/60 L 05/25/24 10:30 97/60 L 05/25/24 10:30 97/60 L 05/25/24 10:30 97/60 L 05/25/24 10:30 97/60 L 05/25/24 10:30 97/60 L 05/25/24 10:30 97/60 L 05/25/24 10:30 97/60 L 05/25/24 10:30 97/60 L 05/25/24 10:30 97/60 L 05/25/24 10:30 97/60 L 05/25/24 10:30 97/60 L 05/25/24 10:30 97/60 L 05/25/24 10:30 97/60 L 05/25/24 10:30 83 15 05/25/24 10:12 90/44 L 05/25/24 10:09 83 14 05/25/24 10:00 95/57 L 05/25/24 10:00 95/57 L 05/25/24 10:00 95/57 L 05/25/24 10:00 95/57 L 05/25/24 10:00 95/57 L 05/25/24 10:00 95/57 L 05/25/24 10:00 95/57 L 05/25/24 10:00 95/57 L 05/25/24 10:00 95/57 L 05/25/24 09:51 85 14 05/25/24 09:50 87/44 L 05/25/24 09:30 110/66 05/25/24 09:30 110/66 05/25/24 09:30 110/66 05/25/24 09:30 110/66 05/25/24 09:30 110/66 05/25/24 09:30 110/66 05/25/24 09:30 110/66 05/25/24 09:30 110/66 05/25/24 09:30 110/66 05/25/24 09:30 110/66 05/25/24 09:30 110/66 05/25/24 09:24 86/45 L 05/25/24 08:00 05/25/24 07:58 86/59 L 05/25/24 06:04 82/52 L 05/25/24 06:04 82/52 L 05/25/24 06:02 80/52 L 05/25/24 06:00 84 26 H 05/25/24 05:45 84 15 05/25/24 05:30 82 15 05/25/24 05:30 80/50 L 05/25/24 05:30 80/50 L 05/25/24 05:30 80/50 L 05/25/24 05:30 80/50 L 05/25/24 05:30 80/50 L 05/25/24 05:30 80/50 L 05/25/24 05:30 80/50 L 05/25/24 05:30 80/50 L 05/25/24 05:30 80/50 L 05/25/24 05:30 80/50 L 05/25/24 05:30 80/50 L 05/25/24 05:30 80/50 L Pulse Ox O2 Del Method O2 Flow Rate FiO2 05/25/24 17:00 05/25/24 16:41 50 05/25/24 16:30 05/25/24 16:00 05/25/24 15:30 05/25/24 15:00 05/25/24 14:30 94 70 05/25/24 14:30 05/25/24 14:16 05/25/24 14:10 05/25/24 13:06 05/25/24 12:12 93 05/25/24 11:55 95 100 05/25/24 11:00 100 05/25/24 10:30 05/25/24 10:30 05/25/24 10:30 05/25/24 10:30 05/25/24 10:30 05/25/24 10:30 05/25/24 10:30 05/25/24 10:30 05/25/24 10:30 05/25/24 10:30 05/25/24 10:30 05/25/24 10:30 05/25/24 10:30 05/25/24 10:30 05/25/24 10:30 05/25/24 10:30 05/25/24 10:30 05/25/24 10:30 05/25/24 10:30 05/25/24 10:30 05/25/24 10:30 05/25/24 10:30 05/25/24 10:30 05/25/24 10:30 05/25/24 10:30 93 05/25/24 10:12 05/25/24 10:09 95 05/25/24 10:00 05/25/24 10:00 05/25/24 10:00 05/25/24 10:00 05/25/24 10:00 05/25/24 10:00 05/25/24 10:00 05/25/24 10:00 05/25/24 10:00 05/25/24 09:51 97 05/25/24 09:50 05/25/24 09:30 05/25/24 09:30 05/25/24 09:30 05/25/24 09:30 05/25/24 09:30 05/25/24 09:30 05/25/24 09:30 05/25/24 09:30 05/25/24 09:30 05/25/24 09:30 05/25/24 09:30 05/25/24 09:24 05/25/24 08:00 Nasal Cannula 2 05/25/24 07:58 05/25/24 06:04 05/25/24 06:04 05/25/24 06:02 05/25/24 06:00 100 05/25/24 05:45 99 05/25/24 05:30 100 05/25/24 05:30 05/25/24 05:30 05/25/24 05:30 05/25/24 05:30 05/25/24 05:30 05/25/24 05:30 05/25/24 05:30 05/25/24 05:30 05/25/24 05:30 05/25/24 05:30 05/25/24 05:30 05/25/24 05:30 Laboratory Results 05/25/24 10:14 05/25/24 05/25/24 01:40 01:41 WBC 8.64 RBC 2.31 L MCV 108.2 H MCH 32.9 MCHC 30.4 L RDW Std Deviation 76.9 H RDW Coeff of Elayne 19.7 H Plt Count 145 MPV 11.1 Phosphorus 7.5 H
[2024-05-25] MEDS: EPOETIN ALFA 20,000 UNITS/ML VIAL IV ONE (17:30)
[2024-05-25] MEDS: VANCOMYCIN 750 MG in SODIUM CHLORIDE 0.9% 250 ML IV SCH (18:09)
[2024-05-25] MEDS ORDERED: ROCURONIUM BROMIDE 10 MG/ML 5 ML VIAL IV ONE (18:42)
[2024-05-25] MEDS ORDERED: KETAMINE HCL INJ 50 MG/ML 10 ML VIAL IV ONE (18:42)
[2024-05-25] MEDS: PIPERACILLIN/TAZOBACTAM 4.5 GM/100 ML BAG IV SCH (21:38)
[2024-05-26] MEDS: fentaNYL BOLUS from BAG IV PRN (00:23)
[2024-05-26 04:25] LABS: Basophils # (auto) 0.02 K/uL (0.00-0.20); Basophils % (auto) 0.2 %; Hematocrit (blood only) 27.4 % (42.0-52.0); Hemoglobin 8.6 g/dl (14.0-18.0); Immature Granulocytes # (auto) 0.07 K/uL (0.01-0.20); Immature Granulocytes % (auto) 0.8 %; Lymphocytes # (auto) 0.58 K/uL (1.20-3.40); Lymphocytes % (auto) 6.5 %; Mean Corpuscular Hemoglobin 32.6 pg (25.0-34.0); Mean Corpuscular Hgb Conc 31.4 g/dL (32.0-36.0); Mean Corpuscular Volume 103.8 fL (80.0-100.0); Mean Platelet Volume 11.2 fL (9.4-12.4); Monocytes # (auto) 0.71 K/uL (0.11-0.59); Neutrophils # (auto) 7.54 K/uL (1.40-6.50); Neutrophils % (auto) 84.5 %; Nucleated RBC # (auto) 0.07 K/uL (0.00-0.12); Nucleated RBC % (auto) 0.8 %; Platelet Count 157 K/uL (130-400); RDW Coefficient of Variation 19.8 % (11.5-14.5); RDW Standard Deviation 72.7 fL (36.4-46.3); Red Blood Count 2.64 M/uL (4.70-6.10); White Blood Count 8.92 K/ul (4.8-10.8)
[2024-05-26 04:29] LABS: Albumin Globulin Ratio 0.8 (0.9-2); Albumin Level 2.8 gm/dl (3.4-5.0); BUN Creatinine Ratio 13.7 (10-20); Bilirubin,Total 2.6 mg/dl (0.2-1.0); Calcium 8.2 mg/dl (8.6-10.3); Creatinine Clr Calc Pharmacy 18.7 ml/min; Globulin 3.4 gm/dl (2.5-4.0); Magnesium 1.8 mg/dl (1.7-2.4); Phosphorus 6.1 mg/dl (2.5-4.9); Potassium 4.7 mmol/L (3.5-5.1); Total Protein 6.2 gm/dl (6.0-8.3)
[2024-05-26 07:54] LABS: iSTAT Art Bld Gas pCO2 Correct 35 mmHg (35-46); iSTAT Arterial Blood Gas HCO3 22 meg/L (19-24); iSTAT Arterial Blood Gas pCO2 36 mmHg (35-46); iSTAT Arterial Blood Gas pO2 90 mmHg (80-95); iSTAT Arterial Blood Gas pO2 C 88; iSTAT Carbon Dioxide 23 mmol/L (24-31); iSTAT FiO2 30 %; iSTAT Hematocrit 29 % (42-52); iSTAT Hemoglobin 9.9 g/dl (14.0-18.0); iSTAT Potassium 4.7 mmol/L (3.3-5.0); iSTAT Sample Type Arterial; iSTAT Site Art Line; iSTAT Sodium 130 mmol/L (135-144); iSTAT SpO2 100
--- NOTE | 2024-05-26 08:06 | Critical Care Progress Note ---
Date of Service May 26, 2024 Assessment & Plan (1) Septic shock: (2) Endotracheally intubated: (3) Anemia in ESRD (end-stage renal disease): (4) Cellulitis: (5) Dementia: (6) Insulin-requiring or dependent type II diabetes mellitus: (7) Severe aortic stenosis: (8) Acute metabolic encephalopathy: (9) Vascular dementia: (10) Peripheral arterial occlusive disease: (11) Chronic systolic heart failure: (12) Severe sepsis due to methicillin resistant Staphylococcus aureus (MRSA) with acute organ dysfunction: (13) Ischemic cardiomyopathy: Plan 78-year-old male with a history of cardiomyopathy, aortic stenosis, diabetes and dementia presenting to the hospital with septic shock of his left lower extremity and respiratory failure. Neuro - CAM-ICU RASS GOAL -1 Currently on Versed, Precedex and fentanyl for ventilator synchrony and pain control. Delirium precautions as able. Cardiac - Continue midodrine TID Continue with Levophed and vasopressin as able. Continue statin Restart Plavix. Echo 05/15/2024 with systolic cardiomyopathy with an EF of 30% and moderate to borderline severe aortic valve stenosis. Respiratory - No acute concerns, saturating well on room air. May have component of BRITNEY vs. [facility] SpO2 goal > 92% IS/Flutter HOB 30-45 GI - No acute concerns Diet: OG tube in place. N.p.o. for the time being. Will start diet if unable to extubate. SUP: PPI Bowel regimen: Miralax Mild elevation in AST likely related to acute illness from sepsis. Continue to trend. RENAL/LYTES - Nephrology on board. HD day-to-day at this point. 3 L removed yesterday. Anuric Will hold on any continued IVF Hemodialysis catheter appropriately positioned and working well per vascular surgery. ENDO - BG 140-180 per [facility] guidelines Patient currently on stress dose steroids due to septic shock. HEME/ONC/OTHER - Hemoglobin stable. Receives Epo w/ HD No clinical signs of bleeding Transfuse for HGB < 7 or as otherwise directed by Nephrology or Cardiology Restart Plavix as above and start heparin 3 times daily for DVT prophylaxis. ID - Zosyn and Vancomycin continued for complicated cellulitis of the left lower extremity. MRI foot fortunately did not reveal any osteomyelitis. Appreciate podiatry consult. De-escalate abx as guided by culture data. Blood cultures negative to date. Wound consult Consider ID consult LINES/TUBES/DRAINS - R chest permcath PIV x2 DVT PROPHYLAXIS - Heparin 5000 units 3 times daily DISPOSITION - ICU CRITICAL CARE TIME I have personally spent 44 minutes of critical care time in the direct management of this patient. This is a life/limb threatening event. This includes time spent evaluating patient, direct bedside care, chart review, placing orders, interpretation of diagnostic studies, discussion with consultants, patient, and family members, as well as other required patient management activi ties. This time is exclusive of all separately billable procedures, and teaching time and separate from and in addition to any other critical care service time. Admission and Anticipated Discharge Date Admission Date: May 24, 2024 Subjective Patient currently intubated and sedated. Unable to obtain review of systems due to sedation and intubation. Hemodynamically he is improving, but remains on Levophed and vasopressin. Urine output has been adequate. ABG checked this morning with normal acid-base status. 3 L removed the hemodialysis yesterday. Review of Systems Review of Systems: Unobtainable due to endotracheal tube Physical Exam Physical Exam: Constitutional: Elderly and frail appearing male in no apparent distress. Currently intubated and sedated. Eyes: Pupils are equal round and reactive to light. Conjunctivae are normal. Anicteric sclera. Ears nose, mouth and throat: Size [address] Neck: Trachea is midline. Visual inspection is normal. Respiratory: Mild inspiratory wheeze on the right. Clear elsewhere. Diminished in the lower lobes. Cardiovascular: Regular rate and rhythm. No murmurs. 2+ edema in the lower extremities. Gastrointestinal: Normal bowel sounds, soft, nontender and nondistended. No hepatosplenomegaly noted. Musculoskeletal: No cyanosis. Patient is able to move all extremities. Skin: Multiple eschar is noted in the left lower extremity. Pulses intact. Neurologic: No obvious focal neurological deficits seen. Psychiatric: Unable to assess as he is sedated. Results & Data Results & Data Vital Signs (Past 12 Hours) Vital Signs Temp Pulse Resp BP Pulse Ox O2 Del Method FiO2 05/26/24 06:24 30 05/26/24 06:15 89 16 99 05/26/24 06:00 114/65 05/26/24 06:00 114/65 05/26/24 06:00 114/65 05/26/24 06:00 114/65 05/26/24 06:00 114/65 05/26/24 05:57 91 H 16 99 05/26/24 05:45 93 H 18 98 05/26/24 05:18 90 16 98 05/26/24 05:03 88 16 89 L 05/26/24 04:57 89 16 98 05/26/24 04:36 87 16 100 05/26/24 04:15 85 16 97 05/26/24 04:00 36.7 C 119/05/26/24 04:00 85 16 97 05/26/24 04:00 119/61 05/26/24 04:00 119/61 05/26/24 04:00 119/61 05/26/24 04:00 103/42 L 05/26/24 03:42 84 16 99 05/26/24 03:31 84 16 100 30 05/26/24 03:09 82 16 99 05/26/24 02:48 80 16 97 05/26/24 02:46 110/05/26/24 02:46 110/61 05/26/24 02:46 110/61 05/26/24 02:39 82 16 99 05/26/24 02:23 102/70 05/26/24 02:23 102/70 05/26/24 02:23 102/70 05/26/24 02:23 102/70 05/26/24 02:23 102/70 05/26/24 02:23 102/70 05/26/24 02:23 102/70 05/26/24 02:21 77 16 98 05/26/24 02:15 78 16 100 05/26/24 02:00 78 16 98 05/26/24 02:00 36.8 C 05/26/24 01:48 77 16 100 05/26/24 01:33 75 16 100 05/26/24 01:15 76 16 100 05/26/24 01:06 77 16 100 05/26/24 00:45 78 16 100 05/26/24 00:33 79 16 100 05/26/24 00:21 79 16 100 05/26/24 00:04 115/05/26/24 00:04 115/05/26/24 00:04 115/05/26/24 00:04 115/05/26/24 00:04 115/72 05/26/24 00:04 115/72 05/26/24 00:04 115/72 05/26/24 00:04 115/72 05/26/24 00:04 115/72 05/26/24 00:04 115/72 05/26/24 00:04 115/72 05/26/24 00:04 115/72 05/26/24 00:04 115/72 05/26/24 00:04 115/72 05/26/24 00:04 115/72 05/26/24 00:04 115/72 05/26/24 00:04 115/72 05/26/24 00:04 115/72 05/26/24 00:04 115/72 05/26/24 00:04 115/72 05/26/24 00:04 36.7 C 115/72 05/26/24 00:00 101/41 L 05/25/24 23:51 82 18 100 05/25/24 23:45 79 16 100 05/25/24 23:28 82 05/25/24 23:27 85 16 100 30 05/25/24 22:51 86 16 100 05/25/24 22:09 86 17 100 05/25/24 22:00 Mechanical Vent 05/25/24 21:48 90 16 100 05/25/24 21:24 90 16 100 05/25/24 21:06 94 H 16 100 05/25/24 20:30 96 H 19 100 05/25/24 20:18 100 H 17 99 05/25/24 20:08 99 H 16 100 50 05/25/24 20:00 41 05/25/24 20:00 128/57 L 05/25/24 20:00 36.7 C 98 H 17 98 Coding Level of Care Code 82590 CRITICAL CARE 1ST 30-74M Diagnoses Septic shock A41.9; R65.21 Endotracheally intubated Z97.8 Anemia in ESRD (end-stage renal disease) N18.6; D63.1 Cellulitis L03.90 Dementia F03.90 Insulin-requiring or dependent type II diabetes mellitus E11.9; Z79.4 Severe aortic stenosis I35.0 Acute metabolic encephalopathy G93.41 Vascular dementia F01.50 Peripheral arterial occlusive disease I77.9 Chronic systolic heart failure I50.22 Severe sepsis due to methicillin resistant Staphylococcus aureus (MRSA) with acute organ dysfunction A41.02; R65.20 Ischemic cardiomyopathy I25.5
[2024-05-26] MEDS: CLOPIDOGREL BISULFATE 75 MG TAB PO SCH (09:00)
[2024-05-26] MEDS: VANCOMYCIN 750 MG in SODIUM CHLORIDE 0.9% 250 ML IV ONE (09:15)
--- NOTE | 2024-05-26 10:30 | Palliative Care Progress Note ---
Date of Service May 26, 2024 Assessment & Plan (1) Palliative care by specialist: Plan: Met with 5 of pt's 6 adult children in conference room, present for conversation were Navarro Chance, Darell AlexanderChance, Merly Orellana, Judit Antunez, Sonam Hernandez. Pt's other son Willis Chance was not available for conversation, but family is keeping him aware. Introduced Palliative Medicine and explained our role in advanced care planning, symptom management and navigation through the progression of life limiting disease. Family was receptive to palliative services for goals of care discussions. Reviewed we are different from hospice, a home health nurse visiting service. Palliative care will continue to follow for ongoing GOC discussions and family support. (2) Advanced directives, counseling/discussion: Plan: Patient currently lacks decisional capacity based on the inability to convey understanding of personal PMHx, current medical condition, treatment options nor the risks / benefits of those options, and lack of ability to make decisions based on such knowledge. Hospital does not have written documentation of patient wishes concerning his chosen proxy for medical decisions. Per PA [id number], in absence of written documentation of patient wishes, pt's proxy for medical decisions would be 6 adult children with equal authority. Pt does require a proxy for medical decisions. (3) Counseling regarding goals of care: Plan: lengthy conversation about pt's values and GOC held with family (as above) from 11:00 - 11:50 Discussed and helped family understand pt's many chronic medical problems and the progressively debilitating nature of his dementia, heart failure and ESRD. Discussed that in pt's current deconditioned and critically ill state he will likely not return to his prior level of function. Discussed the interdependence of heart, kidney and lungs and poor prognosis of multisystem organ failure. Judit share that the pt is a very independent and strong willed man and would not want to be dependent on machines to survive. All family in agreement with this. We discussed hope for successful liberation from mechanical ventilation and what pt would choose for himself in event that he could not be successfully weaned from vent. All family in agreement that the pt would not want usp ventilator dependence and that a trach/LTAC placement would be inconsistent with his values/goals of care. Family shared that they still want life prolonging therapy with hope for pt to survive this hospitalization and return to independent living but they understand that the pt has an uphill lawrence given his renal/heart/respiratory failure. Family ultimately requests that current level of care continue, with hopes for successful extubation. However in event he is extubated and fails or decompensates precluding liberation from ventilator, they would then want transtion to comfort directed care. Currently DNR status, continue current intubation but DO NOT REINTUBATE. Plan as above Admission and Anticipated Discharge Date Admission Date: May 24, 2024 Subjective Assessed pt at bedside, he is orally intubated and mechanically ventilated. Review of Systems Review of Systems: Unobtainable due to cognitive status Physical Exam Physical Exam: General exam: intubated and sedated Respiratory system: Clear breath sounds bilaterally. Gastrointestinal: Abdomen is soft, non distended, non tender, bowel sounds are present CVS: Regular rate and rhythm. No murmurs, rubs or gallops Musculoskeletal: No joint or muscle tenderness Extremities: Non tender, no edema, peripheral pulses are present Neuro: intubated, sedated Skin: No rashes Results & Data Vital Signs (Past 12 Hours) Vital Signs Temp Pulse Resp BP Pulse Ox FiO2 05/26/24 10:06 94 H 19 99 30 05/26/24 07:28 90 16 98 30 05/26/24 06:24 30 05/26/24 06:15 89 16 99 05/26/24 06:00 114/65 05/26/24 06:00 114/65 05/26/24 06:00 114/65 05/26/24 06:00 114/65 05/26/24 06:00 114/65 05/26/24 05:57 91 H 16 99 05/26/24 05:45 93 H 18 98 05/26/24 05:18 90 16 98 05/26/24 05:03 88 16 89 L 05/26/24 04:57 89 16 98 05/26/24 04:36 87 16 100 05/26/24 04:15 85 16 97 05/26/24 04:00 36.7 C 119/61 05/26/24 04:00 85 16 97 05/26/24 04:00 119/61 05/26/24 04:00 119/61 05/26/24 04:00 119/61 05/26/24 04:00 103/42 L 05/26/24 03:42 84 16 99 05/26/24 03:31 84 16 100 30 05/26/24 03:09 82 16 99 05/26/24 02:48 80 16 97 05/26/24 02:46 110/61 05/26/24 02:46 110/61 05/26/24 02:46 110/61 05/26/24 02:39 82 16 99 05/26/24 02:23 102/70 05/26/24 02:23 102/70 05/26/24 02:23 102/70 05/26/24 02:23 102/70 05/26/24 02:23 102/70 05/26/24 02:23 102/70 05/26/24 02:23 102/70 05/26/24 02:21 77 16 98 05/26/24 02:15 78 16 100 05/26/24 02:00 78 16 98 05/26/24 02:00 36.8 C 05/26/24 01:48 77 16 100 05/26/24 01:33 75 16 100 05/26/24 01:15 76 16 100 05/26/24 01:06 77 16 100 05/26/24 00:45 78 16 100 05/26/24 00:33 79 16 100 05/26/24 00:21 79 16 100 05/26/24 00:04 05/26/24 00:04 05/26/24 00:04 05/26/24 00:04 05/26/24 00:04 05/26/24 00:04 05/26/24 00:04 05/26/24 00:04 05/26/24 00:04 05/26/24 00:04 05/26/24 00:04 05/26/24 00:04 05/26/24 00:04 05/26/24 00:04 05/26/24 00:04 05/26/24 00:04 05/26/24 00:04 05/26/24 00:04 05/26/24 00:04 05/26/24 00:04 05/26/24 00:04 36.7 C 115/72 05/26/24 00:00 101/41 L 05/25/24 23:51 82 18 100 05/25/24 23:45 79 16 100 05/25/24 23:28 82 05/25/24 23:27 85 16 100 30 05/25/24 22:51 86 16 100 Laboratory Results Abnormal lab results 05/25/24 05/25/24 05/25/24 Range/Units 12:13 12:52 16:51 RBC (4.70-6.10) M/uL Hgb (14.0-18.0) g/dl POC Hgb 9.5 L (14.0-18.0) g/dl Hct (42.0-52.0) % POC Hct 28 L (42-52) % MCV (80.0-100.0) fL MCHC (32.0-36.0) g/dL RDW Std Deviation (36.4-46.3) fL RDW Coeff of Elayne (11.5-14.5) % Neut # (Auto) (1.40-6.50) K/uL Lymph # (Auto) (1.20-3.40) K/uL [place] # (Auto) (0.11-0.59) K/uL POC pH 7.34 L (7.35-7.45) POC pO2 421 H (80-95) mmHg POC Total CO2 22 L (24-31) mmol/L ABG pH (Temp Correct) 7.345 L (7.35-7.45) POC ABG O2 Sat 100.0 H (90-95) % POC Sodium 129 L (135-144) mmol/L Sodium (136-145) mmol/L POC Potassium 6.0 H (3.3-5.0) mmol/L Chloride (98-107) mmol/L Anion Gap (3-11) BUN (6-23) mg/dl Creatinine (0.6-1.4) mg/dl Glucose (70-99(Fasting)) mg/dl POC Glucose 196 H 143 H (70-99) mg/dl Calcium (8.6-10.3) mg/dl Phosphorus (2.5-4.9) mg/dl Total Bilirubin (0.2-1.0) mg/dl AST (13-39) U/L Albumin (3.4-5.0) gm/dl Albumin/Globulin Ratio (0.9-2) 05/25/24 05/26/24 05/26/24 Range/Units 21:09 00:06 03:39 RBC 2.64 L (4.70-6.10) M/uL Hgb 8.6 L (14.0-18.0) g/dl POC Hgb (14.0-18.0) g/dl Hct 27.4 L (42.0-52.0) % POC Hct (42-52) % MCV 103.8 H (80.0-100.0) fL MCHC 31.4 L (32.0-36.0) g/dL RDW Std Deviation 72.7 H (36.4-46.3) fL RDW Coeff of Elayne 19.8 H (11.5-14.5) % Neut # (Auto) 7.54 H (1.40-6.50) K/uL Lymph # (Auto) 0.58 L (1.20-3.40) K/uL [place] # (Auto) 0.71 H (0.11-0.59) K/uL POC pH (7.35-7.45) POC pO2 (80-95) mmHg POC Total CO2 (24-31) mmol/L ABG pH (Temp Correct) (7.35-7.45) POC ABG O2 Sat (90-95) % POC Sodium (135-144) mmol/L Sodium 131 L (136-145) mmol/L POC Potassium (3.3-5.0) mmol/L Chloride 95 L (98-107) mmol/L Anion Gap 13 H (3-11) BUN 56 H D (6-23) mg/dl Creatinine 4.09 H D (0.6-1.4) mg/dl Glucose 178 H (70-99(Fasting)) mg/dl POC Glucose 169 H 194 H (70-99) mg/dl Calcium 8.2 L (8.6-10.3) mg/dl Phosphorus 6.1 H (2.5-4.9) mg/dl Total Bilirubin 2.6 H (0.2-1.0) mg/dl AST 53 H (13-39) U/L Albumin 2.8 L (3.4-5.0) gm/dl Albumin/Globulin Ratio 0.8 L (0.9-2) 05/26/24 05/26/24 Range/Units 07:27 07:39 RBC (4.70-6.10) M/uL Hgb (14.0-18.0) g/dl POC Hgb 9.9 L (14.0-18.0) g/dl Hct (42.0-52.0) % POC Hct 29 L (42-52) % MCV (80.0-100.0) fL MCHC (32.0-36.0) g/dL RDW Std Deviation (36.4-46.3) fL RDW Coeff of Elayne (11.5-14.5) % Neut # (Auto) (1.40-6.50) K/uL Lymph # (Auto) (1.20-3.40) K/uL [place] # (Auto) (0.11-0.59) K/uL POC pH (7.35-7.45) POC pO2 (80-95) mmHg POC Total CO2 23 L (24-31) mmol/L ABG pH (Temp Correct) (7.35-7.45) POC ABG O2 Sat 97.0 H (90-95) % POC Sodium 130 L (135-144) mmol/L Sodium (136-145) mmol/L POC Potassium (3.3-5.0) mmol/L Chloride (98-107) mmol/L Anion Gap (3-11) BUN (6-23) mg/dl Creatinine (0.6-1.4) mg/dl Glucose (70-99(Fasting)) mg/dl POC Glucose 187 H (70-99) mg/dl Calcium (8.6-10.3) mg/dl Phosphorus (2.5-4.9) mg/dl Total Bilirubin (0.2-1.0) mg/dl AST (13-39) U/L Albumin (3.4-5.0) gm/dl Albumin/Globulin Ratio (0.9-2) Diagnostic Findings Head CT 05/24/24 08:49 EXAM: CT Head Without Intravenous Contrast INDICATION: Lethargy. Altered mental status. TECHNIQUE: Axial computed tomography images of the head/brain without intravenous contrast. Sagittal and/or coronal reformats are provided. Sagittal and coronal reformatted images were created and reviewed. This CT exam was performed using one or more of the following dose reduction techniques: automated exposure control, adjustment of the mA and/or kV according to patient size, and/or use of iterative reconstruction technique. COMPARISON: No relevant prior studies available. FINDINGS: Limitations: None. Brain and extra-axial spaces: There is age appropriate cortical atrophy and chronic ischemic periventricular white matter hypodensity. No acute infarct, hemorrhage or mass noted. Bones/joints: No acute changes. Soft tissues: No significant abnormality noted. Vasculature: There is intracranial atherosclerosis. Sinuses: Layering low-density fluid right maxillary sinus. Mastoid air cells: No mastoid effusion. Orbits: No significant abnormality noted. IMPRESSION: 1. Cerebral atrophy. No acute changes. 2. Partially imaged acute right maxillary sinusitis. ACT 112: N/A Electronically signed by Cheryl Carpenter 05-24-2024 10:00 AM Orbit X-Ray 05/24/24 12:05 EXAM: Radiographs of the Orbits Foreign Body INDICATION: MRI clearance TECHNIQUE: Frontal view(s) of the orbits. COMPARISON: No relevant prior studies available. FINDINGS: Bones/joints: No fracture, erosion or dislocation. Sinuses: Moderate air-fluid level in the right maxillary sinus. Soft tissues: Aside from dental fillings and bilateral hearing aids, no foreign body noted. IMPRESSION: 1. Aside from dental fillings and bilateral hearing aids, no foreign body noted. 2. Right maxillary sinusitis. ACT 112: N/A Electronically signed by Cheryl Carpenter 05-24-2024 2:00 PM Chest X-Ray 05/25/24 11:41 XR chest 1V portable CLINICAL HISTORY: s/p intubation COMPARISON STUDY: Chest radiograph performed earlier today. FINDINGS: Tip of endotracheal tube is 4.6 cm above the migdalia. Tip of nasogastric tube is within the proximal body of the stomach. Cardiomegaly is again noted. Small left and trace right pleural effusions are present. There is hazy left basilar opacity. Cardiomegaly is unchanged. Pulmonary edema has improved. No pneumothorax. Dual lumen right internal jugular central venous catheter remains in place. IMPRESSION: 1. Tip of endotracheal tube 4.6 cm above the migdalia. 2. Tip of nasogastric tube within the proximal body of the stomach. 3. Cardiomegaly. Interval improvement in pulmonary edema. 4. Small left and trace right pleural effusions. ACT 112: Negative or not required by law. Electronically signed by: Salvador Murillo M.D. 05/25/2024 12:07 PM Foot MRI 05/25/24 12:39 MR foot LT w/o con HISTORY: 78 years-old Male Osteomyelitis chronic left foot pain with possible osteomyelitis COMPARISON: None TECHNIQUE: Multiplanar multisequence MRI of the left foot was obtained without IV contrast. FINDINGS: Study is motion degraded. Diffuse muscle atrophy compatible with chronic determination changes. Extensive subcutaneous edema circumferentially, most pronounced dorsally with associated there are multiple thickening. No fluid collection identified to suggest abscess. The visualized tendons and ligaments appear intact. The Lisfranc ligament is intact. 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 No acute fracture, dislocation, osseous erosion or significant bone marrow edema. IMPRESSION: 1. No MR evidence of acute osteomyelitis. 2. Extensive subcutaneous edema. Differential considerations include cellulitis, venous stasis or lymphedema. 3. No abscess. 4. Mild osteoarthritis. ACT 112: Negative or not required by law. The above report was generated using voice recognition software. It may contain grammatical, syntax or spelling errors. Electronically signed by: Fredy Beard M.D. 05/25/2024 2:17 PM Medications Administered Current Inpatient Medications Acetaminophen (Acetaminophen 325 Mg Tab) 650 mg PO Q4H PRN PRN Reason: Pain or Fever Stop: 06/23/24 14:17 Atorvastatin Calcium (Atorvastatin 40 Mg Tab) 80 mg PO QAM DEEPA Stop: 06/24/24 08:59 Last Admin: 05/26/24 08:05 Dose: 80 mg Clopidogrel Bisulfate (Clopidogrel Bisulfate 75 Mg Tab) 75 mg PO QAM DEEPA Stop: 06/24/24 08:59 Last Admin: 05/26/24 09:00 Dose: 75 mg Collagenase (Collagenase Oint 30 Gm Tube) 1 appln EXT DAILY [facility] Stop: 06/24/24 12:59 Last Admin: 05/26/24 08:04 Dose: 1 appln Dextrose (Dextrose 50% 50 Ml Syringe) 25 - 50 ml IV UD PRN; Protocol PRN Reason: Hypoglycemia Protocol Stop: 06/23/24 14:17 Fentanyl Citrate (Fentanyl Bolus From Bag) 50 mcg IV Q60M PRN PRN Reason: Pain or Agitation Stop: 06/08/24 11:45 Last Admin: 05/26/24 00:23 Dose: 50 mcg Glucagon (Glucagon For Inj 1 Mg Vial) 1 mg SQ UD PRN; Protocol PRN Reason: Hypoglycemia Protocol Stop: 06/23/24 14:17 Glucose (Glucose 40% Gel 15 Gm Tube) 15 - 30 gm PO UD PRN; Protocol PRN Reason: Hypoglycemia Protocol Stop: 06/23/24 14:17 Glucose (Glucose 10 Tab/Tube) 4 - 8 tab PO UD PRN; Protocol PRN Reason: Hypoglycemia Protocol Stop: 06/23/24 14:17 Heparin Sodium (Porcine) (Heparin Sod 5,000 Unit/0.5 Ml Vial) 5,000 units SQ Q8 DEEPA Stop: 06/23/24 14:17 Last Admin: 05/25/24 05:24 Dose: Not Given Sodium Chloride (Nss) 1,000 mls @ 0 mls/hr IV .Q0M PRN PRN Reason: For Hemodialysis Use ONLY Stop: 05/31/24 06:59 Norepinephrine Bitartrate (Levophed/D5w) 4 mg in 250 mls @ 55.703 mls/hr IV .Q4H30M DEEPA; Protocol Stop: 06/24/24 08:29 Last Titration: 05/26/24 06:57 Dose: 0.14 mcg/kg/min, 55.7 mls/hr Hydrocortisone Sodium (Succinate 50 mg/ Syringe) 1 mls @ 4 mls/min IV Q6H DEEPA Stop: 06/24/24 08:29 Last Admin: 05/26/24 08:06 Dose: 4 mls/min Pantoprazole Sodium (Protonix) 40 mg in 10 mls @ 5 mls/min IV BID [facility] Stop: 06/24/24 08:59 Last Admin: 05/26/24 08:03 Dose: 5 mls/min Piperacillin Sod/Tazobactam Sod (Zosyn) 4.5 gm in 100 mls @ 25 mls/hr IV Q12H DEEPA; Protocol Stop: 05/31/24 18:29 Last Admin: 05/26/24 08:03 Dose: 25 mls/hr Vasopressin 20 units/ Sodium (Chloride) 101 mls @ 12.12 mls/hr IV .Q8H20M DEEPA Stop: 06/24/24 11:29 Last Admin: 05/26/24 10:59 Dose: 0.04 unit/min, 12.1 mls/hr Midazolam HCl (Versed) 125 mg in 250 mls @ 0 mls/hr IV .Q0M [facility]; Protocol Stop: 06/24/24 11:59 Last Titration: 05/26/24 09:00 Dose: 0 mg/hr, 0 mls/hr Fentanyl Citrate (Fentanyl Citrate) 2,500 mcg in 250 mls @ 0 mls/hr IV .Q0M DEEPA; Protocol Stop: 06/08/24 11:59 Last Titration: 05/26/24 09:00 Dose: 0 mcg/hr, 0 mls/hr Insulin Aspart (Insulin Aspart Per Unit Charge) 0 units SC Q4 DEEPA Stop: 06/24/24 11:59 Last Admin: 05/26/24 08:03 Dose: 3 units Insulin Glargine (Lantus Per Unit Charge) 0 units SQ HS [facility]; Protocol Stop: 06/23/24 20:59 Last Admin: 05/25/24 21:34 Dose: 10 units Midazolam HCl (Midazolam Bolus From Bag) 2 mg IV Q60M PRN PRN Reason: Sedation Stop: 06/24/24 11:45 Midodrine (Midodrine Hcl 10 Mg Tab) 10 mg PO TID@0800,1200,1700 [facility] Stop: 06/23/24 14:17 Last Admin: 05/26/24 08:06 Dose: 10 mg Miscellaneous (Carbohydrates For Hypoglycemia ) 15 - 30 gm PO UD PRN PRN Reason: Hypoglycemia Protocol Stop: 06/23/24 14:17 Miscellaneous Information (Vancomycin Consult Active) 1 each N/A UD PRN PRN Reason: Consult Stop: 06/23/24 11:01 Miscellaneous Information (Pharmacy Glycemic Mgmt Consult) 1 each N/A UD PRN PRN Reason: Consult Stop: 06/23/24 14:17 Ondansetron HCl (Ondansetron Inj 2 Mg/Ml 2 Ml Vial) 4 mg IV Q6H PRN PRN Reason: Nausea Stop: 06/23/24 14:17 PG Care Time/CCT Total # of Minutes Spent Total Time Spent with Patient: Total time spent is greater than 50% in coordination of care (as documented) at patient's floor/unit and/or counseling patient: Advanced Care Planning 63783 Advanced Care Planning 30 Min [place] [address] SUB INP/OBS CARE 2/35MIN Patient Type Established History Expanded Problem Focused Exam Expanded Problem Focused Medical Decision Making Low Complexity Diagnoses Palliative care by specialist Z51.5 Advanced directives, counseling/discussion Z71.89 Counseling regarding goals of care Z71.89 Additional Codes Advanced Care Planning - 58011 Advanced Care Planning 30 Min: 42292 Advanced Care Planning 30 Min ([id number])
[2024-05-26] MEDS: MAGNESIUM SULFATE / D5W 1 GM/100 ML BAG IV ONE (10:58)
--- NOTE | 2024-05-26 12:02 | Hospitalist Progress Note ---
Date of Service May 26, 2024 Assessment & Plan (1) Septic shock: (2) Severe sepsis due to methicillin resistant Staphylococcus aureus (MRSA) with acute organ dysfunction: (3) Acute metabolic encephalopathy: (4) Acute on chronic systolic (congestive) heart failure: (5) Severe aortic stenosis: (6) Insulin-requiring or dependent type II diabetes mellitus: (7) Chronic ulcer of left foot with fat layer exposed: (8) Endotracheally intubated: (9) Peripheral arterial occlusive disease: (10) Multiple open wounds of lower extremity, complicated: (11) Multiple open wounds of upper extremity: (12) Wound of sacral region: (13) End stage renal disease on dialysis: (14) Vascular dementia: (15) Ischemic cardiomyopathy: (16) Palliative care by specialist: Plan Patient remains critically ill. Requires hospital level care and interventions. Currently on life support with to IV pressors vasopressin and nor epi, intubated and mechanically ventilated. Continue antibiotic for presumed septic shock and MRSA wound infections and cellulitis Continue hemodialysis as tolerated and directed by nephrology Reviewed palliative care consultation and ongoing discussions with family over goals of care Continue ventilator support with weaning trials as directed by critical care Reviewed critical care note and plan of care Continue wound care Continue to monitor laboratory studies Head CT today to evaluate patient's encephalopathy and concern for possible ischemic brain injury I spent a total [id number] coordinating, documenting, and providing care for this patient. Admission and Anticipated Discharge Date Admission Date: May 24, 2024 Subjective Patient intubated. Currently on weaning trial. Does open eyes when you call his name. Physical Exam Physical Exam: Constitutional: Lethargic, critically ill in appearance HEENT: Intubated, OG tube Lungs: Decreased breath sounds, crackles at bases CV: S1-S2, regular, systolic murmur Abdomen: Soft, nontender, nondistended Extremities: Anasarca Neuro: Lethargic Psych: Minimally responsive Derm: Numerous wounds Results & Data Results & Data Vital Signs (Past 12 Hours) Vital Signs Temp Pulse Resp BP Pulse Ox FiO2 05/26/24 11:26 37.5 C 05/26/24 11:03 95 H 12 99 05/26/24 10:18 96 H 10 L 100 05/26/24 10:06 94 H 19 99 30 05/26/24 10:00 117/68 05/26/24 10:00 117/68 05/26/24 10:00 117/68 05/26/24 10:00 117/68 05/26/24 10:00 117/68 05/26/24 10:00 117/68 05/26/24 10:00 117/68 05/26/24 10:00 117/68 05/26/24 10:00 117/68 05/26/24 10:00 117/68 05/26/24 10:00 117/68 05/26/24 10:00 117/68 05/26/24 10:00 117/68 05/26/24 10:00 117/68 05/26/24 10:00 117/68 05/26/24 10:00 117/68 05/26/24 10:00 117/68 05/26/24 10:00 117/68 05/26/24 10:00 117/68 05/26/24 10:00 117/68 05/26/24 10:00 117/68 05/26/24 10:00 117/68 05/26/24 09:51 94 H 16 100 05/26/24 09:00 90 16 99 05/26/24 08:00 117/65 05/26/24 08:00 117/65 05/26/24 08:00 117/65 05/26/24 08:00 117/65 05/26/24 08:00 117/65 05/26/24 08:00 117/65 05/26/24 08:00 117/65 05/26/24 08:00 117/65 05/26/24 08:00 117/65 05/26/24 08:00 117/65 05/26/24 08:00 117/65 05/26/24 08:00 117/65 05/26/24 08:00 117/65 05/26/24 08:00 117/65 05/26/24 08:00 117/65 05/26/24 08:00 117/65 05/26/24 08:00 117/65 05/26/24 08:00 117/65 05/26/24 08:00 117/65 05/26/24 08:00 117/65 05/26/24 08:00 117/65 05/26/24 08:00 117/65 05/26/24 08:00 88 17 98 05/26/24 08:00 94 H 05/26/24 07:28 90 16 98 30 05/26/24 07:00 88 16 100 05/26/24 06:24 30 05/26/24 06:15 89 16 99 05/26/24 06:00 114/65 05/26/24 06:00 114/05/26/24 06:00 114/65 05/26/24 06:00 114/05/26/24 06:00 114/05/26/24 05:57 91 H 16 99 05/26/24 05:45 93 H 18 98 05/26/24 05:18 90 16 98 05/26/24 05:03 88 16 89 L 05/26/24 04:57 89 16 98 05/26/24 04:36 87 16 100 05/26/24 04:15 85 16 97 05/26/24 04:00 36.7 C 119/05/26/24 04:00 85 16 97 05/26/24 04:00 119/05/26/24 04:00 119/05/26/24 04:00 119/61 05/26/24 04:00 103/42 L 05/26/24 03:42 84 16 99 05/26/24 03:31 84 16 100 30 05/26/24 03:09 82 16 99 05/26/24 02:48 80 16 97 05/26/24 02:46 110/05/26/24 02:46 110/61 05/26/24 02:46 110/61 05/26/24 02:39 82 16 99 05/26/24 02:23 102/70 05/26/24 02:23 102/70 05/26/24 02:23 102/70 05/26/24 02:23 102/70 05/26/24 02:23 102/70 05/26/24 02:23 102/70 05/26/24 02:23 102/70 05/26/24 02:21 77 16 98 05/26/24 02:15 78 16 100 05/26/24 02:00 78 16 98 05/26/24 02:00 36.8 C 05/26/24 01:48 77 16 100 05/26/24 01:33 75 16 100 05/26/24 01:15 76 16 100 05/26/24 01:06 77 16 100 05/26/24 00:45 78 16 100 05/26/24 00:33 79 16 100 05/26/24 00:21 79 16 100 05/26/24 00:04 115/72 05/26/24 00:04 115/72 05/26/24 00:04 115/72 05/26/24 00:04 115/05/26/24 00:04 11505/26/24 00:04 11505/26/24 00:04 115/05/26/24 00:04 11505/26/24 00:04 115/05/26/24 00:04 115/05/26/24 00:04 115/05/26/24 00:04 11505/26/24 00:04 11505/26/24 00:04 115/05/26/24 00:04 115/05/26/24 00:04 11505/26/24 00:04 11505/26/24 00:04 11505/26/24 00:04 115/05/26/24 00:04 11505/26/24 00:04 36.7 C 115/05/26/24 00:00 101/41 L Diagnostic Findings Reviewed imaging, laboratory and diagnostic studies. Pertinent findings as below. Hemoglobin 8.6 WBCs 8.9 Platelets of 157 ABG reviewed Sodium 130 Potassium 4.7 Creatinine 4.09 Phosphorus 6.1 Magnesium 1.8 MRI of the foot negative for osteomyelitis consistent with significant cellulitis and edema, no abscess (10) Multiple open wounds of lower extremity, complicated Encounter type: initial encounter Laterality: left Qualified Code(s): S81.802A - Unspecified open wound, left lower leg, initial encounter
--- NOTE | 2024-05-26 13:05 | CT Scan Report ---
CT SCAN OF THE BRAIN WITHOUT IV CONTRAST CLINICAL HISTORY: Altered mental status. COMPARISON STUDY: Head CT May 24, 2024. TECHNIQUE: Unenhanced axial CT scan of the brain was performed from the vertex to the skull base. A dose lowering technique was utilized adhering to the principles of ALARA. CT DOSE: 750.68 mGy.cm FINDINGS: No acute intracranial hemorrhage, midline shift or mass effect is present. Ventricular syst em is moderate atrophy and small vessel disease. No findings to suggest acute dural sinus thrombosis or acute territorial infarct. There are no calvarial fractures. Small air-fluid level within the righ t maxillary sinus is noted. There is mild thickening of the right maxillary sinus. Secretions within the pharynx are likely related to intubation. IMPRESSION: No acute intracranial findings. ACT 112: Negative or not required by law. Electronically signed by: Salvador Murillo M.D. 05/26/2024 1:03 PM
--- NOTE | 2024-05-26 13:30 | Pharmacy Report ---
Pharmacy PK ABX Note - Date of Service May 26, 2024 - Assessment and Plan Assessment 05/26: * Day #3 vancomycin (+ zosyn) for LE cellulitis. Blood cultures (-) at 48h. MRI with no evidence of osteomyelitis. 05/25: * Day #2 vancomycin. Plan for HD this afternoon. Blood cultures NGTD. 05/24: * 78 year old M on vancomycin for treatment of sepsis 2nd cellulitis r/o osteomyelitis. ED status at this time - ongoing inpatient orders pending. * Pertinent microbiologic data includes: Positive MRSA Nasal Swab * PMH: dialysis dependent since February, recent hx MRSA bacteremia at OSH, recently at [facility] May 16 up until admission here, severe aortic stenosis, dementia, Plan Vancomycin * Vancomycin 750mg IV X 1 dose last evening post-HD. * Random vancomycin level 14.2mcg/mL this AM - therapeutic. Safe to re-dose vancomycin. Vancomycin 750mg IV X 1 * Repeat level in AM to guide further dosing. Pharmacy will continue to follow and will adjust dose/frequency as necessary. Thank you. Pharmacy has transitioned to AUC monitoring for vancomycin. AUC/CHRIS is the preferred PK/PD target and is associated with decreased risk of nephrotoxicity compared to traditional trough targets.
--- NOTE | 2024-05-26 14:04 | Nephrology Progress Note ---
Date of Service May 26, 2024 Assessment & Plan Admission and Anticipated Discharge Date Admission Date: May 24, 2024 Subjective Assessment & Plan (1) End stage renal disease on dialysis: Plan: On Saturday hemodialysis at least at rehab. patient had dialysis yesterday and almost 3 kilo removed while on pressors. Still is critically ill in shock and requiring vasopressin and Levophed and vent. Patient is also massively volume overload. Will attempt to 3 L UF tomorrow also with pressors. Family have changed him to DNR. Ongoing goals of care discussion likely cm or particularly if patient continues to deteriorate. Case discussed with ICU attending. Palliative med also following and I have reviewed his hopsital course at [facility] and also at [facility] rehab---he has not had easy dialysis at all in normal situation. needs ICU level care and meds for any fluid removal. this is not sustainable. reviewed Palliative med note (2) Acute on chronic systolic (congestive) heart failure: Plan: Volume overload with anasarca and pulmonary edema: Will attempt as aggressive for L UF as tolerated. discussed with ICU attending. We may need to escalate pressors to allow fluid removal. (3) Multiple open wounds of lower extremity, complicated: Plan: On empiric vancomycin and pip-tazo Follow-up wound care consults (4) Anemia in ESRD (end-stage renal disease): Plan: On May 17, TSAT 52% and ferritin 960. Hemoglobin today 8.2 No iron therapy indicated with treatment but will give max dose epo Subjective Seen for ESRD. Patient is critically ill in intensive care unit Intubated on vasopressin and Levophed. Unable to obtain history due to intubation. Review of Systems Review of Systems: Unable to obtain due to intubation Physical Exam Physical Exam: General exam: intubated and sedated Respiratory system: Clear breath sounds bilaterally. Gastrointestinal: Abdomen is soft, non distended, non tender, bowel sounds are present CVS: Regular rate and rhythm. No murmurs, rubs or gallops Musculoskeletal: No joint or muscle tenderness Extremities: Non tender, no edema, peripheral pulses are present Neuro: intubated, sedated Skin: No rashes Results & Data Vital Signs (Past 12 Hours) Vital Signs Temp Pulse Resp BP BP Pulse Ox FiO2 05/26/24 13:40 107/52 L 05/26/24 12:05 96 H 14 100 04/01/25 12:00 111/69 05/26/24 12:00 111/69 05/26/24 12:00 111/69 05/26/24 12:00 11105/26/24 12:00 111/69 05/26/24 12:00 11105/26/24 12:00 111/69 05/26/24 12:00 111/69 05/26/24 12:00 96 H 05/26/24 11:53 98 H 16 100 05/26/24 11:26 37.5 C 05/26/24 11:03 95 H 12 99 05/26/24 10:18 96 H 10 L 100 05/26/24 10:06 94 H 19 99 30 05/26/24 10:00 117/68 05/26/24 10:00 117/68 05/26/24 10:00 117/68 05/26/24 10:00 117/68 05/26/24 10:00 117/68 05/26/24 10:00 117/68 05/26/24 10:00 117/68 05/26/24 10:00 117/68 05/26/24 10:00 117/68 05/26/24 10:00 117/68 05/26/24 10:00 117/68 05/26/24 10:00 117/68 05/26/24 10:00 117/68 05/26/24 10:00 117/68 05/26/24 10:00 117/68 05/26/24 10:00 117/68 05/26/24 10:00 117/68 05/26/24 10:00 117/68 05/26/24 10:00 117/68 05/26/24 10:00 117/68 05/26/24 10:00 117/68 05/26/24 10:00 117/68 05/26/24 09:51 94 H 16 100 05/26/24 09:00 90 16 99 05/26/24 08:00 117/65 05/26/24 08:00 117/65 05/26/24 08:00 117/65 05/26/24 08:00 117/65 05/26/24 08:00 117/65 05/26/24 08:00 117/65 05/26/24 08:00 117/65 05/26/24 08:00 117/65 05/26/24 08:00 117/65 05/26/24 08:00 117/65 05/26/24 08:00 117/65 05/26/24 08:00 117/65 05/26/24 08:00 117/65 05/26/24 08:00 117/65 05/26/24 08:00 117/65 05/26/24 08:00 117/65 05/26/24 08:00 117/65 05/26/24 08:00 117/65 05/26/24 08:00 117/65 05/26/24 08:00 117/65 05/26/24 08:00 117/65 05/26/24 08:00 117/65 05/26/24 08:00 88 17 98 05/26/24 08:00 94 H 05/26/24 07:28 90 16 98 30 05/26/24 07:00 88 16 100 05/26/24 06:24 30 05/26/24 06:15 89 16 99 05/26/24 06:00 114/65 05/26/24 06:00 114/65 05/26/24 06:00 114/65 05/26/24 06:00 114/65 05/26/24 06:00 114/65 05/26/24 05:57 91 H 16 99 05/26/24 05:45 93 H 18 98 05/26/24 05:18 90 16 98 05/26/24 05:03 88 16 89 L 05/26/24 04:57 89 16 98 05/26/24 04:36 87 16 100 05/26/24 04:15 85 16 97 05/26/24 04:00 36.7 C 119/61 05/26/24 04:00 85 16 97 05/26/24 04:00 119/61 05/26/24 04:00 119/61 05/26/24 04:00 119/61 05/26/24 04:00 103/42 L 05/26/24 03:42 84 16 99 05/26/24 03:31 84 16 100 30 05/26/24 03:09 82 16 99 05/26/24 02:48 80 16 97 05/26/24 02:46 110/61 05/26/24 02:46 110/05/26/24 02:46 110/05/26/24 02:39 82 16 99 05/26/24 02:23 05/26/24 02:23 05/26/24 02:23 05/26/24 02:23 10205/26/24 02:23 10205/26/24 02:23 10205/26/24 02:23 10205/26/24 02:21 77 16 98 05/26/24 02:15 78 16 100
--- NOTE | 2024-05-26 14:19 | Pharmacy Report ---
Pharmacy Glycemic Short Note 2 - Date of Service May 26, 2024 - Glycemic Short BSG Results (Last 24 hours): 05/25/24 05/25/24 05/26/24 16:51 21:09 00:06 Glucose POC Glucose 143 H 169 H 194 H 05/26/24 05/26/24 05/26/24 03:39 07:27 12:04 Glucose 178 H POC Glucose 187 H 187 H OUTPATIENT ANTIDIABETIC REGIMEN: * NovoLog sliding scale, 0-10 units based on blood sugar per med rec * per outpatient fill history - patient on Tresiba, filled in Mar 2024 * A1c pending ASSESSMENT: 05/26: * BSGs largely within goal the last 24h. Received 10 units of basal and 9 units of bolus insulin yesterday. * Remains intubated, sedated and requiring vasopressor support. Continues on hydrocortisone 50mg IV q6h. NPO. * Lantus HS per scale depending on BSG- increased for tonight. Novolog q4 tightened. 05/25: * BSGs [id number]/dL the last 24h. Received 15 units of basal and 3 units of bolus insulin yesterday. * Intubated today. Continues on IV antibiotics and vasopressor support. Hydrocortisone 50mg IV q6h initiated. * Lantus 0/10/15 units HS depending on BSG. Novolog tightened and adjusted to q4. If remains hyperglycemic and on pressors, may require insulin infusion. 05/24: * 78 YO M, ESRD on HD, critically ill from presumed sepsis, high concern for MRSA bacteremia from multiple skin wounds, possible osteo of left foot on IV Vancomycin. * Type 2 DM, unknown control, A1c pending, patient unable to report how he takes any insulin at this time. * Will begin patient on NovoLog CF & CR only and PRN basal tonight if needed and titrate to goal blood sugar. PLAN FOR INPATIENT GLYCEMIC CONTROL: * Basal insulin * Lantus 10/15 units HS depending on BSG * Bolus insulin * NovoLog per scale ACHS or Q4hrs while NPO * Goal Range: Low 110 mg/dL - High 140 mg/dL * Correction Factor: 15 mg/dL/unit * Nutritional / Prandial insulin per carb ratio of 1 unit per 8 grams CHO consumed
--- NOTE | 2024-05-26 15:45 | XRay Report ---
XR chest 1V portable HISTORY: 78 years-old Male chf? Acute respiratory failure COMPARISON: 05/25/2024 TECHNIQUE: AP view of the chest FINDINGS: Endotracheal tube overlies the midline, 1.9 cm superior to the migdalia. Enteric tube courses below the diaphragm outside the [id number]. Right IJ dual-lumen hemodialysis catheter distal tip projects o abdelrahman the right atrium. Pulmonary vascular congestion with progressive pulmonary edema. No pneumothorax. Pleural effusions wi th bibasilar densities have also mildly worsened. Bones appear grossly intact. IMPRESSION: 1. Lines and tubes as above. 2. Cardiomegaly with worsening pulmonary edema. 3. Layering pleural effusions with progressive bibasilar opacities. ACT 112: Negative or not required by law. The above report was generated using voice recognition software. It may contain grammatical, syntax o r spelling errors. Electronically signed by: Fredy Beard M.D. 05/26/2024 3:42 PM
[2024-05-26] MEDS: TUBE FEEDING WATER FLUSH OG SCH (16:39)
[2024-05-26] MEDS: NOVASOURCE RENAL 2.0 CAL 1000ML BAG OG SCH (17:15)
[2024-05-26] MEDS: ACETAMINOPHEN 325 MG TAB PO PRN (22:07)
[2024-05-27 05:02] LABS: Hematocrit (blood only) 26.8 % (42.0-52.0); Hemoglobin 8.5 g/dl (14.0-18.0); Immature Granulocytes # (auto) 0.07 K/uL (0.01-0.20); Immature Granulocytes % (auto) 0.7 %; Lymphocytes # (auto) 0.55 K/uL (1.20-3.40); Lymphocytes % (auto) 5.6 %; Mean Corpuscular Hemoglobin 33.2 pg (25.0-34.0); Mean Corpuscular Hgb Conc 31.7 g/dL (32.0-36.0); Mean Corpuscular Volume 104.7 fL (80.0-100.0); Mean Platelet Volume 11.5 fL (9.4-12.4); Monocytes # (auto) 0.72 K/uL (0.11-0.59); Monocytes % (auto) 7.4 %; Neutrophils % (auto) 86.3 %; Nucleated RBC # (auto) 0.09 K/uL (0.00-0.12); Nucleated RBC % (auto) 0.9 %; Platelet Count 155 K/uL (130-400); RDW Coefficient of Variation 19.9 % (11.5-14.5); RDW Standard Deviation 74.6 fL (36.4-46.3); Red Blood Count 2.56 M/uL (4.70-6.10); White Blood Count 9.74 K/ul (4.8-10.8)
[2024-05-27 05:19] LABS: Magnesium 2.2 mg/dl (1.7-2.4)
[2024-05-27 06:16] LABS: Calcium 7.8 mg/dl (8.6-10.3); Creatinine Clr Calc Pharmacy 15.6 ml/min; Potassium 5.3 mmol/L (3.5-5.1)
[2024-05-27] MEDS ORDERED: SODIUM CHLORIDE 0.9% 1,000 ML IV PRN (07:00)
--- NOTE | 2024-05-27 07:40 | XRay Report ---
EXAM: XR chest 1V portable CLINICAL HISTORY: eval lines/tubes/lung upton while intubated TECHNIQUE: An X-ray image of the chest is obtained in AP projection. COMPARISON: 05/25/2024 10:40:00 LEAD TECHNICIAN FINDINGS: Pulmonary Parenchyma: An endotracheal tube is seen with its tip at 3.5 cm from the migdalia, low-lying. Nasogastric tube is seen with its tip in normal position. Right sided permacath is noted with its tip in the right atrium. Reticular shadowing is seen scattered in both lung upton. Minimal blunting of the left costophrenic angle seen could be due to pleural thickening/effusion. Heart and Mediastinum: Cardiomegaly. Prominent bronchovascular markings seen bilaterally. No mediastinal widening or masses. No hilar or mediastinal lymphadenopathy. Bony Thorax: Bony thorax appears intact without fractures or deformities. Soft Tissues: Soft tissues overlying the chest wall are unremarkable. IMPRESSION: 1. An endotracheal tube is seen with its tip in normal position 3.5 cm from the migdalia, low-lying. Consider pullback by 2 cm. 2. A nasogastric tube is seen with its tip in normal position.Right-sided permacath noted with its tip in the right atrium. 3. Cardiomegaly. 4. Prominent bronchovascular markings seen bilaterally. 5. Minimal blunting of the left costophrenic angle seen could be due to pleural thickening/effusion. 6. Imaging findings are likely due to pulmonary congestion, would recommend clinical and lab correlation to rule out the possibility of pulmonary infection. 7. No interval changes. Electronically signed by Akil Perez 05-27-2024 07:40 AM
[2024-05-27] MEDS: EPOETIN ALFA 20,000 UNITS/ML VIAL IV ONE (09:59)
--- NOTE | 2024-05-27 11:19 | Critical Care Progress Note ---
Date of Service May 27, 2024 Assessment & Plan (1) Septic shock: (2) Endotracheally intubated: (3) Anemia in ESRD (end-stage renal disease): (4) Cellulitis: (5) Dementia: (6) Insulin-requiring or dependent type II diabetes mellitus: (7) Severe aortic stenosis: (8) Acute metabolic encephalopathy: (9) Vascular dementia: (10) Peripheral arterial occlusive disease: (11) Chronic systolic heart failure: (12) Severe sepsis due to methicillin resistant Staphylococcus aureus (MRSA) with acute organ dysfunction: (13) Ischemic cardiomyopathy: (14) Volume overload: Plan 78-year-old male with a history of cardiomyopathy, aortic stenosis, diabetes and dementia presenting to the hospital with septic shock of his left lower extremity and respiratory failure. Neuro - CAM-ICU RASS GOAL -1 Currently off all sedation and more awake and alert than he was yesterday. Delirium precautions as able. Patient with a reported history of possible cognitive impairment and prior CVA Cardiac - Continue midodrine TID Continue with Levophed and vasopressin as able. Levophed is being weaned down. Continue statin Continue Plavix for history of prior CVA. Echo 05/15/2024 with systolic cardiomyopathy with an EF of 30% and moderate to borderline severe aortic valve stenosis. Respiratory - Patient with evidence of pulmonary edema on chest x-ray likely from volume overload. Dialysis hopefully will help with maintaining euvolemia. Patient on SBT now. Doing fairly well. Possible extubation after hemodialysis later today with goal of no reintubation per family discussion yesterday if he worsens. GI - No acute concerns Diet: OG tube in place. Tube feeds on hold while on hemodialysis and spontaneous breathing trial. SUP: PPI Bowel regimen: Miralax Mild elevation in AST likely related to acute illness from sepsis. Continue to trend. RENAL/LYTES - Nephrology on board. HD day-to-day at this point. Currently undergoing hemodialysis today with goal of removing 3.5 L of fluid. Anuric Will hold on any continued IVF Hemodialysis catheter appropriately positioned and working well per vascular surgery. Electrolyte derangements noted today with hyponatremia and hyperkalemia. Patient with also mild acidosis. Set to undergo hemodialysis today which should hopefully improve these values. ENDO - BG 140-180 per [employer]M guidelines Patient currently on stress dose steroids due to septic shock which will likely begin to be weaned starting tomorrow. HEME/ONC/OTHER - Hemoglobin stable. Receives Epo w/ HD No clinical signs of bleeding Transfuse for HGB < 7 or as otherwise directed by Nephrology or Cardiology Restart Plavix as above and start heparin 3 times daily for DVT prophylaxis. ID - Zosyn and Vancomycin continued for complicated cellulitis of the left lower extremity. Complete 7 days of antibiotics. MRI foot fortunately did not reveal any osteomyelitis. De-escalate abx as guided by culture data. Blood cultures negative to date. Wound consult. Appreciate podiatry consultation. Will likely need debridement sometime in the near future when more stable. Consider ID consult as he continues to improve for length of antibiotic treatment LINES/TUBES/DRAINS - R chest permcath PIV x2 DVT PROPHYLAXIS - Heparin 5000 units 3 times daily DISPOSITION - ICU CRITICAL CARE TIME I have personally spent 37 minutes of critical care time in the direct management of this patient. This is a life/limb threatening event. This includes time spent evaluating patient, direct bedside care, chart review, placing orders, interpretation of diagnostic studies, discussion with consultants, patient, and family members, as well as other required patient management activities. This time is exclusive of all separately billable procedures, and teaching time and separate from and in addition to any other critical care service time. Admission and Anticipated Discharge Date Admission Date: May 24, 2024 Subjective Patient more awake and alert today off of sedation. He is doing well on spontaneous breathing trial. He moves his limbs spontaneously. Intermittently follows commands. Currently on a hemodialysis session and tolerating this well on fixed dose of vasopressin and low-dose Levophed. Review of Systems Review of Systems: Unobtainable due to endotracheal tube Physical Exam Physical Exam: Constitutional: Elderly and frail appearing male in no apparent distress. Currently intubated and sedated. Eyes: Pupils are equal round and reactive to light. Conjunctivae are normal. Anicteric sclera. Ears nose, mouth and throat: Size [address] Neck: Trachea is midline. Visual inspection is normal. Respiratory: Coarse bilaterally with diminishment at the bases. Mild crackles. Cardiovascular: Regular rate and rhythm. No murmurs. 2+ edema in the lower extremities. Gastrointestinal: Normal bowel sounds, soft, nontender and nondistended. No hepatosplenomegaly noted. Musculoskeletal: No cyanosis. Patient is able to move all extremities. Skin: Multiple eschar is noted in the left lower extremity. Pulses intact. Neurologic: No obvious focal neurological deficits seen. Psychiatric: Unable to assess as he is sedated. Results & Data Results & Data Vital Signs (Past 12 Hours) Vital Signs Temp Pulse Pulse Resp BP BP Pulse Ox 05/27/24 11:00 86 107/50 L 05/27/24 10:30 83 109/50 L 05/27/24 10:05 80 10 L 97 05/27/24 10:00 84 102/47 L 05/27/24 09:30 87 100/50 L 05/27/24 09:25 87 05/27/24 09:01 87 110/55 L 05/27/24 09:00 107/05/27/24 09:00 107/05/27/24 08:57 37.3 C 89 10 L 97 05/27/24 08:55 37.2 C 90 05/27/24 08:33 37.3 C 89 15 100 05/27/24 08:12 37.3 C 81 16 95 05/27/24 08:00 107/05/27/24 07:48 37.3 C 82 16 100 05/27/24 07:42 37.3 C 83 16 100 05/27/24 07:20 88 18 95 05/27/24 07:06 37.3 C 89 16 94 05/27/24 07:00 96/67 L 05/27/24 07:00 05/27/24 06:00 37.3 C 84 16 103/67 100 05/27/24 05:00 37.4 C 87 16 105/66 100 05/27/24 04:03 37.6 C H 88 15 96 05/27/24 04:00 10705/27/24 04:00 10705/27/24 04:00 10705/27/24 04:00 10705/27/24 04:00 10705/27/24 04:00 10705/27/24 04:00 10705/27/24 04:00 10705/27/24 04:00 10705/27/24 04:00 10705/27/24 04:00 10705/27/24 04:00 10705/27/24 03:42 97 H 24 57 L 05/27/24 03:30 87 16 100 05/27/24 03:15 37.6 C H 84 16 98 05/27/24 03:00 05/27/24 03:00 05/27/24 03:00 05/27/24 03:00 05/27/24 03:00 05/27/24 03:00 05/27/24 03:00 05/27/24 03:00 05/27/24 03:00 05/27/24 03:00 05/27/24 03:00 05/27/24 03:00 05/27/24 03:00 05/27/24 03:00 05/27/24 03:00 05/27/24 03:00 05/27/24 03:00 05/27/24 03:00 05/27/24 02:03 37.9 C H 88 16 100 05/27/24 02:00 37.9 C H 90 16 112/64 100 05/27/24 02:00 112/64 05/27/24 01:00 38.2 C H 90 16 103/66 100 05/27/24 00:00 38.5 C H 99 H 20 100 05/27/24 00:00 113/73 05/26/24 23:54 99 H 20 100 05/26/24 23:36 97 H O2 Del Method FiO2 05/27/24 11:00 05/27/24 10:30 05/27/24 10:05 05/27/24 10:00 05/27/24 09:30 05/27/24 09:25 05/27/24 09:01 05/27/24 09:00 Mechanical Vent 05/27/24 09:00 05/27/24 08:57 05/27/24 08:55 05/27/24 08:33 05/27/24 08:12 05/27/24 08:00 05/27/24 07:48 05/27/24 07:42 Mechanical Vent 05/27/24 07:20 05/27/24 07:06 05/27/24 07:00 05/27/24 07:00 05/27/24 06:00 Mechanical Vent 25 05/27/24 05:00 Mechanical Vent 25 05/27/24 04:03 05/27/24 04:00 05/27/24 04:00 05/27/24 04:00 05/27/24 04:00 05/27/24 04:00 05/27/24 04:00 05/27/24 04:00 05/27/24 04:00 05/27/24 04:00 05/27/24 04:00 05/27/24 04:00 05/27/24 04:00 05/27/24 03:42 05/27/24 03:30 05/27/24 03:15 05/27/24 03:00 05/27/24 03:00 05/27/24 03:00 05/27/24 03:00 05/27/24 03:00 05/27/24 03:00 05/27/24 03:00 05/27/24 03:00 05/27/24 03:00 05/27/24 03:00 05/27/24 03:00 05/27/24 03:00 05/27/24 03:00 05/27/24 03:00 05/27/24 03:00 05/27/24 03:00 05/27/24 03:00 05/27/24 03:00 05/27/24 02:03 05/27/24 02:00 Mechanical Vent 40 05/27/24 02:00 05/27/24 01:00 Mechanical Vent 40 05/27/24 00:00 Mechanical Vent 40 05/27/24 00:00 05/26/24 23:54 40 05/26/24 23:36 Coding Level of Care Code 19001 CRITICAL CARE 1ST 30-74M Diagnoses Septic shock A41.9; R65.21 Endotracheally intubated Z97.8 Anemia in ESRD (end-stage renal disease) N18.6; D63.1 Cellulitis L03.90 Dementia F03.90 Insulin-requiring or dependent type II diabetes mellitus E11.9; Z79.4 Severe aortic stenosis I35.0 Acute metabolic encephalopathy G93.41 Vascular dementia F01.50 Peripheral arterial occlusive disease I77.9 Chronic systolic heart failure I50.22 Severe sepsis due to methicillin resistant Staphylococcus aureus (MRSA) with acute organ dysfunction A41.02; R65.20 Ischemic cardiomyopathy I25.5 Volume overload E87.70
--- NOTE | 2024-05-27 11:24 | Dialysis Progress Note ---
Date of Service May 27, 2024 Assessment & Plan (1) End stage renal disease on dialysis: Plan: On Saturday hemodialysis at least at rehab. patient is tolerating dialysis so far but critically ill in shock and requiring vasopressin and norepi with massivevolume overload. Will attempt to 4 L UF. Family have changed him to DNR. Ongoing goals of care discussion likely cm if patient continues to deteriorate. 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 if this can dilute like albumin); ?mild jaundice on exam >> await RUQ u/s >not sustainable to stay in ICU on pressors /midodrine longer term for HD; that said he's only started having fluid removal this week after days w/o it >if liver cirrhosis, this situation is not likely to improve; if no cirrhosis, still a difficult path but may be able to consider intermittent HD w/ pressors or CRRT if family agrees to transfer; honestly at this point can't say that CRRT would be better for him than current IHD/pressors >> in my opinion he'd be likely to need pressors for CRRT as well >discussions today w/ palliative, primary service, 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 We may need to escalate pressors to allow fluid removal. EF 30-35%; moderate to borderline severe but possible pseudoAS w/ lower EF; moderate MR w/ LA dilation; (3) Multiple open wounds of lower extremity, complicated: Plan: On empiric vancomycin and pip-tazo; MRI w/o e/o OM; blood cxs neg Follow-up wound care recs (4) Anemia in ESRD (end-stage renal disease): Plan: On May 17, TSAT 52% and ferritin 960. Hemoglobin today 8.5 No iron therapy indicated with treatment but will give max dose epo again today Admission and Anticipated Discharge Date Admission Date: May 24, 2024 Subjective seen and evaluated on dialysis; on norepi and vaso each at 0.04 Review of Systems 2 Review of Systems: Unobtainable due to endotracheal tube Results & Data Vital Signs (Past 12 Hours) Vital Signs Temp Pulse Pulse Resp BP BP Pulse Ox 05/27/24 11:00 86 107/50 L 05/27/24 10:30 83 109/50 L 05/27/24 10:05 80 10 L 97 05/27/24 10:00 84 102/47 L 05/27/24 09:30 87 100/50 L 05/27/24 09:25 87 05/27/24 09:01 87 110/55 L 05/27/24 09:00 10705/27/24 09:00 10705/27/24 08:57 37.3 C 89 10 L 97 05/27/24 08:55 37.2 C 90 05/27/24 08:33 37.3 C 89 15 100 05/27/24 08:12 37.3 C 81 16 95 05/27/24 08:00 107/05/27/24 07:48 37.3 C 82 16 100 05/27/24 07:42 37.3 C 83 16 100 05/27/24 07:20 88 18 95 05/27/24 07:06 37.3 C 89 16 94 05/27/24 07:00 96/67 L 05/27/24 07:00 05/27/24 06:00 37.3 C 84 16 103/67 100 05/27/24 05:00 37.4 C 87 16 105/66 100 05/27/24 04:03 37.6 C H 88 15 96 05/27/24 04:00 107/05/27/24 04:00 10705/27/24 04:00 05/27/24 04:00 05/27/24 04:00 10705/27/24 04:00 10705/27/24 04:00 10705/27/24 04:00 05/27/24 04:00 05/27/24 04:00 05/27/24 04:00 05/27/25 04:00 10705/27/24 03:42 97 H 24 57 L 05/27/24 03:30 87 16 100 05/27/24 03:15 37.6 C H 84 16 98 05/27/24 03:00 10705/27/24 03:00 05/27/24 03:00 05/27/24 03:00 05/27/24 03:00 05/27/24 03:00 05/27/24 03:00 05/27/24 03:00 05/27/24 03:00 05/27/24 03:00 05/27/24 03:00 05/27/24 03:00 05/27/24 03:00 05/27/24 03:00 05/27/24 03:00 05/27/24 03:00 05/27/24 03:00 10705/27/24 03:00 05/27/24 02:03 37.9 C H 88 16 100 05/27/24 02:00 37.9 C H 90 16 112/64 100 05/27/24 02:00 112/64 05/27/24 01:00 38.2 C H 90 16 103/66 100 05/27/24 00:00 38.5 C H 99 H 20 100 05/27/24 00:00 113/73 05/26/24 23:54 99 H 20 100 05/26/24 23:36 97 H O2 Del Method FiO2 05/27/24 11:00 05/27/24 10:30 05/27/24 10:05 25 05/27/24 10:00 05/27/24 09:30 05/27/24 09:25 05/27/24 09:01 05/27/24 09:00 Mechanical Vent 05/27/24 09:00 05/27/24 08:57 05/27/24 08:55 05/27/24 08:33 05/27/24 08:12 05/27/24 08:00 05/27/24 07:48 05/27/24 07:42 Mechanical Vent 25 05/27/24 07:20 05/27/24 07:06 05/27/24 07:00 05/27/24 07:00 05/27/24 06:00 Mechanical Vent 25 05/27/24 05:00 Mechanical Vent 25 05/27/24 04:03 05/27/24 04:00 05/27/24 04:00 05/27/24 04:00 05/27/24 04:00 05/27/24 04:00 05/27/24 04:00 05/27/24 04:00 05/27/24 04:00 05/27/24 04:00 05/27/24 04:00 05/27/24 04:00 05/27/24 04:00 05/27/24 03:42 05/27/24 03:30 05/27/24 03:15 05/27/24 03:00 05/27/24 03:00 05/27/24 03:00 05/27/24 03:00 05/27/24 03:00 05/27/24 03:00 05/27/24 03:00 05/27/24 03:00 05/27/24 03:00 05/27/24 03:00 05/27/24 03:00 05/27/24 03:00 05/27/24 03:00 05/27/24 03:00 05/27/24 03:00 05/27/24 03:00 05/27/24 03:00 05/27/24 03:00 25 05/27/24 02:03 05/27/24 02:00 Mechanical Vent 40 05/27/24 02:00 05/27/24 01:00 Mechanical Vent 40 05/27/24 00:00 Mechanical Vent 40 05/27/24 00:00 05/26/24 23:54 40 05/26/24 23:36 Laboratory Results 05/27/24 04:26 05/27/24 04:26 (3) Multiple open wounds of lower extremity, complicated Encounter type: initial encounter Laterality: left Qualified Code(s): S 81.802A - Unspecified open wound, left lower leg, initial encounter
--- NOTE | 2024-05-27 12:41 | Pharmacy Report ---
Pharmacy PK ABX Note - Date of Service May 27, 2024 - Assessment and Plan Assessment 05/27: * Day # 4 vancomycin + zosyn for LE cellulitis. Receiving dialysis today. 05/26: * Day #3 vancomycin (+ zosyn) for LE cellulitis. Blood cultures (-) at 48h. MRI with no evidence of osteomyelitis. 05/25: * Day #2 vancomycin. Plan for HD this afternoon. Blood cultures NGTD. 05/24: * 78 year old M on vancomycin for treatment of sepsis 2nd cellulitis r/o osteomyelitis. ED status at this time - ongoing inpatient orders pending. * Pertinent microbiologic data includes: Positive MRSA Nasal Swab * PMH: dialysis dependent since February, recent hx MRSA bacteremia at OSH, recently at [facility] May 16 up until admission here, severe aortic stenosis, dementia, Plan Vancomycin * Vancomycin 750mg IV X 1 dose yesterday AM- no HD yesterday. * Random vancomycin level 19.8mcg/mL this AM - therapeutic. Safe to re-dose vancomycin post-HD. Vancomycin 500mg IV X 1 after dialysis today. * Repeat level in AM to guide further dosing. Pharmacy will continue to follow and will adjust dose/frequency as necessary. Thank you. Pharmacy has transitioned to AUC monitoring for vancomycin. AUC/CHRIS is the preferred PK/PD target and is associated with decreased risk of nephrotoxicity compared to traditional trough targets.
--- NOTE | 2024-05-27 13:00 | Hospitalist Progress Note ---
Date of Service May 27, 2024 Assessment & Plan (1) Septic shock: (2) Severe sepsis due to methicillin resistant Staphylococcus aureus (MRSA) with acute organ dysfunction: (3) Acute metabolic encephalopathy: (4) Acute on chronic systolic (congestive) heart failure: (5) Severe aortic stenosis: (6) Insulin-requiring or dependent type II diabetes mellitus: (7) Chronic ulcer of left foot with fat layer exposed: (8) Endotracheally intubated: (9) Peripheral arterial occlusive disease: (10) Multiple open wounds of lower extremity, complicated: (11) Multiple open wounds of upper extremity: (12) Wound of sacral region: (13) End stage renal disease on dialysis: (14) Vascular dementia: (15) Ischemic cardiomyopathy: (16) Palliative care by specialist: Plan Patient with acute septic shock, respiratory failure and pulmonary edema in the setting of end-stage renal disease dependent on hemodialysis and infection from multiple skin wounds. Multidisciplinary discussion with palliative care, printing roller handler, nephrology. Plan to try and remove 4 L of fluid with hemodialysis today. Seem to be tolerating without any increased need for additional IV pressors. Continue pressor support titrate as able Consider weaning trial and possible extubation later today after hemodialysis Continue antibiotics Continue wound care Continue discussions of goals of care with palliative care and family Phone conversation with patient's daughter, Merly. Update patient's condition. I spent a total [id number] coordinating, documenting, and providing care for this patient. Admission and Anticipated Discharge Date Admission Date: May 24, 2024 Subjective Patient remains on 2 pressors. But is awake and responsive on the ventilator. Shakes his head yes and no to simple questions. Physical Exam Physical Exam: Constitutional: Awake on vent HEENT: Mucous membranes moist. ET tube, OG tube Lungs: Decreased breath sounds, crackles throughout CV: S1-S2, regular, systolic murmur Abdomen: Soft, nontender, nondistended Extremities: Thick edema continues upper thighs, sacrum, lower abdomen Neuro: Generally weak Psych: Cooperative, normal mood Results & Data Results & Data Vital Signs (Past 12 Hours) Vital Signs Temp Pulse Pulse Resp BP BP Pulse Ox 05/27/24 12:30 87 102/43 L 05/27/24 12:00 86 103/48 L 05/27/24 11:30 84 112/52 L 05/27/24 11:00 86 107/50 L 05/27/24 10:30 83 109/50 L 05/27/24 10:05 80 10 L 97 05/27/24 10:00 84 102/47 L 05/27/24 09:30 87 100/50 L 05/27/24 09:25 87 05/27/24 09:01 87 110/55 L 05/27/24 09:00 107/67 05/27/24 09:00 107/05/27/24 08:57 37.3 C 89 10 L 97 05/27/24 08:55 37.2 C 90 05/27/24 08:33 37.3 C 89 15 100 05/27/24 08:12 37.3 C 81 16 95 05/27/24 08:00 107/05/27/24 07:48 37.3 C 82 16 100 05/27/24 07:42 37.3 C 83 16 100 05/27/24 07:20 88 18 95 05/27/24 07:06 37.3 C 89 16 94 05/27/24 07:00 96/67 L 05/27/24 07:00 05/27/24 06:00 37.3 C 84 16 103/67 100 05/27/24 05:00 37.4 C 87 16 105/66 100 05/27/24 04:03 37.6 C H 88 15 96 05/27/24 04:00 107/05/27/24 04:00 107/05/27/24 04:00 107/05/27/24 04:00 107/05/27/24 04:00 107/05/27/24 04:00 107/05/27/24 04:00 107/05/27/24 04:00 107/05/27/24 04:00 107/05/27/24 04:00 107/05/27/24 04:00 107/05/27/24 04:00 107/05/27/24 03:42 97 H 24 57 L 05/27/24 03:30 87 16 100 05/27/24 03:15 37.6 C H 84 16 98 05/27/24 03:00 107/05/27/24 03:00 107/05/27/24 03:00 107/05/27/24 03:00 05/27/24 03:00 05/27/24 03:00 05/27/24 03:00 05/27/24 03:00 05/27/24 03:00 05/27/24 03:00 05/27/24 03:00 05/27/24 03:00 05/27/24 03:00 05/27/24 03:00 05/27/24 03:00 05/27/24 03:00 05/27/24 03:00 05/27/24 03:00 05/27/24 02:03 37.9 C H 88 16 100 05/27/24 02:00 37.9 C H 90 16 112/64 100 05/27/24 02:00 112/64 05/27/24 01:00 38.2 C H 90 16 103/66 100 O2 Del Method FiO2 05/27/24 12:30 05/27/24 12:00 05/27/24 11:30 05/27/24 11:00 05/27/24 10:30 05/27/24 10:05 05/27/24 10:00 05/27/24 09:30 05/27/24 09:25 05/27/24 09:01 05/27/24 09:00 Mechanical Vent 05/27/24 09:00 05/27/24 08:57 05/27/24 08:55 05/27/24 08:33 05/27/24 08:12 05/27/24 08:00 05/27/24 07:48 05/27/24 07:42 Mechanical Vent 05/27/24 07:20 05/27/24 07:06 05/27/24 07:00 05/27/24 07:00 05/27/24 06:00 Mechanical Vent 05/27/24 05:00 Mechanical Vent 05/27/24 04:03 05/27/24 04:00 05/27/24 04:00 05/27/24 04:00 05/27/24 04:00 05/27/24 04:00 05/27/24 04:00 05/27/24 04:00 05/27/24 04:00 05/27/24 04:00 05/27/24 04:00 05/27/24 04:00 05/27/24 04:00 05/27/24 03:42 05/27/24 03:30 05/27/24 03:15 05/27/24 03:00 05/27/24 03:00 05/27/24 03:00 05/27/24 03:00 05/27/24 03:00 05/27/24 03:00 05/27/24 03:00 05/27/24 03:00 05/27/24 03:00 05/27/24 03:00 05/27/24 03:00 05/27/24 03:00 05/27/24 03:00 05/27/24 03:00 05/27/24 03:00 05/27/24 03:00 05/27/24 03:00 05/27/24 03:00 05/27/24 02:03 05/27/24 02:00 Mechanical Vent 40 05/27/24 02:00 05/27/24 01:00 Mechanical Vent 40 Diagnostic Findings Reviewed imaging, laboratory and diagnostic studies. Pertinent findings as below. Hemoglobin 8.5 Basic metabolic profile reviewed, end-stage renal disease Personally reviewed chest x-ray:, Congestion, ET tube in place, small effusions (10) Multiple open wounds of lower extremity, complicated Encounter type: initial encounter Laterality: left Qualified Code(s): S81.802A - Unspecified open wound, left lower leg, initial encounter
[2024-05-27] MEDS: VANCOMYCIN 500 MG in NSS 100mL IV ONE (14:16)
--- NOTE | 2024-05-27 14:49 | Ultrasound Report ---
ABDOMINAL ULTRASOUND, RIGHT UPPER QUADRANT HISTORY: Elevated LFTs eval for liver cirrhosis. COMPARISON: None. FINDINGS: Pancreas: The pancreas is obscured by bowel gas. Liver: Increased echogenicity with marginal nodularity. Patent portal vein with hepatopedal flow. Tra ce perihepatic ascites. No hepatic mass identified. Gallbladder: No gallbladder wall thickening. No gallstones. CBD: 7 mm Right kidney: Cyst measure up to approximately 3 cm. Cortical thinning without hydronephrosis. IMPRESSION: 1. Cirrhosis without hepatic mass identified. 2. Trace perihepatic ascites. 3. Unremarkable gallbladder. ACT 112: Negative or not required by law. Electronically signed by: Fredy Beard M.D. 05/27/2024 2:47 PM
--- NOTE | 2024-05-27 14:58 | Cardiology Progress Note ---
Date of Service May 27, 2024 Assessment & Plan (1) Acute on chronic systolic (congestive) heart failure: (2) Severe aortic stenosis: (3) Severe sepsis due to methicillin resistant Staphylococcus aureus (MRSA) with acute organ dysfunction: (4) Chronic hypotension: (5) Vascular dementia: (6) End stage renal disease on dialysis: Plan Complex 78-year-old patient admitted with severe sepsis, source likely MRSA cellulitis,no evidence of osteomyelitis per MRI. Echocardiogram demonstrates severe LV systolic function with borderline severe aortic valve stenosis although pseudo-aortic stenosis must be considered in the setting of low LV ejection fraction. Recommend continued conservative management/supportive care at this time. Treatment of acute sepsis per critical care and management of volume status per hemodialysis. Wean vasopressor agents as tolerated. Treatment/hemodialysis limited by chronic hypotension. Poor prognosis. Cardiology will sign off. Please call with additional concerns/questions. Ajay Lott DO, [facility] Admission and Anticipated Discharge Date Admission Date: May 24, 2024 Subjective Patient seen examined the bedside. Intubated however awake. Follows some commands. Telemetry reveals sinus rhythm. Possible extubation today. Review of Systems Review of Systems: All systems reviewed & are unremarkable except as noted in Subjective Physical Exam Constitutional: + ill appearing; no acute distress Respiratory: + abnormal respiratory effort (Poor effo rt) Auscultation: + diminished lung sounds (Bases bilateral) and + rales (Bases bilateral) Cardiovascular: Rate/Rhythm: regular rate and regular rhythm Heart Sounds: normal S1 and + murmur (2/6Systolic ejection murmur); + abnormal S2 (Diminished S2) Extremities: + edema (Multiple ulcerations of the left foot with thick eschar's and erythema. ) Gastrointestinal (Abdomen): Inspection/Auscultation: abdomen normal to inspection; abdomen not distended Percussion/Palpation: abdomen soft; abdomen nontender, no guarding and abdomen not rigid Neurologic: moves all extremities Results & Data Vital Signs (Past 12 Hours) Vital Signs Temp Pulse Pulse Resp BP BP Pulse Ox 05/27/24 14:45 05/27/24 14:37 05/27/24 13:18 36.4 C L 88 114/52 L 05/27/24 13:09 36.4 C L 87 95 05/27/24 13:00 110/71 05/27/24 13:00 82 108/48 L 05/27/24 12:57 36.4 C L 86 13 94 05/27/24 12:30 87 102/43 L 05/27/24 12:03 36.4 C L 86 11 L 94 05/27/24 12:00 108/70 05/27/24 12:00 86 103/48 L 05/27/24 11:51 36.4 C L 85 15 98 05/27/24 11:30 84 112/52 L 05/27/24 11:03 36.5 C 86 15 05/27/24 11:00 107/66 05/27/24 11:00 86 107/50 L 05/27/24 10:30 83 109/50 L 05/27/24 10:05 80 10 L 97 05/27/24 10:00 84 102/47 L 05/27/24 09:30 87 100/50 L 05/27/24 09:25 87 05/27/24 09:01 87 110/55 L 05/27/24 09:00 107/67 05/27/24 09:00 107/67 05/27/24 08:57 37.3 C 89 10 L 97 05/27/24 08:55 37.2 C 90 05/27/24 08:33 37.3 C 89 15 100 05/27/24 08:12 37.3 C 81 16 95 05/27/24 08:00 107/66 05/27/24 07:48 37.3 C 82 16 100 05/27/24 07:42 37.3 C 83 16 100 05/27/24 07:20 88 18 95 05/27/24 07:06 37.3 C 89 16 94 05/27/24 07:00 96/67 L 05/27/24 07:00 05/27/24 06:00 37.3 C 84 16 103/67 100 05/27/24 05:00 37.4 C 87 16 105/66 100 05/27/24 04:03 37.6 C H 88 15 96 05/27/24 04:00 107/69 05/27/24 04:00 107/05/27/24 04:00 107/69 05/27/24 04:00 107/05/27/24 04:00 107/05/27/24 04:00 107/05/27/24 04:00 107/05/27/24 04:00 107/05/27/24 04:00 107/05/27/24 04:00 107/05/27/24 04:00 10705/27/24 04:00 10705/27/24 03:42 97 H 24 57 L 05/27/24 03:30 87 16 100 05/27/24 03:15 37.6 C H 84 16 98 05/27/24 03:00 10705/27/24 03:00 10705/27/24 03:00 10705/27/24 03:00 10705/27/24 03:00 10705/27/24 03:00 05/27/24 03:00 05/27/24 03:00 10705/27/24 03:00 10705/27/24 03:00 10705/27/24 03:00 10705/27/24 03:00 10705/27/24 03:00 10705/27/24 03:00 10705/27/24 03:00 10705/27/24 03:00 10705/27/24 03:00 05/27/24 03:00 O2 Del Method O2 Flow Rate FiO2 05/27/24 14:45 Oxymask 3 05/27/24 14:37 Oxymask 4 05/27/24 13:18 05/27/24 13:09 CPAP 05/27/24 13:00 05/27/24 13:00 05/27/24 12:57 CPAP 05/27/24 12:30 05/27/24 12:03 CPAP 05/27/24 12:00 05/27/24 12:00 05/27/24 11:51 CPAP 05/27/24 11:30 05/27/24 11:03 CPAP 05/27/24 11:00 05/27/24 11:00 05/27/24 10:30 05/27/24 10:05 05/27/24 10:00 05/27/24 09:30 05/27/24 09:25 05/27/24 09:01 05/27/24 09:00 Mechanical Vent 05/27/24 09:00 05/27/24 08:57 05/27/24 08:55 05/27/24 08:33 05/27/24 08:12 05/27/24 08:00 05/27/24 07:48 05/27/24 07:42 Mechanical Vent 05/27/24 07:20 05/27/24 07:06 05/27/24 07:00 05/27/24 07:00 05/27/24 06:00 Mechanical Vent 05/27/24 05:00 Mechanical Vent 05/27/24 04:03 05/27/24 04:00 05/27/24 04:00 05/27/24 04:00 05/27/24 04:00 05/27/24 04:00 05/27/24 04:00 05/27/24 04:00 05/27/24 04:00 05/27/24 04:00 05/27/24 04:00 05/27/24 04:00 05/27/24 04:00 05/27/24 03:42 05/27/24 03:30 05/27/24 03:15 05/27/24 03:00 05/27/24 03:00 05/27/24 03:00 05/27/24 03:00 05/27/24 03:00 05/27/24 03:00 05/27/24 03:00 05/27/24 03:00 05/27/24 03:00 05/27/24 03:00 05/27/24 03:00 05/27/24 03:00 05/27/24 03:00 05/27/24 03:00 05/27/24 03:00 05/27/24 03:00 05/27/24 03:00 05/27/24 03:00 Laboratory Results CBC 05/27/24 Range/Units 04: WBC 9.74 (4.8-10.8) K/ul RBC 2.56 L (4.70-6.10) M/uL Hgb 8.5 L (14.0-18.0) g/dl Hct 26.8 L (42.0-52.0) % Plt Count 155 (130-400) K/uL Neut # (Auto) 8.40 H (1.40-6.50) K/uL Lymph # (Auto) 0.55 L (1.20-3.40) K/uL [place] # (Auto) 0.72 H (0.11-0.59) K/uL Eos # (Auto) 0.00 (0.00-0.50) K/uL Baso # (Auto) 0.00 (0.00-0.20) K/uL Comprehensive Metabolic Panel 05/27/24 Range/Units 04:26 Sodium 127 L (136-145) mmol/L Potassium 5.3 H (3.5-5.1) mmol/L Chloride 92 L (98-107) mmol/L Carbon Dioxide 17 L (21-32) mmol/L BUN 69 H (6-23) mg/dl Creatinine 4.92 H* D (0.6-1.4) mg/dl Glucose 173 H (70-99(Fasting)) mg/dl Calcium 7.8 L (8.6-10.3) mg/dl Intake and Output 05/26/24 05/27/24 05/27/24 22:59 06:59 14:59 Intake Total 620.183 / 1687.203 405.60 / 1687.203 263.805 / 263.805 Output Total / 4 / 6 Balance 619.183 / 1681.203 401.60 / 1681.203 263.805 / 263.805 Intake: IV 520.183 / 1457.203 275.60 / 1457.203 263.805 / 263.805 Midazolam HCl 125 mg In 250 ml 0 / 8.2 @ 0 MG/HR IV .Q0M [facility] Rx#: [id number] Norepinephrine/D5w 4 mg In 250 425.40 / 641.385 74.60 / 641.385 62.805 / 62.805 ml @ 0.04 MCG/KG/MIN 15.915 mls /hr IV .[id number] [facility] Rx#: [id number] Piperacillin/Tazobactam 4.5 gm 100 / 200 100 / 100 In 100 ml @ 25 mls/hr IV Q12H [facility] Rx#:[id number] Vasopressin 20 units In Sodium 94.783 / 237.493 101 / 237.493 101.000 / 101.000 Chloride 0.9% 100 ml @ 0.04 UNIT/MIN 12.12 mls/hr IV . Q8H20M [facility] Rx#:[id number] fentaNYL citrate 2,500 mcg In 0 / 5.125 250 ml @ 0 MCG/HR IV .Q0M [facility] Rx#:[id number] Oral 0 / 0 0 / 0 Tube Feeding 50 / 120 70 / 120 0 / 0 Tube Irrigant 50 / 110 60 / 110 0 / 0 Output: Urine 0 / 0 0 / 0 # Bowel Movements / 6 4 Other: Hemodialysis Ultrafiltration 4,200 Amount # Unmeasured Voids 0 0 Weight 106.5 kg 104.1 kg 104.1 kg Weight Measurement Method Built in [facility] Built in [facility] Patient Weight 05/28/24 06:59 Weight 104.1 kg
--- NOTE | 2024-05-27 19:21 | Podiatry Progress Note ---
Date of Service May 27, 2024 Assessment & Plan (1) Multiple open wounds of lower extremity, complicated: (2) Peripheral arterial occlusive disease: (3) Insulin-requiring or dependent type II diabetes mellitus: (4) Chronic ulcer of left foot with fat layer exposed: Plan Patient was examined and evaluated. - Wounds are responding well to Santyl with improved texture to eschars. - All wounds lightly debrided at bedside with forceps and scissors, with drastic improvement noted to second toe, and no deeper abscess formation still suspected. - No wounds probe deep to bone, confirming/correlating with MR findings. - Wounds cleaned and redressed with Santyl and optifoam border gauze. - Will continue to monitor. Admission and Anticipated Discharge Date Admission Date: May 24, 2024 Subjective Patient seen at bedside at lunch time. Awake, intubated. Finished with dialysis and improved alertness compared to Saturday. Chart reviewed. Review of Systems Review of Systems: Unobtainable due to cognitive status and Unobtainable due to endotracheal tube Physical Exam Physical Exam: Lower extremity focused exam: Diffuse pitting edema noted below the knee. DP/PT pulses non palpable. Dry, eschar/excoriated wounds noted to dorsal left forefoot with images noted in chart. These do not immediately probe deeper to bone or joint capsule. Second toe ulceration is superficial with extensive eschar removed, leaving healthy skin along the dorsal toe. Hallux ulceration remains significantly fibrotic with eschar firmly adhered. Larger dorsal foot ulcer was debrided around the edge with no significant deep undermining appreciated. Scant purulent drainage noted. No significant drainage or ascending cellulitis from these wounds, though they are more moist/softened overall compared to prior exam. Wounds are noted to the dorsal hallux and second toe, as well as the dorsal 1st metatarsal. Advanced trophic changes noted, otherwise. No imaging to review just yet. Constitutional: WD/WN, vitals as above + acute distress, + ill appearing, + obese, + mechanically ventilated and + edematous Neck: trachea midline, no thyromegaly normal visual inspection Respiratory: no respiratory distress Cardiovascular: Rate/Rhythm: regular rate and regular rhythm Chest (Breasts): Chest: normal inspection of chest Gastrointestinal (Abdomen): Inspection/Auscultation: abdomen normal to inspection Musculoskeletal: Head/Neck/Chest: normocephalic and head atraumatic Extremities: extremities normal to inspection Ankle: no skin erythema Skin: + turgor decreased, + lesion, + ulcer, + wound, + skin atrophy, + eschar, + nails discolored and + nails dystrophic; no erythema and no fluctulance Neurologic: plantar reflexes intact bilaterally; + not awake Results & Data Results & Data Vital Signs (Past 12 Hours) Vital Signs Temp Pulse Pulse Resp BP BP Pulse Ox 05/27/24 17:00 36.6 C 87 20 95 05/27/24 17:00 99/62 L 05/27/24 16:12 36.6 C 91 H 16 94 05/27/24 16:00 100/65 05/27/24 15:57 36.6 C 88 18 95 05/27/24 15:30 36.6 C 85 22 110/48 L 94 05/27/24 15:21 36.6 C 88 22 96 05/27/24 15:00 111/65 05/27/24 14:45 05/27/24 14:37 05/27/24 14:06 36.5 C 93 H 16 96 05/27/24 14:00 118/69 05/27/24 13:51 36.5 C 88 10 L 97 05/27/24 13:18 36.4 C L 88 114/52 L 05/27/24 13:09 36.4 C L 87 95 05/27/24 13:00 110/71 05/27/24 13:00 82 108/48 L 05/27/24 12:57 36.4 C L 86 13 94 05/27/24 12:30 87 102/43 L 05/27/24 12:03 36.4 C L 86 11 L 94 05/27/24 12:00 108/70 05/27/24 12:00 86 103/48 L 05/27/24 11:51 36.4 C L 85 15 98 05/27/24 11:30 84 112/52 L 05/27/24 11:03 36.5 C 86 15 05/27/24 11:00 107/66 05/27/24 11:00 86 107/50 L 05/27/24 10:30 83 109/50 L 05/27/24 10:05 80 10 L 97 05/27/24 10:00 84 102/47 L 05/27/24 09:30 87 100/50 L 05/27/24 09:25 87 05/27/24 09:01 87 110/55 L 05/27/24 09:00 107/67 05/27/24 09:00 107/67 05/27/24 08:57 37.3 C 89 10 L 97 05/27/24 08:55 37.2 C 90 05/27/24 08:33 37.3 C 89 15 100 05/27/24 08:12 37.3 C 81 16 95 05/27/24 08:00 05/27/24 08:00 107/66 05/27/24 07:48 37.3 C 82 16 100 05/27/24 07:42 37.3 C 83 16 100 O2 Del Method O2 Flow Rate FiO2 05/27/24 17:00 05/27/24 17:00 05/27/24 16:12 05/27/24 16:00 05/27/24 15:57 05/27/24 15:30 Oxymask 2 05/27/24 15:21 05/27/24 15:00 05/27/24 14:45 Oxymask 3 05/27/24 14:37 Oxymask 4 05/27/24 14:06 05/27/24 14:00 05/27/24 13:51 05/27/24 13:18 05/27/24 13:09 CPAP 05/27/24 13:00 05/27/24 13:00 05/27/24 12:57 CPAP 05/27/24 12:30 05/27/24 12:03 CPAP 05/27/24 12:00 05/27/24 12:00 05/27/24 11:51 CPAP 05/27/24 11:30 05/27/24 11:03 CPAP 05/27/24 11:00 05/27/24 11:00 05/27/24 10:30 05/27/24 10:05 25 05/27/24 10:00 05/27/24 09:30 05/27/24 09:25 05/27/24 09:01 05/27/24 09:00 Mechanical Vent 05/27/24 09:00 05/27/24 08:57 05/27/24 08:55 05/27/24 08:33 05/27/24 08:12 04/02/25 08:00 Mechanical Vent 05/27/24 08:00 05/27/24 07:48 05/27/24 07:42 Mechanical Vent 25 (1) Multiple open wounds of lower extremity, complicated Encounter type: initial encounter Laterality: left Qualified Code(s): S81.802A - Unspecified open wound, left lower leg, initial encounter
[2024-05-28 05:11] LABS: Basophils # (auto) 0.02 K/uL (0.00-0.20); Basophils % (auto) 0.2 %; Hematocrit (blood only) 29.1 % (42.0-52.0); Hemoglobin 9.4 g/dl (14.0-18.0); Immature Granulocytes # (auto) 0.07 K/uL (0.01-0.20); Immature Granulocytes % (auto) 0.6 %; Lymphocytes % (auto) 3.2 %; Mean Corpuscular Hemoglobin 33.6 pg (25.0-34.0); Mean Corpuscular Hgb Conc 32.3 g/dL (32.0-36.0); Mean Corpuscular Volume 103.9 fL (80.0-100.0); Mean Platelet Volume 11.2 fL (9.4-12.4); Monocytes # (auto) 0.85 K/uL (0.11-0.59); Monocytes % (auto) 6.8 %; Neutrophils # (auto) 11.18 K/uL (1.40-6.50); Neutrophils % (auto) 89.2 %; Nucleated RBC # (auto) 0.21 K/uL (0.00-0.12); Nucleated RBC % (auto) 1.7 %; Platelet Count 165 K/uL (130-400); RDW Coefficient of Variation 20.5 % (11.5-14.5); RDW Standard Deviation 75.5 fL (36.4-46.3); White Blood Count 12.52 K/ul (4.8-10.8)
[2024-05-28 05:22] LABS: Albumin Level 2.8 gm/dl (3.4-5.0); BUN Creatinine Ratio 13.9 (10-20); Bilirubin Direct 2.1 mg/dl (0-0.2); Bilirubin,Total 3.2 mg/dl (0.2-1.0); Calcium 7.7 mg/dl (8.6-10.3); Creatinine Clr Calc Pharmacy 21.6 ml/min; Magnesium 2.1 mg/dl (1.7-2.4); Potassium 4.2 mmol/L (3.5-5.1); Total Protein 5.8 gm/dl (6.0-8.3)
[2024-05-28 05:39] LABS: Phosphorus 5.5 mg/dl (2.5-4.9)
[2024-05-28 06:26] LABS: Anisocytosis Present; Basophilic Stippling 1+; Polychromasia 1+
[2024-05-28] MEDS ORDERED: SODIUM CHLORIDE 0.9% 1,000 ML IV PRN (08:02)
--- NOTE | 2024-05-28 08:50 | Critical Care Progress Note ---
Date of Service May 28, 2024 Assessment & Plan (1) Septic shock: (2) Endotracheally intubated: (3) Anemia in ESRD (end-stage renal disease): (4) Cellulitis: (5) Dementia: (6) Insulin-requiring or dependent type II diabetes mellitus: (7) Severe aortic stenosis: (8) Acute metabolic encephalopathy: (9) Vascular dementia: (10) Peripheral arterial occlusive disease: (11) Chronic systolic heart failure: (12) Severe sepsis due to methicillin resistant Staphylococcus aureus (MRSA) with acute organ dysfunction: (13) Ischemic cardiomyopathy: (14) Volume overload: Plan 78-year-old male with a history of cardiomyopathy, aortic stenosis, diabetes and dementia presenting to the hospital with septic shock of his left lower extremity and respiratory failure. Neuro - Currently intubated and off all patient with a black Delirium precautions as able. Patient with a reported history of possible cognitive impairment and prior CVA Cardiac - Continue midodrine TID Continue with Levophed which is being actively titrated. Suspect chronic cardiogenic component playing a factor as well given aortic stenosis and systolic heart failure. Continue statin Continue Plavix for history of prior CVA. Echo 05/15/2024 with systolic cardiomyopathy with an EF of 30% and moderate to borderline severe aortic valve stenosis. Respiratory - Extubated 05/27/24. Physical exam consistent with pulmonary edema. GI - No acute concerns Diet: N.p.o. pending speech consult. SUP: PPI Bowel regimen: Miralax Mild elevation in AST likely related to acute illness from sepsis. Continue to trend. RENAL/LYTES - Nephrology on board. HD day-to-day at this point. Status post removal of 4.25 L of fluid yesterday and goal removal of 3 L today. Anuric Will hold on any continued IVF Hemodialysis catheter appropriately positioned and working well per vascular surgery. ENDO - BG 140-180 per [facility] guidelines Patient currently on stress dose steroids due to septic shock which will likely begin to be weaned starting tomorrow. HEME/ONC/OTHER - Hemoglobin stable. Receives Epo w/ HD No clinical signs of bleeding Transfuse for HGB < 7 or as otherwise directed by Nephrology or Cardiology ID - Zosyn and Vancomycin continued for complicated cellulitis of the left lower extremity. Complete 7 days of antibiotics. MRI foot fortunately did not reveal any osteomyelitis. Appreciate podiatry input and debridement. Blood cultures negative today. Wound consult. Consider ID consult as he continues to improve for length of antibiotic treatment LINES/TUBES/DRAINS - R chest permcath PIV x2 DVT PROPHYLAXIS - Heparin 5000 units 3 times daily DISPOSITION - ICU CRITICAL CARE TIME I have personally spent 42 minutes of critical care time in the direct management of this patient. This is a life/limb threatening event. This includes time spent evaluating patient, direct bedside care, chart review, placing orders, interpretation of diagnostic studies, discussion with consultants, patient, and family members, as well as other required patient management activities. This time is exclusive of all separately billable procedures, and teaching time and separate from and in addition to any other critical care service time. Admission and Anticipated Discharge Date Admission Date: May 24, 2024 Subjective Extubated/04/21. Patient lethargic this morning, but stable from a respiratory perspective. Requiring low-dose Levophed infusion. Answer simple questions. Alert and oriented x 1. Denies any chest pain or shortness of breath Review of Systems Review of Systems: As above per subjective section. Physical Exam Physical Exam: Constitutional: Elderly and frail appearing male in no apparent distress. Extubated. Eyes: Pupils are equal round and reactive to light. Conjunctivae are normal. Anicteric sclera. Ears nose, mouth and throat: No perioral cyanosis Neck: Trachea is midline. Visual inspection is normal. Respiratory: Coarse bilaterally with diminishment at the bases. Mild crackles. Cardiovascular: Regular rate and rhythm. No murmurs. 2+ edema in the lower extremities. Gastrointestinal: Normal bowel sounds, soft, nontender and nondistended. No hepatosplenomegaly noted. Musculoskeletal: No cyanosis. Patient is able to move all extremities. Skin: Multiple eschar is noted in the left lower extremity. Pulses intact. Neurologic: No obvious focal neurological deficits seen. Psychiatric: Unable to assess as he is sedated. Results & Data Results & Data Vital Signs (Past 12 Hours) Vital Signs Temp Pulse Resp BP Pulse Ox O2 Del Method O2 Flow Rate 05/28/24 07:29 95 H 05/28/24 06:45 37.4 C 96 H 24 94 05/28/24 06:45 114/76 05/28/24 06:45 114/76 05/28/24 06:45 114/76 05/28/24 06:45 114/76 05/28/24 06:45 114/76 05/28/24 06:38 122/73 05/28/24 06:38 122/73 05/28/24 06:38 122/73 05/28/24 06:18 116/76 05/28/24 06:18 116/76 05/28/24 06:18 116/76 05/28/24 06:18 116/76 05/28/24 06:18 116/76 05/28/24 06:18 116/76 05/28/24 06:15 37.3 C 94 H 19 96 05/28/24 06:12 37.3 C 96 H 17 96 05/28/24 06:00 118/76 05/28/24 06:00 118/76 05/28/24 06:00 118/76 05/28/24 06:00 118/76 05/28/24 06:00 118/76 05/28/24 06:00 118/76 05/28/24 06:00 118/76 05/28/24 05:21 37.3 C 94 H 24 93 05/28/24 05:12 37.3 C 94 H 30 H 93 05/28/24 05:00 115/75 05/28/24 05:00 115/75 05/28/24 05:00 115/75 05/28/24 05:00 115/75 05/28/24 05:00 115/75 05/28/24 05:00 115/75 05/28/24 05:00 115/75 05/28/24 05:00 115/75 05/28/24 05:00 115/75 05/28/24 05:00 115/75 05/28/24 05:00 115/75 05/28/24 04:54 37.3 C 93 H 19 94 05/28/24 04:00 109/70 05/28/24 04:00 109/70 05/28/24 04:00 109/70 05/28/24 04:00 109/70 05/28/24 04:00 109/70 05/28/24 04:00 109/70 05/28/24 04:00 109/70 05/28/24 04:00 109/70 05/28/24 04:00 109/70 05/28/24 04:00 109/70 05/28/24 04:00 109/70 05/28/24 04:00 109/70 05/28/24 04:00 109/70 05/28/24 04:00 109/70 05/28/24 04:00 109/70 05/28/24 04:00 109/70 05/28/24 04:00 109/70 05/28/24 04:00 109/70 05/28/24 04:00 109/70 05/28/24 04:00 109/70 05/28/24 04:00 109/70 05/28/24 04:00 109/70 05/28/24 04:00 109/70 05/28/24 04:00 109/70 05/28/24 04:00 109/70 05/28/24 04:00 109/70 05/28/24 04:00 109/70 05/28/24 04:00 109/70 05/28/24 04:00 109/70 05/28/24 04:00 109/70 05/28/24 04:00 109/70 05/28/24 04:00 109/70 05/28/24 04:00 37.3 C 91 H 23 95 05/28/24 04:00 93 H 05/28/24 03:06 37.3 C 95 H 34 H 95 05/28/24 03:00 05/28/24 03:00 05/28/24 03:00 05/28/24 03:00 05/28/24 03:00 05/28/24 03:00 05/28/24 03:00 05/28/24 03:00 05/28/24 03:00 05/28/24 03:00 05/28/24 03:00 05/28/24 03:00 05/28/24 03:00 05/28/24 03:00 05/28/24 03:00 05/28/24 03:00 05/28/24 03:00 05/28/24 03:00 05/28/24 03:00 05/28/24 03:00 05/28/24 03:00 116/76 05/28/24 02:54 37.3 C 94 H 23 96 05/28/24 02:50 117/05/28/24 02:50 117/71 05/28/24 02:50 117/71 05/28/24 02:45 37.3 C 94 H 22 95 05/28/24 02:09 37.2 C 93 H 25 H 96 05/28/24 02:00 110/70 05/28/24 01:09 37.2 C 93 H 19 96 05/28/24 01:00 12205/28/24 01:00 12205/28/24 01:00 12205/28/24 01:00 12205/28/24 01:00 12205/28/24 01:00 12205/28/24 01:00 12205/28/24 01:00 12205/28/24 01:00 12205/28/24 01:00 12205/28/24 01:00 12205/28/24 01:00 12205/28/24 00:51 37.1 C 89 21 95 05/28/24 00:01 10805/28/24 00:01 05/28/24 00:01 05/28/24 00:01 05/28/24 00:01 05/28/24 00:01 05/28/24 00:01 05/28/24 00:01 05/28/24 00:01 05/28/24 00:01 10805/28/24 00:01 10805/28/24 00:01 10805/28/24 00:01 05/28/24 00:01 05/28/24 00:01 05/28/24 00:01 05/28/24 00:01 05/28/24 00:01 10805/28/24 00:01 10805/28/24 00:01 10805/28/24 00:01 05/28/24 00:01 10805/28/24 00:01 10805/28/24 00:01 10805/28/24 00:01 10805/28/24 00:01 10805/28/24 00:01 10805/28/24 00:01 10805/28/24 00:01 10805/28/24 00:01 10805/28/24 00:01 10805/28/24 00:01 10805/28/24 00:01 10805/28/24 00:00 37.0 C 93 H 29 H 97 05/28/24 00:00 93 H 100/49 L 05/27/24 23:04 Nasal Cannula 2 05/27/24 23:00 37.0 C 90 26 H 95 05/27/24 23:00 113/71 05/27/24 22:56 90 Coding Level of Care Code 86303 CRITICAL CARE 1ST 30-74M Diagnoses Septic shock A41.9; R65.21 Endotracheally intubated Z97.8 Anemia in ESRD (end-stage renal disease) N18.6; D63.1 Cellulitis L03.90 Dementia F03.90 Insulin-requiring or dependent type II diabetes mellitus E11.9; Z79.4 Severe aortic stenosis I35.0 Acute metabolic encephalopathy G93.41 Vascular dementia F01.50 Peripheral arterial occlusive disease I77.9 Chronic systolic heart failure I50.22 Severe sepsis due to methicillin resistant Staphylococcus aureus (MRSA) with acute organ dysfunction A41.02; R65.20 Ischemic cardiomyopathy I25.5 Volume overload E87.70
[2024-05-28] MEDS: HEPARIN SOD (PORCINE) 1000 UNIT/ML IV SCH ×2 (09:19→11:27)
[2024-05-28] MEDS: EPOETIN ALFA 20,000 UNITS/ML VIAL IV ONE (10:34)
--- NOTE | 2024-05-28 12:03 | Dialysis Progress Note ---
Date of Service May 28, 2024 Assessment & Plan (1) End stage renal disease on dialysis: Plan: On Saturday hemodialysis at least at rehab. patient is tolerating dialysis so far but critically ill in shock and requiring vasopressin and norepi with massivevolume overload. Will attempt to 4 L UF. Family have changed him to DNR. Ongoing goals of care discussion likely cm if patient continues to deteriorate. 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 etiology ? cardiac >> he is likely to be very challenging to dialyze effectively longer term d/t anemia, hypotension w/ liver disease outside of a hospital even on max dose midodrine >not sustainable to stay in ICU on pressors /midodrine longer term for HD; that said he's only started having fluid removal this week after days w/o it adn BP are improving somewhat (2) Counseling regarding goals of care: Plan: no escalation of care planned >> no reintubation; pressor/abtx OK trying to optimize volume status and hopefully MS/ability to participate in his care but concerns even if we get him through this about longterm sustainability of HD w/ liver failure in addition to ESRD hypotension and volume overload will be always be challenging for him clinically as dialysis pt with liver failure (see above) even on max dose midodrine; likely to be quite challenging to keep him at good volume status w/o at least intermittent pressor support continue goals of care discussions (3) Acute on chronic systolic (congestive) heart failure: Plan: Volume overload with anasarca and pulmonary edema: Will attempt aggressive 4+L UF as tolerated. We may need to escalate pressors to allow fluid removal. 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 Hemoglobin today 8.5 No iron therapy indicated with treatment but will give max dose epo again today Admission and Anticipated Discharge Date Admission Date: May 24, 2024 Subjective seen on dialysis. extubated yesterday and on 2L; down to one pressor; still very confused but somewhat conversant; pressor need improved Review of Systems 2 Review of Systems: Other (limited by cognitive status adn mental status > concerned he can't move his legs) Physical Exam 2 Constitutional: well developed, well nourished, + altered mental status and cooperative; no acute distress Eyes: EOM intact bilaterally; sclerae not anicteric (? slightly icteric) ENMT: Mouth: + dry oral mucous membranes Respiratory: normal respiratory effort Auscultation: + diminished lung sounds Cardiovascular: Rate/Rhythm: regular rate and regular rhythm Extremities: + edema (3+ dependent, trace peripheral) Gastrointestinal (Abdomen): Inspection/Auscultation: normal bowel sounds P ercussion/Palpation: abdomen soft; abdomen nontender Musculoskeletal: Extremities: + abnormal strength (no mvt BLE; BUE weak) Skin: no rashes, warm and dry lesions L foot dressed Neurologic: moves upper extremities R>L when asked; limited/hoarse speech; oriented to self only Results & Data Vital Signs (Past 12 Hours) Vital Signs Temp Pulse Pulse Resp BP Pulse Ox O2 Del Method 05/28/24 11:00 85 114/66 05/28/24 10:45 114/67 05/28/24 10:33 36.7 C 84 94 05/28/24 10:30 86 124/64 05/28/24 10:30 99/62 L 05/28/24 10:15 124/64 05/28/24 10:12 36.6 C 86 15 96 05/28/24 10:03 36.8 C 84 20 96 05/28/24 10:00 107/60 05/28/24 10:00 81 107/60 05/28/24 09:57 36.7 C 81 13 96 05/28/24 09:45 36.8 C 81 16 94 05/28/24 09:45 99/62 L 05/28/24 09:30 110/63 04/03/25 09:30 87 110/63 05/28/24 09:18 37.1 C 89 19 97 05/28/24 09:15 37.1 C 86 16 94 05/28/24 09:15 110/68 05/28/24 09:00 37.2 C 88 14 95 05/28/24 09:00 107/65 05/28/24 09:00 89 107/65 05/28/24 08:45 105/62 05/28/24 08:45 37.2 C 85 05/28/24 08:42 37.3 C 90 35 H 94 Nasal Cannula 05/28/24 08:30 111/68 05/28/24 08:27 37.3 C 92 H 31 H 93 05/28/24 08:15 114/73 05/28/24 08:15 114/73 05/28/24 08:00 37.3 C 92 H 24 89 L 05/28/24 08:00 120/79 05/28/24 07:45 118/72 05/28/24 07:45 37.4 C 93 H 22 92 05/28/24 07:30 Nasal Cannula 05/28/24 07:30 37.4 C 93 H 15 93 Nasal Cannula 05/28/24 07:30 121/74 05/28/24 07:30 121/74 05/28/24 07:29 95 H 05/28/24 07:15 116/70 05/28/24 07:06 37.4 C 92 H 15 93 Nasal Cannula 05/28/24 07:00 113/79 05/28/24 06:54 37.4 C 97 H 34 H 94 Nasal Cannula 05/28/24 06:45 114/76 05/28/24 06:45 37.4 C 96 H 24 94 05/28/24 06:45 114/76 05/28/24 06:45 114/76 05/28/24 06:45 114/76 05/28/24 06:45 114/76 05/28/24 06:45 114/76 05/28/24 06:38 122/73 05/28/24 06:38 122/73 05/28/24 06:38 122/73 05/28/24 06:18 116/76 05/28/24 06:18 116/76 05/28/24 06:18 116/76 05/28/24 06:18 116/76 05/28/24 06:18 116/76 05/28/24 06:18 116/76 05/28/24 06:15 37.3 C 94 H 19 96 05/28/24 06:12 37.3 C 96 H 17 96 05/28/24 06:00 118/76 05/28/24 06:00 118/05/28/24 06:00 118/76 05/28/24 06:00 118/76 05/28/24 06:00 118/76 05/28/24 06:00 118/76 05/28/24 06:00 118/76 05/28/24 05:21 37.3 C 94 H 24 93 05/28/24 05:12 37.3 C 94 H 30 H 93 05/28/24 05:00 115/75 05/28/24 05:00 115/75 05/28/24 05:00 115/75 05/28/24 05:00 115/75 05/28/24 05:00 115/75 05/28/24 05:00 115/75 05/28/24 05:00 115/75 05/28/24 05:00 115/75 05/28/24 05:00 115/75 05/28/24 05:00 115/75 05/28/24 05:00 115/75 05/28/24 04:54 37.3 C 93 H 19 94 05/28/24 04:00 109/70 05/28/24 04:00 109/70 05/28/24 04:00 109/70 05/28/24 04:00 109/70 05/28/24 04:00 109/70 05/28/24 04:00 109/70 05/28/24 04:00 109/70 05/28/24 04:00 109/70 05/28/24 04:00 109/70 05/28/24 04:00 109/70 05/28/24 04:00 109/70 05/28/24 04:00 109/70 05/28/24 04:00 109/70 05/28/24 04:00 109/70 05/28/24 04:00 109/70 05/28/24 04:00 109/70 05/28/24 04:00 109/70 05/28/24 04:00 109/70 05/28/24 04:00 109/70 05/28/24 04:00 109/70 05/28/24 04:00 109/70 05/28/24 04:00 109/70 05/28/24 04:00 109/70 05/28/24 04:00 109/70 05/28/24 04:00 109/70 05/28/24 04:00 109/70 05/28/24 04:00 109/70 05/28/24 04:00 109/70 05/28/24 04:00 109/70 05/28/24 04:00 109/70 05/28/24 04:00 109/70 05/28/24 04:00 109/70 05/28/24 04:00 37.3 C 91 H 23 95 05/28/24 04:00 93 H 05/28/24 03:06 37.3 C 95 H 34 H 95 05/28/24 03:00 05/28/24 03:00 05/28/24 03:00 05/28/24 03:00 05/28/24 03:00 05/28/24 03:00 05/28/24 03:00 05/28/24 03:00 05/28/24 03:00 05/28/24 03:00 05/28/24 03:00 05/28/24 03:00 05/28/24 03:00 05/28/24 03:00 05/28/24 03:00 05/28/24 03:00 05/28/24 03:00 05/28/24 03:00 05/28/24 03:00 05/28/24 03:00 05/28/24 03:00 05/28/24 02:54 37.3 C 94 H 23 96 05/28/24 02:50 11705/28/24 02:50 11705/28/24 02:50 11705/28/24 02:45 37.3 C 94 H 22 95 05/28/24 02:09 37.2 C 93 H 25 H 96 05/28/24 02:00 110/70 05/28/24 01:09 37.2 C 93 H 19 96 05/28/24 01:00 122/74 05/28/24 01:00 122/74 05/28/24 01:00 122/74 05/28/24 01:00 122/05/28/24 01:00 122/74 05/28/24 01:00 122/74 05/28/24 01:00 122/74 05/28/24 01:00 122/74 05/28/24 01:00 122/74 05/28/24 01:00 122/05/28/24 01:00 12205/28/24 01:00 12205/28/24 00:51 37.1 C 89 21 95 05/28/24 00:01 10805/28/24 00:01 10805/28/24 00:01 05/28/24 00:01 10805/28/24 00:01 10805/28/24 00:01 10805/28/24 00:01 10805/28/24 00:01 10805/28/24 00:01 05/28/24 00:01 10805/28/24 00:01 10805/28/24 00:01 10805/28/24 00:01 10805/28/24 00:01 10805/28/24 00:01 10805/28/24 00:01 10805/28/24 00:01 10805/28/24 00:01 10805/28/24 00:01 10805/28/24 00:01 05/28/24 00:01 10805/28/24 00:01 10805/28/24 00:01 10805/28/24 00:01 10805/28/24 00:01 10805/28/24 00:01 10805/28/24 00:01 10805/28/24 00:01 108/77 05/28/24 00:01 108/77 05/28/24 00:01 108/05/28/24 00:01 108/77 05/28/24 00:01 108/77 05/28/24 00:01 108/77 05/28/24 00:00 37.0 C 93 H 29 H 97 05/28/24 00:00 93 H 100/49 L O2 Flow Rate 05/28/24 11:00 05/28/24 10:45 05/28/24 10:33 05/28/24 10:30 05/28/24 10:30 05/28/24 10:15 05/28/24 10:12 05/28/24 10:03 05/28/24 10:00 05/28/24 10:00 05/28/24 09:57 05/28/24 09:45 05/28/24 09:45 05/28/24 09:30 05/28/24 09:30 05/28/24 09:18 05/28/24 09:15 05/28/24 09:15 05/28/24 09:00 05/28/24 09:00 05/28/24 09:00 05/28/24 08:45 05/28/24 08:45 05/28/24 08:42 2 05/28/24 08:30 05/28/24 08:27 05/28/24 08:15 05/28/24 08:15 05/28/24 08:00 05/28/24 08:00 05/28/24 07:45 05/28/24 07:45 05/28/24 07:30 2 05/28/24 07:30 2 05/28/24 07:30 05/28/24 07:30 05/28/24 07:29 05/28/24 07:15 05/28/24 07:06 2 05/28/24 07:00 05/28/24 06:54 2 05/28/24 06:45 05/28/24 06:45 05/28/24 06:45 05/28/24 06:45 05/28/24 06:45 05/28/24 06:45 05/28/24 06:45 05/28/24 06:38 05/28/24 06:38 05/28/24 06:38 05/28/24 06:18 05/28/24 06:18 05/28/24 06:18 05/28/24 06:18 05/28/24 06:18 05/28/24 06:18 05/28/24 06:15 05/28/24 06:12 05/28/24 06:00 05/28/24 06:00 05/28/24 06:00 05/28/24 06:00 05/28/24 06:00 05/28/24 06:00 05/28/24 06:00 05/28/24 05:21 05/28/24 05:12 05/28/24 05:00 05/28/24 05:00 05/28/24 05:00 05/28/24 05:00 05/28/24 05:00 05/28/24 05:00 05/28/24 05:00 05/28/24 05:00 05/28/24 05:00 05/28/24 05:00 05/28/24 05:00 05/28/24 04:54 05/28/24 04:00 05/28/24 04:00 05/28/24 04:00 05/28/24 04:00 05/28/24 04:00 05/28/24 04:00 05/28/24 04:00 05/28/24 04:00 05/28/24 04:00 05/28/24 04:00 05/28/24 04:00 05/28/24 04:00 05/28/24 04:00 05/28/24 04:00 05/28/24 04:00 05/28/24 04:00 05/28/24 04:00 05/28/24 04:00 05/28/24 04:00 05/28/24 04:00 05/28/24 04:00 05/28/24 04:00 05/28/24 04:00 05/28/24 04:00 05/28/24 04:00 05/28/24 04:00 05/28/24 04:00 05/28/24 04:00 05/28/24 04:00 05/28/24 04:00 05/28/24 04:00 05/28/24 04:00 05/28/24 04:00 05/28/24 04:00 05/28/24 03:06 05/28/24 03:00 05/28/24 03:00 05/28/24 03:00 05/28/24 03:00 05/28/24 03:00 05/28/24 03:00 05/28/24 03:00 05/28/24 03:00 05/28/24 03:00 05/28/24 03:00 05/28/24 03:00 05/28/24 03:00 05/28/24 03:00 05/28/24 03:00 05/28/24 03:00 05/28/24 03:00 05/28/24 03:00 05/28/24 03:00 05/28/24 03:00 05/28/24 03:00 05/28/24 03:00 05/28/24 02:54 05/28/24 02:50 05/28/24 02:50 05/28/24 02:50 05/28/24 02:45 05/28/24 02:09 05/28/24 02:00 05/28/24 01:09 05/28/24 01:00 05/28/24 01:00 05/28/24 01:00 05/28/24 01:00 05/28/24 01:00 05/28/24 01:00 05/28/24 01:00 05/28/24 01:00 05/28/24 01:00 05/28/24 01:00 05/28/24 01:00 05/28/24 01:00 05/28/24 00:51 05/28/24 00:01 05/28/24 00:01 05/28/24 00:01 05/28/24 00:01 05/28/24 00:01 05/28/24 00:01 05/28/24 00:01 05/28/24 00:01 05/28/24 00:01 05/28/24 00:01 05/28/24 00:01 05/28/24 00:01 05/28/24 00:01 05/28/24 00:01 05/28/24 00:01 05/28/24 00:01 05/28/24 00:01 05/28/24 00:01 05/28/24 00:01 05/28/24 00:01 05/28/24 00:01 05/28/24 00:01 05/28/24 00:01 05/28/24 00:01 05/28/24 00:01 05/28/24 00:01 05/28/24 00:01 05/28/24 00:01 05/28/24 00:01 05/28/24 00:01 05/28/24 00:01 05/28/24 00:01 05/28/24 00:01 05/28/24 00:00 05/28/24 00:00 Laboratory Results 05/28/24 04:14 05/28/24 04:14 Diagnostic Findings liver cirrhosis on RUQ u/s (4) Multiple open wounds of lower extremity, complicated Encounter type: initial encounter Laterality: left Qualified Code(s): S 81.802A - Unspecified open wound, left lower leg, initial encounter
--- NOTE | 2024-05-28 13:30 | Pharmacy Report ---
Pharmacy PK ABX Note - Date of Service May 28, 2024 - Assessment and Plan Assessment 05/28: * Day #5 vancomycin + zosyn for LE cellulitis. Dialyzed this AM. 05/27: * Day # 4 vancomycin + zosyn for LE cellulitis. Receiving dialysis today. 05/26: * Day #3 vancomycin (+ zosyn) for LE cellulitis. Blood cultures (-) at 48h. MRI with no evidence of osteomyelitis. 05/25: * Day #2 vancomycin. Plan for HD this afternoon. Blood cultures NGTD. 05/24: * 78 year old M on vancomycin for treatment of sepsis 2nd cellulitis r/o osteomyelitis. ED status at this time - ongoing inpatient orders pending. * Pertinent microbiologic data includes: Positive MRSA Nasal Swab * PMH: dialysis dependent since February, recent hx MRSA bacteremia at OSH, recently at [facility] May 16 up until admission here, severe aortic stenosis, dementia, Plan Vancomycin * Vancomycin 500mg IV X 1 dose yesterday post HD. * Random vancomycin level 21mcg/mL this AM (pre-HD level) which is above goal, but also dialyzed 3L again this AM which would bring him within goal to re- dose. Vancomycin 500mg IV X 1 after dialysis today. * Repeat level in AM to guide further dosing. Pharmacy will continue to follow and will adjust dose/frequency as necessary. Thank you. Pharmacy has transitioned to AUC monitoring for vancomycin. AUC/CHRIS is the preferred PK/PD target and is associated with decreased risk of nephrotoxicity compared to traditional trough targets.
[2024-05-28] MEDS: VANCOMYCIN 500 MG in NSS 100mL IV SCH (14:25)
--- NOTE | 2024-05-28 14:37 | Hospitalist Progress Note ---
Date of Service May 28, 2024 Assessment & Plan (1) Septic shock: (2) Severe sepsis due to methicillin resistant Staphylococcus aureus (MRSA) with acute organ dysfunction: (3) Acute metabolic encephalopathy: (4) Acute on chronic systolic (congestive) heart failure: (5) Severe aortic stenosis: (6) Insulin-requiring or dependent type II diabetes mellitus: (7) Chronic ulcer of left foot with fat layer exposed: (8) Peripheral arterial occlusive disease: (9) Multiple open wounds of lower extremity, complicated: (10) Multiple open wounds of upper extremity: (11) Wound of sacral region: (12) End stage renal disease on dialysis: (13) Vascular dementia: (14) Ischemic cardiomyopathy: (15) Palliative care by specialist: (16) Cirrhosis of liver: Plan Patient with acute septic shock, respiratory failure and pulmonary edema in the setting of end-stage renal disease dependent on hemodialysis and infection from multiple skin wounds. Patient extubated yesterday and has been maintaining adequate saturation on 2 L nasal cannula Vasopressin has been titrated off, on norepinephrine and midodrine for blood pressure support Continue hemodialysis daily as directed by nephrology, tolerate removal 4.2 L yesterday with a goal of 3 L today. Noted nephrology is concerned that patient may not be able to tolerate hemodialysis in the long-term off pressors despite maximum midodrine support. Continue wound care Continue antibiotics for cellulitis lower extremity and sepsis Ongoing goals of care discussions with palliative care Phone conversation with patient's daughter Merly, she is aware that the patient's prognosis overall is extremely guarded and that his overall life expectancy is short. Did discuss with her that if they would choose to stop all medical interventions would anticipate him to pass away within days to most a couple weeks.. She reports that they hope to get all of the family at the bedside today and attempt to have a conversation with him about his wishes if he is able to express them. 45 minutes spent on care, communication with specialist, review records and bedside evaluation. Admission and Anticipated Discharge Date Admission Date: May 24, 2024 Subjective Patient extubated yesterday. Awake. Does answer some simple questions. Denies pain or shortness of breath Physical Exam Physical Exam: Constitutional: Awake HEENT: Mucous membranes moist. Lungs: Decreased breath sounds, crackles CV: S1-S2, regular Abdomen: Soft, nontender, nondistended, abdominal pannus edema Extremities: Continued significant anasarca, pitting edema through thighs Neuro: Generalized weak, some slurred speech, oriented to person only Psych: Cooperative Derm: Multiple wounds and eschars on feet, lower extremities and upper extremities. Sacral ulceration/wound Results & Data Results & Data Vital Signs (Past 12 Hours) Vital Signs Temp Pulse Pulse Resp BP BP Pulse Ox 05/28/24 11:45 36.4 C L 81 118/81 05/28/24 11:30 87 111/78 05/28/24 11:00 85 114/66 05/28/24 10:45 114/67 05/28/24 10:33 36.7 C 84 94 05/28/24 10:30 86 124/64 05/28/24 10:30 99/62 L 05/28/24 10:15 124/64 05/28/24 10:12 36.6 C 86 15 96 05/28/24 10:03 36.8 C 84 20 96 05/28/24 10:00 107/60 05/28/24 10:00 81 107/60 05/28/24 09:57 36.7 C 81 13 96 05/28/24 09:45 36.8 C 81 16 94 05/28/24 09:45 99/62 L 05/28/24 09:30 110/63 05/28/24 09:30 87 110/63 05/28/24 09:18 37.1 C 89 19 97 05/28/24 09:15 37.1 C 86 16 94 05/28/24 09:15 110/68 05/28/24 09:00 37.2 C 88 14 95 05/28/24 09:00 107/65 05/28/24 09:00 89 107/65 05/28/24 08:45 105/62 05/28/24 08:45 37.2 C 85 05/28/24 08:42 37.3 C 90 35 H 94 05/28/24 08:30 111/68 05/28/24 08:27 37.3 C 92 H 31 H 93 05/28/24 08:15 114/73 05/28/24 08:15 114/73 05/28/24 08:00 37.3 C 92 H 24 89 L 05/28/24 08:00 120/79 05/28/24 07:45 118/72 05/28/24 07:45 37.4 C 93 H 22 92 05/28/24 07:30 05/28/24 07:30 37.4 C 93 H 15 93 05/28/24 07:30 121/74 05/28/24 07:30 121/74 05/28/24 07:29 95 H 05/28/24 07:15 116/70 05/28/24 07:06 37.4 C 92 H 15 93 05/28/24 07:00 113/79 05/28/24 06:54 37.4 C 97 H 34 H 94 05/28/24 06:45 114/76 05/28/24 06:45 37.4 C 96 H 24 94 05/28/24 06:45 114/76 05/28/24 06:45 114/76 05/28/24 06:45 114/76 05/28/24 06:45 114/76 05/28/24 06:45 114/76 05/28/24 06:38 122/73 05/28/24 06:38 122/73 05/28/24 06:38 122/73 05/28/24 06:18 116/76 05/28/24 06:18 116/76 05/28/24 06:18 116/76 05/28/24 06:18 116/76 05/28/24 06:18 116/76 05/28/24 06:18 116/76 05/28/24 06:15 37.3 C 94 H 19 96 05/28/24 06:12 37.3 C 96 H 17 96 05/28/24 06:00 118/76 05/28/24 06:00 118/76 05/28/24 06:00 118/76 05/28/24 06:00 118/76 05/28/24 06:00 118/76 05/28/24 06:00 118/76 05/28/24 06:00 118/76 05/28/24 05:21 37.3 C 94 H 24 93 05/28/24 05:12 37.3 C 94 H 30 H 93 05/28/24 05:00 115/75 05/28/24 05:00 115/05/28/24 05:00 115/75 05/28/24 05:00 115/75 05/28/24 05:00 115/75 04/03/25 05:00 115/75 05/28/24 05:00 115/75 05/28/24 05:00 115/75 05/28/24 05:00 115/75 05/28/24 05:00 115/75 05/28/24 05:00 115/75 05/28/24 04:54 37.3 C 93 H 19 94 05/28/24 04:00 109/70 05/28/24 04:00 109/70 05/28/24 04:00 109/70 05/28/24 04:00 109/70 05/28/24 04:00 109/70 05/28/24 04:00 109/70 05/28/24 04:00 109/70 05/28/24 04:00 109/70 05/28/24 04:00 109/70 05/28/24 04:00 109/70 05/28/24 04:00 109/70 05/28/24 04:00 109/70 05/28/24 04:00 109/70 05/28/24 04:00 109/70 05/28/24 04:00 109/70 05/28/24 04:00 109/70 05/28/24 04:00 109/70 05/28/24 04:00 109/70 05/28/24 04:00 109/70 05/28/24 04:00 109/70 05/28/24 04:00 109/70 05/28/24 04:00 109/70 05/28/24 04:00 109/70 05/28/24 04:00 109/70 05/28/24 04:00 109/70 05/28/24 04:00 109/70 05/28/24 04:00 109/70 05/28/24 04:00 109/70 05/28/24 04:00 109/70 05/28/24 04:00 109/70 05/28/24 04:00 109/70 05/28/24 04:00 109/70 05/28/24 04:00 37.3 C 91 H 23 95 05/28/24 04:00 93 H 05/28/24 03:06 37.3 C 95 H 34 H 95 05/28/24 03:00 11605/28/24 03:00 05/28/24 03:00 05/28/24 03:00 05/28/24 03:00 05/28/24 03:00 05/28/24 03:00 05/28/24 03:00 05/28/24 03:00 05/28/24 03:00 05/28/24 03:00 05/28/24 03:00 05/28/24 03:00 05/28/24 03:00 05/28/24 03:00 05/28/24 03:00 05/28/24 03:00 05/28/24 03:00 05/28/24 03:00 05/28/24 03:00 05/28/24 03:00 05/28/24 02:54 37.3 C 94 H 23 96 05/28/24 02:50 11705/28/24 02:50 11705/28/24 02:50 11705/28/24 02:45 37.3 C 94 H 22 95 O2 Del Method O2 Flow Rate 05/28/24 11:45 05/28/24 11:30 05/28/24 11:00 05/28/24 10:45 05/28/24 10:33 05/28/24 10:30 05/28/24 10:30 05/28/24 10:15 05/28/24 10:12 05/28/24 10:03 05/28/24 10:00 05/28/24 10:00 05/28/24 09:57 05/28/24 09:45 05/28/24 09:45 05/28/24 09:30 05/28/24 09:30 05/28/24 09:18 05/28/24 09:15 05/28/24 09:15 05/28/24 09:00 05/28/24 09:00 05/28/24 09:00 05/28/24 08:45 05/28/24 08:45 05/28/24 08:42 Nasal Cannula 2 05/28/24 08:30 05/28/24 08:27 05/28/24 08:15 05/28/24 08:15 05/28/24 08:00 05/28/24 08:00 05/28/24 07:45 05/28/24 07:45 05/28/24 07:30 Nasal Cannula 2 05/28/24 07:30 Nasal Cannula 2 05/28/24 07:30 05/28/24 07:30 05/28/24 07:29 05/28/24 07:15 05/28/24 07:06 Nasal Cannula 2 05/28/24 07:00 05/28/24 06:54 Nasal Cannula 2 05/28/24 06:45 05/28/24 06:45 05/28/24 06:45 05/28/24 06:45 05/28/24 06:45 05/28/24 06:45 05/28/24 06:45 05/28/24 06:38 05/28/24 06:38 05/28/24 06:38 05/28/24 06:18 05/28/24 06:18 05/28/24 06:18 05/28/24 06:18 05/28/24 06:18 05/28/24 06:18 05/28/24 06:15 05/28/24 06:12 05/28/24 06:00 05/28/24 06:00 05/28/24 06:00 05/28/24 06:00 05/28/24 06:00 05/28/24 06:00 05/28/24 06:00 05/28/24 05:21 05/28/24 05:12 05/28/24 05:00 05/28/24 05:00 05/28/24 05:00 05/28/24 05:00 05/28/24 05:00 05/28/24 05:00 05/28/24 05:00 05/28/24 05:00 05/28/24 05:00 05/28/24 05:00 05/28/24 05:00 05/28/24 04:54 05/28/24 04:00 05/28/24 04:00 05/28/24 04:00 05/28/24 04:00 05/28/24 04:00 05/28/24 04:00 05/28/24 04:00 05/28/24 04:00 05/28/24 04:00 05/28/24 04:00 05/28/24 04:00 05/28/24 04:00 05/28/24 04:00 05/28/24 04:00 05/28/24 04:00 05/28/24 04:00 05/28/24 04:00 05/28/24 04:00 05/28/24 04:00 05/28/24 04:00 05/28/24 04:00 05/28/24 04:00 05/28/24 04:00 05/28/24 04:00 05/28/24 04:00 05/28/24 04:00 05/28/24 04:00 05/28/24 04:00 05/28/24 04:00 05/28/24 04:00 05/28/24 04:00 05/28/24 04:00 05/28/24 04:00 05/28/24 04:00 05/28/24 03:06 05/28/24 03:00 05/28/24 03:00 05/28/24 03:00 05/28/24 03:00 05/28/24 03:00 05/28/24 03:00 05/28/24 03:00 05/28/24 03:00 05/28/24 03:00 05/28/24 03:00 05/28/24 03:00 05/28/24 03:00 05/28/24 03:00 05/28/24 03:00 05/28/24 03:00 05/28/24 03:00 05/28/24 03:00 05/28/24 03:00 05/28/24 03:00 05/28/24 03:00 05/28/24 03:00 05/28/24 02:54 05/28/24 02:50 05/28/24 02:50 05/28/24 02:50 05/28/24 02:45 Diagnostic Findings Reviewed imaging, laboratory and diagnostic studies. Pertinent findings as below. WBCs 12.5, Increase Hemoglobin 9.4, stable BMP consistent with end-stage renal disease on hemodialysis LFTs noted, elevated Abdominal ultrasound shows liver cirrhosis (9) Multiple open wounds of lower extremity, complicated Encounter type: initial encounter Laterality: left Qualified Code(s): S81.802A - Unspecified open wound, left lower leg, initial encounter
--- NOTE | 2024-05-28 15:41 | Palliative Care Progress Note ---
Date of Service May 28, 2024 Assessment & Plan (1) Palliative care by specialist: Plan: Per previous notes, family has agreed that pt's dtr Merly Orellana, will serve as primary contact and has been keeping them aware. I spoke with Merly by phone today. She remains receptive to palliative services for goals of care discussions, but verbalized that pt's children are all in agreement to give the pt a bit more time to see how he responds to ongoing HD / antibiotics and vasopressor support as needed. She shared that she has been getting daily updates from ICU team and nephrology and family remains cautiously hopeful that pt will recover enough to leave hospital and return to his prior level of function. She shared that family have an understanding that pt remains critically ill and they are having ongoing GOC discussions via text chain. Family remains in agreement that if the patient has acute decompensation requiring mechanical ventilation they would like to be notified immediately and intend to transition care to focus on comfort. Merly shared that she would likely not be visiting until evening today because she is concerned he may not improve and needs to take care of pt's financial affairs while she is able. Palliative care will continue to follow for ongoing GOC discussions and family support. (2) Advanced directives, counseling/discussion: Plan: Patient continues to lack decisional capacity based on the inability to convey understanding of personal PMHx, current medical condition, treatment options nor the risks / benefits of those options, and lack of ability to make decisions based on such knowledge. Hospital does not have written documentation of patient wishes concerning his chosen proxy for medical decisions. Per PA [id number], in absence of written documentation of patient wishes, pt's proxy for medical decisions would be 6 adult children with equal authority. Pt does require a proxy for medical decisions. (3) Counseling regarding goals of care: Plan: Merly shared that she would like to schedule another family meeting to readdress GOC if pt does not show improvement by end of week. Shared with Merly that the Palliative care team is not available in house over weekend. Merly will be discussing with family to arrange a time when all her siblings are available either Saturday or Saturday. Per previous GOC discussions with family, continue current level of care. Currently DNR/DNI, continue all other life prolonging therapies. In the event pt decompensates to point of requiring mechanical ventilation, they would then want to transition to comfort directed care. Plan as above Admission and Anticipated Discharge Date Admission Date: May 24, 2024 Subjective Assessed pt at bedside today, he is more alert but remains confused - oriented to person only.. Does follow some simple single step commands. No visitors at bedside. Review of Systems Review of Systems: Unobtainable due to cognitive status Physical Exam Physical Exam: General exam: awake and alert, NAD Respiratory system: coarse, diminished breath sounds bilaterally. Gastrointestinal: Abdomen is soft, non distended, non tender, bowel sounds are present CVS: Regular rate and rhythm. No murmurs, rubs or gallops Musculoskeletal: No joint or muscle tenderness Extremities: BLE edema, peripheral pulses are present Neuro: A&O to person only, follows simple commands intermittently Skin: No rashes Results & Data Vital Signs (Past 12 Hours) Vital Signs Temp Pulse Pulse Resp BP BP Pulse Ox 05/28/24 11:45 36.4 C L 81 118/81 05/28/24 11:30 87 111/78 05/28/24 11:00 85 114/66 05/28/24 10:45 114/67 05/28/24 10:33 36.7 C 84 94 05/28/24 10:30 86 124/64 05/28/24 10:30 99/62 L 05/28/24 10:15 124/64 05/28/24 10:12 36.6 C 86 15 96 05/28/24 10:03 36.8 C 84 20 96 05/28/24 10:00 107/60 05/28/24 10:00 81 107/60 05/28/24 09:57 36.7 C 81 13 96 05/28/24 09:45 36.8 C 81 16 94 05/28/24 09:45 99/62 L 05/28/24 09:30 110/63 05/28/24 09:30 87 110/63 05/28/24 09:18 37.1 C 89 19 97 05/28/24 09:15 37.1 C 86 16 94 05/28/24 09:15 110/68 05/28/24 09:00 37.2 C 88 14 95 05/28/24 09:00 107/65 05/28/24 09:00 89 107/65 05/28/24 08:45 105/62 05/28/24 08:45 37.2 C 85 05/28/24 08:42 37.3 C 90 35 H 94 05/28/24 08:30 111/68 05/28/24 08:27 37.3 C 92 H 31 H 93 05/28/24 08:15 114/73 05/28/24 08:15 114/73 05/28/24 08:00 37.3 C 92 H 24 89 L 05/28/24 08:00 120/79 05/28/24 07:45 118/72 05/28/24 07:45 37.4 C 93 H 22 92 05/28/24 07:30 05/28/24 07:30 37.4 C 93 H 15 93 05/28/24 07:30 121/74 05/28/24 07:30 121/74 05/28/24 07:29 95 H 05/28/24 07:15 116/70 05/28/24 07:06 37.4 C 92 H 15 93 05/28/24 07:00 113/79 05/28/24 06:54 37.4 C 97 H 34 H 94 05/28/24 06:45 114/76 05/28/24 06:45 37.4 C 96 H 24 94 05/28/24 06:45 114/76 05/28/24 06:45 114/76 05/28/24 06:45 114/76 05/28/24 06:45 114/76 05/28/24 06:45 114/76 05/28/24 06:38 122/73 05/28/24 06:38 122/73 05/28/24 06:38 122/73 05/28/24 06:18 116/76 05/28/24 06:18 116/76 05/28/24 06:18 116/76 05/28/24 06:18 116/76 05/28/24 06:18 116/76 05/28/24 06:18 116/76 05/28/24 06:15 37.3 C 94 H 19 96 05/28/24 06:12 37.3 C 96 H 17 96 05/28/24 06:00 118/76 05/28/24 06:00 118/76 05/28/24 06:00 118/76 05/28/24 06:00 118/76 05/28/24 06:00 118/76 05/28/24 06:00 118/76 05/28/24 06:00 118/76 05/28/24 05:21 37.3 C 94 H 24 93 05/28/24 05:12 37.3 C 94 H 30 H 93 05/28/24 05:00 115/75 05/28/24 05:00 115/75 05/28/24 05:00 115/05/28/24 05:00 115/75 05/28/24 05:00 115/75 05/28/24 05:00 115/75 05/28/24 05:00 115/75 05/28/24 05:00 115/75 05/28/24 05:00 115/75 05/28/24 05:00 115/05/28/24 05:00 115/75 05/28/24 04:54 37.3 C 93 H 19 94 05/28/24 04:00 109/70 05/28/24 04:00 109/70 05/28/24 04:00 109/70 05/28/24 04:00 109/70 05/28/24 04:00 109/70 05/28/24 04:00 109/70 05/28/24 04:00 109/70 05/28/24 04:00 109/70 05/28/24 04:00 109/70 05/28/24 04:00 109/70 05/28/24 04:00 109/70 05/28/24 04:00 109/70 05/28/24 04:00 109/70 05/28/24 04:00 109/70 05/28/24 04:00 109/70 05/28/24 04:00 109/70 05/28/24 04:00 109/70 05/28/24 04:00 109/70 05/28/24 04:00 109/70 05/28/24 04:00 109/70 05/28/24 04:00 109/70 05/28/24 04:00 109/70 05/28/24 04:00 109/70 05/28/24 04:00 109/70 05/28/24 04:00 109/70 05/28/24 04:00 109/70 05/28/24 04:00 109/70 05/28/24 04:00 109/70 05/28/24 04:00 109/70 05/28/24 04:00 109/70 05/28/24 04:00 109/70 05/28/24 04:00 109/70 05/28/24 04:00 37.3 C 91 H 23 95 05/28/24 04:00 93 H O2 Del Method O2 Flow Rate 05/28/24 11:45 05/28/24 11:30 05/28/24 11:00 05/28/24 10:45 05/28/24 10:33 05/28/24 10:30 05/28/24 10:30 05/28/24 10:15 05/28/24 10:12 05/28/24 10:03 05/28/24 10:00 05/28/24 10:00 05/28/24 09:57 05/28/24 09:45 05/28/24 09:45 05/28/24 09:30 05/28/24 09:30 05/28/24 09:18 05/28/24 09:15 05/28/24 09:15 05/28/24 09:00 05/28/24 09:00 05/28/24 09:00 05/28/24 08:45 05/28/24 08:45 05/28/24 08:42 Nasal Cannula 2 05/28/24 08:30 05/28/24 08:27 05/28/24 08:15 05/28/24 08:15 05/28/24 08:00 05/28/24 08:00 05/28/24 07:45 05/28/24 07:45 05/28/24 07:30 Nasal Cannula 2 05/28/24 07:30 Nasal Cannula 2 05/28/24 07:30 05/28/24 07:30 05/28/24 07:29 05/28/24 07:15 05/28/24 07:06 Nasal Cannula 2 05/28/24 07:00 05/28/24 06:54 Nasal Cannula 2 05/28/24 06:45 05/28/24 06:45 05/28/24 06:45 05/28/24 06:45 05/28/24 06:45 05/28/24 06:45 05/28/24 06:45 05/28/24 06:38 05/28/24 06:38 05/28/24 06:38 05/28/24 06:18 05/28/24 06:18 05/28/24 06:18 05/28/24 06:18 05/28/24 06:18 05/28/24 06:18 05/28/24 06:15 05/28/24 06:12 05/28/24 06:00 05/28/24 06:00 05/28/24 06:00 05/28/24 06:00 05/28/24 06:00 05/28/24 06:00 05/28/24 06:00 05/28/24 05:21 05/28/24 05:12 05/28/24 05:00 05/28/24 05:00 05/28/24 05:00 05/28/24 05:00 05/28/24 05:00 05/28/24 05:00 05/28/24 05:00 05/28/24 05:00 05/28/24 05:00 05/28/24 05:00 05/28/24 05:00 05/28/24 04:54 05/28/24 04:00 05/28/24 04:00 05/28/24 04:00 05/28/24 04:00 05/28/24 04:00 05/28/24 04:00 05/28/24 04:00 05/28/24 04:00 05/28/24 04:00 05/28/24 04:00 05/28/24 04:00 05/28/24 04:00 05/28/24 04:00 05/28/24 04:00 05/28/24 04:00 05/28/24 04:00 05/28/24 04:00 05/28/24 04:00 05/28/24 04:00 05/28/24 04:00 05/28/24 04:00 05/28/24 04:00 05/28/24 04:00 05/28/24 04:00 05/28/24 04:00 05/28/24 04:00 05/28/24 04:00 05/28/24 04:00 05/28/24 04:00 05/28/24 04:00 05/28/24 04:00 05/28/24 04:00 05/28/24 04:00 05/28/24 04:00 Laboratory Results Abnormal lab results 05/28/24 05/28/24 05/28/24 Range/Units 00:06 04:14 04:28 WBC 12.52 H (4.8-10.8) K/ul RBC 2.80 L (4.70-6.10) M/uL Hgb 9.4 L (14.0-18.0) g/dl Hct 29.1 L (42.0-52.0) % MCV 103.9 H (80.0-100.0) fL RDW Std Deviation 75.5 H (36.4-46.3) fL RDW Coeff of Elayne 20.5 H (11.5-14.5) % Neut # (Auto) 11.18 H (1.40-6.50) K/uL Lymph # (Auto) 0.40 L (1.20-3.40) K/uL [place] # (Auto) 0.85 H (0.11-0.59) K/uL Absolute Nucleated RBC 0.21 H (0.00-0.12) K/uL Sodium 132 L (136-145) mmol/L Chloride 96 L (98-107) mmol/L Anion Gap 13 H (3-11) BUN 49 H D (6-23) mg/dl Creatinine 3.52 H D (0.6-1.4) mg/dl Glucose 151 H (70-99(Fasting)) mg/dl POC Glucose 197 H 151 H (70-99) mg/dl Calcium 7.7 L (8.6-10.3) mg/dl Phosphorus 5.5 H (2.5-4.9) mg/dl Total Bilirubin 3.2 H (0.2-1.0) mg/dl Direct Bilirubin 2.1 H (0-0.2) mg/dl AST 229 H (13-39) U/L ALT 67 H (7-52) U/L Troponin I High Sens (0-20) pg/ml Total Protein 5.8 L (6.0-8.3) gm/dl Albumin 2.8 L (3.4-5.0) gm/dl Random Vancomycin 21.0 H (10-20) mcg/ml 05/28/24 05/28/24 05/28/24 Range/Units 12:10 17:20 17:52 WBC (4.8-10.8) K/ul RBC (4.70-6.10) M/uL Hgb (14.0-18.0) g/dl Hct (42.0-52.0) % MCV (80.0-100.0) fL RDW Std Deviation (36.4-46.3) fL RDW Coeff of Elayne (11.5-14.5) % Neut # (Auto) (1.40-6.50) K/uL Lymph # (Auto) (1.20-3.40) K/uL [place] # (Auto) (0.11-0.59) K/uL Absolute Nucleated RBC (0.00-0.12) K/uL Sodium (136-145) mmol/L Chloride (98-107) mmol/L Anion Gap 12 H (3-11) BUN 34 H (6-23) mg/dl Creatinine 2.80 H D (0.6-1.4) mg/dl Glucose 139 H (70-99(Fasting)) mg/dl POC Glucose 152 H 157 H (70-99) mg/dl Calcium 8.2 L (8.6-10.3) mg/dl Phosphorus (2.5-4.9) mg/dl Total Bilirubin (0.2-1.0) mg/dl Direct Bilirubin (0-0.2) mg/dl AST (13-39) U/L ALT (7-52) U/L Troponin I High Sens 132.0 H* (0-20) pg/ml Total Protein (6.0-8.3) gm/dl Albumin (3.4-5.0) gm/dl Random Vancomycin (10-20) mcg/ml 05/28/24 Range/Units 20:30 WBC (4.8-10.8) K/ul RBC (4.70-6.10) M/uL Hgb (14.0-18.0) g/dl Hct (42.0-52.0) % MCV (80.0-100.0) fL RDW Std Deviation (36.4-46.3) fL RDW Coeff of Elayne (11.5-14.5) % Neut # (Auto) (1.40-6.50) K/uL Lymph # (Auto) (1.20-3.40) K/uL [place] # (Auto) (0.11-0.59) K/uL Absolute Nucleated RBC (0.00-0.12) K/uL Sodium (136-145) mmol/L Chloride (98-107) mmol/L Anion Gap (3-11) BUN (6-23) mg/dl Creatinine (0.6-1.4) mg/dl Glucose (70-99(Fasting)) mg/dl POC Glucose 123 H (70-99) mg/dl Calcium (8.6-10.3) mg/dl Phosphorus (2.5-4.9) mg/dl Total Bilirubin (0.2-1.0) mg/dl Direct Bilirubin (0-0.2) mg/dl AST (13-39) U/L ALT (7-52) U/L Troponin I High Sens (0-20) pg/ml Total Protein (6.0-8.3) gm/dl Albumin (3.4-5.0) gm/dl Random Vancomycin (10-20) mcg/ml Diagnostic Findings Orbit X-Ray 05/24/24 12:05 EXAM: Radiographs of the Orbits Foreign Body INDICATION: MRI clearance TECHNIQUE: Frontal view(s) of the orbits. COMPARISON: No relevant prior studies available. FINDINGS: Bones/joints: No fracture, erosion or dislocation. Sinuses: Moderate air-fluid level in the right maxillary sinus. Soft tissues: Aside from dental fillings and bilateral hearing aids, no foreign body noted. IMPRESSION: 1. Aside from dental fillings and bilateral hearing aids, no foreign body noted. 2. Right maxillary sinusitis. ACT 112: N/A Electronically signed by Cheryl Carpenter 05-24-2024 2:00 PM Foot MRI 05/25/24 12:39 MR foot LT w/o con HISTORY: 78 years-old Male Osteomyelitis chronic left foot pain with possible osteomyelitis COMPARISON: None TECHNIQUE: Multiplanar multisequence MRI of the left foot was obtained without IV contrast. FINDINGS: Study is motion degraded. Diffuse muscle atrophy compatible with chronic determination changes. Extensive subcutaneous edema circumferentially, most pronounced dorsally with associated there are multiple thickening. No fluid collection identified to suggest abscess. The visualized tendons and ligaments appear intact. The Lisfranc ligament is i ntact. 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 No acute fracture, dislocation, osseous erosion or significant bone marrow edema. IMPRESSION: 1. No MR evidence of acute osteomyelitis. 2. Extensive subcutaneous edema. Differential considerations include cellulitis, venous stasis or lymphedema. 3. No abscess. 4. Mild osteoarthritis. ACT 112: Negative or not required by law. The above report was generated using voice recognition software. It may contain grammatical, syntax or spelling errors. Electronically signed by: Fredy Beard M.D. 05/25/2024 2:[address] 05/26/24 11:34 CT SCAN OF THE BRAIN WITHOUT IV CONTRAST CLINICAL HISTORY: Altered mental status. COMPARISON STUDY: Head CT May 24, 2024. TECHNIQUE: Unenhanced axial CT scan of the brain was performed from the vertex to the skull base. A dose lowering technique was utilized adhering to the principles of ALARA. CT DOSE: 750.68 mGy.cm FINDINGS: No acute intracranial hemorrhage, midline shift or mass effect is present. Ventricular system is moderate atrophy and small vessel disease. No findings to suggest acute dural sinus thrombosis or acute territorial infarct. There are no calvarial fractures. Small air-fluid level within the right maxillary sinus is noted. There is mild thickening of the right maxillary sinus. Secretions within the pharynx are likely related to intubation. IMPRESSION: No acute intracranial findings. ACT 112: Negative or not required by law. Electronically signed by: Salvador Murillo M.D. 05/26/2024 1:03 PM Chest X-Ray 05/27/24 03:15 EXAM: XR chest 1V portable CLINICAL HISTORY: eval lines/tubes/lung [place] while intubated TECHNIQUE: An X-ray image of the chest is obtained in AP projection. 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 Nasogastric tube is seen with its tip in normal position. Right sided permacath is noted with its tip in the right atrium. Reticular shadowing is seen scattered in both lung [place]. Minimal blunting of the left costophrenic angle seen could be due to pleural thickening/effusion. Heart and Mediastinum: Cardiomegaly. Prominent bronchovascular markings seen bilaterally. No mediastinal widening or masses. No hilar or mediastinal lymphadenopathy. Bony Thorax: Bony thorax appears intact without fractures or deformities. Soft Tissues: Soft tissues overlying the chest wall are unremarkable. IMPRESSION: 1. An endotracheal tube is seen with its tip in normal position 3.5 cm from the migd[place], low-lying. Consider pullback by 2 cm. 2. A nasogastric tube is seen with its tip in normal position.Right-sided permacath noted with its tip in the right atrium. 3. Cardiomegaly. 4. Prominent bronchovascular markings seen bilaterally. 5. Minimal blunting of the left costophrenic angle seen could be due to pleural thickening/effusion. 6. Imaging findings are likely due to pulmonary congestion, would recommend clinical and lab correlation to rule out the possibility of pulmonary infection. 7. No interval changes. Electronically signed by Akil Perez 05-27-2024 07:40 AM Abdomen Ultrasound 05/27/24 08:17 ABDOMINAL ULTRASOUND, RIGHT UPPER QUADRANT HISTORY: Elevated LFTs eval for liver cirrhosis. COMPARISON: None. FINDINGS: Pancreas: The pancreas is obscured by bowel gas. Liver: Increased echogenicity with marginal nodularity. Patent portal vein with hepatopedal flow. Trace perihepatic ascites. No hepatic mass identified. Gallbladder: No gallbladder wall thickening. No gallstones. CBD: 7 mm Right kidney: Cyst measure up to approximately 3 cm. Cortical thinning without hydronephrosis. IMPRESSION: 1. Cirrhosis without hepatic mass identified. 2. Trace perihepatic ascites. 3. Unremarkable gallbladder. ACT 112: Negative or not required by law. Electronically signed by: Fredy Beard M.D. 05/27/2024 2:47 PM Medications Administered Current Inpatient Medications Acetaminophen (Acetaminophen 325 Mg Tab) 650 mg PO Q4H PRN PRN Reason: Pain or Fever Stop: 06/23/24 14:17 Last Admin: 05/26/24 22:07 Dose: 650 mg Atorvastatin Calcium (Atorvastatin 40 Mg Tab) 80 mg PO QAM [facility] Stop: 06/24/24 08:59 Last Admin: 05/28/24 09:05 Dose: Not Given Clopidogrel Bisulfate (Clopidogrel Bisulfate 75 Mg Tab) 75 mg PO QAM [facility] Stop: 06/24/24 08:59 Last Admin: 05/28/24 09:05 Dose: Not Given Collagenase (Collagenase Oint 30 Gm Tube) 1 appln EXT DAILY [facility] Stop: 06/24/24 12:59 Last Admin: 05/28/24 17:30 Dose: 1 appln Dextrose (Dextrose 50% 50 Ml Syringe) 25 - 50 ml IV UD PRN; Protocol PRN Reason: Hypoglycemia Protocol Stop: 06/23/24 14:17 Glucagon (Glucagon For Inj 1 Mg Vial) 1 mg SQ UD PRN; Protocol PRN Reason: Hypoglycemia Protocol Stop: 06/23/24 14:17 Glucose (Glucose 40% Gel 15 Gm Tube) 15 - 30 gm PO UD PRN; Protocol PRN Reason: Hypoglycemia Protocol Stop: 06/23/24 14:17 Glucose (Glucose 10 Tab/Tube) 4 - 8 tab PO UD PRN; Protocol PRN Reason: Hypoglycemia Protocol Stop: 06/23/24 14:17 Heparin Sodium (Porcine) (Heparin Sod 5,000 Unit/0.5 Ml Vial) 5,000 units SQ Q8 [facility] Stop: 06/23/24 14:17 Last Admin: 05/28/24 14:27 Dose: 5,000 units Sodium Chloride (Nss) 1,000 mls @ 0 mls/hr IV .Q0M PRN PRN Reason: For Hemodialysis Use ONLY Stop: 05/31/24 06:59 Hydrocortisone Sodium (Succinate 50 mg/ Syringe) 1 mls @ 4 mls/min IV Q6H [facility] Stop: 05/28/24 23:59 Last Admin: 05/28/24 20:19 Dose: 4 mls/min Pantoprazole Sodium (Protonix) 40 mg in 10 mls @ 5 mls/min IV BID [facility] Stop: 06/24/24 08:59 Last Admin: 05/28/24 20:18 Dose: 5 mls/min Piperacillin Sod/Tazobactam Sod (Zosyn) 4.5 gm in 100 mls @ 25 mls/hr IV Q12H [facility]; Protocol Stop: 05/30/24 23:59 Last Admin: 05/28/24 20:19 Dose: 25 mls/hr Sodium Chloride (Nss) 1,000 mls @ 0 mls/hr IV .Q0M PRN PRN Reason: For Hemodialysis Use ONLY Stop: 06/02/24 06:59 Hydrocortisone Sodium (Succinate 50 mg/ Syringe) 1 mls @ 4 mls/min IV Q8H [facility] Stop: 06/28/24 04:59 Phenylephrine HCl (Phenylephrine/Nss) 25 mg in 250 mls @ 18.738 mls/hr IV .[id number] [facility]; Protocol Stop: 06/27/24 18:32 Last Titration: 05/28/24 19:27 Dose: 0.3 mcg/kg/min, 18.7 mls/hr Insulin Aspart (Insulin Aspart Per Unit Charge) 0 units SC Q4 [facility] Stop: 06/24/24 11:59 Last Admin: 05/28/24 20:33 Dose: Not Given Insulin Glargine (Lantus Per Unit Charge) 0 units SQ HS [facility]; Protocol Stop: 06/23/24 20:59 Last Admin: 05/27/24 20:30 Dose: 10 units Midodrine (Midodrine Hcl 10 Mg Tab) 10 mg PO TID@0800,1200,1700 [facility] Stop: 06/23/24 14:17 Last Admin: 05/28/24 18:22 Dose: Not Given Miscellaneous (Carbohydrates For Hypoglycemia ) 15 - 30 gm PO UD PRN PRN Reason: Hypoglycemia Protocol Stop: 06/23/24 14:17 Miscellaneous Information (Vancomycin Consult Active) 1 each N/A UD PRN PRN Reason: Consult Stop: 05/30/24 23:59 Miscellaneous Information (Pharmacy Glycemic Mgmt Consult) 1 each N/A UD PRN PRN Reason: Consult Stop: 06/23/24 14:17 Ondansetron HCl (Ondansetron Inj 2 Mg/Ml 2 Ml Vial) 4 mg IV Q6H PRN PRN Reason: Nausea Stop: 06/23/24 14:17 PG Care Time/CCT Total # of Minutes Spent Total Time Spent with Patient: Total time spent is greater than 50% in coordination of care (as documented) at patient's floor/unit and/or counseling patient: Coding [place] [address] SUB INP/OBS CARE 2/35MIN Patient Type Established History Expanded Problem Focused Exam Expanded Problem Focused Medical Decision Making Moderate Complexity Diagnoses Palliative care by specialist Z51.5 Advanced directives, counseling/discussion Z71.89 Counseling regarding goals of care Z71.89
[2024-05-28 18:30] LABS: BUN Creatinine Ratio 12.1 (10-20); Calcium 8.2 mg/dl (8.6-10.3); Creatinine Clr Calc Pharmacy 27.1 ml/min; Potassium 3.9 mmol/L (3.5-5.1)
[2024-05-28] MEDS ORDERED: STAT IV Infusion **Titration per Protocol STA (18:33)
[2024-05-28] MEDS: PHENYLEPHRINE/NSS 25 MG/250 ML BAG IV SCH (18:48)
[2024-05-29] MEDS ORDERED: Nursing to Pharmacy Communication SCH ×2 (00:30→17:00)
[2024-05-29] MEDS: HYDROCORTISONE SOD 50 MG in SYRINGE 0 ML IV SCH (04:26)
[2024-05-29 04:57] LABS: Basophils # (auto) 0.01 K/uL (0.00-0.20); Basophils % (auto) 0.1 %; Hematocrit (blood only) 28.7 % (42.0-52.0); Hemoglobin 8.9 g/dl (14.0-18.0); Immature Granulocytes # (auto) 0.08 K/uL (0.01-0.20); Immature Granulocytes % (auto) 0.7 %; Lymphocytes # (auto) 0.51 K/uL (1.20-3.40); Lymphocytes % (auto) 4.6 %; Mean Corpuscular Hemoglobin 32.8 pg (25.0-34.0); Mean Corpuscular Volume 105.9 fL (80.0-100.0); Mean Platelet Volume 11.9 fL (9.4-12.4); Monocytes # (auto) 0.81 K/uL (0.11-0.59); Monocytes % (auto) 7.3 %; Neutrophils # (auto) 9.72 K/uL (1.40-6.50); Neutrophils % (auto) 87.3 %; Nucleated RBC # (auto) 0.53 K/uL (0.00-0.12); Nucleated RBC % (auto) 4.8 %; Platelet Count 138 K/uL (130-400); RDW Coefficient of Variation 21.3 % (11.5-14.5); RDW Standard Deviation 79.2 fL (36.4-46.3); Red Blood Count 2.71 M/uL (4.70-6.10); White Blood Count 11.13 K/ul (4.8-10.8)
[2024-05-29 04:58] LABS: BUN Creatinine Ratio 12.5 (10-20); Calcium 8.2 mg/dl (8.6-10.3); Creatinine Clr Calc Pharmacy 22.7 ml/min; Magnesium 2.2 mg/dl (1.7-2.4); Potassium 3.9 mmol/L (3.5-5.1)
[2024-05-29 05:18] LABS: Anisocytosis Present; Polychromasia 1+
--- NOTE | 2024-05-29 08:37 | Nephrology Progress Note ---
Date of Service May 29, 2024 Assessment & Plan (1) End stage renal disease on dialysis: Plan: On Saturday hemodialysis at least at rehab. patient is tolerating dialysis so far but critically ill in shock and requiring norepi with massive volume overload. Family have changed him to DNR. Ongoing goals of care discussion likely cm if patient continues to deteriorate. since starting HD in February per report, he's not had an easy time Had HD 05/25 for 3L UF; at [facility] d/t lower BP no UF x several days prior to admission Had HD 05/27 for 4.25L HD 05/28 for 3L UF >>>see below for pt comments on this day had planned HD today but d/t staffing issues unable to run pt today; will run tomorrow >unless [employer] or change in goals of care, plan dialysis as tolerated to improve volume/fluid status with pressors if necessary >>pt has liver cirrhosis on imaging and TBili is climbing; ?mild jaundice on exam/ ? etiology ? cardiac >> he is likely to be very challenging to dialyze effectively longer term d/t anemia, hypotension w/ liver disease outside of a hospital even on max dose midodrine > he's not taking midodrine consistently d/t MS; did review this w/ daughter who is aware, understands >also concerning >not sustainable to stay in ICU on pressors /midodrine longer term for HD; that said he's only started having fluid removal this week after days w/o it adn BP are improving somewhat (2) Counseling regarding goals of care: Plan: no escalation of care planned >> no reintubation; pressor/abtx/dialysis OK trying to optimize volume status and hopefully MS/ability to participate in his care but concerns even if we get him through this about intermediate sustainability of HD w/ liver failure in addition to ESRD hypotension and volume overload will be always be challenging for him clinically as dialysis pt with liver failure (see above) even on max dose midodrine; likely to be quite challenging to keep him at good volume status w/o at least intermittent pressor support >>>note also that during HD on 05/28 pt stated 3 times "no more dialysis" and yelled "stop, stop, stop" during last 15 min of treatment. He was confused on that day but was consistent/clear on these comments.daughter states this is not new or uncommon continue goals of care discussions; did review neph status w/ daughter (3) Acute on chronic systolic (congestive) heart failure: Plan: Volume overload with anasarca and pulmonary edema: Will attempt aggressive UF as tolerated if pt willing. We may need to escalate pressors to allow fluid removal. 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 Hemoglobin today 8.9 No iron therapy indicated with treatment but will give max dose epo w/ HD Admission and Anticipated Discharge Date Admission Date: May 24, 2024 Subjective seen on late afternoon rounds; daughter Merly at bedside; pt remains confused and at times agitated > picking, removing o2 and lines; calling out all afternoon; daughter reports he frequently even before current acute illness he would state did nto want dialysis but also would state did not want to and was therefore not ready to stop Review of Systems 2 Review of Systems: All systems reviewed & are unremarkable except as noted in Subjective Physical Exam 2 Constitutional: well developed, well nourished, + altered mental status and cooperative; no acute distress Eyes: EOM intact bilaterally; sclerae not anicteric (? slightly icteric) ENMT: Mouth: + dry oral mucous membranes Respiratory: normal respiratory effort Auscultation: + diminished lung sounds Cardiovascular: Rate/Rhythm: regular rate and regular rhythm Extremities: + edema (2-3+ dependent, trace peripheral) Gastrointestinal (Abdomen): Inspection/Auscultation: normal bowel sounds P ercussion/Palpation: abdomen soft; abdomen nontender Musculoskeletal: Extremities: + abnormal strength (no mvt BLE; BUE weak) Skin: no rashes, warm and dry Results & Data Vital Signs (Past 12 Hours) Vital Signs Temp Pulse Resp BP Pulse Ox O2 Del Method O2 Flow Rate 05/29/24 08:14 36.9 C 83 14 95/59 L 95 Nasal Cannula 2 05/29/24 08:00 36.9 C 88 18 87/62 L 91 Room Air 05/29/24 07:30 36.9 C 85 14 100/63 100 Nasal Cannula 2 05/29/24 07:00 Nasal Cannula 2 05/29/24 07:00 36.9 C 82 13 93/60 L 100 Nasal Cannula 2 05/29/24 06:21 81 05/29/24 02:42 37.1 C 85 14 98 Nasal Cannula 2 05/29/24 02:30 94/57 L 05/29/24 02:30 94/57 L 05/29/24 02:30 94/57 L 05/29/24 02:30 94/57 L 05/29/24 02:30 94/57 L 05/29/24 02:30 94/57 L 05/29/24 02:27 37.1 C 88 16 96 05/29/24 02:06 37.1 C 104 H 20 94 05/29/24 02:00 99/69 L 05/29/24 02:00 99/69 L 05/29/24 02:00 99/69 L 05/29/24 02:00 99/69 L 05/29/24 02:00 99/69 L 05/29/24 02:00 99/69 L 05/29/24 02:00 99/69 L 05/29/24 02:00 99/69 L 05/29/24 02:00 99/69 L 05/29/24 02:00 99/69 L 05/29/24 02:00 99/69 L 05/29/24 02:00 99/69 L 05/29/24 02:00 99/69 L 05/29/24 02:00 99/69 L 05/29/24 02:00 99/69 L 05/29/24 02:00 99/69 L 05/29/24 02:00 99/69 L 05/29/24 01:54 37.1 C 112 H 17 97 05/29/24 01:36 37.0 C 118 H 18 97 Nasal Cannula 2 05/29/24 01:30 86/65 L 05/29/24 01:30 86/65 L 05/29/24 01:30 86/65 L 05/29/24 01:30 86/65 L 05/29/24 01:30 86/65 L 05/29/24 01:30 86/65 L 05/29/24 01:30 86/65 L 05/29/24 01:30 86/65 L 05/29/24 01:30 86/65 L 05/29/24 01:30 86/65 L 05/29/24 01:30 86/65 L 05/29/24 01:30 86/65 L 05/29/24 01:30 86/65 L 05/29/24 01:30 86/65 L 05/29/24 01:24 37.1 C 96 H 14 94 Nasal Cannula 2 05/29/24 01:06 37.1 C 109 H 15 96 Nasal Cannula 2 05/29/24 01:00 106/63 05/29/24 01:00 106/63 05/29/24 01:00 106/63 05/29/24 01:00 106/63 05/29/24 01:00 106/63 05/29/24 01:00 106/63 05/29/24 01:00 106/63 05/29/24 01:00 106/63 05/29/24 01:00 106/63 05/29/24 00:51 37.1 C 98 H 13 96 05/29/24 00:34 97 H 05/29/24 00:30 37.2 C 95 H 15 94 05/29/24 00:30 93/60 L 05/29/24 00:30 93/60 L 05/29/24 00:30 93/60 L 05/29/24 00:30 93/60 L 05/29/24 00:30 93/60 L 05/29/24 00:30 93/60 L 05/29/24 00:30 93/60 L 05/29/24 00:30 93/60 L 05/29/24 00:15 37.2 C 109 H 16 96 05/29/24 00:15 93/64 L 05/29/24 00:15 93/64 L 05/29/24 00:15 93/64 L 05/29/24 00:15 93/64 L 05/29/24 00:15 93/64 L 05/29/24 00:15 93/64 L 05/29/24 00:15 93/64 L 05/29/24 00:00 104/59 L 05/29/24 00:00 104/59 L 05/29/24 00:00 104/59 L 05/29/24 00:00 104/59 L 05/29/24 00:00 104/59 L 05/28/24 23:54 37.1 C 112 H 23 100 05/28/24 23:47 84/58 L 05/28/24 23:47 84/58 L 05/28/24 23:47 84/58 L 05/28/24 23:47 84/58 L 05/28/24 23:47 84/58 L 05/28/24 23:45 37.1 C 112 H 19 96 05/28/24 23:33 37.1 C 111 H 28 H 94 05/28/24 23:30 87/63 L 05/28/24 23:30 87/63 L 05/28/24 23:30 87/63 L 05/28/24 23:30 87/63 L 05/28/24 23:30 87/63 L 05/28/24 23:30 87/63 L 05/28/24 23:27 37.1 C 94 H 15 93 Nasal Cannula 2 05/28/24 23:15 91/68 L 05/28/24 23:15 91/68 L 05/28/24 22:30 88/62 L 05/28/24 22:30 88/62 L 05/28/24 22:30 88/62 L 05/28/24 22:30 88/62 L 05/28/24 22:30 88/62 L 05/28/24 22:21 37.2 C 110 H 21 95 Nasal Cannula 2 05/28/24 22:15 92/53 L 05/28/24 22:15 92/53 L 05/28/24 22:15 92/53 L 05/28/24 22:15 92/53 L 05/28/24 22:15 92/53 L 05/28/24 22:09 37.2 C 103 H 25 H 95 05/28/24 22:06 37.2 C 109 H 20 95 05/28/24 22:00 94/60 L 05/28/24 22:00 94/60 L 05/28/24 22:00 94/60 L 05/28/24 22:00 94/60 L 05/28/24 22:00 94/60 L 05/28/24 22:00 94/60 L 05/28/24 22:00 94/60 L 05/28/24 22:00 94/60 L 05/28/24 21:45 90/61 L 05/28/24 21:45 90/61 L 05/28/24 21:45 90/61 L 05/28/24 21:45 90/61 L 05/28/24 21:39 37.2 C 112 H 17 94 Nasal Cannula 2 05/28/24 21:33 37.2 C 103 H 18 94 Nasal Cannula 2 05/28/24 21:30 85/55 L 05/28/24 21:30 85/55 L 05/28/24 21:27 37.2 C 115 H 19 95 Nasal Cannula 2 05/28/24 21:15 83/60 L 05/28/24 21:15 83/60 L 05/28/24 21:15 83/60 L 05/28/24 21:15 83/60 L 05/28/24 21:15 83/60 L 05/28/24 21:15 83/60 L 05/28/24 21:15 83/60 L 05/28/24 21:15 83/60 L 05/28/24 21:09 37.2 C 105 H 15 94 05/28/24 21:03 37.2 C 97 H 15 96 05/28/24 21:00 86/57 L 05/28/24 21:00 86/57 L 05/28/24 21:00 86/57 L 05/28/24 21:00 86/57 L 05/28/24 21:00 86/57 L 05/28/24 21:00 86/57 L 05/28/24 20:48 37.3 C 94 H 15 94 05/28/24 20:45 83/56 L 05/28/24 20:45 83/56 L 05/28/24 20:45 83/56 L 05/28/24 20:45 83/56 L 05/28/24 20:41 Nasal Cannula 2 Laboratory Results 05/29/24 04:12 05/29/24 04:12 (4) Multiple open wounds of lower extremity, complicated Encounter type: initial encounter Laterality: left Qualified Code(s): S 81.802A - Unspecified open wound, left lower leg, initial encounter
--- NOTE | 2024-05-29 09:17 | Critical Care Progress Note ---
Date of Service May 29, 2024 Assessment & Plan (1) Septic shock: (2) Endotracheally intubated: (3) Anemia in ESRD (end-stage renal disease): (4) Cellulitis: (5) Dementia: (6) Insulin-requiring or dependent type II diabetes mellitus: (7) Severe aortic stenosis: (8) Acute metabolic encephalopathy: (9) Vascular dementia: (10) Peripheral arterial occlusive disease: (11) Chronic systolic heart failure: (12) Severe sepsis due to methicillin resistant Staphylococcus aureus (MRSA) with acute organ dysfunction: (13) Ischemic cardiomyopathy: (14) Volume overload: Plan 78-year-old male with a history of cardiomyopathy, aortic stenosis, diabetes and dementia presenting to the hospital with septic shock of his left lower extremity and respiratory failure. Neuro - Extubated off all sedation. Delirium precautions as able. Patient with a reported history of possible cognitive impairment and prior CVA. Patient without medical decision-making capacity. Cardiac - Unable to take oral midodrine due to aspiration risk. Continue with Levophed which is being actively titrated. Suspect chronic cardiogenic component playing a factor as well given aortic stenosis and systolic heart failure. Unable to take statin or Plavix. Continue statin when able Continue Plavix when able for history of prior CVA. Echo 05/15/2024 with systolic cardiomyopathy with an EF of 30% and moderate to borderline severe aortic valve stenosis. Patient with bouts of atrial fibrillation with rapid ventricular response. Levophed switched to phenylephrine. Poor candidate for amiodarone or digoxin given liver and renal failure respectively. If patient displays signs of more persistent A-fib, will start anticoagulation. Respiratory - Patient saturating well on low-flow oxygen. Exam findings consistent with pulmonary edema. GI - No acute concerns Diet: N.p.o. pending speech consult. SUP: PPI Bowel regimen: Miralax Patient with mild transaminitis which appears to be downtrending. Recheck INR today. RENAL/LYTES - Nephrology on board. HD day-to-day at this point. Status post removal of 4.25 L of fluid yesterday and goal removal of 3 L today. Anuric Will hold on any continued IVF Hemodialysis catheter appropriately positioned and working well per vascular surgery. Unclear how much longer patient will be able to tolerate hemodialysis given worsening hemodynamics and atrial fibrillation. ENDO - BG 140-180 per [facility] guidelines. Check TSH. Weaning hydrocortisone. HEME/ONC/OTHER - Hemoglobin stable. Receives Epo w/ HD No clinical signs of bleeding Transfuse for HGB < 7 or as otherwise directed by Nephrology or Cardiology ID - Zosyn and Vancomycin continued for complicated cellulitis of the left lower extremity. Complete 7 days of antibiotics. MRI foot fortunately did not reveal any osteomyelitis. Appreciate podiatry input and debridement. Blood cultures negative today. Wound consult. Consider ID consult as he continues to improve for length of antibiotic treatment LINES/TUBES/DRAINS - R chest permcath PIV x2 DVT PROPHYLAXIS - Heparin 5000 units 3 times daily DISPOSITION - ICU. Lengthy discussion with patient's family at bedside including his daughters regarding overall goals of care and severity of patient's illness. They understand he is gravely ill and his mortality risk is very high at this time. They are taking things on a day-to-day basis and would consider comfort measures only should he continue to have a decline or lack of response to her current regimen. He is now a DNR/DNI in the event of a cardiopulmonary arrest. Discussed on multidisciplinary rounds. CRITICAL CARE TIME I have personally spent 50 minutes of critical care time in the direct management of this patient. This is a life/limb threatening event. This includes time spent evaluating patient, direct bedside care, chart review, placing orders, interpretation of diagnostic studies, discussion with consultants, patient, and family members, as well as other required patient management activities. This time is exclusive of all separately billable procedures, and teaching time and separate from and in addition to any other critical care service time. Admission and Anticipated Discharge Date Admission Date: May 24, 2024 Subjective Patient tired delirious. Difficult to understand him as his words are garbled. Patient remains on phenylephrine. Review of Systems Review of Systems: Unobtainable due to cognitive status Physical Exam Physical Exam: Constitutional: Elderly and frail appearing male in no apparent distress. Occasionally distressed. Eyes: Pupils are equal round and reactive to light. Conjunctivae are normal. Anicteric sclera. Ears nose, mouth and throat: No perioral cyanosis Neck: Trachea is midline. Visual inspection is normal. Respiratory: Coarse bilaterally with diminishment at the bases. Mild crackles. Cardiovascular: Regular rate and rhythm. No murmurs. 2+ edema in the lower extremities. Gastrointestinal: Normal bowel sounds, soft, nontender and nondistended. No hepatosplenomegaly noted. Musculoskeletal: No cyanosis. Patient is able to move all extremities. Skin: Multiple eschar is noted in the left lower extremity. Pulses intact. Neurologic: Garbled speech. No other focal deficits. Psychiatric: Oriented x 1. Results & Data Results & Data Vital Signs (Past 12 Hours) Vital Signs Temp Pulse Resp BP Pulse Ox O2 Del Method O2 Flow Rate 05/29/24 08:30 36.9 C 85 16 97/61 L 98 Nasal Cannula 2 05/29/24 08:14 36.9 C 83 14 95/59 L 95 Nasal Cannula 2 05/29/24 08:00 36.9 C 88 18 87/62 L 91 Room Air 05/29/24 07:30 36.9 C 85 14 100/63 100 Nasal Cannula 2 05/29/24 07:00 Nasal Cannula 2 05/29/24 07:00 36.9 C 82 13 93/60 L 100 Nasal Cannula 2 05/29/24 06:21 81 05/29/24 02:42 37.1 C 85 14 98 Nasal Cannula 2 05/29/24 02:30 94/57 L 05/29/24 02:30 94/57 L 05/29/24 02:30 94/57 L 05/29/24 02:30 94/57 L 05/29/24 02:30 94/57 L 05/29/24 02:30 94/57 L 05/29/24 02:27 37.1 C 88 16 96 05/29/24 02:06 37.1 C 104 H 20 94 05/29/24 02:00 99/69 L 05/29/24 02:00 99/69 L 05/29/24 02:00 99/69 L 05/29/24 02:00 99/69 L 05/29/24 02:00 99/69 L 05/29/24 02:00 99/69 L 05/29/24 02:00 99/69 L 05/29/24 02:00 99/69 L 05/29/24 02:00 99/69 L 05/29/24 02:00 99/69 L 05/29/24 02:00 99/69 L 05/29/24 02:00 99/69 L 05/29/24 02:00 99/69 L 05/29/24 02:00 99/69 L 05/29/24 02:00 99/69 L 05/29/24 02:00 99/69 L 05/29/24 02:00 99/69 L 05/29/24 01:54 37.1 C 112 H 17 97 05/29/24 01:36 37.0 C 118 H 18 97 Nasal Cannula 2 05/29/24 01:30 86/65 L 05/29/24 01:30 86/65 L 05/29/24 01:30 86/65 L 05/29/24 01:30 86/65 L 05/29/24 01:30 86/65 L 05/29/24 01:30 86/65 L 05/29/24 01:30 86/65 L 05/29/24 01:30 86/65 L 05/29/24 01:30 86/65 L 05/29/24 01:30 86/65 L 05/29/24 01:30 86/65 L 05/29/24 01:30 86/65 L 05/29/24 01:30 86/65 L 05/29/24 01:30 86/65 L 05/29/24 01:24 37.1 C 96 H 14 94 Nasal Cannula 2 05/29/24 01:06 37.1 C 109 H 15 96 Nasal Cannula 2 05/29/24 01:00 106/63 05/29/24 01:00 106/63 05/29/24 01:00 106/63 05/29/24 01:00 106/63 05/29/24 01:00 106/63 05/29/24 01:00 [id number] 05/29/24 01:00 106/63 05/29/24 01:00 106/63 05/29/24 01:00 106/63 05/29/24 00:51 37.1 C 98 H 13 96 05/29/24 00:34 97 H 05/29/24 00:30 37.2 C 95 H 15 94 05/29/24 00:30 93/60 L 05/29/24 00:30 93/60 L 05/29/24 00:30 93/60 L 05/29/24 00:30 93/60 L 05/29/24 00:30 93/60 L 05/29/24 00:30 93/60 L 05/29/24 00:30 93/60 L 05/29/24 00:30 93/60 L 05/29/24 00:15 37.2 C 109 H 16 96 05/29/24 00:15 93/64 L 05/29/24 00:15 93/64 L 05/29/24 00:15 93/64 L 05/29/24 00:15 93/64 L 05/29/24 00:15 93/64 L 05/29/24 00:15 93/64 L 05/29/24 00:15 93/64 L 05/29/24 00:00 104/59 L 05/29/24 00:00 104/59 L 05/29/24 00:00 104/59 L 05/29/24 00:00 104/59 L 05/29/24 00:00 104/59 L 05/28/24 23:54 37.1 C 112 H 23 100 05/28/24 23:47 84/58 L 05/28/24 23:47 84/58 L 05/28/24 23:47 84/58 L 05/28/24 23:47 84/58 L 05/28/24 23:47 84/58 L 05/28/24 23:45 37.1 C 112 H 19 96 05/28/24 23:33 37.1 C 111 H 28 H 94 05/28/24 23:30 87/63 L 05/28/24 23:30 87/63 L 05/28/24 23:30 87/63 L 05/28/24 23:30 87/63 L 05/28/24 23:30 87/63 L 05/28/24 23:30 87/63 L 05/28/24 23:27 37.1 C 94 H 15 93 Nasal Cannula 2 05/28/24 23:15 91/68 L 05/28/24 23:15 91/68 L 05/28/24 22:30 88/62 L 05/28/24 22:30 88/62 L 05/28/24 22:30 88/62 L 05/28/24 22:30 88/62 L 05/28/24 22:30 88/62 L 05/28/24 22:21 37.2 C 110 H 21 95 Nasal Cannula 2 05/28/24 22:15 92/53 L 05/28/24 22:15 92/53 L 05/28/24 22:15 92/53 L 05/28/24 22:15 92/53 L 05/28/24 22:15 92/53 L 05/28/24 22:09 37.2 C 103 H 25 H 95 05/28/24 22:06 37.2 C 109 H 20 95 05/28/24 22:00 94/60 L 05/28/24 22:00 94/60 L 05/28/24 22:00 94/60 L 05/28/24 22:00 94/60 L 05/28/24 22:00 94/60 L 05/28/24 22:00 94/60 L 05/28/24 22:00 94/60 L 05/28/24 22:00 94/60 L 05/28/24 21:45 90/61 L 05/28/24 21:45 90/61 L 05/28/24 21:45 90/61 L 05/28/24 21:45 90/61 L 05/28/24 21:39 37.2 C 112 H 17 94 Nasal Cannula 2 05/28/24 21:33 37.2 C 103 H 18 94 Nasal Cannula 2 05/28/24 21:30 85/55 L 05/28/24 21:30 85/55 L 05/28/24 21:27 37.2 C 115 H 19 95 Nasal Cannula 2 05/28/24 21:15 83/60 L 05/28/24 21:15 83/60 L 05/28/24 21:15 83/60 L 05/28/24 21:15 83/60 L 05/28/24 21:15 83/60 L 05/28/24 21:15 83/60 L 05/28/24 21:15 83/60 L 05/28/24 21:15 83/60 L Coding Level of Care Code 30067 CRITICAL CARE 1ST 30-74M Diagnoses Septic shock A41.9; R65.21 Endotracheally intubated Z97.8 Anemia in ESRD (end-stage renal disease) N18.6; D63.1 Cellulitis L03.90 Dementia F03.90 Insulin-requiring or dependent type II diabetes mellitus E11.9; Z79.4 Severe aortic stenosis I35.0 Acute metabolic encephalopathy G93.41 Vascular dementia F01.50 Peripheral arterial occlusive disease I77.9 Chronic systolic heart failure I50.22 Severe sepsis due to methicillin resistant Staphylococcus aureus (MRSA) with acute organ dysfunction A41.02; R65.20 Ischemic cardiomyopathy I25.5 Volume overload E87.70
--- NOTE | 2024-05-29 09:55 | Pharmacy Report ---
Pharmacy PK ABX Note - Date of Service May 29, 2024 - Assessment and Plan Assessment 05/29: * Day #6 of 7 vancomycin + zosyn for cellulitis. 05/28: * Day #5 vancomycin + zosyn for LE cellulitis. Dialyzed this AM. 05/27: * Day # 4 vancomycin + zosyn for LE cellulitis. Receiving dialysis today. 05/26: * Day #3 vancomycin (+ zosyn) for LE cellulitis. Blood cultures (-) at 48h. MRI with no evidence of osteomyelitis. 05/25: * Day #2 vancomycin. Plan for HD this afternoon. Blood cultures NGTD. 05/24: * 78 year old M on vancomycin for treatment of sepsis 2nd cellulitis r/o osteomyelitis. ED status at this time - ongoing inpatient orders pending. * Pertinent microbiologic data includes: Positive MRSA Nasal Swab * PMH: dialysis dependent since February, recent hx MRSA bacteremia at OSH, recently at [facility] May 16 up until admission here, severe aortic stenosis, dementia, Plan Vancomycin * Vancomycin 500mg IV X 1 dose yesterday post HD. * Random vancomycin level 22.5mcg/mL this AM (pre-HD level) which is above goal. ? plan for HD today. Even if dialyzed would still be within goal for day #7 of therapy. * Will not re-dose with vancomycin today as will be therapeutic for at least 7 days of therapy. No further doses/levels for 7 day treatment course. Pharmacy will continue to follow and will adjust dose/frequency as necessary. Thank you. Pharmacy has transitioned to AUC monitoring for vancomycin. AUC/CHRIS is the preferred PK/PD target and is associated with decreased risk of nephrotoxicity compared to traditional trough targets.
[2024-05-29 09:58] LABS: Albumin Level 2.7 gm/dl (3.4-5.0); Bilirubin Direct 2.3 mg/dl (0-0.2); Bilirubin,Total 3.4 mg/dl (0.2-1.0); Total Protein 5.6 gm/dl (6.0-8.3)
--- NOTE | 2024-05-29 10:05 | Electrocardiogram Report ---
Test Reason : Blood Pressure : */* mmHG Vent. Rate : 103 BPM Atrial Rate : * BPM P-R Int : * ms QRS Dur : 168 ms QT Int : 406 ms P-R-T Axes : * 189 7 degrees QTcB Int : 531 ms Poor data quality, interpretation may be adversely affected Atrial fibrillation with rapid ventricular response with premature ventricular or aberrantly conducte d complexes Right bundle branch block Possible Old Septal infarct Abnormal ECG When compared with ECG of 24-May-2024 08:52, Atrial fibrillation has replaced Sinus rhythm Confirmed by Ronnell Pena ([id number] on 05/29/2024 10:04:54 AM Referred By: REFERRED SELF Confirmed By: Ronnell Pena
[2024-05-29 11:05] LABS: INR 1.9 (0.9-1.1); Prothrombin Time 19.5 Seconds (9.0-12.0)
[2024-05-29] MEDS: INSULIN ASPART PER UNIT CHARGE SC SCH ×2 (11:52→17:20)
--- NOTE | 2024-05-29 12:17 | Pharmacy Report ---
Pharmacy Glycemic Short Note 2 - Date of Service May 29, 2024 - Glycemic Short BSG Results (Last 24 hours): 05/28/24 05/28/24 05/28/24 12:10 17:20 17:52 Glucose 139 H POC Glucose 152 H 157 H 05/28/24 05/29/24 05/29/24 20:30 00:04 04:04 Glucose POC Glucose 123 H 157 H 142 H 05/29/24 05/29/24 04:12 11:48 Glucose 146 H POC Glucose 162 H OUTPATIENT ANTIDIABETIC REGIMEN: * NovoLog sliding scale, 0-10 units based on blood sugar per med rec * per outpatient fill history - patient on Tresiba, filled in Mar 2024 HbA1c: 5.7% (05/25) ASSESSMENT: 05/29: * BSGs within goal the last couple of days- [phone]/dL the last 24h. Received 10 units of basal and 5 units of bolus insulin yesterday. * Continues on steroid wean- currently hydrocortisone 50mg IV q8h, IV antibiotics. Extubated 05/27. Has been NPO- diet advanced to full liquid today. * Continue same Lantus parameters at HS (10-15 units depending on BSG). Novolog adjusted to q6 - no change to parameters for now. 05/26: * BSGs largely within goal the last 24h. Received 10 units of basal and 9 units of bolus insulin yesterday. * Remains intubated, sedated and requiring vasopressor support. Continues on h ydrocortisone 50mg IV q6h. NPO. * Lantus HS per scale depending on BSG- increased for tonight. Novolog q4 tightened. 05/25: * BSGs [phone]/dL the last 24h. Received 15 units of basal and 3 units of bolus insulin yesterday. * Intubated today. Continues on IV antibiotics and vasopressor support. Hydrocortisone 50mg IV q6h initiated. * Lantus 0/10/15 units HS depending on BSG. Novolog tightened and adjusted to q4. If remains hyperglycemic and on pressors, may require insulin infusion. 05/24: * 78 YO M, ESRD on HD, critically ill from presumed sepsis, high concern for MRSA bacteremia from multiple skin wounds, possible osteo of left foot on IV Vancomycin. * Type 2 DM, unknown control, A1c pending, patient unable to report how he takes any insulin at this time. * Will begin patient on NovoLog CF & CR only and PRN basal tonight if needed and titrate to goal blood sugar. PLAN FOR INPATIENT GLYCEMIC CONTROL: * Basal insulin * Lantus 10/15 units HS depending on BSG * Bolus insulin * NovoLog per scale ACHS or Q4hrs while NPO * Goal Range: Low 110 mg/dL - High 140 mg/dL * Correction Factor: 15 mg/dL/unit * Nutritional / Prandial insulin per carb ratio of 1 unit per 8 grams CHO consumed
--- NOTE | 2024-05-29 13:04 | Hospitalist Progress Note ---
Date of Service May 29, 2024 Assessment & Plan (1) Septic shock: (2) Severe sepsis due to methicillin resistant Staphylococcus aureus (MRSA) with acute organ dysfunction: (3) Acute metabolic encephalopathy: (4) Acute on chronic systolic (congestive) heart failure: (5) Severe aortic stenosis: (6) Insulin-requiring or dependent type II diabetes mellitus: (7) Chronic ulcer of left foot with fat layer exposed: (8) Peripheral arterial occlusive disease: (9) Multiple open wounds of lower extremity, complicated: (10) Multiple open wounds of upper extremity: (11) Wound of sacral region: (12) End stage renal disease on dialysis: (13) Vascular dementia: (14) Ischemic cardiomyopathy: (15) Palliative care by specialist: (16) Cirrhosis of liver: (17) Paroxysmal atrial fibrillation: (18) Demand ischemia: Plan Patient remains critically ill remains on norepinephrine for blood pressure support. Respiratory status has stabilized on 2 L of oxygen. Patient continues to tolerate hemodialysis on pressors. Continue hemodialysis as directed by nephrology. Reviewed nephrology notes. Concerned about patient's ability to tolerate hemodialysis off IV pressors/out of ICU. Communication with hand binder stripper this morning. Patient now with paroxysmal atrial fibrillation. This is just further indication that patient is having multiorgan dysfunction due to his multiple comorbidities and continues to support extremely poor prognosis. He did speak with family yesterday as well. Family continuing to work through decisions on life-sustaining treatments and goals of care. Continue antibiotics, consider 10-day course for cellulitis. Currently day 6 Weigh risks benefits of anticoagulation with atrial fibrillation Admission and Anticipated Discharge Date Admission Date: May 24, 2024 Subjective Patient's alertness is waxing and waning. Seems deny any pain or shortness of breath. Over the last 24 hours new issue with paroxysmal A-fib Physical Exam Physical Exam: Constitutional: Awake, confused chronically ill in appearance HEENT: Mucous membranes moist. Lungs: Decreased breath sounds, crackles CV: S1-S2, regular, systolic murmur Abdomen: Soft, nontender, nondistended, edema and abdominal pannus Extremities: Continued thick pitting/anasarca edema up through thighs and pelvis Neuro: Confused speech, encephalopathy, generalized weakness Psych: Pulling at medical devices, requiring restraints Results & Data Results & Data Vital Signs (Past 12 Hours) Vital Signs Temp Pulse Resp BP Pulse Ox O2 Del Method O2 Flow Rate 05/29/24 12:32 36.9 C 79 16 100/60 99 Nasal Cannula 2 05/29/24 12:00 37.0 C 78 14 96/61 L 96 Nasal Cannula 2 05/29/24 11:30 37.0 C 77 13 105/65 98 Nasal Cannula 2 05/29/24 11:06 37.0 C 85 18 94/66 L 96 Nasal Cannula 2 05/29/24 11:00 37.0 C 86 21 102/61 97 Nasal Cannula 2 05/29/24 10:31 37.0 C 85 14 104/67 98 Nasal Cannula 2 05/29/24 10:00 37.0 C 85 14 95/60 L 99 Nasal Cannula 2 05/29/24 09:30 37.0 C 84 16 99/58 L 99 Nasal Cannula 2 05/29/24 09:00 36.9 C 82 14 98/57 L 98 Nasal Cannula 2 05/29/24 08:30 36.9 C 85 16 97/61 L 98 Nasal Cannula 2 05/29/24 08:14 36.9 C 83 14 95/59 L 95 Nasal Cannula 2 05/29/24 08:00 36.9 C 88 18 87/62 L 91 Room Air 05/29/24 07:30 36.9 C 85 14 100/63 100 Nasal Cannula 2 05/29/24 07:00 Nasal Cannula 2 05/29/24 07:00 36.9 C 82 13 93/60 L 100 Nasal Cannula 2 05/29/24 06:21 81 05/29/24 02:42 37.1 C 85 14 98 Nasal Cannula 2 05/29/24 02:30 94/57 L 05/29/24 02:30 94/57 L 05/29/24 02:30 94/57 L 05/29/24 02:30 94/57 L 05/29/24 02:30 94/57 L 05/29/24 02:30 94/57 L 05/29/24 02:27 37.1 C 88 16 96 05/29/24 02:06 37.1 C 104 H 20 94 05/29/24 02:00 99/69 L 05/29/24 02:00 99/69 L 05/29/24 02:00 99/69 L 05/29/24 02:00 99/69 L 05/29/24 02:00 99/69 L 05/29/24 02:00 99/69 L 05/29/24 02:00 99/69 L 05/29/24 02:00 99/69 L 05/29/24 02:00 99/69 L 05/29/24 02:00 99/69 L 05/29/24 02:00 99/69 L 05/29/24 02:00 99/69 L 05/29/24 02:00 99/69 L 05/29/24 02:00 99/69 L 05/29/24 02:00 99/69 L 05/29/24 02:00 99/69 L 05/29/24 02:00 99/69 L 05/29/24 01:54 37.1 C 112 H 17 97 05/29/24 01:36 37.0 C 118 H 18 97 Nasal Cannula 2 05/29/24 01:30 86/65 L 05/29/24 01:30 86/65 L 05/29/24 01:30 86/65 L 05/29/24 01:30 86/65 L 05/29/24 01:30 86/65 L 05/29/24 01:30 86/65 L 05/29/24 01:30 86/65 L 05/29/24 01:30 86/65 L 05/29/24 01:30 86/65 L 05/29/24 01:30 86/65 L 05/29/24 01:30 86/65 L 05/29/24 01:30 86/65 L 05/29/24 01:30 86/65 L 05/29/24 01:30 86/65 L 05/29/24 01:24 37.1 C 96 H 14 94 Nasal Cannula 2 05/29/24 01:06 37.1 C 109 H 15 96 Nasal Cannula 2 05/29/24 01:00 106/63 05/29/24 01:00 106/63 05/29/24 01:00 106/63 05/29/24 01:00 106/63 05/29/24 01:00 106/63 05/29/24 01:00 106/63 05/29/24 01:00 106/63 05/29/24 01:00 106/63 05/29/24 01:00 106/63 Diagnostic Findings Reviewed imaging, laboratory and diagnostic studies. Pertinent findings as below. Hemoglobin 8.9 WBCs 11.1, improved INR 1.9 Creatinine 3.35 TSH 3.5 Personally reviewed EKG from last evening, bundle branch block, atrial fibrillation Troponin 132, increased from previous (9) Multiple open wounds of lower extremity, complicated Encounter type: initial encounter Laterality: left Qualified Code(s): S81.802A - Unspecified open wound, left lower leg, initial encounter
[2024-05-30 05:32] LABS: Basophils # (auto) 0.01 K/uL (0.00-0.20); Basophils % (auto) 0.1 %; Hematocrit (blood only) 28.1 % (42.0-52.0); Hemoglobin 8.8 g/dl (14.0-18.0); Immature Granulocytes # (auto) 0.12 K/uL (0.01-0.20); Immature Granulocytes % (auto) 0.9 %; Mean Corpuscular Hemoglobin 33.7 pg (25.0-34.0); Mean Corpuscular Hgb Conc 31.3 g/dL (32.0-36.0); Mean Corpuscular Volume 107.7 fL (80.0-100.0); Mean Platelet Volume 11.6 fL (9.4-12.4); Monocytes # (auto) 1.07 K/uL (0.11-0.59); Monocytes % (auto) 7.6 %; Neutrophils % (auto) 86.4 %; Nucleated RBC # (auto) 0.75 K/uL (0.00-0.12); Nucleated RBC % (auto) 5.3 %; Platelet Count 140 K/uL (130-400); RDW Coefficient of Variation 21.7 % (11.5-14.5); RDW Standard Deviation 81.2 fL (36.4-46.3); Red Blood Count 2.61 M/uL (4.70-6.10)
[2024-05-30 06:04] LABS: BUN Creatinine Ratio 14.3 (10-20); Calcium 8.5 mg/dl (8.6-10.3); Creatinine Clr Calc Pharmacy 17.9 ml/min; Potassium 4.8 mmol/L (3.5-5.1)
[2024-05-30 06:44] LABS: Anisocytosis Present; Echinocytes 2+; Polychromasia 1+
[2024-05-30] MEDS ORDERED: SODIUM CHLORIDE 0.9% 1,000 ML IV PRN (07:00)
--- NOTE | 2024-05-30 10:52 | Critical Care Progress Note ---
Date of Service May 30, 2024 Assessment & Plan (1) Septic shock: (2) Anemia in ESRD (end-stage renal disease): (3) Cellulitis: (4) Dementia: (5) Insulin-requiring or dependent type II diabetes mellitus: (6) Severe aortic stenosis: (7) Acute metabolic encephalopathy: (8) Vascular dementia: (9) Peripheral arterial occlusive disease: (10) Chronic systolic heart failure: (11) Severe sepsis due to methicillin resistant Staphylococcus aureus (MRSA) with acute organ dysfunction: (12) Ischemic cardiomyopathy: (13) Volume overload: Plan 78-year-old male with a history of cardiomyopathy, aortic stenosis, diabetes and dementia presenting to the hospital with septic shock of his left lower extremity and respiratory failure. Neuro - Extubated and off all sedation. Delirium precautions as able. Patient with a reported history of possible cognitive impairment and prior CVA. Patient without medical decision-making capacity. Cardiac - Continue oral midodrine and Plavix crushed up in applesauce. Patient on phenylephrine due to brief episode of atrial fibrillation earlier this hospitalization. Continue statin Continue Plavix when able for history of prior CVA. Echo 05/15/2024 with systolic cardiomyopathy with an EF of 30% and moderate to borderline severe aortic valve stenosis. Patient with bouts of atrial fibrillation with rapid ventricular response. Levophed switched to phenylephrine. Poor candidate for amiodarone or digoxin given liver and renal failure respectively. If patient displays signs of more persistent A-fib, will start anticoagulation. Respiratory - Patient saturating well on low-flow oxygen. Exam findings consistent with pulmonary edema. GI - No acute concerns Diet: N.p.o. pending speech consult. SUP: PPI Bowel regimen: Miralax Patient with mild transaminitis which appears to be downtrending. Recheck INR today. RENAL/LYTES - Nephrology on board. HD day-to-day at this point. Status post removal of 4.25 L of fluid yesterday and goal removal of 3 L today. Anuric Will hold on any continued IVF Hemodialysis catheter appropriately positioned and working well per vascular surgery. Unclear how much longer patient will be able to tolerate hemodialysis given worsening hemodynamics and atrial fibrillation. ENDO - BG 140-180 per [facility] guidelines. Check TSH. Weaning hydrocortisone. HEME/ONC/OTHER - Hemoglobin stable. Receives Epo w/ HD No clinical signs of bleeding Transfuse for HGB < 7 or as otherwise directed by Nephrology or Cardiology ID - Zosyn and Vancomycin continued for complicated cellulitis of the left lower extremity. Completing 7 days of antibiotics. MRI foot fortunately did not reveal any osteomyelitis. Appreciate podiatry input and debridement. Blood cultures negative today. Wound consult. LINES/TUBES/DRAINS - R chest permcath PIV x2 DVT PROPHYLAXIS - Heparin 5000 units 3 times daily DISPOSITION - ICU while patient remains on vasopressors. Will need to discuss family regarding possible transfer to LTAC if they wish to pursue continue dialysis given his hypotension related to hemodialysis sessions. Discussed on multidisciplinary rounds. CRITICAL CARE TIME I have personally spent 41 minutes of critical care time in the direct management of this patient. This is a life/limb threatening event. This includes time spent evaluating patient, direct bedside care, chart review, placing orders, interpretation of diagnostic studies, discussion with consultants, patient, and family members, as well as other required patient management activities. This time is exclusive of all separately billable procedures, and teaching time and separate from and in addition to any other critical care service time. Admission and Anticipated Discharge Date Admission Date: May 24, 2024 Subjective Patient seen and examined. Remains delirious. Currently has soft mitten restraints on due to lack of ability following instruction and potential risk of pulling out his IVs and dialysis catheter. Remains on low-dose phenylephrine. Review of Systems Review of Systems: All systems reviewed & are unremarkable except as noted in HPI & below Physical Exam Physical Exam: Constitutional: Elderly and frail appearing male in no apparent distress. Occasionally distressed. Eyes: Pupils are equal round and reactive to light. Conjunctivae are normal. Anicteric sclera. Ears nose, mouth and throat: No perioral cyanosis Neck: Trachea is midline. Visual inspection is normal. Respiratory: Coarse bilaterally with diminishment at the bases. Mild crackles. Cardiovascular: Regular rate and rhythm. No murmurs. 2+ edema in the lower extremities. Gastrointestinal: Normal bowel sounds, soft, nontender and nondistended. No hepatosplenomegaly noted. Musculoskeletal: No cyanosis. Patient is able to move all extremities. Skin: Multiple eschar is noted in the left lower extremity. Pulses intact. Neurologic: Garbled speech. No other focal deficits. Psychiatric: Oriented x 1. Results & Data Results & Data Vital Signs (Past 12 Hours) Vital Signs Pulse Resp BP Pulse Ox O2 Del Method O2 Flow Rate 05/30/24 05:30 82 18 96 Room Air 05/30/24 05:12 80 17 98 05/30/24 05:00 108/71 05/30/24 05:00 108/71 05/30/24 05:00 108/05/30/24 05:00 108/71 05/30/24 05:00 108/05/30/24 05:00 108/71 05/30/24 05:00 108/05/30/24 05:00 108/71 05/30/24 05:00 108/05/30/24 05:00 108/05/30/24 05:00 108/71 05/30/24 05:00 108/71 05/30/24 05:00 108/05/30/24 05:00 108/71 05/30/24 05:00 108/05/30/24 05:00 108/05/30/24 05:00 108/05/30/24 05:00 108/05/30/24 05:00 108/05/30/24 04:57 81 26 H 98 05/30/24 04:36 76 18 97 05/30/24 04:03 81 19 99 05/30/24 04:00 96/59 L 05/30/24 04:00 96/59 L 05/30/24 04:00 96/59 L 05/30/24 04:00 96/59 L 05/30/24 04:00 96/59 L 05/30/24 04:00 96/59 L 05/30/24 04:00 96/59 L 05/30/24 04:00 96/59 L 05/30/24 04:00 96/59 L 05/30/24 04:00 96/59 L 05/30/24 04:00 96/59 L 05/30/24 04:00 96/59 L 05/30/24 04:00 96/59 L 05/30/24 04:00 96/59 L 05/30/24 04:00 96/59 L 05/30/24 04:00 96/59 L 05/30/24 04:00 96/59 L 05/30/24 04:00 96/59 L 05/30/24 04:00 96/59 L 05/30/24 04:00 96/59 L 05/30/24 04:00 96/59 L 05/30/24 04:00 96/59 L 05/30/24 03:51 76 12 98 05/30/24 03:30 82 24 98 05/30/24 03:27 76 12 100 Nasal Cannula 2 05/30/24 03:00 100/57 L 05/30/24 03:00 100/57 L 05/30/24 03:00 100/57 L 05/30/24 03:00 100/57 L 05/30/24 03:00 100/57 L 05/30/24 02:42 83 20 95 05/30/24 02:00 83 24 100 05/30/24 02:00 [id number] 05/30/24 02:00 11105/30/24 02:00 05/30/24 02:00 11105/30/24 02:00 11105/30/24 02:00 11105/30/24 02:00 05/30/24 02:00 05/30/24 02:00 11105/30/24 02:00 11105/30/24 02:00 11105/30/24 02:00 11105/30/24 02:00 11105/30/24 02:00 05/30/24 02:00 [id number] 05/30/24 02:00 11105/30/24 02:00 11105/30/24 01:03 81 21 100 05/30/24 01:00 97/66 L 05/30/24 01:00 97/66 L 05/30/24 01:00 97/66 L 05/30/24 01:00 97/66 L 05/30/24 01:00 97/66 L 05/30/24 01:00 97/66 L 05/30/24 01:00 97/66 L 05/30/24 01:00 97/66 L 05/30/24 01:00 97/66 L 05/30/24 01:00 97/66 L 05/30/24 01:00 97/66 L 05/30/24 01:00 97/66 L 05/30/24 01:00 97/66 L 05/30/24 01:00 97/66 L 05/30/24 01:00 97/66 L 05/30/24 01:00 97/66 L 05/30/24 01:00 97/66 L 05/30/24 01:00 97/66 L 05/30/24 01:00 97/66 L 05/30/24 01:00 97/66 L 05/30/24 01:00 97/66 L 05/30/24 01:00 97/66 L 05/30/24 00:54 82 17 100 05/30/24 00:10 81 05/30/24 00:06 77 15 99 05/29/24 23:30 75 10 L 99 05/29/24 23:06 75 10 L 100 Nasal Cannula 2 05/29/24 23:00 101/65 05/29/24 23:00 101/65 05/29/24 23:00 101/65 05/29/24 23:00 [id number] 05/29/24 23:00 101/65 05/29/24 23:00 [id number] 05/29/24 23:00 [id number] 05/29/24 22:54 77 13 100 Coding Level of Care Code 53682 CRITICAL CARE 1ST 30-74M Diagnoses Septic shock A41.9; R65.21 Anemia in ESRD (end-stage renal disease) N18.6; D63.1 Cellulitis L03.90 Dementia F03.90 Insulin-requiring or dependent type II diabetes mellitus E11.9; Z79.4 Severe aortic stenosis I35.0 Acute metabolic encephalopathy G93.41 Vascular dementia F01.50 Peripheral arterial occlusive disease I77.9 Chronic systolic heart failure I50.22 Severe sepsis due to methicillin resistant Staphylococcus aureus (MRSA) with acute organ dysfunction A41.02; R65.20 Ischemic cardiomyopathy I25.5 Volume overload E87.70
[2024-05-30 11:45] LABS: Albumin Level 2.9 gm/dl (3.4-5.0); Bilirubin Direct 2.4 mg/dl (0-0.2); Bilirubin,Total 3.8 mg/dl (0.2-1.0); Total Protein 5.7 gm/dl (6.0-8.3)
[2024-05-30] MEDS: PHYTONADIONE 10 MG in DEXTROSE 5% 50 ML IV ONE (13:51)
--- NOTE | 2024-05-30 13:59 | Nephrology Progress Note ---
Date of Service May 30, 2024 Assessment & Plan (1) End stage renal disease on dialysis: Plan: On Saturday hemodialysis at least at rehab. patient is not tolerating dialysis well and requiring norepi with massive volume overload. Family have changed him to DNR. Ongoing goals of care discussion likely cm if patient continues to deteriorate. since starting HD in February per report, he's not had an easy time Dialysis was planned today but ICU Attending expressed concern due to ongoing hemodynamic instability and A.fib with RVR. Dr. Rivers and I have agreed to hold off dialysis. Family meeting planned later today. I recommend ENERGY CONSERVATION DIRECTOR as patient is not tolerating HD at this point. (2) Acute on chronic systolic (congestive) heart failure: Plan: Volume overload with anasarca and pulmonary edema: EF 30-35%; moderate to borderline severe but possible pseudoAS w/ lower EF; moderate MR w/ LA dilation; Ongoing goals discussion (3) Multiple open wounds of lower extremity, complicated: Plan: On empiric vancomycin and pip-tazo; MRI w/o e/o OM; blood cxs neg Follow-up wound care recs (4) Anemia in ESRD (end-stage renal disease): Plan: On May 17, TSAT 52% and ferritin 960. Hemoglobin today 8.8 No iron therapy indicated with treatment but will give max dose epo w/ HD Admission and Anticipated Discharge Date Admission Date: May 24, 2024 Subjective Seen for ESRD. patient is minimally responsive at a level to give history. ongoing goals of care discussion. Continues to have hemodynamic instability Review of Systems 2 Review of Systems: Unable to obtain due to intubation Physical Exam 2 Physical Exam: General exam: Disoriented Respiratory system: Clear breath sounds bilaterally. Gastrointestinal: Abdomen is soft, non distended, non tender, bowel sounds are present CVS: Regular rate and rhythm. No murmurs, rubs or gallops Musculoskeletal: No joint or muscle tenderness Extremities: Non tender, no edema, peripheral pulses are present Neuro: Disoriented, no focal deficits Skin: No rashes Results & Data Vital Signs (Past 12 Hours) Vital Signs Pulse Resp BP Pulse Ox O2 Del Method O2 Flow Rate 05/30/24 12:02 80 22 93 05/30/24 12:00 101/55 L 05/30/24 11:44 80 21 94 05/30/24 11:38 82 17 83 L 05/30/24 11:02 80 22 95 05/30/24 11:00 99/62 L 05/30/24 10:47 77 17 88 L 05/30/24 10:30 77 18 91 05/30/24 10:00 108/62 05/30/24 10:00 71 14 93 05/30/24 09:30 78 17 91 05/30/24 09:09 83 14 93 05/30/24 09:00 103/60 05/30/24 07:30 Room Air 05/30/24 05:30 82 18 96 Room Air 05/30/24 05:12 80 17 98 05/30/24 05:00 108/71 05/30/24 05:00 108/71 05/30/24 05:00 108/71 05/30/24 05:00 108/71 05/30/24 05:00 108/71 05/30/24 05:00 108/71 05/30/24 05:00 108/71 05/30/24 05:00 108/71 05/30/24 05:00 108/71 05/30/24 05:00 108/71 05/30/24 05:00 108/71 05/30/24 05:00 108/71 05/30/24 05:00 108/71 05/30/24 05:00 108/71 05/30/24 05:00 108/71 05/30/24 05:00 108/71 05/30/24 05:00 108/71 05/30/24 05:00 108/71 05/30/24 05:00 108/71 05/30/24 04:57 81 26 H 98 05/30/24 04:36 76 18 97 05/30/24 04:03 81 19 99 05/30/24 04:00 96/59 L 05/30/24 04:00 96/59 L 05/30/24 04:00 96/59 L 05/30/24 04:00 96/59 L 05/30/24 04:00 96/59 L 05/30/24 04:00 96/59 L 05/30/24 04:00 96/59 L 05/30/24 04:00 96/59 L 05/30/24 04:00 96/59 L 05/30/24 04:00 96/59 L 05/30/24 04:00 96/59 L 05/30/24 04:00 96/59 L 05/30/24 04:00 96/59 L 05/30/24 04:00 96/59 L 05/30/24 04:00 96/59 L 05/30/24 04:00 96/59 L 05/30/24 04:00 96/59 L 05/30/24 04:00 96/59 L 05/30/24 04:00 96/59 L 05/30/24 04:00 96/59 L 05/30/24 04:00 96/59 L 05/30/24 04:00 96/59 L 05/30/24 03:51 76 12 98 05/30/24 03:30 82 24 98 05/30/24 03:27 76 12 100 Nasal Cannula 2 05/30/24 03:00 100/57 L 05/30/24 03:00 100/57 L 05/30/24 03:00 100/57 L 05/30/24 03:00 100/57 L 05/30/24 03:00 100/57 L 05/30/24 02:42 83 20 95 05/30/24 02:00 83 24 100 05/30/24 02:00 05/30/24 02:00 05/30/24 02:00 05/30/24 02:00 05/30/24 02:00 05/30/24 02:00 05/30/24 02:00 05/30/24 02:00 05/30/24 02:00 05/30/24 02:00 05/30/24 02:00 05/30/24 02:00 05/30/24 02:00 05/30/24 02:00 05/30/24 02:00 05/30/24 02:00 05/30/24 02:00 Laboratory Results 05/30/24 04:50 05/30/24 05/30/24 04:50 11:15 WBC 14.10 H RBC 2.61 L MCV 107.7 H MCH 33.7 MCHC 31.3 L RDW Std Deviation 81.2 H RDW Coeff of Elayne 21.7 H Plt Count 140 MPV 11.6 Albumin 2.9 L (3) Multiple open wounds of lower extremity, complicated Encounter type: initial encounter Laterality: left Qualified Code(s): S 81.802A - Unspecified open wound, left lower leg, initial encounter
--- NOTE | 2024-05-30 14:02 | Hospitalist Progress Note ---
Date of Service May 30, 2024 Assessment & Plan (1) Septic shock: (2) Severe sepsis due to methicillin resistant Staphylococcus aureus (MRSA) with acute organ dysfunction: (3) Acute metabolic encephalopathy: (4) Acute on chronic systolic (congestive) heart failure: (5) Severe aortic stenosis: (6) Insulin-requiring or dependent type II diabetes mellitus: (7) Chronic ulcer of left foot with fat layer exposed: (8) Peripheral arterial occlusive disease: (9) Multiple open wounds of lower extremity, complicated: (10) Multiple open wounds of upper extremity: (11) Wound of sacral region: (12) End stage renal disease on dialysis: (13) Vascular dementia: (14) Ischemic cardiomyopathy: (15) Palliative care by specialist: (16) Cirrhosis of liver: (17) Paroxysmal atrial fibrillation: (18) Demand ischemia: (19) Sepsis with acute liver failure and septic shock: (20) Acute hyperactive delirium due to another medical condition: Plan Patient continues to be critically ill. Requiring phenylephrine for blood pressure support Patient now with progressive signs of liver dysfunction most likely due to septic shock Continuing with hemodialysis, attempting to remove fluid as blood pressure allows, IV pressors required Patient with more significant delirium in the setting of prolonged ICU stay Communication with subscription crew leader, initial plan was to treat cellulitis for 7 days, however, with increasing WBCs and procalcitonin may need to consider more prolonged IV antibiotics, increasing WBCs may be due to hydrocortisone. Defer antibiotic duration to subscription crew leader No recurrence of atrial fibrillation, continue to hold anticoagulation at this time, continue heparin for VTE prophylaxis Phone conversation with patient's daughter Merly. She understands that his prognosis is still extremely guarded and is continuing to talk with her siblings and work through coming to terms with the patient's poor prognosis and determining what their goals of care and what the patient's goals of care would be. She will continue to update us as they make decisions. Admission and Anticipated Discharge Date Admission Date: May 24, 2024 Subjective Reported patient more delirious over the last 24 hours. Did not sleep most of the night. Patient answered some simple questions. Denied pain Physical Exam Physical Exam: Constitutional: Drowsy, chronically ill in appearance, HEENT: Mucous membranes moist. Scleral icterus Lungs: Decreased breath sounds, crackles throughout CV: S1-S2, regular Abdomen: Soft, nontender, nondistended Extremities: Thick anasarca in upper thighs and dependent portions starting to improve Neuro: Globally weak, open eyes to calling his name, disoriented Psych: At times pulling at medical devices Derm: Jaundiced Results & Data Results & Data Vital Signs (Past 12 Hours) Vital Signs Pulse Resp BP Pulse Ox O2 Del Method O2 Flow Rate 05/30/24 12:02 80 22 93 05/30/24 12:00 101/55 L 05/30/24 11:44 80 21 94 05/30/24 11:38 82 17 83 L 05/30/24 11:02 80 22 95 05/30/24 11:00 99/62 L 05/30/24 10:47 77 17 88 L 05/30/24 10:30 77 18 91 05/30/24 10:00 108/62 05/30/24 10:00 71 14 93 05/30/24 09:30 78 17 91 05/30/24 09:09 83 14 93 05/30/24 09:00 103/60 05/30/24 07:30 Room Air 05/30/24 05:30 82 18 96 Room Air 05/30/24 05:12 80 17 98 05/30/24 05:00 10805/30/24 05:00 10805/30/24 05:00 10805/30/24 05:00 10805/30/24 05:00 10805/30/24 05:00 10805/30/24 05:00 10805/30/24 05:00 10805/30/24 05:00 10805/30/24 05:00 10805/30/24 05:00 10805/30/24 05:00 10805/30/24 05:00 10805/30/24 05:00 10805/30/24 05:00 10805/30/24 05:00 10805/30/24 05:00 10805/30/24 05:00 10805/30/24 05:00 10805/30/24 04:57 81 26 H 98 05/30/24 04:36 76 18 97 05/30/24 04:03 81 19 99 05/30/24 04:00 96/59 L 05/30/24 04:00 96/59 L 05/30/24 04:00 96/59 L 05/30/24 04:00 96/59 L 05/30/24 04:00 96/59 L 05/30/24 04:00 96/59 L 05/30/24 04:00 96/59 L 05/30/24 04:00 96/59 L 05/30/24 04:00 96/59 L 05/30/24 04:00 96/59 L 05/30/24 04:00 96/59 L 05/30/24 04:00 96/59 L 05/30/24 04:00 96/59 L 05/30/24 04:00 96/59 L 05/30/24 04:00 96/59 L 05/30/24 04:00 96/59 L 05/30/24 04:00 96/59 L 05/30/24 04:00 96/59 L 05/30/24 04:00 96/59 L 05/30/24 04:00 96/59 L 05/30/24 04:00 96/59 L 05/30/24 04:00 96/59 L 05/30/24 03:51 76 12 98 05/30/24 03:30 82 24 98 05/30/24 03:27 76 12 100 Nasal Cannula 2 05/30/24 03:00 100/57 L 05/30/24 03:00 100/57 L 05/30/24 03:00 100/57 L 05/30/24 03:00 100/57 L 05/30/24 03:00 100/57 L 05/30/24 02:42 83 20 95 05/30/24 02:00 83 24 100 05/30/24 02:00 05/30/24 02:00 05/30/24 02:00 05/30/24 02:00 05/30/24 02:00 05/30/24 02:00 05/30/24 02:00 05/30/24 02:00 05/30/24 02:00 05/30/24 02:00 05/30/24 02:00 05/30/24 02:00 05/30/24 02:00 05/30/24 02:00 05/30/24 02:00 05/30/24 02:00 05/30/24 02:00 Diagnostic Findings Reviewed imaging, laboratory and diagnostic studies. Pertinent findings as below. WBCs 14.1, increasing Hemoglobin 8.8, stable Creatinine 4.1, on hemodialysis LFTs reviewed, trending upwards Ammonia 16 Procalcitonin 6.0 increasing despite appropriate antibiotics, difficult to interpret in the setting of septic shock and end-stage renal disease (9) Multiple open wounds of lower extremity, complicated Encounter type: initial encounter Laterality: left Qualified Code(s): S81.802A - Unspecified open wound, left lower leg, initial encounter
[2024-05-30] MEDS: HEPARIN SOD (PORCINE) 1000 UNIT/ML IV SCH (17:12)
[2024-05-30] MEDS: HEPARIN SOD (PORCINE) 1000 UNIT/ML IV ONE (17:12)
[2024-05-30] MEDS: EPOETIN ALFA 20,000 UNITS/ML VIAL IV ONE (17:12)
[2024-05-31 06:30] LABS: Hematocrit (blood only) 31.1 % (42.0-52.0); Hemoglobin 9.8 g/dl (14.0-18.0); Mean Corpuscular Hemoglobin 33.8 pg (25.0-34.0); Mean Corpuscular Hgb Conc 31.5 g/dL (32.0-36.0); Mean Corpuscular Volume 107.2 fL (80.0-100.0); Mean Platelet Volume 11.9 fL (9.4-12.4); Nucleated RBC # (auto) 1.02 K/uL (0.00-0.12); Nucleated RBC % (auto) 6.7 %; Platelet Count 119 K/uL (130-400); RDW Coefficient of Variation 22.5 % (11.5-14.5); RDW Standard Deviation 78.7 fL (36.4-46.3); White Blood Count 15.23 K/ul (4.8-10.8)
[2024-05-31 07:03] LABS: BUN Creatinine Ratio 15.8 (10-20); Creatinine Clr Calc Pharmacy 15.6 ml/min; Magnesium 2.4 mg/dl (1.7-2.4)
[2024-05-31 07:15] LABS: Anisocytosis Present; Basophils # (auto) 0.01 K/uL (0.00-0.20); Basophils % (auto) 0.1 %; Immature Granulocytes # (auto) 0.13 K/uL (0.01-0.20); Immature Granulocytes % (auto) 0.9 %; Lymphocytes # (auto) 0.52 K/uL (1.20-3.40); Lymphocytes % (auto) 3.4 %; Macrocytosis Present; Monocytes # (auto) 0.65 K/uL (0.11-0.59); Monocytes % (auto) 4.3 %; Neutrophils # (auto) 13.92 K/uL (1.40-6.50); Neutrophils % (auto) 91.3 %; Polychromasia 2+; Tear Drop Cells 1+
[2024-05-31] MEDS: HYDROCORTISONE SOD 50 MG in SYRINGE 0 ML IV SCH (08:45)
[2024-05-31 09:06] LABS: Albumin Level 2.7 gm/dl (3.4-5.0); Bilirubin Direct 2.5 mg/dl (0-0.2); Bilirubin,Total 3.9 mg/dl (0.2-1.0); Total Protein 5.7 gm/dl (6.0-8.3)
[2024-05-31 09:15] LABS: INR 1.5 (0.9-1.1); Prothrombin Time 16.1 Seconds (9.0-12.0)
--- NOTE | 2024-05-31 09:55 | Critical Care Progress Note ---
Date of Service May 31, 2024 Assessment & Plan (1) Septic shock: (2) Anemia in ESRD (end-stage renal disease): (3) Cellulitis: (4) Dementia: (5) Insulin-requiring or dependent type II diabetes mellitus: (6) Severe aortic stenosis: (7) Acute metabolic encephalopathy: (8) Vascular dementia: (9) Peripheral arterial occlusive disease: (10) Chronic systolic heart failure: (11) Severe sepsis due to methicillin resistant Staphylococcus aureus (MRSA) with acute organ dysfunction: (12) Ischemic cardiomyopathy: (13) Volume overload: Plan 78-year-old male with a history of cardiomyopathy, aortic stenosis, diabetes and dementia presenting to the hospital with septic shock of his left lower extremity and respiratory failure. Neuro - Extubated and off all sedation. Delirium precautions as able. Patient with a reported history of possible cognitive impairment and prior CVA. Patient without medical decision-making capacity. Remains severely delirious. Cardiac - Continue oral midodrine and Plavix crushed up in applesauce. Currently off vasopressors, but tenuous especially with need for dialysis. Continue statin Continue Plavix when able for history of prior CVA. Echo 05/15/2024 with systolic cardiomyopathy with an EF of 30% and moderate to borderline severe aortic valve stenosis. Patient with bouts of atrial fibrillation with rapid ventricular response and a run of asymptomatic V. tach 05/30/2024. Respiratory - Patient saturating well on low-flow oxygen. Exam findings consistent with pulmonary edema. GI - No acute concerns Diet: Continue full liquid diet per speech therapy recommendations. SUP: PPI Bowel regimen: Miralax Patient with transaminitis and coagulopathy likely related to congestive hepatopathy and shock liver. Will give a dose of vitamin K today. Monitor LFTs daily. RENAL/LYTES - Nephrology on board. HD day-to-day at this point. Dialysis held/07/19 due to concerns of hemodynamic instability and tachyarrhythmias. Anuric Will hold on any continued IVF Hemodialysis catheter appropriately positioned and working well per vascular surgery. Unclear how much longer patient will be able to tolerate hemodialysis given worsening hemodynamics and atrial fibrillation. This was extensively discussed with the patient's family including his daughters over the course of several days. Family is ill and decision made regarding whether they would like to proceed with continued routine ICU care and dialysis versus comfort measures only. Appreciate palliative care input. ENDO - BG 140-180 per [facility] guidelines. Check TSH. Weaning hydrocortisone. HEME/ONC/OTHER - Hemoglobin stable. Receives Epo w/ HD No clinical signs of bleeding Transfuse for HGB < 7 or as otherwise directed by Nephrology or Cardiology Patient with mild thrombocytopenia possibly from liver dysfunction. Will hold heparin DVT prophylaxis. Peripheral smear ordered. ID - Zosyn and Vancomycin continued for complicated cellulitis of the left lower extremity. Completed 7 days of antibiotics. MRI foot fortunately did not reveal any osteomyelitis. Appreciate podiatry input and debridement. If patient spikes fevers or has worsening hemodynamic instability, will repeat cultures. Blood cultures negative today. Wound consult. LINES/TUBES/DRAINS - R chest permcath PIV x2 DVT PROPHYLAXIS - Hold chemical prophylaxis at this time as platelet count has suddenly dropped to 119. DISPOSITION - ICU for today given tenuous blood pressures and potential need for hemodialysis. Family uncertain with how to proceed with care and her children between the notion of continuing routine critical care with intermittent hemodialysis versus proceeding with comfort measures. They are aware that the patient is gravely ill and has a high likelihood of mortality within the next 90 days given his acute conditions of liver failure, pulmonary edema, delirium, hypertension in addition to his chronic issues. Discussed on multidisciplinary rounds. CRITICAL CARE TIME I have personally spent 36 minutes of critical care time in the direct managemen t of this patient. This is a life/limb threatening event. This includes time spent evaluating patient, direct bedside care, chart review, placing orders, interpretation of diagnostic studies, discussion with consultants, patient, and family members, as well as other required patient management activities. This time is exclusive of all separately billable procedures, and teaching time and separate from and in addition to any other critical care service time. Admission and Anticipated Discharge Date Admission Date: May 24, 2024 Subjective Patient remains with delirium. Off vasopressors this morning. Currently on 2 L nasal cannula. Soft restraints in place due to patient's delirium and spontaneity potentially resulting in removal of IV access and impairment of patient care. Review of Systems Review of Systems: Unobtainable due to cognitive status Physical Exam Physical Exam: Constitutional: Elderly and frail appearing male in no apparent distress. Occasionally distressed. Eyes: Pupils are equal round and reactive to light. Conjunctivae are normal. Anicteric sclera. Ears nose, mouth and throat: No perioral cyanosis Neck: Trachea is midline. Visual inspection is normal. Respiratory: Coarse bilaterally with diminishment at the bases. Mild crackles. Cardiovascular: Regular rate and rhythm. No murmurs. 2+ edema in the lower extremities. Gastrointestinal: Normal bowel sounds, soft, nontender and nondistended. No hepatosplenomegaly noted. Musculoskeletal: No cyanosis. Patient is able to move all extremities. Skin: Multiple eschar is noted in the left lower extremity. Pulses intact. Neurologic: Garbled speech. No other focal deficits. Psychiatric: Oriented x 1. Results & Data Results & Data Vital Signs (Past 12 Hours) Vital Signs Temp Pulse Resp BP Pulse Ox O2 Del Method O2 Flow Rate 05/31/24 07:03 86 21 95 05/31/24 07:00 102/65 05/31/24 06:45 84 17 95 05/31/24 06:33 82 13 95 Nasal Cannula 2 05/31/24 06:03 80 13 97 05/31/24 06:00 93/62 L 05/31/24 06:00 93/62 L 05/31/24 06:00 93/62 L 05/31/24 06:00 93/62 L 05/31/24 06:00 93/62 L 05/31/24 06:00 93/62 L 05/31/24 06:00 93/62 L 05/31/24 05:57 78 11 L 97 05/31/24 05:40 99/63 L 05/31/24 05:40 99/63 L 05/31/24 05:40 99/63 L 05/31/24 05:40 99/63 L 05/31/24 05:40 99/63 L 05/31/24 05:40 99/63 L 05/31/24 05:40 99/63 L 05/31/24 05:40 99/63 L 05/31/24 05:30 86 20 97 Nasal Cannula 2 05/31/24 05:06 85 21 97 05/31/24 05:01 139/84 05/31/24 05:01 139/05/31/24 05:01 139/84 05/31/24 05:01 139/84 05/31/24 05:01 139/84 05/31/24 05:01 139/84 05/31/24 05:01 139/84 05/31/24 05:01 139/84 05/31/24 05:01 139/84 05/31/24 05:01 139/84 05/31/24 05:01 139/84 05/31/24 04:51 82 15 96 05/31/24 04:48 79 13 96 Nasal Cannula 2 05/31/24 04:09 81 16 97 05/31/24 04:01 147/89 H 05/31/24 04:01 147/89 H 05/31/24 04:01 147/89 H 05/31/24 04:01 147/89 H 05/31/24 04:01 147/89 H 05/31/24 04:01 147/89 H 05/31/24 04:01 147/89 H 05/31/24 04:01 147/89 H 05/31/24 04:01 147/89 H 05/31/24 04:01 147/89 H 05/31/24 04:01 147/89 H 05/31/24 04:01 147/89 H 05/31/24 04:01 147/89 H 05/31/24 04:01 147/89 H 05/31/24 04:01 147/89 H 05/31/24 04:01 147/89 H 05/31/24 03:01 36.5 C 153/89 H 96 Nasal Cannula 2 05/31/24 03:01 153/89 H 05/31/24 03:01 153/89 H 05/31/24 02:48 81 16 97 Nasal Cannula 2 05/31/24 02:33 81 15 97 Nasal Cannula 2 05/31/24 02:06 81 16 97 05/31/24 02:01 139/86 05/31/24 02:01 139/86 05/31/24 02:01 139/86 05/31/24 02:01 139/86 05/31/24 02:01 139/86 05/31/24 02:01 139/86 05/31/24 02:01 139/86 05/31/24 02:01 139/86 05/31/24 02:01 139/86 05/31/24 02:01 139/86 05/31/24 02:01 139/86 05/31/24 02:01 139/86 05/31/24 02:01 139/86 05/31/24 02:01 139/86 05/31/24 02:01 139/86 05/31/24 02:01 139/86 05/31/24 02:01 139/86 05/31/24 02:01 139/86 05/31/24 01:57 83 23 98 Nasal Cannula 2 05/31/24 01:30 80 16 96 Nasal Cannula 2 05/31/24 01:01 117/74 05/31/24 01:01 117/74 05/31/24 01:01 117/74 05/31/24 01:01 117/74 05/31/24 01:01 117/74 05/31/24 01:01 117/74 05/31/24 01:01 117/74 05/31/24 01:01 117/74 05/31/24 01:01 117/74 05/31/24 01:01 117/74 05/31/24 01:01 117/74 05/31/24 01:01 117/74 05/31/24 01:01 117/74 05/31/24 01:01 117/74 05/31/24 01:01 117/74 05/31/24 01:01 117/74 05/31/24 01:01 117/74 05/31/24 01:01 117/74 05/31/24 01:01 117/74 05/31/24 01:01 117/74 05/31/24 01:01 117/74 05/31/24 01:01 117/74 05/31/24 01:01 117/74 05/31/24 01:01 36.5 C 117/74 05/31/24 00:15 77 05/31/24 00:12 79 21 97 Nasal Cannula 2 05/31/24 00:01 113/80 05/31/24 00:01 113/80 05/31/24 00:01 113/80 05/31/24 00:01 113/80 05/30/24 23:30 78 16 96 05/30/24 23:06 77 14 97 05/30/24 23:01 130/80 05/30/24 23:01 130/80 05/30/24 23:01 130/80 05/30/24 23:01 130/80 05/30/24 23:01 130/80 05/30/24 23:01 130/80 05/30/24 23:01 130/80 05/30/24 23:01 130/80 05/30/24 23:01 130/80 05/30/24 23:01 130/80 05/30/24 23:01 130/80 05/30/24 23:01 130/80 05/30/24 23:01 130/80 05/30/24 23:01 130/80 05/30/24 23:01 130/80 05/30/24 23:01 130/80 05/30/24 22:57 78 17 97 05/30/24 22:56 Nasal Cannula 4 05/30/24 22:01 125/71 05/30/24 22:01 125/71 05/30/24 22:01 125/71 05/30/24 22:01 125/05/30/24 22:01 125/05/30/24 22:01 125/05/30/24 22:01 125/71 05/30/24 22:01 125/71 05/30/24 22:01 125/71 05/30/24 22:01 125/71 05/30/24 22:01 125/71 05/30/24 22:01 125/05/30/24 22:01 125/71 05/30/24 22:01 125/71 05/30/24 22:01 125/71 05/30/24 22:01 125/71 05/30/24 22:01 125/71 05/30/24 22:01 125/71 05/30/24 22:00 77 15 98 Coding Level of Care Code 45910 CRITICAL CARE 1ST 30-74M Diagnoses Septic shock A41.9; R65.21 Anemia in ESRD (end-stage renal disease) N18.6; D63.1 Cellulitis L03.90 Dementia F03.90 Insulin-requiring or dependent type II diabetes mellitus E11.9; Z79.4 Severe aortic stenosis I35.0 Acute metabolic encephalopathy G93.41 Vascular dementia F01.50 Peripheral arterial occlusive disease I77.9 Chronic systolic heart failure I50.22 Severe sepsis due to methicillin resistant Staphylococcus aureus (MRSA) with acute organ dysfunction A41.02; R65.20 Ischemic cardiomyopathy I25.5 Volume overload E87.70
--- NOTE | 2024-05-31 10:07 | Nephrology Progress Note ---
Date of Service May 31, 2024 Assessment & Plan (1) End stage renal disease on dialysis: Plan: On Saturday hemodialysis at least at rehab. patient is not tolerating dialysis well and requiring norepi with massive volume overload. Family have changed him to DNR. Ongoing goals of care discussion likely cm if patient continues to deteriorate. since starting HD in February per report, he's not had an easy time Dialysis was held yesterday due to hemodynamic instability and A.fib with RVR. I recommend [facility] LABORATORY TECHNICIAN as patient is not tolerating HD at this point. (2) Acute on chronic systolic (congestive) heart failure: Plan: Volume overload with anasarca and pulmonary edema: EF 30-35%; moderate to borderline severe but possible pseudoAS w/ lower EF; moderate MR w/ LA dilation; Ongoing goals discussion (3) Multiple open wounds of lower extremity, complicated: Plan: On empiric vancomycin and pip-tazo; MRI w/o e/o OM; blood cxs neg Follow-up wound care recs (4) Anemia in ESRD (end-stage renal disease): Plan: On May 17, TSAT 52% and ferritin 960. Hemoglobin today 9.8 Admission and Anticipated Discharge Date Admission Date: May 24, 2024 Subjective Seen for ESRD. patient is confused and unable to give history. he has mittens on both hands. BP remains low. Review of Systems 2 Review of Systems: Unable to obtain due to AMS Physical Exam 2 Physical Exam: General exam: Disoriented. Has mittens for restraint Respiratory system: Clear breath sounds bilaterally. Gastrointestinal: Abdomen is soft, non distended, non tender, bowel sounds are present CVS: Regular rate and rhythm. No murmurs, rubs or gallops Musculoskeletal: No joint or muscle tenderness Extremities: Non tender, no edema, peripheral pulses are present Neuro: Disoriented, no focal deficits Skin: No rashes Results & Data Vital Signs (Past 12 Hours) Vital Signs Temp Pulse Resp BP Pulse Ox O2 Del Method O2 Flow Rate 05/31/24 07:03 86 21 95 05/31/24 07:00 102/65 05/31/24 06:45 84 17 95 05/31/24 06:33 82 13 95 Nasal Cannula 2 05/31/24 06:03 80 13 97 05/31/24 06:00 93/62 L 05/31/24 06:00 93/62 L 05/31/24 06:00 93/62 L 05/31/24 06:00 93/62 L 05/31/24 06:00 93/62 L 05/31/24 06:00 93/62 L 05/31/24 06:00 93/62 L 05/31/24 05:57 78 11 L 97 05/31/24 05:40 99/63 L 05/31/24 05:40 99/63 L 05/31/24 05:40 99/63 L 05/31/24 05:40 99/63 L 05/31/24 05:40 99/63 L 05/31/24 05:40 99/63 L 05/31/24 05:40 99/63 L 05/31/24 05:40 99/63 L 05/31/24 05:30 86 20 97 Nasal Cannula 2 05/31/24 05:06 85 21 97 05/31/24 05:01 139/84 05/31/24 05:01 139/84 05/31/24 05:01 139/84 05/31/24 05:01 139/84 05/31/24 05:01 139/84 05/31/24 05:01 139/84 05/31/24 05:01 139/84 05/31/24 05:01 139/84 05/31/24 05:01 139/84 05/31/24 05:01 139/84 05/31/24 05:01 139/84 05/31/24 04:51 82 15 96 05/31/24 04:48 79 13 96 Nasal Cannula 2 05/31/24 04:09 81 16 97 05/31/24 04:01 147/89 H 05/31/24 04:01 147/89 H 05/31/24 04:01 147/89 H 05/31/24 04:01 147/89 H 05/31/24 04:01 147/89 H 05/31/24 04:01 147/89 H 05/31/24 04:01 147/89 H 05/31/24 04:01 147/89 H 05/31/24 04:01 147/89 H 05/31/24 04:01 147/89 H 05/31/24 04:01 147/89 H 05/31/24 04:01 147/89 H 05/31/24 04:01 147/89 H 05/31/24 04:01 147/89 H 05/31/24 04:01 147/89 H 05/31/24 04:01 147/89 H 05/31/24 03:01 36.5 C 153/89 H 96 Nasal Cannula 2 05/31/24 03:01 153/89 H 05/31/24 03:01 153/89 H 05/31/24 02:48 81 16 97 Nasal Cannula 2 05/31/24 02:33 81 15 97 Nasal Cannula 2 05/31/24 02:06 81 16 97 05/31/24 02:01 139/86 05/31/24 02:01 139/86 05/31/24 02:01 139/86 05/31/24 02:01 139/86 05/31/24 02:01 139/86 05/31/24 02:01 139/86 05/31/24 02:01 139/86 05/31/24 02:01 139/86 05/31/24 02:01 139/86 05/31/24 02:01 139/86 05/31/24 02:01 139/86 05/31/24 02:01 139/86 05/31/24 02:01 139/86 05/31/24 02:01 139/86 05/31/24 02:01 139/86 05/31/24 02:01 139/86 05/31/24 02:01 139/86 05/31/24 02:01 139/86 05/31/24 01:57 83 23 98 Nasal Cannula 2 05/31/24 01:30 80 16 96 Nasal Cannula 2 05/31/24 01:01 05/31/24 01:01 05/31/24 01:01 05/31/24 01:01 05/31/24 01:01 05/31/24 01:01 05/31/24 01:01 05/31/24 01:01 05/31/24 01:01 05/31/24 01:01 05/31/24 01:01 05/31/24 01:01 05/31/24 01:01 11705/31/24 01:01 11705/31/24 01:01 11705/31/24 01:01 11705/31/24 01:01 11705/31/24 01:01 11705/31/24 01:01 11705/31/24 01:01 11705/31/24 01:01 11705/31/24 01:01 11705/31/24 01:01 11705/31/24 01:01 36.5 C 11774 05/31/24 00:15 77 05/31/24 00:12 79 21 97 Nasal Cannula 2 05/31/24 00:01 113/80 05/31/24 00:01 113/80 05/31/24 00:01 113/80 05/31/24 00:01 113/80 05/30/24 23:30 78 16 96 05/30/24 23:06 77 14 97 05/30/24 23:01 130/80 05/30/24 23:01 130/80 05/30/24 23:01 130/80 05/30/24 23:01 130/80 05/30/24 23:01 130/80 05/30/24 23:01 130/80 05/30/24 23:01 130/80 05/30/24 23:01 130/80 05/30/24 23:01 130/80 05/30/24 23:01 130/80 05/30/24 23:01 130/80 05/30/24 23:01 130/80 05/30/24 23:01 130/80 05/30/24 23:01 130/80 05/30/24 23:01 130/80 05/30/24 23:01 130/80 05/30/24 22:57 78 17 97 05/30/24 22:56 Nasal Cannula 4 Laboratory Results 05/31/24 06:07 05/30/24 05/31/24 05/31/24 11:15 06:07 08:39 WBC 15.23 H RBC 2.90 L MCV 107.2 H MCH 33.8 MCHC 31.5 L RDW Std Deviation 78.7 H RDW Coeff of Elayne 22.5 H Plt Count 119 L MPV 11.9 Albumin 2.9 L 2.7 L (3) Multiple open wounds of lower extremity, complicated Encounter type: initial encounter Laterality: left Qualified Code(s): S 81.802A - Unspecified open wound, left lower leg, initial encounter
[2024-05-31] MEDS: PHYTONADIONE 10 MG in DEXTROSE 5% 50 ML IV ONE (10:50)
--- NOTE | 2024-05-31 12:19 | Hospitalist Progress Note ---
Date of Service May 31, 2024 Assessment & Plan (1) Septic shock: (2) Severe sepsis due to methicillin resistant Staphylococcus aureus (MRSA) with acute organ dysfunction: (3) Acute metabolic encephalopathy: (4) Acute on chronic systolic (congestive) heart failure: (5) Severe aortic stenosis: (6) Insulin-requiring or dependent type II diabetes mellitus: (7) Chronic ulcer of left foot with fat layer exposed: (8) Peripheral arterial occlusive disease: (9) Multiple open wounds of lower extremity, complicated: (10) Multiple open wounds of upper extremity: (11) Wound of sacral region: (12) End stage renal disease on dialysis: (13) Vascular dementia: (14) Ischemic cardiomyopathy: (15) Palliative care by specialist: (16) Cirrhosis of liver: (17) Paroxysmal atrial fibrillation: (18) Demand ischemia: (19) Sepsis with acute liver failure and septic shock: (20) Acute hyperactive delirium due to another medical condition: (21) Nonsustained paroxysmal ventricular tachycardia: Plan Patient remains critically ill with paroxysms of ventricular tachycardia. Patient has been able to be titrated off pressors, however it remains to be seen if he can tolerate hemodialysis off pressors. Completed course of antibiotics for cellulitis continue to observe off anti biotics Hemodialysis as coordinated with nephrology and fiscal accountant Communication with nurse, patient evaluated by speech still not alert enough for safe feedings Stop atorvastatin in the setting of progressive liver dysfunction, minimal benefit at this point Continue wound care Patient continues to need hand mitts for safety and maintenance of medical treatments and devices Family continuing to discuss amongst themselves overall goals of care. No change in plan of care as of this date. Admission and Anticipated Discharge Date Admission Date: May 24, 2024 Subjective Patient still fairly delirious/encephalopathic, however did answer some simple questions. Communication with the nurse, reported patient had some runs of V. tach yesterday. None today. Was titrated off pressors last evening. No reported updates as to family's goals of care Physical Exam Physical Exam: Constitutional: Drowsy, chronically ill HEENT: Mucous membranes dry, scleral icterus Lungs: Decreased, rales and crackles throughout CV: S1-S2, regular Abdomen: Soft, nontender, nondistended Extremities: Decreasing anasarca and thick pitting edema in upper thighs and dependent portions. Neuro: Oriented to person and state only. Not oriented to building or date. Falls asleep easily, continues to be delirious Psych: At times irritable pulling at medical devices Results & Data Results & Data Vital Signs (Past 12 Hours) Vital Signs Temp Pulse Resp BP Pulse Ox O2 Del Method O2 Flow Rate 05/31/24 07:03 86 21 95 05/31/24 07:00 102/65 05/31/24 06:45 84 17 95 05/31/24 06:33 82 13 95 Nasal Cannula 2 05/31/24 06:03 80 13 97 05/31/24 06:00 93/62 L 05/31/24 06:00 93/62 L 05/31/24 06:00 93/62 L 05/31/24 06:00 93/62 L 05/31/24 06:00 93/62 L 05/31/24 06:00 93/62 L 05/31/24 06:00 93/62 L 05/31/24 05:57 78 11 L 97 05/31/24 05:40 99/63 L 05/31/24 05:40 99/63 L 05/31/24 05:40 99/63 L 05/31/24 05:40 99/63 L 05/31/24 05:40 99/63 L 05/31/24 05:40 99/63 L 05/31/24 05:40 99/63 L 05/31/24 05:40 99/63 L 05/31/24 05:30 86 20 97 Nasal Cannula 2 05/31/24 05:06 85 21 97 05/31/24 05:01 139/84 05/31/24 05:01 139/84 05/31/24 05:01 139/84 05/31/24 05:01 139/84 05/31/24 05:01 139/84 05/31/24 05:01 139/84 05/31/24 05:01 139/84 05/31/24 05:01 139/84 05/31/24 05:01 139/84 05/31/24 05:01 139/84 05/31/24 05:01 139/84 05/31/24 04:51 82 15 96 05/31/24 04:48 79 13 96 Nasal Cannula 2 05/31/24 04:09 81 16 97 05/31/24 04:01 147/89 H 05/31/24 04:01 147/89 H 05/31/24 04:01 147/89 H 05/31/24 04:01 147/89 H 05/31/24 04:01 147/89 H 05/31/24 04:01 147/89 H 05/31/24 04:01 147/89 H 05/31/24 04:01 147/89 H 05/31/24 04:01 147/89 H 05/31/24 04:01 147/89 H 05/31/24 04:01 147/89 H 05/31/24 04:01 147/89 H 05/31/24 04:01 147/89 H 05/31/24 04:01 147/89 H 05/31/24 04:01 147/89 H 05/31/24 04:01 147/89 H 05/31/24 03:01 36.5 C 153/89 H 96 Nasal Cannula 2 05/31/24 03:01 153/89 H 05/31/24 03:01 153/89 H 05/31/24 02:48 81 16 97 Nasal Cannula 2 05/31/24 02:33 81 15 97 Nasal Cannula 2 05/31/24 02:06 81 16 97 05/31/24 02:01 139/86 05/31/24 02:01 139/86 05/31/24 02:01 139/86 05/31/24 02:01 139/86 05/31/24 02:01 139/86 05/31/24 02:01 139/86 05/31/24 02:01 139/86 05/31/24 02:01 139/86 05/31/24 02:01 139/86 05/31/24 02:01 139/86 05/31/24 02:01 139/86 05/31/24 02:01 139/86 05/31/24 02:01 139/86 05/31/24 02:01 139/86 05/31/24 02:01 139/86 05/31/24 02:01 139/86 05/31/24 02:01 139/86 05/31/24 02:01 139/86 05/31/24 01:57 83 23 98 Nasal Cannula 2 05/31/24 01:30 80 16 96 Nasal Cannula 2 05/31/24 01:01 117/05/31/24 01:01 117/05/31/24 01:01 117/74 05/31/24 01:01 117/74 05/31/24 01:01 117/74 05/31/24 01:01 117/74 05/31/24 01:01 117/74 05/31/24 01:01 117/74 05/31/24 01:01 117/74 05/31/24 01:01 117/74 05/31/24 01:01 117/74 05/31/24 01:01 117/74 05/31/24 01:01 117/74 05/31/24 01:01 117/74 05/31/24 01:01 117/74 05/31/24 01:01 117/74 05/31/24 01:01 117/74 05/31/24 01:01 117/74 05/31/24 01:01 117/74 05/31/24 01:01 117/74 05/31/24 01:01 117/74 05/31/24 01:01 117/74 05/31/24 01:01 117/74 05/31/24 01:01 36.5 C 117/74 05/31/24 00:15 77 Diagnostic Findings Reviewed imaging, laboratory and diagnostic studies. Pertinent findings as below. WBCs 15.2 Hemoglobin 9.8 Platelets of 119 INR 1.5 Creatinine of 4.76 Magnesium 2.4 LFTs reviewed, continue to worsen (9) Multiple open wounds of lower extremity, complicated Encounter type: initial encounter Laterality: left Qualified Code(s): S81.802A - Unspecified open wound, left lower leg, initial encounter
--- NOTE | 2024-05-31 17:12 | Communication Note ---
Date of Service: May 31, 2024 Phone conversations with the patient's daughter Merly throughout the afternoon. Answered numerous questions she had about what comfort measure orders mean. Discussed how home hospice would look or hospice at an extended care facility. She then took this information and had further conversation with her siblings. Follow-up phone conversation with Merly states that the family will most likely transition patient to comfort measures only tomorrow morning. They plan to be at bedside tomorrow morning. Would like morning labs drawn as that may help any further decision making. They would like to continue the steroids and other medicines he is receiving until tomorrow. Patient has been off IV pressors and not requiring ICU level care since . Communication with electronic scanner operator, believe patient can be transferred out of the ICU. Transfer to [facility] telemetry in anticipation of additional change to comfort measures only in the morning after family is able to visit. Patient is DNR/DNI and has already been established that once life-sustaining measures have been stopped, they would not want them to be restarted. Would not restart IV pressors if his blood pressure would deteriorate overnight or before he is transitioned to comfort measures only. Would not transfer patient back to ICU. Family already indicated they would not want him to be resuscitated with CPR and mechanical ventilation or any artificial life support at this time. If the patient's condition deteriorates overnight, notify family to transition patient to comfort.
[2024-06-01] MEDS ORDERED: PHA DELIRIUM CONSULT PRN (10:16)
[2024-06-01] MEDS ORDERED: GLYCOPYRROLATE 0.2 MG/ML VIAL IV PRN (11:33)
[2024-06-01] MEDS ORDERED: HALOPERIDOL ORAL SOLN 2 MG/ML PO PRN (11:33)
[2024-06-01] MEDS ORDERED: LORazepam 0.5 MG TAB SL PRN (11:33)
[2024-06-01] MEDS ORDERED: LORazepam 2 MG/1 ML VIAL IV PRN (11:33)
[2024-06-01] MEDS ORDERED: ONDANSETRON INJ 2 MG/ML 2 ML VIAL IV PRN (11:33)
[2024-06-01] MEDS ORDERED: MoRPHine SULFATE 2 MG/ML CARP IV PRN (11:33)
--- NOTE | 2024-06-01 11:42 | Hospitalist Progress Note ---
Date of Service June 01, 2024 Assessment & Plan (1) Septic shock: (2) Severe sepsis due to methicillin resistant Staphylococcus aureus (MRSA) with acute organ dysfunction: (3) Acute metabolic encephalopathy: (4) Acute on chronic systolic (congestive) heart failure: (5) Severe aortic stenosis: (6) Insulin-requiring or dependent type II diabetes mellitus: (7) Chronic ulcer of left foot with fat layer exposed: (8) Peripheral arterial occlusive disease: (9) Multiple open wounds of lower extremity, complicated: (10) Multiple open wounds of upper extremity: (11) Wound of sacral region: (12) End stage renal disease on dialysis: (13) Vascular dementia: (14) Ischemic cardiomyopathy: (15) Palliative care by specialist: (16) Cirrhosis of liver: (17) Paroxysmal atrial fibrillation: (18) Demand ischemia: (19) Sepsis with acute liver failure and septic shock: (20) Acute hyperactive delirium due to another medical condition: (21) Nonsustained paroxysmal ventricular tachycardia: Plan Patient 78-year-old gentleman with end-stage renal disease dependent on hemo dialysis, end-stage heart failure, severe aortic stenosis, multiple wounds, cirrhosis, and dementia presented to the hospital with evidence of septic shock. The patient was aggressively treated since May 24, 2024. This included an ICU stay where he was intubated and mechanically ventilated and maintained on 2 pressors. Despite aggressive interventions the patient's condition had did not improve significantly. He was able to be extubated and titrated off pressors. However his blood pressure could not tolerate further hemodialysis. And patient remains significantly delirious encephalopathic. Palliative care was involved and the entire medical team assisted the family through the conversations of the patient's overall poor prognosis. With frequent conversations in the family having conversations amongst themselves this morning at bedside Jadyn requested that their father be made comfort care. Transition to comfort measures only Communicated with medical team Case management to possibly evaluation ongoing comfort measures at long term facility Patient's prognosis is poor, anticipated life expectancy measured in hours to several days. 53 minutes spent on evaluation of patient, communication with medical team, reviewing medical records, documentation, extensive conversation with family at bedside Admission and Anticipated Discharge Date Admission Date: May 24, 2024 Subjective Patient still very confused and delirious and encephalopathic. Only occasionally can understand what words he is trying to say. Daughters Merly and Sonam at bedside. Physical Exam Physical Exam: Constitutional: Encephalopathic, chronically ill HEENT: Mucous membranes dry, scleral icterus Lungs: Decreased coarse breath sounds CV: S1-S2, regular Abdomen: Soft, nontender, nondistended Extremities: Continued with thick anasarca edema lower extremities and dependent areas of the body Neuro: Encephalopathic, disoriented, globally weak Psych: Overall cooperative Derm: Jaundiced Results & Data Results & Data Vital Signs (Past 12 Hours) Vital Signs Temp Pulse Pulse Resp BP Pulse Ox O2 Del Method 06/01/24 09:16 36.4 C L 90 17 98/67 L 97 Nasal Cannula 06/01/24 08:00 Nasal Cannula 06/01/24 07:00 86 06/01/24 02:59 36.0 C L 86 18 96/66 L 96 Nasal Cannula 06/01/24 00:44 95/65 L O2 Flow Rate 06/01/24 09:16 3 06/01/24 08:00 2 06/01/24 07:00 06/01/24 02:59 3 06/01/24 00:44 Diagnostic Findings Reviewed imaging, laboratory and diagnostic studies. Pertinent findings as below. (9) Multiple open wounds of lower extremity, complicated Encounter type: initial encounter Laterality: left Qualified Code(s): S81.802A - Unspecified open wound, left lower leg, initial encounter
[2024-06-01] MEDS: MoRPHine SULFATE 10 MG/0.5 ML UDP PO PRN (13:53)
[2024-06-01] MEDS ORDERED: HYDROmorphone HCL 2 MG TAB PO PRN (14:55)
[2024-06-01] MEDS: HYDROmorphone INJ 0.5 MG/0.5 ML SYR IV PRN (15:46)
--- NOTE | 2024-06-01 22:13 | Palliative Care Progress Note ---
Date of Service June 01, 2024 Assessment & Plan (1) Palliative care by specialist: Plan: Per previous notes, family has agreed that pt's dtr Merly Orellana, will serve as primary contact and has been keeping them aware. Palliative care will continue to follow for ongoing EOL care and family support. (2) Advanced directives, counseling/discussion: Plan: Patient continues to lack decisional capacity based on the inability to convey understanding of personal PMHx, current medical condition, treatment options nor the risks / benefits of those options, and lack of ability to make decisions based on such knowledge. Hospital does not have written documentation of patient wishes concerning his chosen proxy for medical decisions. Per PA [id number], in absence of written documentation of patient wishes, pt's proxy for medical decisions would be 6 adult children with equal authority. Pt does require a proxy for medical decisions. (3) Counseling regarding goals of care: Plan: Met with pt's daughter Merly and Tuyet at bedside today. Pt has been transitioned to comfort directed care and appears comfortable in NAD. Merly shared that she has discussed with all siblings over weekend and all remain in agreement that pt has not had improvement they had hoped for, so they have elected SHEAR SCRAPMAN. She shared that the pt has been minimally interactive over weekend. Anticipatory guidance offered. Discussed changes pt may move through in the dying process including but not limited to sleeping more, disorientation when awake, restlessness, diminished senses/inability to respond to stimulus although ability to be aware of them remains intact longer, and changes in body temperatures, skin changes/mottling/cyanosis, respiratory pattern changes, and oral secretions. Family verbalized understanding. The goal is to assure a peaceful . EOL Rally: When a person facing the end of life rallies, they seem to become "more stable" - may want to talk or even begin taking PO; this phenomenon is usually seen as a sudden burst of energy before . This period of perking up can be accompanied by such a notable change in mental clarity that is often referred to as terminal lucidity. This change in cognition and behavior goes against everything families learn about the physical signs that the end of life is near. It is important to note that evidence-based data is elusive, if nonexistent. Theories support that it may be a search for a final, strong conne ction. Also, as organs shut down, they can release a steroid like compound that briefly rouses the body - in the specific case of brain tumors, swelling occurs in the confined space of the skull. The edema shrinks as EOL care patients are weaned off food and drink, waking up the brain a bit. Families and caregivers may grasp at what seems to be a turnaround in a loved ones health, however, the EOL Rally is a hallmark pre- sign. It is not uncommon for patients to show improvement before : they may want to talk while others may become restless or act as if they need to start preparing for a trip. Some patients will become more relaxed yet remain tuned in to what is going on around them, others will show signs of physical stability when, seconds before, they seemed on the verge of letting go. A rally can last for a few moments or even days. Short or long, these temporary improvements can have a profound effect on loved ones who are keeping kirby. Like a moment of clarity for someone who has dementia, a rally is one last opportunity to connect with a loved one. Each persons experience is unique and impossible to predict with total accuracy. Lif e is full of questions, and some of them simply are not meant to be answered. (4) Comfort measures only status: Plan: Family has elected to transition to comfort directed care today. (5) Need for comfort care: Plan: EOL Symptom manamgement: Pain/dyspnea/tachypnea dilaudid 0.5mg IVP PRN [id number] Consider titratable dilaudid drip if pt requires >3 PRN doses in under two consecutive hours. Nausea/vomitting zofran 4mg IVP q4h PRN Agitation ativan 0.5mg IVP q4h PRN Hyperactive delirium haldol 5mg IVP q6h PRN Secretions - if repositioning not effective robinul 0.4mg IV q4h PRN atropine SL 3 drops Q1h PRN Nursing care: Discontinue all medications not directed towards comfort. Detether pt from IV tubing, monitor cables, and check vitals once per shift. Please continue HFNC and titrate down as able for patient comfort. Use medications above PRN for dyspnea/tachypnea and do not increase oxygen once titrated down. Assess q1h for pain/dyspnea and treat accordingly. Plan as above Admission and Anticipated Discharge Date Admission Date: May 24, 2024 Subjective Assessed pt at bedside, he was transitioned to SHEAR SCRAPMAN this morning. Pt is unresponsive to verbal and gentle tactile stimuli, did not attempt to awaken in concert with comfort directed care. He appears comfortable, jaundiced skin, extremities cool. Respiratory effort increased, rate 20/min with mild accessory muscle use. Daughters at bedside. Review of Systems Review of Systems: Unobtainable due to cognitive status Physical Exam Physical Exam: General exam: obtunded, NAD Respiratory system: coarse, diminished breath sounds bilaterally. Gastrointestinal: Abdomen is soft, non distended, non tender, bowel sounds are present CVS: Regular rate and rhythm. No murmurs, rubs or gallops Musculoskeletal: No joint or muscle tenderness Extremities: BLE edema, peripheral pulses are present Neuro: obtunded Skin: No rashes Results & Data Vital Signs (Past 12 Hours) Vital Signs Temp 36.4 C L 06/01/24 09:16 Pulse 90 06/01/24 09:16 Resp 17 06/01/24 09:16 BP 98/67 L 06/01/24 09:16 Pulse Ox 97 06/01/24 09:16 O2 Del Method Nasal Cannula 06/01/24 09:16 O2 Flow Rate 3 06/01/24 09:16 FiO2 25 05/27/24 10:05 Intake & Output 06/01/24 06/01/24 06/02/24 06:59 18:59 06:59 Intake Total 0 / 176 120 / 120 Output Total 0 / 0 Balance 0 / 176 120 / 120 Weight 102.6 kg 102.6 kg Intake: IV 0 / 0 Phenylephrine/Nss 25 mg In 250 0 / 0 ml @ 0 MCG/KG/MIN IV .Q0M [facility] Rx#:[id number] Oral 0 / 125 120 / 120 Output: # Bowel Movements 0 / 0 Other: # Unmeasured Voids 0 Weight Measurement Method Built in [facility] Laboratory Results No further labs or diagnostics in concert with comfort directed care. Diagnostic Findings No further labs or diagnostics in concert with comfort directed care. Medications Administered Current Inpatient Medications Acetaminophen (Acetaminophen 325 Mg Tab) 650 mg PO Q4H PRN PRN Reason: Pain or Fever Stop: 06/23/24 14:17 Last Admin: 05/26/24 22:07 Dose: 650 mg Collagenase (Collagenase Oint 30 Gm Tube) 1 appln EXT DAILY DEEPA Stop: 06/24/24 12:59 Last Admin: 06/01/24 08:10 Dose: 1 appln Glycopyrrolate (Glycopyrrolate 0.2 Mg/Ml Vial) 0.4 mg IV Q4H PRN PRN Reason: Rattling Secretions or Pulm Congestion Stop: 07/01/24 11:32 Haloperidol (Haloperidol Oral Soln 2 Mg/Ml) 0.5 mg PO Q4H PRN PRN Reason: Anxiety/Agitation Stop: 07/01/24 11:32 Hydromorphone HCl (Hydromorphone Inj 0.5 Mg/0.5 Ml Syr) 0.5 mg IV Q2H PRN PRN Reason: Discomfort/respiratory distres Stop: 06/15/24 14:54 Last Admin: 06/01/24 19:15 Dose: 0.5 mg Hydromorphone HCl (Hydromorphone Hcl 2 Mg Tab) 2 mg PO Q1H PRN PRN Reason: Discomfort/respiratory distres Stop: 06/15/24 14:54 Sodium Chloride (Nss) 1,000 mls @ 0 mls/hr IV .Q0M PRN PRN Reason: For Hemodialysis Use ONLY Stop: 06/02/24 06:59 Sodium Chloride (Nss) 1,000 mls @ 0 mls/hr IV .Q0M PRN PRN Reason: For Hemodialysis Use ONLY Stop: 06/05/24 06:59 Lorazepam (Lorazepam 2 Mg/1 Ml Vial) 0.5 mg IV Q4H PRN PRN Reason: Anxiety/Agitation Stop: 07/01/24 11:32 Lorazepam (Lorazepam 0.5 Mg Tab) 0.5 mg SL Q4H PRN PRN Reason: Anxiety/Agitation Stop: 07/01/24 11:32 Midodrine (Midodrine Hcl 10 Mg Tab) 10 mg PO TID@0800,1200,1700 [facility] Stop: 06/23/24 14:17 Last Admin: 06/01/24 16:08 Dose: Not Given Ondansetron HCl (Ondansetron Inj 2 Mg/Ml 2 Ml Vial) 4 mg IV Q6H PRN PRN Reason: Nausea Stop: 06/23/24 14:17 Ondansetron HCl (Ondansetron Inj 2 Mg/Ml 2 Ml Vial) 4 mg IV Q4H PRN PRN Reason: Nausea &/or Vomiting Stop: 07/01/24 11:32 PG Care Time/CCT Total # of Minutes Spent Total Time Spent with Patient: Total time spent is greater than 50% in coordination of care (as documented) at patient's floor/unit and/or counseling patient: Advanced Care Planning 91630 Advanced Care Planning 30 Min [place] [id number] SUB INP/OBS CARE 03/21MIN Patient Type Established History Problem Focused Exam Problem Focused Medical Decision Making Low Complexity Diagnoses Palliative care by specialist Z51.5 Advanced directives, counseling/discussion Z71.89 Counseling regarding goals of care Z71.89 Comfort measures only status Z51.5 Need for comfort care Additional Codes Advanced Care Planning - 73779 Advanced Care Planning 30 Min: 04148 Advanced Care Planning 30 Min ([id number])
[2024-06-02] MEDS ORDERED: HYDROCORTISONE SOD 25 MG in SYRINGE 0 ML IV SCH (09:00)
--- NOTE | 2024-06-02 12:41 | Discharge Summary ---
Discharge Summary Date of Service June 02, 2024 Principal Dx & Hospital Course #1 = Principal Diagnosis (1) Septic shock: (2) Severe sepsis due to methicillin resistant Staphylococcus aureus (MRSA) with acute organ dysfunction: (3) Acute metabolic encephalopathy: (4) Acute on chronic systolic (congestive) heart failure: (5) Severe aortic stenosis: (6) Insulin-requiring or dependent type II diabetes mellitus: (7) Chronic ulcer of left foot with fat layer exposed: (8) Peripheral arterial occlusive disease: (9) Multiple open wounds of lower extremity, complicated: (10) Multiple open wounds of upper extremity: (11) Wound of sacral region: (12) End stage renal disease on dialysis: (13) Vascular dementia: (14) Ischemic cardiomyopathy: (15) Palliative care by specialist: (16) Cirrhosis of liver: (17) Paroxysmal atrial fibrillation: (18) Demand ischemia: (19) Sepsis with acute liver failure and septic shock: (20) Acute hyperactive delirium due to another medical condition: (21) Nonsustained paroxysmal ventricular tachycardia: Plan Patient [id number] gentleman who presented to [facility] emergency department from [facility]. In the emergency room patient presented with severe sepsis with concerns of a methicillin-resistant staph RES infection from his multiple skin wounds. Patient also has known end-stage renal disease and had been having difficulty getting hemodialysis due to low blood pressures most likely associated with his sepsis. Patient was admitted to a monitored setting. He was started on broad-spectrum antibiotics for his presumed sepsis from skin infection with a high concern of MRSA bacteremia since he had a history of this in the past. His foot was evaluated for osteomyelitis and that was ruled out. Nephrology was consulted for hemodialysis management. Early in the morning of day 2 of hospitalization patient had acute decompensation of his condition with acute respiratory failure and hypotension. Patient was transferred to the ICU. He was intubated and placed on mechanical ventilator and required to pressors to maintain adequate blood pressure. Cardiology consultation and palliative care consultation and application developer consult ation was obtained. Echocardiogram showed significantly decreased ejection fraction of 30 to 35% with severe global hypokinesis. Patient was able to undergo hemodialysis with the assistance of IV pressors. Patient had severe pulmonary edema and anasarca due to the fact that they had been unable to really with draw any fluid on his previous hemodialysis sessions prior to admission. Extensive conversations ensued with the family about goals of care with palliative care and other members of the medical team. Family wanted to continue the current intensive care. However if his heart would stop they did not want CPR and if he would be extubated they would not want him reintubated. The patient received hemodialysis while on IV pressors and his severe pulmonary edema slowly improved. He completed a course of IV antibiotics for his cellulitis and sepsis. He was able to be weaned off the ventilator and extubated. However, patient still remains severely encephalopathic and delirious. He continued on IV pressors. He was able to be titrated down to 1 pressor. Patient then started to have some issues with arrhythmias including some bursts of atrial fibrillation and ventricular tachycardia. Unfortunately his blood pressures did not allow for any significant medical intervention on these transient arrhythmias. Despite treatment of his infection, adequate hemodialysis patients can remained encephalopathic. He was able to be titrated off pressors completely but his blood pressure could not tolerate hemodialysis. During this time the family continued to discuss goals of care. Family came to terms that the patient prognosis was extremely grave and that the likelihood of having him get to any type of meaningful recovery and out of the hospital was low. Family chose to convert him to comfort care. Comfort care measures were instituted. Patient and comfort on 06/02/2024 at 0127 hrs. Notes For Next Care Provider Patient Medication Changes From Visit Patient Admission HPI Per Admitting Provider Patient is a 78-year-old gentleman who is chronically ill and currently at [facility] for rehabilitation. Send [facility] emergency department due to the fact that he seemed to be more confused this morning. He did not eat his meals this morning and seem to have been declining over the last 24 hours. In the emergency room he was initially mildly hypotensive and was worked up for sepsis. Laboratory studies were significant for electrolyte abnormalities and renal dysfunction consistent with his end-stage renal disease. Troponin was elevated but lower than he had previously based on documents sent from [facility]. Procalcitonin was elevated, difficult to interpret in the setting of his end-stage renal disease. Head CT was unremarkable for acute findings. Ch est x-ray was concerning for volume overload. Due to the patient's encephalopathy and diffuse and numerous wounds on the legs and arms concern for sepsis due to these wounds and was referred to our service for further evaluation. Time my evaluation the patient is confused and unable to contribute to his history at all. I did review documents from [facility]. Patient's daughter then did arrive at the bedside. She was able to give some additional history. Patient health started to decline significantly at the beginning of this year. He was started on hemodialysis in February. Patient had known wounds on his feet and apparently was on several courses of oral antibiotics in February and early March for foot wound infections. In March he had a hospitalization at [facility] for MRSA bacteremia from his foot wounds. He was treated with IV antibiotics through dialysis. He was discharged home and completed his antibiotics outpatient from that hospitalization. Shortly thereafter he returned to [facility] in early April for severe weakness and ambulatory dysfunction. He was again admitted to the hospital. According to his daughter they did not seem to find any infectious process at that time however, the patient was just severely deconditioned. The patient was transferred to [facility] rehab on May 16, 2024 for rehabilitation. He has been at rehabilitation since that time. Throughout the course of these hospitalizations the patient did have evaluations by podiatry. He did have vascular evaluation of the left lower extremity. He was deemed to be not a candidate for vascular surgery intervention on the day of left lower extremity due to his overall medical issues. Known to have decreased ejection fraction of approximately 30 to 35% and significant aortic stenosis. He is deemed not a candidate for any type of cardiac interventions as well. He has continued with hemodialysis. It is reported on Saturday his last hemodialysis session they were unable to remove any fluid and sounds like they did ultrafiltration only due to the fact that he was hypotensive. Daughter at the bedside states that over the past several months they have had problems maintaining adequate blood pressure. He is on midodrine. She states that he often gets hypotensive overnight and wakes up extremely confused and disoriented in the morning. She states that he appears very similar today as to when this occurs. She states at baseline his orientation can wax and wane. He does have some slurred speech at baseline. Does have a history of previous stroke. She also reports that he is exhibiting signs of vascular dementia with "sundowning" symptoms occurring in the evening's. Daughter did confirm full CODE STATUS Admission Exam Per Admitting Provider See H&P Discharge Exam Patient overnight no exam performed by this physician at the time of discharge Updated Medication List Medication Instructions Recorded Confirmed Type acetaminophen 325 mg tablet 650 mg PO Q4H PRN Pain 05/24/24 05/24/24 History acetaminophen 500 mg tablet 500 mg PO Q4H PRN TEMP=>100.5 05/24/24 05/24/24 History atorvastatin 40 mg tablet 80 mg PO HS 05/24/24 05/24/24 History bisacodyl 10 mg rectal suppository 10 mg TN DAILY PRN Constipation 05/24/24 05/24/24 History cholecalciferol (vitamin D3) 50 50 mcg PO DAILY 05/24/24 05/24/24 History mcg (2,000 unit) capsule (Vitamin D3) clopidogrel 75 mg tablet (Plavix) 75 mg PO DAILY 05/24/24 05/24/24 History collagenase clostridium histo. 250 1 applic topical .SAT,SAT,Saturday05/24/24 05/24/24 History unit/gram topical ointment darbepoetin mary jane in polysorbat 60 60 mcg subcut WK 05/24/24 05/24/24 History mcg/0.3 mL in polysorbate injection syringe (Aranesp) dextrose 50 % in water (D50W) 12.5 g IV DIRECTED PRN 05/24/24 05/24/24 History Hypoglycemia dextrose 50 % in water (D50W) 50 ml IV DIRECTED PRN 05/24/24 05/24/24 History Hypoglycemia diphenhydramine HCl 12.5 mg IV DIRECTED PRN DIALYSIS 05/24/24 05/24/24 History docusate sodium 100 mg capsule 100 mg PO BID PRN Constipation 05/24/24 05/24/24 History enoxaparin 30 mg/0.3 mL 30 mg subcut DAILY 05/24/24 05/24/24 History subcutaneous syringe fenofibrate 160 mg tablet 145 mg PO DAILY 05/24/24 05/24/24 History gabapentin 100 mg capsule 100 mg PO .SAT,SAT,Saturday05/24/24 05/24/24 History gabapentin 100 mg capsule 100 mg PO Q12H 05/24/24 05/24/24 History glucagon 1 mg solution for 1 mg IM DIRECTED PRN 05/24/24 05/24/24 History injection Hypoglycemia heparin (porcine) 1,000 unit/mL 1,800 unit IV DIRECTED PRN 05/24/24 05/24/24 History injection solution DIALYSIS insulin aspart U-100 100 unit/mL 1 sliding scale dose subcut 05/24/24 05/24/24 History (3 mL) subcutaneous pen (Novolog USEASDIRECTD FlexPen U-100 Insulin aspart) lorazepam 0.5 mg tablet (Ativan) 0.5 mg PO Q6H PRN Agitation 05/24/24 05/24/24 History midodrine 5 mg tablet 10 mg PO TID 05/24/24 05/24/24 History ondansetron HCl 4 mg tablet 4 mg PO Q6H PRN N/V 05/24/24 05/24/24 History oxycodone 5 mg tablet 2.5 mg PO Q6H PRN Pain 05/24/24 05/24/24 History pantoprazole 40 mg tablet,delayed 40 mg PO DAILY 05/24/24 05/24/24 History release (Protonix) polyethylene glycol 3350 17 17 g PO .LUNCH PRN Constipation 05/24/24 05/24/24 History gram/dose oral powder (Miralax) sennosides 8.6 mg-docusate sodium 1 tab-cap PO .LUNCH PRN 05/24/24 05/24/24 History 50 mg tablet (Senokot-S) Constipation sodium chloride 0.9 % (flush) 1,000 ml IV DIRECTED 05/24/24 05/24/24 History sodium phosphates 19 gram-7 118 ml TN DAILY PRN Constipation 05/24/24 05/24/24 History gram/118 mL enema (Enema) Hospital Stay Data Consultations 05/24/24 10:36 ED Decision to Admit Stat 05/24/24 11:01 Consult Nephrology Routine 05/24/24 11:22 Consult Podiatry Routine 05/25/24 02:13 Consult Box Car Washer Routine 05/25/24 07:35 Consult Vascular Surgery Routine 05/25/24 08:15 Consult Palliative Care Routine 05/25/24 08:16 Consult Cardiology Routine Diagnostic Imagining Performed 05/24/24 08:49 CT head/brain wo con Stat 05/25/24 12:39 MR foot LT w/o con Routine 05/26/24 11:34 CT head/brain wo con Urgent 05/27/24 08:17 US abdomen limited Routine Reviewed imaging, laboratory and diagnostic studies. Pertinent findings as below. Total Time Total Time Spent Total Time Spent (In Minutes): 40
== END 2024-06-02 03:24 | disposition expired | DRG 871 ==
LOC: ED 08:43 → 2S 11:22 → SUATTDRO 11:22 → 2S 13:00 → 1E 05-25 02:04 → 2W 05-31 19:08